=== PATIENT | female | born 1980 ===

== ENCOUNTER 2025-05-02 17:12 | Inpatient (IN) | payer MEDICAID, SELFPAY ==
--- NOTE | ~2025-05-02 | CT_ITS ---
CLINICAL HISTORY: altered MS, head injury CT Cervical Spine WO Contrast COMPARISON: None provided FINDINGS: No acute fracture or malalignment. Soft tissues are normal. IMPRESSION: No acute findings. This document has been electronically signed by: Bon Lynch MD on 05/03/2025 03:04:21
--- NOTE | ~2025-05-02 | CT_ITS ---
CLINICAL HISTORY: fall, head injury CT Head WO Contrast COMPARISON: None provided FINDINGS: No acute intracranial hemorrhage. No evidence of acute infarction. No mass-effect or midline shift. No hydrocephalus. Cyst or polyp in the right maxillary sinus. The mastoid air cells are clear. The visible orbits are normal. No acute fracture. Unremarkable soft tissues. IMPRESSION: No acute intracranial findings. This document has been electronically signed by: Bon Lynch MD on 05/03/2025 03:05:48
--- NOTE | ~2025-05-02 | CT_ITS ---
CLINICAL HISTORY: Unexplained tachycardia, elevated D-dimer, CT Angiography Chest W Contrast 3D Postprocessing COMPARISON: None provided FINDINGS: Detail limited by artifacts. No pulmonary embolism. No thoracic aortic aneurysm or dissection. No consolidation. No mass. Mild atelectasis. No pleural effusion. No pneumothorax. No cardiomegaly. No pericardial effusion. No pathologically enlarged lymph nodes. No acute fracture. Diffusely hypodense liver consistent with hepatic steatosis. Small hiatal hernia. IMPRESSION: No acute findings. No pulmonary embolism. This document has been electronically signed by: Bon Lynch MD on 05/03/2025 03:07:13
--- NOTE | ~2025-05-02 | XR_ITS ---
EXAMINATION: XR ABDOMEN KUB CLINICAL INDICATION: pt confused, poor historian, r/o foreign body/ implant to contraindicate MR COMPARISON: None available. TECHNIQUE: AP view of the abdomen. FINDINGS: No radiopaque foreign bodies are evident. The bowel gas pattern is normal/nonspecific. There is no focally dilated loop of bowel. There is moderate fecal material seen throughout the colon consistent with mild constipation. No organomegaly. No large abdominal mass. Imaged lung bases are clear. No focal suspicious osseous abnormality. XR/XR abdomen 1V IMPRESSION: 1. No radiopaque foreign bodies are evident. No contraindication to MRI based on these radiographs. 2. Mild constipation. Electronically signed by: Ant Pantoja MD 05/19/2025 03:44 PM EDT
[2025-05-02 17:27] VITALS: BP 123/64; PULSE 115; RESP 16; TEMP 36.7; O2SAT 100; BMI 27.0
--- NOTE | 2025-05-02 17:29 | ED_ITS ---
HPI - General Adult General Chief complaint: Fall Stated complaint: chest pain from [facility] Time Seen by Provider: 05/02/25 17:29 History of Present Illness ED Provider: Be KEMP narrative: The patient is a 44-year-old Bulgarian speaking female. She is from [place] and emig[place] in [place]. Apparently she had an episode of psychiatric hospitalization when she 1st moved to the [facility] in 2017. Her home medications has been haloperidol, diazepam, and benztropine. She was apparently brought to the [facility] Emergency room 2 days ago because she has been having hallucinations and sleeping poorly for a week. She was evaluated at the emergency room at [facility] and was felt to be in the throes of an acute psychosis possibly precipitated by insomnia. She had unremarkable vital signs. She has a head CT that was negative. Her labs showed a normal white count of 8.2. Hemoglobin 13.0, platelet count 225, she had 35% neutrophils and 48.8% lymphocytes. Her metabolic panel was unremarkable. LFT showed a minimally elevated AST of 33. TSH was 2.01. test was negative. Ethanol was negative. The patient was judged to require psychiatric hospitalization because of a thought disorder and she was transferred to the [facility] on that same day, April 30, 2 days ago. Apparently the patient was frequently agitated after arriving at [facility] 2 days ago. She received a lot of as needed doses of sedation for agitation. Yesterday her heart rate was 119. According to a nurse at the facility the patient has remained tachycardic today. They say that her heart rate was as high as 138 today. They also say that at 1 point she complained of chest pain. They also state that at 1 point she had a fall and hit her head. The staff member with whom I spoke said that the patient seemed to be in the habit of occasionally squatting down while walking and that on 1 of these occasions she squatted down and then slumped to the floor and hit her head. Possibly she had some brief loss of consciousness. There is no report of fever. Related Data Allergies Allergy/AdvReac Type Severity Reaction Status Date / Time No Known Allergies Allergy Verified 05/02/25 17:30 REPLACED BY [facility] Social History Social History Unable to assess alcohol history related to: Unable to respond Smoked in Last 30 Days: No Use of substances other than those prescribed or required for medical reasons: Unable to respond Advance Directives: No Advance Directives Information Provided: No Physical Exam ED Vital Signs: Vital Signs - 24 hr 05/02/25 17:27 05/02/25 17:42 05/02/25 17:49 Temperature 98.1 F Pulse Rate 115 H 110 H 107 H Respiratory Rate 16 16 16 Blood Pressure 123/64 119/74 115/78 Pulse Oximetry 100 100 98 Oxygen Delivery Method Room Air Room Air 05/02/25 21:07 05/03/25 00:39 05/03/25 01:27 Temperature 99 F 99 F Pulse Rate 126 H 121 H 106 H Respiratory Rate 18 14 Blood Pressure 129/81 122/60 Pulse Oximetry 98 98 98 Oxygen Delivery Method Room Air Room Air Room Air 05/03/25 01:30 05/03/25 03:49 Temperature 99.3 F 99.7 F Pulse Rate 137 H Respiratory Rate 19 Blood Pressure 145/85 H Pulse Oximetry 95 Oxygen Delivery Method Room Air BMI result Body Mass Index 27.0 Const Other: The patient is a 44-year-old woman who was awake. She is some mildly speaking and was interviewed with a computer facilitated tele translator interpreter. The patient does not seem in acute distress but she did seem to give some unusual answers to questions. She was calm and redirectable. She did not seem in pain or respiratory difficulty. HENMT Other: Face is symmetrical. I thought her mucous membranes looked somewhat dry. Eyes Other: Pupils were small and equal, conjunctivae are clear, extraocular movements seemed intact Neck Other: No neck swelling. She seemed to be moving her neck easily although she would not try to touch her chin to her chest. I felt this was because she seemed to have trouble understanding what was being asked to her Neuro Other: The patient is awake. I attempted to interview her with a some mildly foreign languages department chair using a tele translator interpreter. It was not clear if the patient was appropriately answering all questions. I believe the translator interpreter was able to understand the patient's answers but sometimes her answers were not appropriate to the questions. I think her speech was clear. Her pupils are small and equal, extraocular movements seem intact, the face is symmetrical. She seems to have symmetrical tone in all extremities. No clonus. Overall she seems to have an altered mental status probably consistent with a psychotic state but no focal findings. Extrem Other: No peripheral edema Medications Administered Discontinued Medications Generic Name Dose Route Start Last Admin Trade Name Zackery PRN Reason Stop Dose Admin Diazepam 5 mg 05/02/25 17:30 05/02/25 17:40 Diazepam 10 Mg/2 Ml Cartridge IVPUSH 05/02/25 17:31 5 mg STAT STA Administration Diazepam 5 mg 05/02/25 19:10 05/02/25 19:17 Diazepam 10 Mg/2 Ml Cartridge IVPUSH 05/02/25 19:11 5 mg STAT STA Administration Diazepam 10 mg 05/02/25 19:41 05/02/25 20:06 Diazepam 10 Mg/2 Ml Cartridge IVPUSH 05/02/25 19:42 10 mg STAT STA Administration Diazepam 10 mg 05/02/25 20:58 05/02/25 21:21 Diazepam 10 Mg/2 Ml Cartridge IVPUSH 05/02/25 20:59 10 mg STAT STA Administration Haloperidol Lactate 10 mg 05/02/25 21:31 05/02/25 21:38 Haloperidol Lactate 5 Mg/Ml Vial IVPUSH 05/02/25 21:32 10 mg STAT STA Administration Sodium Chloride 1,000 mls @ 999 mls/hr 05/02/25 17:45 05/02/25 19:15 Ns IV 05/02/25 18:45 Infused .Q1H1M JAI Infusion Lactated Ringer's 1,000 mls @ 999 mls/hr 05/02/25 18:45 05/02/25 23:00 Lr IV 05/02/25 19:45 Infused .Q1H1M JAI Infusion Acetaminophen 1,000 mg in 100 mls @ 400 mls/hr 05/02/25 23:53 05/03/25 01:15 Ofirmev IV 05/03/25 00:07 Infused ONCE ONE Infusion Lactated Ringer's 1,000 mls @ 999 mls/hr 05/02/25 23:55 05/03/25 02:00 Lr IV 05/03/25 00:55 Infused .Q1H1M ONE Infusion Iohexol 65 ml 05/03/25 01:02 05/03/25 01:05 Iohexol 350 Mg/Ml 100 Ml Infus..Btl IV 05/03/25 01:03 65 ml ONCE ONE Administration Ketamine HCl 73.7 mg 05/03/25 00:10 05/03/25 00:48 Ketamine Hcl/Ns 50 Mg/5 Ml Syringe 1 mg/kg (73.7 mg) 05/03/25 00:11 73.7 mg IVPUSH Administration ONCE ONE Ketamine HCl 73.7 mg 05/03/25 03:35 05/03/25 03:41 Ketamine Hcl/Ns 50 Mg/5 Ml Syringe 1 mg/kg (73.7 mg) 05/03/25 03:36 73.7 mg IVPUSH Administration ONCE ONE Midazolam HCl 6 mg 05/02/25 20:43 05/02/25 20:48 Midazolam Hcl 2 Mg/2 Ml Vial IVPUSH 05/02/25 20:44 6 mg ONCE ONE Administration Midazolam HCl 5 mg 05/03/25 03:38 05/03/25 03:41 Midazolam Hcl 5 Mg/Ml Vial IVPUSH 05/03/25 03:39 5 mg ONCE ONE Administration Olanzapine 10 mg 05/02/25 19:41 05/02/25 20:09 Olanzapine 10 Mg Vial IM 05/02/25 19:42 10 mg ONCE ONE Administration Olanzapine 10 mg 05/02/25 20:58 05/02/25 20:58 Olanzapine 10 Mg Vial IM 05/02/25 20:59 Not Given ONCE ONE Procedures Lumbar Puncture Time Out Performed: Yes (03:53) Patient Position: right lateral decubitus Skin Prep: Povidone-Iodine 1% Local Anesthetic: lidocaine 1% Amount of anesthesia used (mL): 2.5 Spinal Needle Gauge: 20G Interspace Used: L4-L5 Fluid Initially Obtained: clear Complications: none Medical Decision Making Medical Decision Making MDM Narrative: The patient is a 44-year-old woman who speaks so mildly. She did not seem to speak Welsh. She has a history of mental illness and is on Haldol, diazepam, and benztropine at home. She was sent here from [facility] after a possible head injury. She has been there for 2 days after being seen in the emergency room at [facility] where she had a negative head CT among other testing which was unremarkable. Apparently since being at [facility] she has been without sleep and persistently agitated. Apparently she was squatting at some point this evening and fell and hit her head. Reportedly she had brief loss of consciousness. She has also been tachycardic over the last 24 hours. She has not been febrile. Here the patient's presentation seems consistent with a psychotic state associated with tachycardia. Her workup includes a white count of 10.0, hemoglobin 11.2, platelet count 202, 74.8% neutrophils. Chemistries show normal renal function, unremarkable electrolytes, negative test, normal TSH. Blood gas was unremarkable with a pH of 7.38 and a pCO2 of 36. CPK was elevated at 2333. My assumption was that this might be from intramuscular injections at [facility]. She apparently received several IM injections for her agitation. Apparently she has not had anything to eat or drink since being at [facility]. She was given an IV and was given IV fluids. She was agitated and I attempted to sedate her primarily with benzodiazepines. She was initially given 5 mg of IV diazepam and seemed to fall asleep. However this lasted only very briefly and then she became persistently agitated despite additional IV diazepam. She was also given IM olanzapine. She was later given a dose of IV midazolam as well. For the most part these medications seemed to have very little sedative affect. Ultimately she was also given 10 mg of IV haloperidol. She remained awake and restless. She was placed in soft restraints on her wrists. A bladder scan showed a bladder volume of 700. We could not convince her to avoid spontaneously so she was given a Sevilla catheter in hopes that perhaps her tachycardia and agitation would subside with bladder decompression. However despite bladder decompression the patient's agitation persisted. Given her persistent tachycardia a D-dimer was sent. This is elevated. Given the report of a head injury we will obtain a noncontrast head CT and cervical spine CT (unable to clinically evaluate the cervical spine reliably) and we will also get a CT pulmonary angiogram because of the elevated D-dimer and persistent tachycardia. The Sevilla catheter that was placed was a temperature sensing catheter. She was not febrile. She does not have clonus on exam. She has been given IV fluids. I will be signing the patient out to my colleague at change of shift pending the results of the CT scans. The patient may require additional sedation. 0:11 AM 05/03/2025 (Dr. Ariadne Brito, D.O.) Assumed care from previous provider after a detailed discussion regarding patient's case.? [id number] evaluation has taken place with no new change in management.? Patient is awaiting CT imaging, repeat lab work and final disposition. I did add on a dose of IV Tylenol to see if this would help her tachycardia since her temperature is around 99.3?. Though technically not a true fever, concern would be she is starting to spike a temperature and the tachycardia is related to a fever. Patient remains altered, slightly combative, requiring further sedation. We will attempt ketamine since she has not responded very well to benzodiazepines or antipsychotic so far. Concern for potential serotonin syndrome given the amount of antipsychotics and medications she has received in the last 48 hours between [facility] and [facility] however, patient has no clonus, pupils are 3 mm and reactive and she has no significant muscle rigidity. She does have a slight resting tremor in her temperature is mildly elevated. 3:50 AM 05/03/2025 (Dr. Ariadne Brito, D.O.) patient with persistent delirium, agitation. She is unable to lay still for any procedure. She did receive ketamine which seemed to work for a couple of hours, she was able to sleep and we did obtain the CT head, neck and chest. No evidence of acute process on any of those images. Temperature remains elevated at 99.7. This is after receiving IV Tylenol. At this point, I have to worry that she has an encephalopathic process including infection going on. We will perform an LP to evaluate further. Plan for admission to the ICU for further care and evaluation of agitated delirium. 4:51 AM 05/03/2025 (Dr. Ariadne Brito, D.O.) patient admitted to the ICU. Case discussed with Dr. Garcia. Differential Diagnosis Differential Diagnoses: The differential diagnosis associated with the presentation includes (As above) Admission/Observation Consideration of admission/observation: Escalation of care including admission/observation considered Consult Healthcare Provider Management of the patient was discussed with: Filling Winder (Religious Leader, Dr. Garcia) Lab Data MDM Lab Attestation statement: I reviewed the patient's lab results. 05/02/25 17:59 05/02/25 17:59 Labs: Lab Results 05/02/25 05/02/25 05/02/25 Range/Units 17:59 18:04 22:45 WBC 10.0 (4.8-10.8) X10*3/uL RBC 3.75 L (4.20-5.50) X10*6/uL Hgb 11.2 L (12.0-16.0) g/dl Hct 32.5 L (37.0-47.0) % MCV 86.7 (80.0-98.0) fL MCH 29.9 (27.0-33.0) pg MCHC 34.5 (31.0-35.0) g/dl RDW 13.7 (11.0-16.0) % Plt Count 202 (160-400) X10*3/uL MPV 10.4 (9.4-12.3) fL Immature Gran % (Auto) 0.3 (0.0-0.4) % Neut % (Auto) 74.8 H (45-73) % Lymph % (Auto) 15.1 L (20-40) % Bleckley % (Auto) 9.3 (2-11) % Eos % (Auto) 0.1 (0-4) % Baso % (Auto) 0.4 (0-2) % Lymph # (Auto) 1.5 (1.2-4.9) X10*3/uL Bleckley # (Auto) 0.9 (0.1-1.2) X10*3/uL Eos # (Auto) 0.0 (0.0-0.4) X10*3/uL Baso # (Auto) 0.0 (0.0-0.2) X10*3/uL Abs Immat Gran (auto) 0.03 (0.00-0.03) X10*3/uL Absolute Neuts (auto) 7.5 (2.0-8.3) x10*3/uL Absolute Nucleated RBC 0.000 (0.0-0.012) X10*3/uL Nucleated RBC % (auto) 0.0 (0.0-0.2) /100WBC D-Dimer High Sensitivty NG/ML VBG pH 7.38 (7.32-7.43) VBG pCO2 36 mmHg VBG pO2 42 mmHg VBG HCO3 21 L (22-26) mmol/L VBG O2 Saturation 64.0 % VBG Base Excess -2.6 mmol/L Sodium 143 (135-145) mmol/L Potassium 3.9 (3.3-5.1) mmol/L Chloride 111 H (96-108) mmol/L Carbon Dioxide 22 (22-29) mmol/L Anion Gap 14 (12-20) BUN 14 (9-16) mg/dL Creatinine 0.91 (0.5-1.4) mg/dL Estim Creat Clear Calc 79.3 Estimated GFR > 60 Random Glucose 86 (60-115) mg/dL Calcium 8.6 (8.4-10.2) mg/dL Magnesium 1.8 (1.6-2.6) mg/dL Total Bilirubin 1.0 (0.0-1.0) mg/dL Direct Bilirubin 0.4 (0.0-0.5) mg/dL AST 75 H (5-31) U/L ALT 31 (0-31) U/L Alkaline Phosphatase 84 (39-117) U/L Total Creatine Kinase 2333 H (26-140) U/L Total Protein 7.1 (6.5-8.0) g/dL Albumin 3.9 (3.5-5.0) g/dL Lipase 9 (8-78) U/L TSH (0.32-4.0) uIU/mL Beta HCG, Quant < 2 mIU/mL Urine Color Yellow Urine Appearance Clear Urine pH 5.5 (5.0-9.0) Ur Specific Dumas 1.020 (1.005-1.025) Urine Protein Negative (Neg-Trace) mg/dL Urine Glucose (UA) Negative (Negative) mg/dL Urine Ketones 15 (Negative) mg/dL Urine Blood Negative (Negative) Urine Nitrite Negative (Negative) Ur Leukocyte Esterase Negative (Negative) CSF Tube Number CSF Appearance (b) CSF Glucose mg/dL CSF Total Protein (15-45) mg/dL Urine Opiates Screen Not Detected (Not Detect) Ur Buprenorphine Scrn Not Detected (Not Detect) ng/mL Ur Oxycodone Screen Not Detected (Not Detect) ng/mL Urine Methadone Screen Not Detected (Not Detect) ng/mL Urine Fentanyl Screen Not Detected (Not Detect) Ur Barbiturates Screen Not Detected (Not Detect) Ur Phencyclidine Scrn Not Detected (Not Detect) Ur Amphetamines Screen Not Detected (Not Detect) U Benzodiazepines Scrn POSITIVE H (Not Detect) Urine Cocaine Screen Not Detected (Not Detect) U Marijuana (THC) Screen Not Detected (Not Detect) Ethyl Alcohol < 10 mg/dL Influenza Type A (PCR) NEGATIVE (Negative) Influenza Type B (PCR) NEGATIVE (Negative) RSV RNA Qual (PCR) NEGATIVE (Negative) SARS-CoV-2 RNA (RT-PCR) NEGATIVE (Negative) 05/02/25 05/03/25 Range/Units 23:01 04:08 WBC (4.8-10.8) X10*3/uL RBC (4.20-5.50) X10*6/uL Hgb (12.0-16.0) g/dl Hct (37.0-47.0) % MCV (80.0-98.0) fL MCH (27.0-33.0) pg MCHC (31.0-35.0) g/dl RDW (11.0-16.0) % Plt Count (160-400) X10*3/uL MPV (9.4-12.3) fL Immature Gran % (Auto) (0.0-0.4) % Neut % (Auto) (45-73) % Lymph % (Auto) (20-40) % Bleckley % (Auto) (2-11) % Eos % (Auto) (0-4) % Baso % (Auto) (0-2) % Lymph # (Auto) (1.2-4.9) X10*3/uL Bleckley # (Auto) (0.1-1.2) X10*3/uL Eos # (Auto) (0.0-0.4) X10*3/uL Baso # (Auto) (0.0-0.2) X10*3/uL Abs Immat Gran (auto) (0.00-0.03) X10*3/uL Absolute Neuts (auto) (2.0-8.3) x10*3/uL Absolute Nucleated RBC (0.0-0.012) X10*3/uL Nucleated RBC % (auto) (0.0-0.2) /100WBC D-Dimer High Sensitivty 519 NG/ML VBG pH (7.32-7.43) VBG pCO2 mmHg VBG pO2 mmHg VBG HCO3 (22-26) mmol/L VBG O2 Saturation % VBG Base Excess mmol/L Sodium (135-145) mmol/L Potassium (3.3-5.1) mmol/L Chloride (96-108) mmol/L Carbon Dioxide (22-29) mmol/L Anion Gap (12-20) BUN (9-16) mg/dL Creatinine (0.5-1.4) mg/dL Estim Creat Clear Calc Estimated GFR Random Glucose (60-115) mg/dL Calcium (8.4-10.2) mg/dL Magnesium (1.6-2.6) mg/dL Total Bilirubin (0.0-1.0) mg/dL Direct Bilirubin (0.0-0.5) mg/dL AST (5-31) U/L ALT (0-31) U/L Alkaline Phosphatase (39-117) U/L Total Creatine Kinase 2891 H (26-140) U/L Total Protein (6.5-8.0) g/dL Albumin (3.5-5.0) g/dL Lipase (8-78) U/L TSH 0.62 (0.32-4.0) uIU/mL Beta HCG, Quant mIU/mL Urine Color Urine Appearance Urine pH (5.0-9.0) Ur Specific Dumas (1.005-1.025) Urine Protein (Neg-Trace) mg/dL Urine Glucose (UA) (Negative) mg/dL Urine Ketones (Negative) mg/dL Urine Blood (Negative) Urine Nitrite (Negative) Ur Leukocyte Esterase (Negative) CSF Tube Number 1 CSF Appearance (b) Clear, Colorless CSF Glucose 58 mg/dL CSF Total Protein 23.0 (15-45) mg/dL Urine Opiates Screen (Not Detect) Ur Buprenorphine Scrn (Not Detect) ng/mL Ur Oxycodone Screen (Not Detect) ng/mL Urine Methadone Screen (Not Detect) ng/mL Urine Fentanyl Screen (Not Detect) Ur Barbiturates Screen (Not Detect) Ur Phencyclidine Scrn (Not Detect) Ur Amphetamines Screen (Not Detect) U Benzodiazepines Scrn (Not Detect) Urine Cocaine Screen (Not Detect) U Marijuana (THC) Screen (Not Detect) Ethyl Alcohol mg/dL Influenza Type A (PCR) (Negative) Influenza Type B (PCR) (Negative) RSV RNA Qual (PCR) (Negative) SARS-CoV-2 RNA (RT-PCR) (Negative) Critical Care Time Critical Care Time Critical Care Time: Yes Total Critical Care Time: 65 Attestation: CRITICAL CARE TIME: 65 minutes of critical care time was spent in direct patient care at the bedside or in the immediate area with this patient. Critical care was necessary to treat or prevent imminent or life-threatening deterioration of the following conditions delirium, agitation, tachycardia due to potential toxic encephalopathy versus serotonin syndrome. This patient is high risk for decompensation and/or . This time was spent assessing and managing the patient, interpreting labs and imaging, coordinating care with other medical providers, gathering history from either the patient, their representatives, EMS or chart review, and discussing management with ICU team. Discharge Plan Discharge Clinical Impression: Agitation, Tachycardia, Fall, Head injury, Urinary retention, Schizoaffective disorder, Encephalopathy acute Patient Disposition: Admitted As Inpatient Print Language: Welsh
--- NOTE | 2025-05-02 17:30 | ECG_ITS ---
Test Reason : ams Blood Pressure : */* mmHG Vent. Rate : 106 BPM Atrial Rate : 106 BPM P-R Int : 124 ms QRS Dur : 60 ms QT Int : 374 ms P-R-T Axes : 67 31 11 degrees QTcB Int : 496 ms Sinus tachycardia Otherwise normal ECG No previous ECGs available Referred By: Bonifacio Lr Electronically Signed By: LEANDRA CHAPARRO
[2025-05-02] MEDS: diazePAM 10 MG/2 ML CARTRIDGE 5 MG IVPUSH ×2 (17:40→19:17)
[2025-05-02 17:42] VITALS: BP 119/74; PULSE 110; RESP 16; O2SAT 100
[2025-05-02 17:49] VITALS: BP 115/78; PULSE 107; RESP 16; O2SAT 98
[2025-05-02 18:04] LABS: MANUAL DIFF FLAG NO
[2025-05-02 18:07] LABS: Hematocrit 32.5 % (37.0-47.0); Hemoglobin 11.2 g/dl (12.0-16.0); Imm Gran Abs Auto 0.03 X10*3/uL (0.00-0.03); Imm Gran Pct Auto 0.3 % (0.0-0.4); Lymphocytes Absolute Auto 1.5 X10*3/uL (1.2-4.9); Mean Corpuscular HGB Conc 34.5 g/dl (31.0-35.0); Mean Corpuscular Hemoglobin 29.9 pg (27.0-33.0); Mean Corpuscular Volume 86.7 fL (80.0-98.0); NRBC Abs Auto 0.000 X10*3/uL (0.0-0.012); NRBC Pct Auto 0.0 /100WBC (0.0-0.2); Platelet Count 202 X10*3/uL (160-400); Red Blood Count 3.75 X10*6/uL (4.20-5.50); White Blood Count 10.0 X10*3/uL (4.8-10.8)
[2025-05-02 18:09] LABS: Venous Blood Gas Refer to POC result
[2025-05-02 18:09] LABS: VBG HCO3 21 mmol/L (22-26); VBG O2 % Saturation 64.0 %
--- NOTE | 2025-05-02 18:12 | PC.NURSE ---
Patient is a 44 yo somalian speaking female who initially was seen at [facility], sent by , for concerns of worsening PTSD with hallucinations, paranoia, insomnia and was sent to [facility] on 04/30 for evaluation and medication management. Patient presents. Patient presents from [facility] with vague complaints from the facility of a fall with possible LOC, increased confusion and tachycardia. Patient alert but altered via Somalian art professor. Impulsive and difficult to redirect, resistive to care. sl tachy with HR in the low 100's. Lungs clear bilat. Respirations even and non-labored. Abdomen soft, non-tender with positive bowel sounds. Positive pedal pulses with no edema. PMH: bipolar PTSD
[2025-05-02 18:23] LABS: Alanine Aminotransferase 31 U/L (0-31); Albumin Level 3.9 g/dL (3.5-5.0); Alkaline Phosphatase 84 U/L (39-117); Anion Gap 14 (12-20); Aspartate Amino Transferase 75 U/L (5-31); Blood Urea Nitrogen 14 mg/dL (9-16); Calcium 8.6 mg/dL (8.4-10.2); Carbon Dioxide 22 mmol/L (22-29); Chloride 111 mmol/L (96-108); Creatinine Clr Calc Pharmacy 79.3; Estimated Glomerular Filt Rate > 60; Lipase 9 U/L (8-78); Magnesium 1.8 mg/dL (1.6-2.6); Potassium 3.9 mmol/L (3.3-5.1); Sodium 143 mmol/L (135-145); Total Protein 7.1 g/dL (6.5-8.0)
[2025-05-02 18:43] LABS: Resp Syncy Virus RNA Qual PCR NEGATIVE (Negative); SARS COV2 PCR INHOUSE NEGATIVE (Negative)
[2025-05-02] MEDS: Lactated Ringers 1,000 ML 999 ML IV (19:20)
[2025-05-02] MEDS: diazePAM 10 MG/2 ML CARTRIDGE IVPUSH ×2 (20:06→21:21)
[2025-05-02] MEDS: OLANZapine 10 MG VIAL IM (20:09)
--- NOTE | 2025-05-02 20:26 | PC.NURSE ---
pt pullec at IV, no longer patent. only about 100 mL LR infused. MD Lr notified. remains restless not redirectable, not able to follow simple commands with Kittitian returned goods repairer, pinching staff when attempting to redirect, not able to answer any questions including name or with returned goods repairer.
[2025-05-02 21:07] VITALS: BP 129/81; PULSE 126; O2SAT 98
[2025-05-02 22:52] LABS: Appearance Urine Clear; Glucose Urine UA Negative (Negative); PH 5.5 (5.0-9.0); Specific Gravity - Urine 1.020 (1.005-1.025)
[2025-05-02 23:03] LABS: Cannabinoid Screen Urine Not Detected (Not Detect)
[2025-05-02 23:14] LABS: D Dimer High Sensitivity 519 NG/ML
[2025-05-02 23:39] LABS: Thyroid Stimulating Hormone 0.62 uIU/mL (0.32-4.0)
[2025-05-03] VITALS (30 sets, daily range): BP systolic 83–145; BP diastolic 48–85; PULSE 78–137; RESP 10–30; TEMP 35.9–37.6; O2SAT 90–99; BMI 27.5
[2025-05-03] MEDS: Lactated Ringers 1,000 ML 999 ML IV (00:20)
[2025-05-03] MEDS: Ketamine HCl/NS 50 MG/5 ML SYRINGE 73.7 MG IVPUSH ×2 (00:48→03:41)
[2025-05-03] MEDS: iohexoL 350 MG/ML 100 ML INFUS..BTL 65 ML IV (01:05)
--- NOTE | 2025-05-03 01:18 | PC.NURSE ---
assumed care of pt at 2315. pt is still in restraints to BUE, checked restraints, repositioned with patient to be able to sit higher in bed. pt is still restless in bed. 1:1 sitter at bedside. pt placed on cardiac monitoring and vitals obtained. pt was signed out to Dr. Brito by previous provider, t/w spoke with MD as pt is constantly pulling against the restraints and restless with elevated cpk levels. also ordered ct scans and pt will not be able to stay still for this. per Dr. Brito to get pt ready to go to ct scan and administer ketamine prior to transport. 0048 ketamine given and settled down, still mumbling but appears more calm. pt taken to ct scan at 0055 and restraints removed at this time. pt tolerated CT scan and only moved legs once. upon return pt laid on her right side and sleeping. awakens easily when attempt to connect cellular biologist, etc but quickly back to sleep. 1:1 sitter still at bedside.
--- NOTE | 2025-05-03 03:35 | ECG_ITS ---
Test Reason : ARRYTHIA Blood Pressure : */* mmHG Vent. Rate : 116 BPM Atrial Rate : 116 BPM P-R Int : 124 ms QRS Dur : 60 ms QT Int : 348 ms P-R-T Axes : 66 50 18 degrees QTcB Int : 483 ms Sinus tachycardia Otherwise normal ECG When compared with ECG of 02-May-2025 17:56, Nonspecific T wave abnormality now evident in Lateral leads Referred By: Ariadne Brito Electronically Signed By: LEANDRA CHAPARRO
--- NOTE | 2025-05-03 04:10 | PC.NURSE ---
pt woke up approx 330 trying to get oob. per MD to medicate and will attempt for LP. pt medicated per nov and tolerated LP, CSF sent to lab.
[2025-05-03] MEDS: dexmedeTOMIDine HCL/NS 400 MCG/100 ML PLAST..BAG 18.43 MCG IVCONT (04:56)
--- NOTE | 2025-05-03 04:59 | PM.CCHP ---
History of Present Illness Date of Service: 05/03/25 <KUNAL Ling - Last Filed: 05/03/25 06:00> Attending physician on admission: Brigido Garcia <KUNAL Ling - Last Filed: 05/03/25 06:00> Chief Complaint: Severe Agitation <KUNAL Ling - Last Filed: 05/03/25 06:00> History obtained from patient's records, reportedly patient had a psychiatric hospitalization back in 2017 [place] the [place] She is from [facility].? Two days ago she was brought to the emergency room at [facility] due to hallucinations and poor sleep habits for a week.? She had been diagnosed with acute psychosis possibly precipitated by insomnia.? Her workup was overall negative including head CT, laboratories including TSH and tests, alcohol levels.? She had been transferred to [facility] on the same day where she had receive several doses of sedatives for agitation.? For the past 24 hours the patient had been noted to be tachycardic heart rate between 120-140 the patient had complained of chest pain, she has sustained a mechanical fall and hit her head with possible brief loss of consciousness.? The patient is transferred to this ER for further evaluation. In the emergency room the patient being agitated and giving inappropriate answers despite of the help of an staff interpreter, the patient's workup reveal a white count 10.0, H and H of 11 and 32 respectively, platelets 202, normal venous blood gas, sodium 143, potassium 3.9, chloride 111, carbon dioxide 22, BUN 14, creatinine 0.9.? Lactic acid 1.1.? SGOT 75.? Total CK 2817, troponin 11.1.? Urinalysis negative.? Beta HCG less than 2.? Urine toxic screen positive for benzodiazepines otherwise negative.? Respiratory panel negative.? Ethyl alcohol less than 10.? Chest CTA negative for PE or intrapulmonary pathology, head CT no intracranial pathology, cervical spine CT no evidence of fracture.? The patient had a lumbar puncture and fluid which had normal appearance was sent for analysis.? The patient was treated empirically with IV fluids, Rocephin and acyclovir due to concerns of encephalitis related mental status changes. Due to her agitation, the patient received multiple doses of Versed, ketamine, Haldol, Zyprexa, Valium and despite of this the patient continued to be agitated therefore it was requested ICU evaluation.? In light of all the above and risk for decompensation the patient will be transferred to the ICU and we will place her on a Precedex drip. <KUNAL Ling - Last Filed: 05/03/25 06:00> Review of Systems Review of Systems: Yes Unobtainable due to mental status <KUNAL Ling - Last Filed: 05/03/25 06:00> [facility] Social History Social History: Social History Household Members: Unknown / Unable to assess Unable to assess alcohol history related to: Unable to respond Comment: 1:[address] Patient Tobacco Use Status: Tobacco use Unknown Smoked in Last 30 Days: No Use of substances other than those prescribed or required for medical reasons: Unable to respond Currently Displaying Signs/Symptoms of Drug Intoxication Withdrawal: No Advance Directives: No Advance Directives Information Provided: No Do you have a plan to hurt others: No Plan Patient : No <KUNAL Ling - Last Filed: 05/03/25 06:00> Meds Allergies/Adverse reactions: Allergies Allergy/AdvReac Type Severity Reaction Status Date / Time No Known Allergies Allergy Verified 05/02/25 17:30 <KUNAL Ling - Last Filed: 05/03/25 06:00> Active Medications: Current Medications Dexmedetomidine HCl (Precedex) 400 mcg in 100 mls @ 0 mls/hr IVCONT .Q0M JAI; Protocol Last Admin: 05/03/25 04:56 Dose: 1 mcg/kg/hr, 18.43 mls/hr <KUNAL Ling - Last Filed: 05/03/25 06:00> Home medications: Home Medications ?Medication ?Instructions ?Recorded ?Confirmed ?Last Taken ?Type benztropine 1 mg tablet 1 mg PO BID 05/03/25 05/03/25 Unknown History diazepam 5 mg tablet 5 mg PO DAILY 05/03/25 05/03/25 Unknown History diazepam 5 mg tablet 10 mg PO BEDTIME 05/03/25 05/03/25 Unknown History haloperidol 10 mg tablet 20 mg PO BEDTIME 05/03/25 05/03/25 Unknown History <KUNAL Ling - Last Filed: 05/03/25 06:00> Physical Exam Vital Signs: Vital Signs: Last Vital Signs Temp 99.7 F 05/03/25 03:49 Pulse 103 H 05/03/25 04:56 Resp 20 05/03/25 04:56 BP 145/85 H 05/03/25 03:49 Pulse Ox 95 05/03/25 03:49 O2 Del Method Room Air 05/03/25 03:49 BMI result Body Mass Index 27.0 <KUNAL Ling - Last Filed: 05/03/25 06:00> General:? Alert unable to determine orientation. No accessory muscle usage. Skin:? LP area covered with a bandaid. Thin, Intact, no lesions, edema, erythema, clubbing or cyanosis.? No ulcers. HEENT:? Head is normocephalic, atraumatic, pupils equal. Buccal mucosa is dry Neck is supple without lymphadenopathy. Cardiac:? Clear S1-S2, no murmurs rubs or gallops. Pulmonary:? Diminished lung sounds bilaterally fine expiratory wheezing bilaterally .? No crackles, rales or rhonchi. Abdomen:? Protuberant, positive bowel sounds in all 4 quadrants.? Soft, nontender, no rebound or guarding.? Musculoskeletal:? Moving all 4 extremities upon request a major joints, there is no crepitus or tenderness.? The strength is 5/5 bilaterally and throughout all 4 extremities.? There is no leg edema , no calf tenderness , no leg asymmetry.? Gait not assessed at this point. Neurologic:? As above.? No focal deficits noted. Vascular:? 2+ pulses upper and lower extremities distally.? Less than 2nd capillary refill of fingers and toes bilaterally upper and lower extremities <KUNAL Ling - Last Filed: 05/03/25 06:00> Results Labs CBC and Chem 7: 05/03/25 10:09 05/03/25 06:06 <KUNAL Ling - Last Filed: 05/03/25 06:00> Labs: Laboratory Results - last 24 hr 05/02/25 05/02/25 05/02/25 17:59 18:04 22:45 MCV 86.7 MCH 29.9 MCHC 34.5 RDW 13.7 Plt Count 202 MPV 10.4 Immature Gran % (Auto) 0.3 Neut % (Auto) 74.8 H Lymph % (Auto) 15.1 L [place] % (Auto) 9.3 Eos % (Auto) 0.1 Baso % (Auto) 0.4 Lymph # (Auto) 1.5 [place] # (Auto) 0.9 Eos # (Auto) 0.0 Baso # (Auto) 0.0 Abs Immat Gran (auto) 0.03 Absolute Neuts (auto) 7.5 Absolute Nucleated RBC 0.000 Nucleated RBC % (auto) 0.0 D-Dimer High Sensitivty VBG pH 7.38 VBG pCO2 36 VBG pO2 42 VBG HCO3 21 L VBG O2 Saturation 64.0 VBG Base Excess -2.6 Anion Gap 14 Estim Creat Clear Calc 79.3 Estimated GFR > 60 Random Glucose 86 Calcium 8.6 Magnesium 1.8 Total Bilirubin 1.0 Direct Bilirubin 0.4 AST 75 H ALT 31 Alkaline Phosphatase 84 Total Creatine Kinase 2333 H Total Protein 7.1 Albumin 3.9 Lipase 9 TSH Beta HCG, Quant < 2 Urine Color Yellow Urine Appearance Clear Urine pH 5.5 Ur Specific [place] 1.020 Urine Protein Negative Urine Glucose (UA) Negative Urine Ketones 15 Urine Blood Negative Urine Nitrite Negative Ur Leukocyte Esterase Negative CSF Tube Number CSF Appearance (b) CSF Glucose CSF Total Protein Urine Opiates Screen Not Detected Ur Buprenorphine Scrn Not Detected Ur Oxycodone Screen Not Detected Urine Methadone Screen Not Detected Urine Fentanyl Screen Not Detected Ur Barbiturates Screen Not Detected Ur Phencyclidine Scrn Not Detected Ur Amphetamines Screen Not Detected U Benzodiazepines Scrn POSITIVE H Urine Cocaine Screen Not Detected U Marijuana (THC) Screen Not Detected Ethyl Alcohol < 10 Influenza Type A (PCR) NEGATIVE Influenza Type B (PCR) NEGATIVE RSV RNA Qual (PCR) NEGATIVE SARS-CoV-2 RNA (RT-PCR) NEGATIVE 05/02/25 05/03/25 23:01 04:08 MCV MCH MCHC RDW Plt Count MPV Immature Gran % (Auto) Neut % (Auto) Lymph % (Auto) [place] % (Auto) Eos % (Auto) Baso % (Auto) Lymph # (Auto) [place] # (Auto) Eos # (Auto) Baso # (Auto) Abs Immat Gran (auto) Absolute Neuts (auto) Absolute Nucleated RBC Nucleated RBC % (auto) D-Dimer High Sensitivty 519 VBG pH VBG pCO2 VBG pO2 VBG HCO3 VBG O2 Saturation VBG Base Excess Anion Gap Estim Creat Clear Calc Estimated GFR Random Glucose Calcium Magnesium Total Bilirubin Direct Bilirubin AST ALT Alkaline Phosphatase Total Creatine Kinase 2891 H Total Protein Albumin Lipase TSH 0.62 Beta HCG, Quant Urine Color Urine Appearance Urine pH Ur Specific [place] Urine Protein Urine Glucose (UA) Urine Ketones Urine Blood Urine Nitrite Ur Leukocyte Esterase CSF Tube Number 1 CSF Appearance (b) Clear, Colorless CSF Glucose 58 CSF Total Protein 23.0 Urine Opiates Screen Ur Buprenorphine Scrn Ur Oxycodone Screen Urine Methadone Screen Urine Fentanyl Screen Ur Barbiturates Screen Ur Phencyclidine Scrn Ur Amphetamines Screen U Benzodiazepines Scrn Urine Cocaine Screen U Marijuana (THC) Screen Ethyl Alcohol Influenza Type A (PCR) Influenza Type B (PCR) RSV RNA Qual (PCR) SARS-CoV-2 RNA (RT-PCR) <KUNAL Ling - Last Filed: 05/03/25 06:00> Assessment and Plan (1) Agitation: Status: Acute <KUNAL Ling - Last Filed: 05/03/25 06:00> (2) Schizoaffective disorder: Status: Acute <KUNAL Ling - Last Filed: 05/03/25 06:00> ASSESSMENT : 1. Acute severe agitation 2. Acute metabolic encephalopathy (in the setting of recent schizoaffective disorder, rule out infectious process, multidrug administration) 3. Acute rhabdomyolysis 4. Reactive tachycardia 5. Normocytic anemia rule out B12, folate deficiency and micro bleeding PLAN OF CARE: Admit to ICU, vital signs per protocol, I's and O's, Precedex drip, gentle IV fluids, neuro checks.? Repeat laboratories this morning, include B12, folate, total CK, CRP levels.? Continue with the empiric antibiotics and antiviral for questionable encephalitis although less likely (CSF analysis pending).? Will add tick-borne testing panel to the CSF. GI PROPHYLAXIS: HOB 30 degree, IV PPI DVT PROPHYLAXIS:?Lovenox sub q This patient counter and care had a high probability of a clinically significant, sudden, or life threatening deterioration of this patient's condition which required my full and direct attention, intervention and personal management. Critical care time used for critical evaluation of this patient, diagnosis, treatment and coordination of care, review her records and documentation TOTAL CRITICAL CARE TIME? 75? MIN . discussion and coordination with consultants, completely separate from any procedures performed. Patient's care was discussed in detail with Dr. Garcia who is aware of all the above as well as the plan of care for this patient <KUNAL Ling - Last Filed: 05/03/25 06:00> ASSESSMENT : 1. Acute severe agitation 2. Acute metabolic encephalopathy (in the setting of recent schizoaffective disorder, rule out infectious process, multidrug administration) 3. Acute rhabdomyolysis 4. Reactive tachycardia 5. Normocytic anemia rule out B12, folate deficiency and micro bleeding PLAN OF CARE: Admit to ICU, vital signs per protocol, I's and O's, Precedex drip, gentle IV fluids, neuro checks.? Repeat laboratories this morning, include B12, folate, total CK, CRP levels.? Continue with the empiric antibiotics and antiviral for questionable encephalitis although less likely (CSF analysis pending).? Will add tick-borne testing panel to the CSF. Will start the patient on Preceedx drip for anxiolysis while closely monitoring the mental status. Will do a psychiatry consult for futher treatment plan. GI PROPHYLAXIS: HOB 30 degree, IV PPI DVT PROPHYLAXIS:?Lovenox sub q This patient counter and care had a high probability of a clinically significant, sudden, or life threatening deterioration of this patient's condition which required my full and direct attention, intervention and personal management.. Patient's care was discussed in detail with Dr. Garcia who is aware of all the above as well as the plan of care for this patient <Brigido Garcia MD - Last Filed: 05/03/25 14:35> Total time managing care of this patient today: 75 minutes. <KUNAL Ling - Last Filed: 05/03/25 06:00>
[2025-05-03] MEDS: ACYCLOVIR SODIUM IV (05:00)
[2025-05-03] MEDS: SODIUM CHLORIDE 0.9% IV (05:00)
--- NOTE | 2025-05-03 05:07 | PC.NURSE ---
report given to Balbir SOTELO in ICU will transport pt at this time with 1:1 sitter.
[2025-05-03 05:09] LABS: Troponin-I High Sensitivity 11.1 ng/L (<3.5-17.0)
[2025-05-03 05:25] LABS: Red Blood Cell CSF 1 MM*3; White Blood Cell CSF 3 MM*3
[2025-05-03 05:26] LABS: Lymphocytes CSF 76 %; Neutrophils CSF 3 %
--- NOTE | 2025-05-03 05:28 | PC.NURSE ---
pt transported to icu without issue, reyna aware of admission.
[2025-05-03 06:15] LABS: Hematocrit 28.5 % (37.0-47.0); Hemoglobin 10.0 g/dl (12.0-16.0); Imm Gran Abs Auto 0.03 X10*3/uL (0.00-0.03); Imm Gran Pct Auto 0.4 % (0.0-0.4); Lymphocytes Absolute Auto 1.6 X10*3/uL (1.2-4.9); MANUAL DIFF FLAG NO; Mean Corpuscular HGB Conc 35.1 g/dl (31.0-35.0); Mean Corpuscular Hemoglobin 30.9 pg (27.0-33.0); Mean Corpuscular Volume 88.0 fL (80.0-98.0); NRBC Abs Auto 0.000 X10*3/uL (0.0-0.012); NRBC Pct Auto 0.0 /100WBC (0.0-0.2); Platelet Count 166 X10*3/uL (160-400); Red Blood Count 3.24 X10*6/uL (4.20-5.50); White Blood Count 7.3 X10*3/uL (4.8-10.8)
[2025-05-03 06:24] LABS: Ammonia 31 umol/L (13-55)
[2025-05-03 06:30] LABS: VBG HCO3 23 mmol/L (22-26); VBG O2 % Saturation 83.0 %
[2025-05-03] MEDS: Lactated Ringers 1,000 ML 100 ML IVCONT (06:31)
[2025-05-03 06:32] LABS: Alanine Aminotransferase 27 U/L (0-31); Albumin Level 3.0 g/dL (3.5-5.0); Alkaline Phosphatase 69 U/L (39-117); Anion Gap 12 (12-20); Aspartate Amino Transferase 74 U/L (5-31); Blood Urea Nitrogen 10 mg/dL (9-16); Calcium 7.8 mg/dL (8.4-10.2); Carbon Dioxide 20 mmol/L (22-29); Chloride 114 mmol/L (96-108); Creatinine Clr Calc Pharmacy 108.5; Estimated Glomerular Filt Rate > 60; Potassium 3.2 mmol/L (3.3-5.1); Sodium 143 mmol/L (135-145); Total Protein 6.0 g/dL (6.5-8.0)
[2025-05-03 06:38] LABS: Troponin-I High Sensitivity 9.9 ng/L (<3.5-17.0)
--- NOTE | 2025-05-03 07:09 | PC.NURSE ---
Patient arrived to ICU from ED at approximately 0600- Patient spontaneously opening eyes, occasionally tracking speaker, restless/ agitated/ pulling at lines, MCDUFFIE. Pupils 2mm equal/sluggish. Precedex gtt infusing per NOV. NSR on tele, HR 90s. SBP 90s. Lungs diminished throughout, SpO2 >90% on room air. Abd round and soft, positive bowel sounds. Indwelling catheter in place, draining clear yellow urine. Skin overall intact. LP site to low back with bandaid in place- CDI. Once patient was settled in bed, RASS -3 on Precedex gtt. HR 70s, SBP 80s. KUNAL Stark notified and to bedside. Precedex titrated per PA and LR started per NOV. 1:[address]. Bed locked and in lowest position. Bed alarm on. Report given to oncoming RN.
[2025-05-03 07:27] LABS: Folate 6.0 ng/mL (> or = 4.0); Vitamin B12 823 pg/mL (200-900)
--- NOTE | 2025-05-03 07:39 | PHA.MEDREC ---
Pharmacy Consult ? Medication Reconciliation Pharmacy has completed the medication reconciliation. Pt on precedex drip in ICU, fortunately pharmacy claims were consistent and picked up within 1 month. Utilized claims to complete.
[2025-05-03 09:19] LABS: Venous Blood Gas Refer to POC result
[2025-05-03 10:15] LABS: Hematocrit 31.9 % (37.0-47.0); Hemoglobin 10.8 g/dl (12.0-16.0)
[2025-05-03] MEDS: dexmedeTOMIDine HCL/NS 400 MCG/100 ML PLAST..BAG 18.75 MCG IVCONT (11:37)
[2025-05-03 12:03] LABS: Glucose, Whole Blood 66 mg/dL (60-115)
[2025-05-03] MEDS: Dextrose 5 % and Lactated Ring 1,000 ML 50 ML IVCONT (12:05)
--- NOTE | 2025-05-03 12:18 | PM.CCN ---
Critical Care Event Note Summary Date of Service: 05/03/25 Code activated: No Narrative: No clinical evidence of sepsis. Hypotension is secondary to high-dose sedatives requirements. Critical Care Time (minutes): 0
[2025-05-03 12:25] LABS: Glucose, Whole Blood 230 mg/dL (60-115)
[2025-05-03 12:40] LABS: Glucose, Whole Blood 178 mg/dL (60-115)
[2025-05-03 13:02] LABS: Glucose, Whole Blood 161 mg/dL (60-115)
--- NOTE | 2025-05-03 13:11 | MHC.CM.PN ---
Pt admitted to ICU w/agitation requiring precedex gtt: Pt somnolent and not able to participate in CM assessment at this time. Per EMR and ICU care team, pt came from [facility], unknown PCP or living status. Pt is non Vietnamese speaking from [facility] and uses the video chef teacher for communication. Pt has no contacts listed. CM to attempt assessment on 05/04.
--- NOTE | 2025-05-03 15:11 | PC.NURSE ---
Assumed care of this patient at 07:00. Patient is Kazakh speaking only and has the video tablet linen manager at bedside, though pt's mentation is difficult to assess due to sedation and AMS/confused/vague while awake. This pt was initially on precedex gtt on assuming care, titrated off initially for soft BP/maps per NOV, gtt discontinued as pt remained sedate/drowsy early this morning after receiving multiple medications in the ED (valium, zyprexa, ketamine, versed, and haldol).?+perrla 2mm sluggish though equally responsive, gaze is conjugate. Face symmetrical. Tongue midline on po care.? 11:00 hour: This pt awoke and was confused, restless, agitated and attempting to exit the bed, grabbing and pushing staff in efforts to exit the bed. Difficulty redirecting despite using linen manager. MD notified. 1:1 sitter placed with little effect. Patient was medicated per NOV and remains sedate but appropriately arousable since.? SR on tele 80's.?+pp/cms, -edema. Breathing remains even and unlabored without distress on room air. HOB elevated minimum 30 degrees/aspiration precautions in place while patient is sedate.? Patient remains NPO. LR discontinued by MD. Q6HR POCs ordered. POC at noon low at 66. Dr. Jasso was notified, group underwriter received verbal orders to give an amp of D50 and initaite D5/LR at 50ml/hr.? F/C in place on assuming care. D/W MD, F/C removed due to no indication/need. Removed at 09:45. Due to void at 15:45. Purewick was placed.?? Pt is on a low air loss bed with q2hr turning and repositioning. Foams placed to heels and offloaded with pillows for protection. Bandaid remains in place to lower-mid back from LP site. Remains outlined with skin marker, unchanged. Soft to palpation without sign of hematoma. OBS ordered, no BM at this time. H+H reassessed 10:00 and remains stable.? Pt's Krzysztof and friend Emperatriz visited today and reported to this group underwriter the patient has six children at home and a history of bipolar, reaffirmed this pt did not sleep for one week prior to initial hospitalization. MD notified. Contacts updated to include these two individuals. Pt's Krzysztof gave verbal permission to be able to call and speak with him/his children (Krzysztof does not speak Thai though reports his children do) and update Emperatriz, who speaks both Kazakh and Thai.?? Bed alarm on and VMT camera in place to assist with safety.? Handoff report given to oncoming RN. Please see shift assessments, tasks in worklist, and MAR for full details.? ?
[2025-05-03 17:11] LABS: Glucose, Whole Blood 76 mg/dL (60-115)
--- NOTE | 2025-05-03 18:08 | HE.ICUCC ---
ICU Critical Care Nursing Note Patient admiitted to ICU for severe agitation ICU Day #: Neuro: Difficult to assess, patient drowsy , waking intermittently. When awake restless, and agitated. Easily redirectable at present time . Patient speaks Somalian only Family/friend have been interpreting. When patient was awake drying supervisor called, stating having difficulty understanding patient . Spontaneously opens eyes, pupils equally reactive/2mm. Patient moves all extremities. Tele sitter / and 1:1 sitter at bedside for safety. Cardiac:NSR on telemetry, no edema noted Resp: LS clear, on RA , O2 sats 98%, VSS GI/: Hypoactive BSx4,abdomen soft nontender. [place] removed today at 1145/DTV 1545. Patient has not urinated /bladder scanned at [address] Jasso notified and would like to give patient a few more hours. Purewick in place. Endocrine: POC ordered Q6H at 1800/ 76. Integumentary/Musculoskeletal: LP done , bandaid on mid back/ area outlined / CDI / Airloss bed, foams on heels/ off loaded on pillows. Psychosocial (family etc.): Patient lives at home with and children Central Lines: Peripheral IV 20R ac/ 22 L/R hand .
[2025-05-03] MEDS: Valproic Acid (as Sodium Salt) 750 MG in Dextrose 5 % 50 ML 57.5 MG IV (22:12)
[2025-05-03] MEDS: dexmedeTOMIDine HCL/NS 400 MCG/100 ML PLAST..BAG 15 MCG IVCONT (23:12)
[2025-05-04] VITALS (24 sets, daily range): BP systolic 100–145; BP diastolic 49–89; PULSE 68–123; RESP 12–42; TEMP 36.3–38.1; O2SAT 91–99; BMI 27.6
[2025-05-04 00:08] LABS: Glucose, Whole Blood 138 mg/dL (60-115)
[2025-05-04] MEDS: Valproic Acid (as Sodium Salt) 750 MG in Dextrose 5 % 50 ML 57.5 MG IV ×3 (04:38→20:43)
[2025-05-04] MEDS: Dextrose 5 % and Lactated Ring 1,000 ML 50 ML IVCONT (06:23)
[2025-05-04 06:28] LABS: Venous Blood Gas Refer to POC result
[2025-05-04 06:29] LABS: VBG HCO3 26 mmol/L (22-26); VBG O2 % Saturation 53.0 %
[2025-05-04 06:29] LABS: MANUAL DIFF FLAG NO
[2025-05-04 06:33] LABS: Hematocrit 36.9 % (37.0-47.0); Hemoglobin 12.6 g/dl (12.0-16.0); Imm Gran Abs Auto 0.02 X10*3/uL (0.00-0.03); Imm Gran Pct Auto 0.4 % (0.0-0.4); Lymphocytes Absolute Auto 1.3 X10*3/uL (1.2-4.9); Mean Corpuscular HGB Conc 34.1 g/dl (31.0-35.0); Mean Corpuscular Hemoglobin 29.8 pg (27.0-33.0); Mean Corpuscular Volume 87.2 fL (80.0-98.0); NRBC Abs Auto 0.000 X10*3/uL (0.0-0.012); NRBC Pct Auto 0.0 /100WBC (0.0-0.2); Platelet Count 208 X10*3/uL (160-400); Red Blood Count 4.23 X10*6/uL (4.20-5.50); White Blood Count 5.5 X10*3/uL (4.8-10.8)
[2025-05-04 06:56] LABS: Albumin Level 3.4 g/dL (3.5-5.0); Anion Gap 10 (12-20); Blood Urea Nitrogen 7 mg/dL (9-16); Calcium 8.2 mg/dL (8.4-10.2); Carbon Dioxide 26 mmol/L (22-29); Chloride 112 mmol/L (96-108); Creatinine Clr Calc Pharmacy 110.3; Estimated Glomerular Filt Rate > 60; Magnesium 1.9 mg/dL (1.6-2.6); Potassium 3.6 mmol/L (3.3-5.1); Sodium 144 mmol/L (135-145)
--- NOTE | 2025-05-04 11:08 | P.PNCC_ITS ---
Subjective Subjective Date of Service: 05/04/25 Interval History: 44-year-old lady, Ethiopian, with underlying bipolar with manic episodes with agitation recent hospitalization at [facility] transferred to [facility] ER on 05/03/2025 secondary to worsening agitation with initial poor response to parenteral sedatives requiring Precedex drip. Now loaded with valproic acid and titrated off Precedex drip. No events overnight. Critical Care Time (minutes): 0 Physical Exam 2 Vital Signs: Vital Signs: Last Vital Signs Temp 97.5 F 05/04/25 09:00 Pulse 92 05/04/25 11:00 Resp 17 05/04/25 11:00 BP 118/56 L 05/04/25 11:00 Pulse Ox 97 05/04/25 11:00 O2 Del Method Room Air 05/04/25 11:00 O2 Flow Rate 2 05/04/25 04:00 BMI result Body Mass Index 27.6 Const: General: no acute distress, alert and awake Eyes: Sclerae: sclerae normal EOM: EOMs intact bilaterally Neck: Neck: Yes no lymphadenopathy, Yes trachea midline and Yes supple Resp: Effort & Inspection: normal respiratory effort and no respiratory distress Auscultation: clear to auscultation bilaterally Cardio: Rate: regular rate Rhythm: regular rhythm Heart sounds: no gallops, no murmurs and no rubs GI: Palpation (GI): Soft to palpation and Other GI palpation findings present ( Nontender) Auscultation: normal bowel sounds Extrem: General: Yes no pedal edema, No clubbing and No cyanosis Objective Data Labs 05/04/25 06:17 05/04/25 06:17 Labs: Laboratory Results - last 24 hr 05/03/25 05/03/25 05/03/25 11:58 12:21 12:38 WBC RBC Hgb Hct MCV MCH MCHC RDW Plt Count MPV Immature Gran % (Auto) Neut % (Auto) Lymph % (Auto) [place] % (Auto) Eos % (Auto) Baso % (Auto) Lymph # (Auto) [place] # (Auto) Eos # (Auto) Baso # (Auto) Abs Immat Gran (auto) Absolute Neuts (auto) Absolute Nucleated RBC Nucleated RBC % (auto) VBG pH VBG pCO2 VBG pO2 VBG HCO3 VBG O2 Saturation VBG Base Excess Sodium Potassium Chloride Carbon Dioxide Anion Gap BUN Creatinine Estim Creat Clear Calc Estimated GFR POC Glucose 66 230 H 178 H Random Glucose Calcium Phosphorus Magnesium Albumin 05/03/25 05/03/25 05/04/25 12:55 17:08 00:03 WBC RBC Hgb Hct MCV MCH MCHC RDW Plt Count MPV Immature Gran % (Auto) Neut % (Auto) Lymph % (Auto) [place] % (Auto) Eos % (Auto) Baso % (Auto) Lymph # (Auto) [place] # (Auto) Eos # (Auto) Baso # (Auto) Abs Immat Gran (auto) Absolute Neuts (auto) Absolute Nucleated RBC Nucleated RBC % (auto) VBG pH VBG pCO2 VBG pO2 VBG HCO3 VBG O2 Saturation VBG Base Excess Sodium Potassium Chloride Carbon Dioxide Anion Gap BUN Creatinine Estim Creat Clear Calc Estimated GFR POC Glucose 161 H 76 138 H Random Glucose Calcium Phosphorus Magnesium Albumin 05/04/25 05/04/25 06:17 06:23 WBC 5.5 RBC 4.23 D Hgb 12.6 Hct 36.9 L MCV 87.2 MCH 29.8 MCHC 34.1 RDW 13.5 Plt Count 208 D MPV 10.2 Immature Gran % (Auto) 0.4 Neut % (Auto) 69.5 Lymph % (Auto) 23.6 [place] % (Auto) 5.3 Eos % (Auto) 0.7 Baso % (Auto) 0.5 Lymph # (Auto) 1.3 [place] # (Auto) 0.3 Eos # (Auto) 0.0 Baso # (Auto) 0.0 Abs Immat Gran (auto) 0.02 Absolute Neuts (auto) 3.8 Absolute Nucleated RBC 0.000 Nucleated RBC % (auto) 0.0 VBG pH 7.42 VBG pCO2 41 VBG pO2 35 VBG HCO3 26 VBG O2 Saturation 53.0 VBG Base Excess 2.2 Sodium 144 Potassium 3.6 Chloride 112 H Carbon Dioxide 26 Anion Gap 10 L BUN 7 L Creatinine 0.66 Estim Creat Clear Calc 110.3 Estimated GFR > 60 POC Glucose Random Glucose 114 Calcium 8.2 L Phosphorus 2.4 L Magnesium 1.9 Albumin 3.4 L Microbiology Microbiology Results: Microbiology 05/03/25 04:08 Cerebrospinal Fluid Gram Stain - Final 05/03/25 04:08 Cerebrospinal Fluid Fluid Description - Final 05/03/25 04:08 Cerebrospinal Fluid CSF Culture - Preliminary No growth after 1 day 05/03/25 04:46 Blood - Venous Blood Culture - Preliminary No growth after 24 hours. 05/03/25 04:37 Blood - Venous Blood Culture - Preliminary No growth after 24 hours. Progress Note: A&P Assessment and plan (1) Bipolar 1 disorder: Status: Acute Plan Assessment: 44-year-old lady with underlying bipolar disorder with manic episodes with agitation admitted secondary to severe agitation requiring sedative drips. Plan: Neuro: No acute issues. Cardiac: No acute issues. Pulmonary: No acute issues. Renal: No acute issues. Endo: No acute issues. GI: No acute issues. ID: No acute issues Heme/Onc: No acute issues. Psych: Bipolar disorder with underlying manic episodes with significant agitation initially requiring Precedex drip, now titrated off. Psychiatric evaluation is pending. Continue Cogentin and valproic acid. Miscellaneous: No acute issues. Prophylaxis: Heparin Diet: Regular Quality Stroke Does the patient have a stroke diagnosis?: No VTE Prior VTE?: No VTE Risk Level:: Medical - moderate - high VTE Device Contraindication: N/A - Device Ordered VTE Drug Contraindication: N/A - Med Ordered
[2025-05-04] MEDS: Potassium Phosphate/NS 15 MMOL/250 ML PLAST..BAG 62.5 MMOL IV ×2 (11:17→19:08)
[2025-05-04] MEDS: dexmedeTOMIDine HCL/NS 400 MCG/100 ML PLAST..BAG 9.38 MCG IVCONT (14:15)
--- NOTE | 2025-05-04 14:41 | MHC.CM.PN ---
Pt remains in ICU: being titrated off Precedex. Once pt is medically stable she will be see by psych for d/c plan needs. Pt from [facility]. Per family, pt has a longstanding hx of bipolar with INPT admissions. It is expected that pt will return to [facility] for completion of treatment before returning to home w/spouse and 6 children. CM to follow
--- NOTE | 2025-05-04 16:03 | P.CNPS_ITS ---
History of Present Illness Date of Service: 05/04/25 Chief Complaint: Severe Agitation Reason for Consult: Bipolar with tone/agitation Requesting physician: Dorian Jasso Discussed with referring provider: Yes Sources of Information: chart reviewed Additional Sources of Information: Patient's and family friend. Patient's outpatient psychiatrist, Dr. Hopkins. HPI Narrative: Patient is a 44-year-old woman with hx of Schizoaffective d/o and PTSD, who presented with agitation at recent hospitalization at [facility]; transferred to [facility] ER on 05/03/2025 secondary to worsening agitation with initial poor response to parenteral sedatives requiring Precedex drip. Now loaded with valproic acid and titrated off Precedex drip. Psychiatric consult placed for: Bipolar with tone/agitation During psychiatric consult, T/W unable to perform mental status d/t patient being asleep. Patient's and family friend at bedside. Patient's reports she has a hx of psychosis when unable to sleep for a few days. Patient has a VNA that administers her medications twice daily; he reports pt as medication compliant. He reports patient is normal when she is on her medications . She has an outpatient psychiatrist through [facility] (Dr. Hopkins). Collateral obtained from outpatient psychiatrist who reports, pt has been stable on Haldol 20mg PO bedtime, Diazepam 5mg PO daily and 10mg PO bedtime for the last five years. Dr. Hopkins reports, pt is very quiet at baseline and her usually speaks for her during appointments. Patient presents with auditory hallucinations and paranoia at baseline. no hx of taking mood stabilizers. Past Psychiatric History: Outpatient psychiatrist: Dr. Luís Hopkins ([facility]) hx of taking Haldol 20mg PO bedtime, Diazepam 5mg PO daily and 10mg PO bedtime for the last 5 years per outpatient provider. Diagnostics Vital Signs (24Hr): Vital Signs - 24 hr 05/03/25 16:54 05/03/25 17:59 05/03/25 18:56 Temperature Pulse Rate 89 115 H 97 Respiratory Rate 14 19 15 Blood Pressure 120/77 126/77 120/81 Pulse Oximetry 99 97 99 Oxygen Delivery Method Room Air Room Air Room Air Oxygen Flow Rate 05/03/25 20:00 05/03/25 21:00 05/03/25 22:00 Temperature Pulse Rate 97 86 81 Respiratory Rate 20 17 14 Blood Pressure 108/75 106/62 126/80 Pulse Oximetry 98 97 97 Oxygen Delivery Method Room Air Nasal Cannula Room Air Oxygen Flow Rate 05/03/25 23:00 05/04/25 00:00 05/04/25 01:00 Temperature 97.8 F Pulse Rate 78 73 68 Respiratory Rate 13 14 14 Blood Pressure 122/81 133/81 122/79 Pulse Oximetry 99 94 95 Oxygen Delivery Method Room Air Room Air Room Air Oxygen Flow Rate 05/04/25 02:00 05/04/25 02:54 05/04/25 04:00 Temperature Pulse Rate 70 70 76 Respiratory Rate 13 12 20 Blood Pressure 112/74 111/73 128/80 Pulse Oximetry 96 98 96 Oxygen Delivery Method Nasal Cannula Room Air Nasal Cannula Oxygen Flow Rate 4 2 2 05/04/25 05:00 05/04/25 05:55 05/04/25 07:00 Temperature Pulse Rate 85 87 88 Respiratory Rate 18 19 15 Blood Pressure 123/77 133/81 111/75 Pulse Oximetry 97 98 99 Oxygen Delivery Method Room Air Room Air Room Air Oxygen Flow Rate 05/04/25 08:00 05/04/25 09:00 05/04/25 10:00 Temperature 97.5 F 97.5 F Pulse Rate 88 91 93 Respiratory Rate 18 20 23 H Blood Pressure 120/74 133/72 131/81 Pulse Oximetry 96 95 98 Oxygen Delivery Method Room Air Room Air Room Air Oxygen Flow Rate 05/04/25 11:00 05/04/25 12:00 05/04/25 13:00 Temperature 100.4 F Pulse Rate 92 88 Respiratory Rate 17 20 Blood Pressure 118/56 L 111/75 137/78 Pulse Oximetry 97 95 95 Oxygen Delivery Method Room Air Room Air Room Air Oxygen Flow Rate 05/04/25 14:00 05/04/25 15:00 Temperature 99.9 F 97.9 F Pulse Rate 81 79 Respiratory Rate 18 21 H Blood Pressure 107/49 L 100/63 Pulse Oximetry 95 93 Oxygen Delivery Method Room Air Room Air Oxygen Flow Rate BMI result Body Mass Index 27.6 Labs 05/04/25 06:17 05/04/25 06:17 Labs: Laboratory Results - last 48 hr 05/02/25 05/02/25 05/02/25 17:59 18:04 22:45 WBC 10.0 RBC 3.75 L Hgb 11.2 L Hct 32.5 L MCV 86.7 MCH 29.9 MCHC 34.5 RDW 13.7 Plt Count 202 MPV 10.4 Immature Gran % (Auto) 0.3 Neut % (Auto) 74.8 H Lymph % (Auto) 15.1 L [place] % (Auto) 9.3 Eos % (Auto) 0.1 Baso % (Auto) 0.4 Lymph # (Auto) 1.5 [place] # (Auto) 0.9 Eos # (Auto) 0.0 Baso # (Auto) 0.0 Abs Immat Gran (auto) 0.03 Absolute Neuts (auto) 7.5 Absolute Nucleated RBC 0.000 Nucleated RBC % (auto) 0.0 D-Dimer High Sensitivty VBG pH 7.38 VBG pCO2 36 VBG pO2 42 VBG HCO3 21 L VBG O2 Saturation 64.0 VBG Base Excess -2.6 Sodium 143 Potassium 3.9 Chloride 111 H Carbon Dioxide 22 Anion Gap 14 BUN 14 Creatinine 0.91 Estim Creat Clear Calc 79.3 Estimated GFR > 60 POC Glucose Random Glucose 86 Lactic Acid Calcium 8.6 Phosphorus Magnesium 1.8 Total Bilirubin 1.0 Direct Bilirubin 0.4 AST 75 H ALT 31 Alkaline Phosphatase 84 Ammonia Total Creatine Kinase 2333 H Troponin I High Sens C-Reactive Protein Total Protein 7.1 Albumin 3.9 Lipase 9 Vitamin B12 Folate TSH Beta HCG, Quant < 2 Urine Color Yellow Urine Appearance Clear Urine pH 5.5 Ur Specific [place] 1.020 Urine Protein Negative Urine Glucose (UA) Negative Urine Ketones 15 Urine Blood Negative Urine Nitrite Negative Ur Leukocyte Esterase Negative CSF Tube Number CSF Volume CSF Appearance CSF Color CSF WBC CSF RBC CSF Neutrophils CSF Lymphocytes CSF Monocytes % CSF Appearance (b) CSF Glucose CSF Total Protein CSF C.neoform/gat PCR CSF CMV DNA (PCR) CSF Enterovirus (PCR) CSF E. coli K1 (PCR) CSF H. influenzae (PCR) CSF HSV I (PCR) CSF HSV II (PCR) CSF HHV 6 (PCR) CSF L.monocytogenes PCR CSF N. meningitidis PCR CSF Parechovirus (PCR) CSF S. agalactiae (PCR) CSF S. pneumoniae (PCR) CSF VZV (PCR) Urine Opiates Screen Not Detected Ur Buprenorphine Scrn Not Detected Ur Oxycodone Screen Not Detected Urine Methadone Screen Not Detected Urine Fentanyl Screen Not Detected Ur Barbiturates Screen Not Detected Ur Phencyclidine Scrn Not Detected Ur Amphetamines Screen Not Detected U Benzodiazepines Scrn POSITIVE H Urine Cocaine Screen Not Detected U Marijuana (THC) Screen Not Detected Ethyl Alcohol < 10 Influenza Type A (PCR) NEGATIVE Influenza Type B (PCR) NEGATIVE RSV RNA Qual (PCR) NEGATIVE SARS-CoV-2 RNA (RT-PCR) NEGATIVE 05/02/25 05/03/25 05/03/25 23:01 04:08 04:08 WBC RBC Hgb Hct MCV MCH MCHC RDW Plt Count MPV Immature Gran % (Auto) Neut % (Auto) Lymph % (Auto) [place] % (Auto) Eos % (Auto) Baso % (Auto) Lymph # (Auto) [place] # (Auto) Eos # (Auto) Baso # (Auto) Abs Immat Gran (auto) Absolute Neuts (auto) Absolute Nucleated RBC Nucleated RBC % (auto) D-Dimer High Sensitivty 519 VBG pH VBG pCO2 VBG pO2 VBG HCO3 VBG O2 Saturation VBG Base Excess Sodium Potassium Chloride Carbon Dioxide Anion Gap BUN Creatinine Estim Creat Clear Calc Estimated GFR POC Glucose Random Glucose Lactic Acid Calcium Phosphorus Magnesium Total Bilirubin Direct Bilirubin AST ALT Alkaline Phosphatase Ammonia Total Creatine Kinase 2891 H Troponin I High Sens C-Reactive Protein Total Protein Albumin Lipase Vitamin B12 Folate TSH 0.62 Beta HCG, Quant Urine Color Urine Appearance Urine pH Ur Specific [place] Urine Protein Urine Glucose (UA) Urine Ketones Urine Blood Urine Nitrite Ur Leukocyte Esterase CSF Tube Number 1 4 CSF Volume 2.0 CSF Appearance CLEAR CSF Color COLORLESS CSF WBC 3 CSF RBC 1 CSF Neutrophils 3 CSF Lymphocytes 76 CSF Monocytes % 21 CSF Appearance (b) Clear, Colorless CSF Glucose 58 CSF Total Protein 23.0 CSF C.neoform/gat PCR Not Detected CSF CMV DNA (PCR) Not Detected CSF Enterovirus (PCR) Not Detected CSF E. coli K1 (PCR) Not Detected CSF H. influenzae (PCR) Not Detected CSF HSV I (PCR) Not Detected CSF HSV II (PCR) Not Detected CSF HHV 6 (PCR) Not Detected CSF L.monocytogenes PCR Not Detected CSF N. meningitidis PCR Not Detected CSF Parechovirus (PCR) Not Detected CSF S. agalactiae (PCR) Not Detected CSF S. pneumoniae (PCR) Not Detected CSF VZV (PCR) Not Detected Urine Opiates Screen Ur Buprenorphine Scrn Ur Oxycodone Screen Urine Methadone Screen Urine Fentanyl Screen Ur Barbiturates Screen Ur Phencyclidine Scrn Ur Amphetamines Screen U Benzodiazepines Scrn Urine Cocaine Screen U Marijuana (THC) Screen Ethyl Alcohol Influenza Type A (PCR) Influenza Type B (PCR) RSV RNA Qual (PCR) SARS-CoV-2 RNA (RT-PCR) 05/03/25 05/03/25 05/03/25 04:37 06:06 06:26 WBC 7.3 RBC 3.24 L Hgb 10.0 L Hct 28.5 L MCV 88.0 MCH 30.9 MCHC 35.1 H RDW 13.8 Plt Count 166 MPV 9.9 Immature Gran % (Auto) 0.4 Neut % (Auto) 68.3 Lymph % (Auto) 22.2 [place] % (Auto) 8.1 Eos % (Auto) 0.5 Baso % (Auto) 0.5 Lymph # (Auto) 1.6 [place] # (Auto) 0.6 Eos # (Auto) 0.0 Baso # (Auto) 0.0 Abs Immat Gran (auto) 0.03 Absolute Neuts (auto) 5.0 Absolute Nucleated RBC 0.000 Nucleated RBC % (auto) 0.0 D-Dimer High Sensitivty VBG pH 7.35 VBG pCO2 41 VBG pO2 56 VBG HCO3 23 VBG O2 Saturation 83.0 VBG Base Excess -1.8 Sodium 143 Potassium 3.2 L Chloride 114 H Carbon Dioxide 20 L Anion Gap 12 BUN 10 Creatinine 0.67 Estim Creat Clear Calc 108.5 Estimated GFR > 60 POC Glucose Random Glucose 85 Lactic Acid 1.1 Calcium 7.8 L D Phosphorus Magnesium Total Bilirubin 0.8 Direct Bilirubin AST 74 H ALT 27 Alkaline Phosphatase 69 Ammonia 31 Total Creatine Kinase 2817 H Troponin I High Sens 11.1 9.9 C-Reactive Protein 6.71 H Total Protein 6.0 L Albumin 3.0 L Lipase Vitamin B12 823 Folate 6.0 TSH Beta HCG, Quant Urine Color Urine Appearance Urine pH Ur Specific [place] Urine Protein Urine Glucose (UA) Urine Ketones Urine Blood Urine Nitrite Ur Leukocyte Esterase CSF Tube Number CSF Volume CSF Appearance CSF Color CSF WBC CSF RBC CSF Neutrophils CSF Lymphocytes CSF Monocytes % CSF Appearance (b) CSF Glucose CSF Total Protein CSF C.neoform/gat PCR CSF CMV DNA (PCR) CSF Enterovirus (PCR) CSF E. coli K1 (PCR) CSF H. influenzae (PCR) CSF HSV I (PCR) CSF HSV II (PCR) CSF HHV 6 (PCR) CSF L.monocytogenes PCR CSF N. meningitidis PCR CSF Parechovirus (PCR) CSF S. agalactiae (PCR) CSF S. pneumoniae (PCR) CSF VZV (PCR) Urine Opiates Screen Ur Buprenorphine Scrn Ur Oxycodone Screen Urine Methadone Screen Urine Fentanyl Screen Ur Barbiturates Screen Ur Phencyclidine Scrn Ur Amphetamines Screen U Benzodiazepines Scrn Urine Cocaine Screen U Marijuana (THC) Screen Ethyl Alcohol Influenza Type A (PCR) Influenza Type B (PCR) RSV RNA Qual (PCR) SARS-CoV-2 RNA (RT-PCR) 05/03/25 05/03/25 05/03/25 10:09 11:58 12:21 WBC RBC Hgb 10.8 L Hct 31.9 L MCV MCH MCHC RDW Plt Count MPV Immature Gran % (Auto) Neut % (Auto) Lymph % (Auto) [place] % (Auto) Eos % (Auto) Baso % (Auto) Lymph # (Auto) [place] # (Auto) Eos # (Auto) Baso # (Auto) Abs Immat Gran (auto) Absolute Neuts (auto) Absolute Nucleated RBC Nucleated RBC % (auto) D-Dimer High Sensitivty VBG pH VBG pCO2 VBG pO2 VBG HCO3 VBG O2 Saturation VBG Base Excess Sodium Potassium Chloride Carbon Dioxide Anion Gap BUN Creatinine Estim Creat Clear Calc Estimated GFR POC Glucose 66 230 H Random Glucose Lactic Acid Calcium Phosphorus Magnesium Total Bilirubin Direct Bilirubin AST ALT Alkaline Phosphatase Ammonia Total Creatine Kinase Troponin I High Sens C-Reactive Protein Total Protein Albumin Lipase Vitamin B12 Folate TSH Beta HCG, Quant Urine Color Urine Appearance Urine pH Ur Specific [place] Urine Protein Urine Glucose (UA) Urine Ketones Urine Blood Urine Nitrite Ur Leukocyte Esterase CSF Tube Number CSF Volume CSF Appearance CSF Color CSF WBC CSF RBC CSF Neutrophils CSF Lymphocytes CSF Monocytes % CSF Appearance (b) CSF Glucose CSF Total Protein CSF C.neoform/gat PCR CSF CMV DNA (PCR) CSF Enterovirus (PCR) CSF E. coli K1 (PCR) CSF H. influenzae (PCR) CSF HSV I (PCR) CSF HSV II (PCR) CSF HHV 6 (PCR) CSF L.monocytogenes PCR CSF N. meningitidis PCR CSF Parechovirus (PCR) CSF S. agalactiae (PCR) CSF S. pneumoniae (PCR) CSF VZV (PCR) Urine Opiates Screen Ur Buprenorphine Scrn Ur Oxycodone Screen Urine Methadone Screen Urine Fentanyl Screen Ur Barbiturates Screen Ur Phencyclidine Scrn Ur Amphetamines Screen U Benzodiazepines Scrn Urine Cocaine Screen U Marijuana (THC) Screen Ethyl Alcohol Influenza Type A (PCR) Influenza Type B (PCR) RSV RNA Qual (PCR) SARS-CoV-2 RNA (RT-PCR) 05/03/25 05/03/25 05/03/25 12:38 12:55 17:08 WBC RBC Hgb Hct MCV MCH MCHC RDW Plt Count MPV Immature Gran % (Auto) Neut % (Auto) Lymph % (Auto) [place] % (Auto) Eos % (Auto) Baso % (Auto) Lymph # (Auto) [place] # (Auto) Eos # (Auto) Baso # (Auto) Abs Immat Gran (auto) Absolute Neuts (auto) Absolute Nucleated RBC Nucleated RBC % (auto) D-Dimer High Sensitivty VBG pH VBG pCO2 VBG pO2 VBG HCO3 VBG O2 Saturation VBG Base Excess Sodium Potassium Chloride Carbon Dioxide Anion Gap BUN Creatinine Estim Creat Clear Calc Estimated GFR POC Glucose 178 H 161 H 76 Random Glucose Lactic Acid Calcium Phosphorus Magnesium Total Bilirubin Direct Bilirubin AST ALT Alkaline Phosphatase Ammonia Total Creatine Kinase Troponin I High Sens C-Reactive Protein Total Protein Albumin Lipase Vitamin B12 Folate TSH Beta HCG, Quant Urine Color Urine Appearance Urine pH Ur Specific [place] Urine Protein Urine Glucose (UA) Urine Ketones Urine Blood Urine Nitrite Ur Leukocyte Esterase CSF Tube Number CSF Volume CSF Appearance CSF Color CSF WBC CSF RBC CSF Neutrophils CSF Lymphocytes CSF Monocytes % CSF Appearance (b) CSF Glucose CSF Total Protein CSF C.neoform/gat PCR CSF CMV DNA (PCR) CSF Enterovirus (PCR) CSF E. coli K1 (PCR) CSF H. influenzae (PCR) CSF HSV I (PCR) CSF HSV II (PCR) CSF HHV 6 (PCR) CSF L.monocytogenes PCR CSF N. meningitidis PCR CSF Parechovirus (PCR) CSF S. agalactiae (PCR) CSF S. pneumoniae (PCR) CSF VZV (PCR) Urine Opiates Screen Ur Buprenorphine Scrn Ur Oxycodone Screen Urine Methadone Screen Urine Fentanyl Screen Ur Barbiturates Screen Ur Phencyclidine Scrn Ur Amphetamines Screen U Benzodiazepines Scrn Urine Cocaine Screen U Marijuana (THC) Screen Ethyl Alcohol Influenza Type A (PCR) Influenza Type B (PCR) RSV RNA Qual (PCR) SARS-CoV-2 RNA (RT-PCR) 05/04/25 05/04/2525 00:03 06:17 06:23 WBC 5.5 RBC 4.23 D Hgb 12.6 Hct 36.9 L MCV 87.2 MCH 29.8 MCHC 34.1 RDW 13.5 Plt Count 208 D MPV 10.2 Immature Gran % (Auto) 0.4 Neut % (Auto) 69.5 Lymph % (Auto) 23.6 [place] % (Auto) 5.3 Eos % (Auto) 0.7 Baso % (Auto) 0.5 Lymph # (Auto) 1.3 [place] # (Auto) 0.3 Eos # (Auto) 0.0 Baso # (Auto) 0.0 Abs Immat Gran (auto) 0.02 Absolute Neuts (auto) 3.8 Absolute Nucleated RBC 0.000 Nucleated RBC % (auto) 0.0 D-Dimer High Sensitivty VBG pH 7.42 VBG pCO2 41 VBG pO2 35 VBG HCO3 26 VBG O2 Saturation 53.0 VBG Base Excess 2.2 Sodium 144 Potassium 3.6 Chloride 112 H Carbon Dioxide 26 Anion Gap 10 L BUN 7 L Creatinine 0.66 Estim Creat Clear Calc 110.3 Estimated GFR > 60 POC Glucose 138 H Random Glucose 114 Lactic Acid Calcium 8.2 L Phosphorus 2.4 L Magnesium 1.9 Total Bilirubin Direct Bilirubin AST ALT Alkaline Phosphatase Ammonia Total Creatine Kinase Troponin I High Sens C-Reactive Protein Total Protein Albumin 3.4 L Lipase Vitamin B12 Folate TSH Beta HCG, Quant Urine Color Urine Appearance Urine pH Ur Specific [place] Urine Protein Urine Glucose (UA) Urine Ketones Urine Blood Urine Nitrite Ur Leukocyte Esterase CSF Tube Number CSF Volume CSF Appearance CSF Color CSF WBC CSF RBC CSF Neutrophils CSF Lymphocytes CSF Monocytes % CSF Appearance (b) CSF Glucose CSF Total Protein CSF C.neoform/gat PCR CSF CMV DNA (PCR) CSF Enterovirus (PCR) CSF E. coli K1 (PCR) CSF H. influenzae (PCR) CSF HSV I (PCR) CSF HSV II (PCR) CSF HHV 6 (PCR) CSF L.monocytogenes PCR CSF N. meningitidis PCR CSF Parechovirus (PCR) CSF S. agalactiae (PCR) CSF S. pneumoniae (PCR) CSF VZV (PCR) Urine Opiates Screen Ur Buprenorphine Scrn Ur Oxycodone Screen Urine Methadone Screen Urine Fentanyl Screen Ur Barbiturates Screen Ur Phencyclidine Scrn Ur Amphetamines Screen U Benzodiazepines Scrn Urine Cocaine Screen U Marijuana (THC) Screen Ethyl Alcohol Influenza Type A (PCR) Influenza Type B (PCR) RSV RNA Qual (PCR) SARS-CoV-2 RNA (RT-PCR) Mental Status Exam Mental Status Exam Narrative: unable to assess mental status d/t pt being asleep. Medications Medications Current Medications Benztropine Mesylate (Benztropine Mesylate 2 Mg/2 Ml Vial) 1 mg IVPUSH Q8H [facility] Last Admin: 05/04/25 11:17 Dose: 1 mg Dextrose (Dextrose 50 % 25 Gm/50 Ml Syringe) 25 gm IVPUSH Q15M PRN; Protocol PRN Reason: per Hypoglycemia Standing Ord. Last Admin: 05/03/25 12:06 Dose: 25 gm Enoxaparin Sodium (Enoxaparin Sodium 40 Mg/0.4 Ml Syringe) 40 mg SUBCUT Q24H [facility] Last Admin: 05/04/25 06:23 Dose: 40 mg Dextrose/Lactated Ringer's (D5lr) 1,000 mls @ 50 mls/hr IVCONT .Q20H [facility] Last Admin: 05/04/25 06:23 Dose: 50 mls/hr Dexmedetomidine HCl (Precedex) 400 mcg in 100 mls @ 0 mls/hr IVCONT .Q0M [facility]; Protocol Last Admin: 05/04/25 14:15 Dose: 0.5 mcg/kg/hr, 9.38 mls/hr Valproic Acid 750 mg/ Dextrose 57.5 mls @ 57.5 mls/hr IV Q8H [facility] Last Infusion: 05/04/25 15:26 Dose: Infused Potassium Phosphate (Kphos) 15 mmol in 250 mls @ 62.5 mls/hr IV Q4H [facility] Stop: 05/04/25 17:14 Last Admin: 05/04/25 15:53 Dose: 62.5 mls/hr Allergies Allergies Allergy/AdvReac Type Severity Reaction Status Date / Time No Known Allergies Allergy Verified 05/02/25 17:30 Assessment & Plan Assessment & Plan (1) Schizoaffective disorder: Status: Acute Code(s): F25.9 - Schizoaffective disorder, unspecified Plan Recommendations: -Continue home medications of Haldol 20mg PO bedtime, Diazepam 5mg PO daily and 10mg PO bedtime. -Continue Depakote and monitor liver panel, ammonia and valproic acid level. -Re-consult if needed. Total time managing care of this patient today _30___ minutes. Guardian/Caregiver educated on: medication risk/benefits
[2025-05-04 18:14] LABS: Glucose, Whole Blood 101 mg/dL (60-115)
[2025-05-04] MEDS: diazePAM 10 MG/2 ML CARTRIDGE 5 MG IVPUSH (19:26)
--- NOTE | 2025-05-04 19:26 | PC.NURSE ---
Assumed care 0700 Neuro/Respiratory/Cardiac: Drowsy, Confused, Intermittent episodes of agitation, requiring frequent redirection. Precedex titrated off per NOV. Jessica Layne medicare coordinator services utilized, patient unable to answer questions. Sinus rhythm on tele.? GI/: NPO; [place] in place for retention,patent/draining,. Skin: Intact Lines: ?peripheral IVs
[2025-05-04] MEDS: dexmedeTOMIDine HCL/NS 400 MCG/100 ML PLAST..BAG 16.88 MCG IVCONT (23:17)
[2025-05-05] VITALS (17 sets, daily range): BP systolic 110–148; BP diastolic 60–92; PULSE 72–121; RESP 18–28; TEMP 36.1–38.1; O2SAT 91–98
--- NOTE | 2025-05-05 | EEG_ITS ---
This is a 16 channel portable EEG performed in ICU. Sedation was stopped an hour prior to study. Background EEG rhythm is almost continuously contaminated by muscle artifacts but there is an asymmetry with left hemispheric leads revealing lower amplitude while right hemispheric leads revealing mostly theta range activity with voltage of 5-50 microvolt. No definite sharp waves or spikes were noted. Photic stimulation did not produce any significant driving. Cardiac lead did not reveal any significant abnormality. Hyperventilation was not performed. Impression: Limited and abnormal EEG. Limited because of frequent artifacts, an abnormal because of asymmetry with lower amplitudes noted in left hemispheric leads. There was no epileptic activity noted on this EEG. EEG does not define which hemisphere is malfunctioning. Clinical and imaging correlation is recommended. MTDD
[2025-05-05] MEDS: Dextrose 5 % and Lactated Ring 1,000 ML 50 ML IVCONT ×2 (03:04→20:55)
[2025-05-05] MEDS: diazePAM 10 MG/2 ML CARTRIDGE 5 MG IVPUSH ×3 (04:17→19:47)
[2025-05-05] MEDS: Valproic Acid (as Sodium Salt) 750 MG in Dextrose 5 % 50 ML 57.5 MG IV ×3 (04:19→20:53)
[2025-05-05 04:47] LABS: Hematocrit 30.9 % (37.0-47.0); Hemoglobin 11.0 g/dl (12.0-16.0); Mean Corpuscular HGB Conc 35.6 g/dl (31.0-35.0); Mean Corpuscular Hemoglobin 30.2 pg (27.0-33.0); Mean Corpuscular Volume 84.9 fL (80.0-98.0); NRBC Abs Auto 0.000 X10*3/uL (0.0-0.012); NRBC Pct Auto 0.0 /100WBC (0.0-0.2); Platelet Count 176 X10*3/uL (160-400); Red Blood Count 3.64 X10*6/uL (4.20-5.50); White Blood Count 5.9 X10*3/uL (4.8-10.8)
[2025-05-05 05:00] LABS: Anion Gap 10 (12-20); Blood Urea Nitrogen 5 mg/dL (9-16); Calcium 7.7 mg/dL (8.4-10.2); Carbon Dioxide 23 mmol/L (22-29); Chloride 111 mmol/L (96-108); Creatinine Clr Calc Pharmacy 101.2; Estimated Glomerular Filt Rate > 60; Magnesium 1.8 mg/dL (1.6-2.6); Potassium 3.1 mmol/L (3.3-5.1); Sodium 141 mmol/L (135-145)
[2025-05-05 05:25] LABS: Atypical Lymph Absolute Manual 0.2 x10*3/uL; Atypical Lymphs Percent Manual 3 % (0-6); Band Neutrophils Percent 17 % (3-5); Lymphocytes Absolute Manual 0.8 X10*3/uL (1.2-4.9); Lymphocytes Percent Manual 14 % (20-40); Monocytes Absolute Manual 0.4 X10*3/uL (0.1-1.2); Monocytes Percent Manual 6 % (2-11); Neutrophils Absolute Manual 4.5 X10*3/uL (2.0-8.3); Neutrophils Percent Manual 60 % (45-73); RBC Morphology NOTED
[2025-05-05 05:29] LABS: Burr Cells 1+ (0-2) /OIF
[2025-05-05 05:30] LABS: Smudge Cells PRESENT; Toxic Granulation PRESENT; Toxic Vacuolation PRESENT
[2025-05-05] MEDS: Potassium Chloride/H20 10 MEQ/100 ML PIGGYBACK 100 MEQ IV ×4 (05:48→09:16)
--- NOTE | 2025-05-05 11:03 | P.PNCC_ITS ---
Subjective Subjective Date of Service: 05/05/25 Interval History: 44-year-old lady, Polish, with underlying bipolar with manic episodes with agitation recent hospitalization at [facility] transferred to [facility] ER on 05/03/2025 secondary to worsening agitation with initial poor response to parenteral sedatives requiring Precedex drip. Now loaded with valproic acid and titrated off Precedex drip. No events overnight. Critical Care Time (minutes): 0 Physical Exam 2 Vital Signs: Vital Signs: Last Vital Signs Temp 98.8 F 05/05/25 10:00 Pulse 92 05/05/25 10:00 Resp 22 H 05/05/25 10:00 BP 119/77 05/05/25 10:00 Pulse Ox 95 05/05/25 10:00 O2 Del Method Room Air 05/05/25 10:00 O2 Flow Rate 2 05/04/25 04:00 BMI result Body Mass Index 27.6 Const: General: no acute distress and lethargic (Arousable) O rientation/consciousness: lethargic (Arousable) Eyes: Sclerae: sclerae normal EOM: EOMs intact bilaterally Neck: Neck: Yes no lymphadenopathy, Yes trachea midline and Yes supple Resp: Effort & Inspection: normal respiratory effort and no respiratory distress Auscultation: clear to auscultation bilaterally Cardio: Rate: regular rate Rhythm: regular rhythm Heart sounds: no gallops, no murmurs and no rubs GI: Palpation (GI): Soft to palpation and Other GI palpation findings present ( Nontender) Auscultation: normal bowel sounds Extrem: General: Yes no pedal edema, No clubbing and No cyanosis Objective Data Labs 05/05/25 04:38 05/05/25 04:38 Labs: Laboratory Results - last 24 hr 05/04/25 05/05/25 18:11 04:38 WBC 5.9 RBC 3.64 L Hgb 11.0 L Hct 30.9 L MCV 84.9 MCH 30.2 MCHC 35.6 H RDW 13.2 Plt Count 176 MPV 9.9 Immature Gran % (Auto) Cancelled Neut % (Auto) Cancelled Lymph % (Auto) Cancelled [place] % (Auto) Cancelled Eos % (Auto) Cancelled Baso % (Auto) Cancelled Lymph # (Auto) Cancelled [place] # (Auto) Cancelled Eos # (Auto) Cancelled Baso # (Auto) Cancelled Abs Immat Gran (auto) Cancelled Absolute Neuts (auto) Cancelled Absolute Nucleated RBC 0.000 Nucleated RBC % (auto) 0.0 Neutrophils % (Manual) 60 Band Neutrophils % 17 H Lymphocytes % (Manual) 14 L Atypical Lymphs % (Man) 3 Monocytes % (Manual) 6 Abs Neuts (Manual) 4.5 Lymphocytes # (Manual) 0.8 L Atyp Lymphs # (Manual) 0.2 Monocytes # (Manual) 0.4 Smudge Cells PRESENT Toxic Granulation PRESENT Toxic Vacuolation PRESENT Platelet Estimate NORMAL Plt Morphology Comment NORMAL RBC Morphology NOTED [place] Cells 1+ (0-2) Sodium 141 Potassium 3.1 L Chloride 111 H Carbon Dioxide 23 Anion Gap 10 L BUN 5 L Creatinine 0.72 Estim Creat Clear Calc 101.2 Estimated GFR > 60 POC Glucose 101 Random Glucose 155 H Calcium 7.7 L D Phosphorus 3.7 Magnesium 1.8 Microbiology Microbiology Results: Microbiology 05/03/25 04:08 Cerebrospinal Fluid Gram Stain - Final 05/03/25 04:08 Cerebrospinal Fluid Fluid Description - Final 05/03/25 04:08 Cerebrospinal Fluid CSF Culture - Preliminary No growth after 2 days 05/03/25 04:46 Blood - Venous Blood Culture - Preliminary No growth after 48 hours. 05/03/25 04:37 Blood - Venous Blood Culture - Preliminary No growth after 48 hours. Progress Note: A&P Assessment and plan (1) Schizoaffective disorder: Status: Acute (2) Bipolar 1 disorder: Status: Acute Plan Assessment: 44-year-old lady with underlying bipolar disorder with manic episodes with agitation admitted secondary to severe agitation requiring sedative drips. Plan: Neuro: No acute issues. Cardiac: No acute issues. Pulmonary: No acute issues. Renal: No acute issues. Endo: No acute issues. GI: No acute issues. ID: No acute issues Heme/Onc: No acute issues. Psych: Bipolar disorder with underlying manic episodes with significant agitation initially requiring Precedex drip, now titrated off. Psychiatry service care appreciated. Continue Cogentin, Valium, and valproic acid. Miscellaneous: No acute issues. Prophylaxis: Heparin Diet: Regular Quality Stroke Does the patient have a stroke diagnosis?: No VTE Prior VTE?: No VTE Risk Level:: Medical - moderate - high VTE Device Contraindication: N/A - Device Ordered VTE Drug Contraindication: N/A - Med Ordered
[2025-05-05 12:29] LABS: Glucose, Whole Blood 76 mg/dL (60-115)
--- NOTE | 2025-05-05 15:46 | PC.NURSE ---
[place] removed 15:30 today 05/05/25. Patient Due to void 21:30. Plan for transfer to [facility]. RN to RN report given.
--- NOTE | 2025-05-05 15:52 | P.EN_ITS ---
Event Note Date of Service: 05/06/25 Event Note: Patient seen and examined by ICU team. Downgraded this afternoon Assessment and plan per icu note: 44-year-old lady, Ghanaian, with underlying bipolar with manic episodes with agitation recent hospitalization at [facility] transferred to [facility] ER on 05/03/2025 secondary to worsening agitation with initial poor response to parenteral sedatives requiring Precedex drip. Now loaded with valproic acid and titrated off Precedex drip. currently on diazepam, valproic acid, benztropine psych eval appreciated -will switch to po meds when able to take. FUo : intermittent Low-grade fevers(might be drug related ?),not due to sepsis cta chest negative tachycardia /tachypnea sec to agitaion no leucocytosis UA negative, blood culture negative, cerebrospinal fluid culture negative preliminary. CSF fluid-also negative for meningitis/encephalitis panel Respiratory viral panel added Tick panel also added. ID evaluation rhabomylysis: added cpk levels continue ivf Time Spent With Patient Time: Total time managing care of this patient today ____ minutes.
--- NOTE | 2025-05-05 18:57 | PC.NURSE ---
Patient is disorientated x 4 , speech is unclear. Somalian speaking only, video rn pool is present but patient not really responding to her. Temp via temporal is 99.9, cannot get an oral temp at this time, patient was resistant to that. Dr Muller and clinical fabrication supervisor is aware and GLUE SPREADING MACHINE OPERATOR from ICU will come and assess the patient. Sitter and rounder are present, patient remains very agitated
[2025-05-05 19:47] LABS: Glucose, Whole Blood 74 mg/dL (60-115)
[2025-05-05] MEDS: diazePAM 10 MG/2 ML CARTRIDGE IVPUSH (21:50)
[2025-05-06] VITALS (24 sets, daily range): BP systolic 93–140; BP diastolic 51–86; PULSE 73–122; RESP 14–29; TEMP 35.6–37.5; O2SAT 84–99; BMI 27.6
--- NOTE | 2025-05-06 00:22 | PM.EVENT ---
Event Note Date of Service: 05/06/25 Event Note: Patient was admitted to the ICU on 05/03 with Precedex drip and stepped down off precedex on 05/05. She is with ongoing agitation despite IM Haldol and IV Valium on the floor. Was evaluated by ICU provider who accepted the patient to ICU for higher level of care and closer monitoring. Time Spent With Patient Time: Total time managing care of this patient today ____ minutes.
[2025-05-06 00:31] LABS: Glucose, Whole Blood 77 mg/dL (60-115)
[2025-05-06] MEDS: dexmedeTOMIDine HCL/NS 400 MCG/100 ML PLAST..BAG 18.8 MCG IVCONT ×2 (00:39→18:03)
[2025-05-06] MEDS: Valproic Acid (as Sodium Salt) 750 MG in Dextrose 5 % 50 ML 57.5 MG IV ×2 (03:55→17:32)
[2025-05-06] MEDS: diazePAM 10 MG/2 ML CARTRIDGE 5 MG IVPUSH ×3 (03:55→19:52)
[2025-05-06] MEDS: dexmedeTOMIDine HCL/NS 400 MCG/100 ML PLAST..BAG 11.28 MCG IVCONT (03:56)
--- NOTE | 2025-05-06 04:50 | PC.NURSE ---
Pt transferred to ICU from [facility] at approx 0100. Pt agitated, trying to get OOB, uncooperative and non-redirectable- precedex gtt ordered and started per NOV. 1:1 sitter at bedside for safety.
[2025-05-06 05:48] LABS: MANUAL DIFF FLAG NO
[2025-05-06 05:50] LABS: Hematocrit 30.8 % (37.0-47.0); Hemoglobin 10.9 g/dl (12.0-16.0); Imm Gran Abs Auto 0.02 X10*3/uL (0.00-0.03); Imm Gran Pct Auto 0.4 % (0.0-0.4); Lymphocytes Absolute Auto 1.3 X10*3/uL (1.2-4.9); Mean Corpuscular HGB Conc 35.4 g/dl (31.0-35.0); Mean Corpuscular Hemoglobin 30.1 pg (27.0-33.0); Mean Corpuscular Volume 85.1 fL (80.0-98.0); NRBC Abs Auto 0.000 X10*3/uL (0.0-0.012); NRBC Pct Auto 0.0 /100WBC (0.0-0.2); Platelet Count 195 X10*3/uL (160-400); Red Blood Count 3.62 X10*6/uL (4.20-5.50); White Blood Count 5.7 X10*3/uL (4.8-10.8)
[2025-05-06 06:09] LABS: Albumin Level 3.0 g/dL (3.5-5.0); Anion Gap 11 (12-20); Blood Urea Nitrogen 6 mg/dL (9-16); Calcium 8.1 mg/dL (8.4-10.2); Carbon Dioxide 23 mmol/L (22-29); Chloride 111 mmol/L (96-108); Creatinine Clr Calc Pharmacy 108.7; Estimated Glomerular Filt Rate > 60; Magnesium 2.0 mg/dL (1.6-2.6); Potassium 2.9 mmol/L (3.3-5.1); Sodium 142 mmol/L (135-145)
[2025-05-06 06:14] LABS: Glucose, Whole Blood 112 mg/dL (60-115)
[2025-05-06] MEDS: 0.9 % Sodium Chloride Flush 3 ML SYRINGE IVFLUSH ×3 (07:20→23:45)
[2025-05-06] MEDS: Potassium Chloride/H20 10 MEQ/100 ML PIGGYBACK 100 MEQ IV ×4 (07:21→11:21)
--- NOTE | 2025-05-06 10:08 | MHC.CM.PN ---
Pt transferred back to ICU after experiencing aggitation on the medical floor. On low dose precedex gtt: will wean off today and re-eval for transfer. Psych input on medications. Pt came from [facility] and may require return. Prior to INPT psych, pt resided at home w/spouse and children. CM to follow
--- NOTE | 2025-05-06 10:10 | P.CDIM_ITS ---
PROVIDER RESPONSE TEXT: To clarify, the appropriate diagnosis supported by the clinical indicators: Hypokalemia: Probable QUERY TEXT: PHYSICIAN'S DOCUMENTATION REQUEST Date of Query: 05/06/2025 10:02 AM EDT Patient Name: Anju Mills Admit Date: 05/03/2025 Dear Dorian Jasso MD, A review of the medical record indicates additional documentation may be needed. Please review below and update the documentation accordingly. Clinical Indicators: LABS: potassium 3.1 L 2.9 L IV Potassium Chloride Based on the above, is there a diagnosis that correlates with these findings? Hypokalemia resolved, possible, probable, suspected Labs indicate a diagnosis of (please specify) Other (explain) Clinically unable to determine (explain) Thank you, Marika Mcneill, CCS, CDIS Use of terms such as suspected, likely, concern for, or probable (associated with a specific diagnosis that is being evaluated, monitored, or treated as if it exists) are acceptable and can be coded in the inpatient setting, when documented at the time of discharge. Please use your independent medical judgment in providing your response. THIS QUERY IS PART OF THE PERMANENT MEDICAL RECORD
[2025-05-06 12:13] LABS: Glucose, Whole Blood 61 mg/dL (60-115)
[2025-05-06] MEDS: Dextrose 10 % 1,000 ML 30 ML IVCONT (12:29)
[2025-05-06 12:30] LABS: Chlamydia pneumoniae PCR Not Detected (Not Detect.); Coronavirus 229E PCR Not Detected (Not Detect.); Coronavirus HKU1 PCR Not Detected (Not Detect.); Coronavirus NL63 PCR Not Detected (Not Detect.); Coronavirus OC43 PCR Not Detected (Not Detect.); RSV PCR Not Detected (Not Detect.); Rhino/Enterovirus PCR Not Detected (Not Detect.)
--- NOTE | 2025-05-06 12:39 | PM.CCPN ---
Subjective Subjective Date of Service: 05/06/25 Interval History: 44-year-old lady, Moroccan, with underlying bipolar with manic episodes with agitation recent hospitalization at [facility] transferred to [facility] ER on 05/03/2025 secondary to worsening agitation with initial poor response to parenteral sedatives requiring Precedex drip. Now loaded with valproic acid and titrated off Precedex drip and transferred to telemetry on 05/05/2025. Overnight, patient with development overnight agitation or episode with suboptimal response to initial parenteral sedatives requiring re-initiation of Precedex drip and being transferred back to intensive care unit. Critical Care Time (minutes): 0 Physical Exam Vital Signs: Vital Signs: Last Vital Signs Temp 99.1 F 05/06/25 12:00 Pulse 90 05/06/25 12:00 Resp 21 H 05/06/25 12:00 BP 124/78 05/06/25 12:00 Pulse Ox 99 05/06/25 12:00 O2 Del Method Nasal Cannula 05/06/25 12:00 O2 Flow Rate 1 05/06/25 12:00 BMI result Body Mass Index 27.6 Const: General: no acute distress HEENT: Head: Yes atraumatic Eyes: General: appearance normal, both eyes and all related structures Sclerae: sclerae normal EOM: EOMs intact bilaterally Neck: Neck: Yes supple Lymphatic: no lymphadenopathy noted Resp: Effort & Inspection: normal respiratory effort and no use of accessory muscles Auscultation: clear to auscultation bilaterally Cardio: Rate: regular rate Rhythm: regular rhythm Heart sounds: no gallops, no murmurs and no rubs Skin: General skin exam: other ( warm) Extrem: General: No clubbing, No cyanosis and No edema Objective Data Labs 05/06/25 05:41 05/06/25 05:41 Labs: Laboratory Results - last 24 hr 05/05/25 05/05/25 05/06/25 04:38 19:42 00:25 WBC RBC Hgb Hct MCV MCH MCHC RDW Plt Count MPV Immature Gran % (Auto) Neut % (Auto) Lymph % (Auto) [place] % (Auto) Eos % (Auto) Baso % (Auto) Lymph # (Auto) [place] # (Auto) Eos # (Auto) Baso # (Auto) Abs Immat Gran (auto) Absolute Neuts (auto) Absolute Nucleated RBC Nucleated RBC % (auto) Sodium Potassium Chloride Carbon Dioxide Anion Gap BUN Creatinine Estim Creat Clear Calc Estimated GFR POC Glucose 74 77 Random Glucose Calcium Phosphorus Magnesium Total Creatine Kinase 1382 H Albumin Valproic Acid 05/06/25 05/06/25 05/06/25 05:41 05:48 09:08 WBC 5.7 RBC 3.62 L Hgb 10.9 L Hct 30.8 L MCV 85.1 MCH 30.1 MCHC 35.4 H RDW 13.4 Plt Count 195 MPV 10.4 Immature Gran % (Auto) 0.4 Neut % (Auto) 67.4 Lymph % (Auto) 23.4 [place] % (Auto) 8.1 Eos % (Auto) 0.5 Baso % (Auto) 0.2 Lymph # (Auto) 1.3 [place] # (Auto) 0.5 Eos # (Auto) 0.0 Baso # (Auto) 0.0 Abs Immat Gran (auto) 0.02 Absolute Neuts (auto) 3.8 Absolute Nucleated RBC 0.000 Nucleated RBC % (auto) 0.0 Sodium 142 Potassium 2.9 L* Chloride 111 H Carbon Dioxide 23 Anion Gap 11 L BUN 6 L Creatinine 0.67 Estim Creat Clear Calc 108.7 Estimated GFR > 60 POC Glucose 112 Random Glucose 118 H Calcium 8.1 L Phosphorus 3.4 Magnesium 2.0 Total Creatine Kinase Albumin 3.0 L Valproic Acid 120.9 H* 05/06/25 12:09 WBC RBC Hgb Hct MCV MCH MCHC RDW Plt Count MPV Immature Gran % (Auto) Neut % (Auto) Lymph % (Auto) [place] % (Auto) Eos % (Auto) Baso % (Auto) Lymph # (Auto) [place] # (Auto) Eos # (Auto) Baso # (Auto) Abs Immat Gran (auto) Absolute Neuts (auto) Absolute Nucleated RBC Nucleated RBC % (auto) Sodium Potassium Chloride Carbon Dioxide Anion Gap BUN Creatinine Estim Creat Clear Calc Estimated GFR POC Glucose 61 Random Glucose Calcium Phosphorus Magnesium Total Creatine Kinase Albumin Valproic Acid Microbiology Microbiology Results: Microbiology 05/03/25 04:08 Cerebrospinal Fluid Gram Stain - Final 05/03/25 04:08 Cerebrospinal Fluid Fluid Description - Final 05/03/25 04:08 Cerebrospinal Fluid CSF Culture - Final No growth after 3 days. 05/03/25 04:46 Blood - Venous Blood Culture - Preliminary No growth after 48 hours. 05/03/25 04:37 Blood - Venous Blood Culture - Preliminary No growth after 48 hours. Progress Note: A&P Assessment and plan (1) Agitation: Status: Acute (2) Schizoaffective disorder: Status: Acute (3) Bipolar 1 disorder: Status: Acute Plan Assessment: 44-year-old lady with underlying bipolar disorder with manic episodes with agitation admitted secondary to severe agitation requiring sedative drips. Plan: Neuro: No acute issues. Cardiac: No acute issues. Pulmonary: No acute issues. Renal: No acute issues. Endo: No acute issues. GI: No acute issues. ID: No acute issues Heme/Onc: No acute issues. Psych: Bipolar disorder with underlying manic episodes with significant agitation initially requiring Precedex drip, now titrated off again. Psychiatry service care appreciated. Continue Cogentin, Valium, and valproic acid. Add Lamictal and Haldol. Miscellaneous: No acute issues. Prophylaxis: Heparin Diet: Regular Quality Stroke Does the patient have a stroke diagnosis?: No VTE Prior VTE?: No VTE Risk Level:: Medical - moderate - high VTE Device Contraindication: N/A - Device Ordered VTE Drug Contraindication: N/A - Med Ordered
[2025-05-06 12:44] LABS: Influenza A H1 PCR Not Detected (Not Detect.); Influenza A H1-2009 PCR Not Detected (Not Detect.); Influenza A H3 PCR Not Detected (Not Detect.); SARS-CoV-2 PCR Not Detected (Not Detect.)
[2025-05-06 13:10] LABS: Glucose, Whole Blood 229 mg/dL (60-115)
[2025-05-06 18:46] LABS: Glucose, Whole Blood 119 mg/dL (60-115)
[2025-05-06 21:44] LABS: Lyme IgG CSF Immunoblot NO BANDS DETECTED; Lyme IgM CSF Immunoblot NO BANDS DETECTED
[2025-05-06 21:48] LABS: A. Phagocytphilium DNA,RT-PCR NOT DETECTED (NOT DETECTED); Babesia Microti DNA, RT-PCR NOT DETECTED (NOT DETECTED); Borrelia Miyamotoi,DNA RT-PCR NOT DETECTED (NOT DETECTED); E.Chaffeensis DNA RT-PCR NOT DETECTED (NOT DETECTED); Lyme(Borrelia ssp)DNA RT-PCR NOT DETECTED (NOT DETECTED)
[2025-05-06 22:03] LABS: CK-BB None Detected (None Detected); CK-MB 1 % (<5); CK-MM 98 % (95-100); Creatine Kinase Isoenzyme Itrp MACRO CK TYPE 1; Creatine Kinase,Total,Serum 1965 U/L (20-239)
[2025-05-06 23:39] LABS: Glucose, Whole Blood 120 mg/dL (60-115)
[2025-05-07] VITALS (24 sets, daily range): BP systolic 101–129; BP diastolic 56–91; PULSE 70–101; RESP 12–25; TEMP 36–37.4; O2SAT 92–100; BMI 27.1
[2025-05-07] MEDS: diazePAM 10 MG/2 ML CARTRIDGE 5 MG IVPUSH ×3 (03:44→20:48)
[2025-05-07] MEDS: Valproic Acid (as Sodium Salt) 750 MG in Dextrose 5 % 50 ML 57.5 MG IV ×2 (03:45→15:36)
[2025-05-07 05:14] LABS: MANUAL DIFF FLAG NO
[2025-05-07 05:17] LABS: Hematocrit 32.6 % (37.0-47.0); Hemoglobin 11.0 g/dl (12.0-16.0); Imm Gran Abs Auto 0.02 X10*3/uL (0.00-0.03); Imm Gran Pct Auto 0.4 % (0.0-0.4); Lymphocytes Absolute Auto 1.4 X10*3/uL (1.2-4.9); Mean Corpuscular HGB Conc 33.7 g/dl (31.0-35.0); Mean Corpuscular Hemoglobin 29.4 pg (27.0-33.0); Mean Corpuscular Volume 87.2 fL (80.0-98.0); NRBC Abs Auto 0.000 X10*3/uL (0.0-0.012); NRBC Pct Auto 0.0 /100WBC (0.0-0.2); Platelet Count 201 X10*3/uL (160-400); Red Blood Count 3.74 X10*6/uL (4.20-5.50); White Blood Count 5.3 X10*3/uL (4.8-10.8)
[2025-05-07] MEDS: dexmedeTOMIDine HCL/NS 400 MCG/100 ML PLAST..BAG 7.52 MCG IVCONT (05:20)
[2025-05-07 05:40] LABS: Albumin Level 2.9 g/dL (3.5-5.0); Anion Gap 10 (12-20); Blood Urea Nitrogen 5 mg/dL (9-16); Calcium 8.2 mg/dL (8.4-10.2); Carbon Dioxide 25 mmol/L (22-29); Chloride 108 mmol/L (96-108); Creatinine Clr Calc Pharmacy 101.7; Estimated Glomerular Filt Rate > 60; Magnesium 2.1 mg/dL (1.6-2.6); Potassium 3.1 mmol/L (3.3-5.1); Sodium 140 mmol/L (135-145)
--- NOTE | 2025-05-07 05:48 | PC.NURSE ---
Assumed care at 1900. Patient drowsy and sedated on precedex gtt, RASS -2 (see MAR) . Arousable to repeated stimuli before quickly falling back asleep. Somalian speaking only, video snuff grinder and screener utilized without success, patient does not respond to snuff grinder and screener. SR on tele, HR 70s-80s. Lung sounds clear and even RR on RA. Abdomen soft and round, hypoactive bowel sounds x4. [place] catheter in place and patent, low urine output (15-20mL/hr and concentrated) noted at beginning of shift, LUMBER TRIMMER Fredrick notified. D10 increased per MAR with good effect, UOP now 60-100mLhr and pale yellow. Skin warm and dry, skin tear to left hand open to air. Patient repositioned Q2HR, bed locked in lowest possible position, bed alarm on, 1-1 sitter at bedside for safety.?
[2025-05-07] MEDS: Potassium Chloride/H20 10 MEQ/100 ML PIGGYBACK 100 MEQ IV ×4 (06:09→09:25)
[2025-05-07] MEDS: 0.9 % Sodium Chloride Flush 3 ML SYRINGE IVFLUSH ×3 (08:33→20:48)
--- NOTE | 2025-05-07 11:56 | P.PNCC_ITS ---
Subjective Subjective Date of Service: 05/07/25 Interval History: 44-year-old lady, Qatari, with underlying bipolar with manic episodes with agitation recent hospitalization at [facility] transferred to [facility] ER on 05/03/2025 secondary to worsening agitation with initial poor response to parenteral sedatives requiring Precedex drip. Now loaded with valproic acid and titrated off Precedex drip and transferred to telemetry on 05/05/2025. Overnight, patient with development overnight agitation or episode with suboptimal response to initial parenteral sedatives requiring re-initiation of Precedex drip and being transferred back to intensive care unit. Overnight again with agitation requiring Precedex drip, now titrated off. Critical Care Time (minutes): 0 Physical Exam 2 Vital Signs: Vital Signs: Last Vital Signs Temp 97.5 F 05/07/25 11:00 Pulse 74 05/07/25 11:00 Resp 17 05/07/25 11:00 BP 129/75 05/07/25 11:00 Pulse Ox 96 05/07/25 11:00 O2 Del Method Room Air 05/07/25 11:00 O2 Flow Rate 1 05/06/25 14:00 BMI result Body Mass Index 27.1 Const: General: no acute distress and lethargic Orientation/consciousness: lethargic HEENT: Head: Yes atraumatic Eyes: General: appearance normal, both eyes and all related structures S clerae: sclerae normal EOM: EOMs intact bilaterally Neck: Neck: Yes supple Lymphatic: no lymphadenopathy noted Resp: Effort & Inspection: normal respiratory effort and no use of accessory muscles Auscultation: clear to auscultation bilaterally Cardio: Rate: regular rate Rhythm: regular rhythm Heart sounds: no gallops, no murmurs and no rubs Skin: General skin exam: other ( warm) Extrem: General: No clubbing, No cyanosis and No edema Objective Data Labs 05/07/25 05:05 05/07/25 05:05 Labs: Laboratory Results - last 24 hr 05/03/25 05/03/25 05/05/25 04:08 10:09 16:05 WBC RBC Hgb Hct MCV MCH MCHC RDW Plt Count MPV Immature Gran % (Auto) Neut % (Auto) Lymph % (Auto) [place] % (Auto) Eos % (Auto) Baso % (Auto) Lymph # (Auto) [place] # (Auto) Eos # (Auto) Baso # (Auto) Abs Immat Gran (auto) Absolute Neuts (auto) Absolute Nucleated RBC Nucleated RBC % (auto) Sodium Potassium Chloride Carbon Dioxide Anion Gap BUN Creatinine Estim Creat Clear Calc Estimated GFR POC Glucose Random Glucose Calcium Phosphorus Magnesium Total Creatine Kinase 1965 H CK-MM (CK-3) 98 CK-MB (CK-2) 1 CK-BB (CK-1) None Detected CK Isoenzymes Interp MACRO CK TYPE 1 Albumin CSF Lyme IgG (Immblot) NO BANDS DETECTED CSF Lyme IgG Bands Det TNP CSF Lyme IgM (Immblot) NO BANDS DETECTED CSF Lyme IgM Bands Det TNP Respiratory Panel Tse See Note Adenovirus (Rapid PCR) Not Detected A.phagocytophil DNA PCR Babesia microti DNA PCR B.pert (TEM-PCR) Not Detected B.parapertussis DNA PCR Not Detected Borrelia sp DNA (PCR) Borrelia miyamotoi (PCR) C. pneumoniae DNA (PCR) Not Detected Coronavirus OC43 (PCR) Not Detected Coronavirus HKU1 (PCR) Not Detected Coronavirus 229E (PCR) Not Detected Coronavirus NL63 (PCR) Not Detected E.chaffeensis DNA (PCR) Human Metapneumovir PCR Not Detected Influenza A (RT-PCR) Not Detected Influenza A (H1) PCR Not Detected Influ A (H1/09) PCR Not Detected Influenza A (H3) PCR Not Detected Influenza B (RT-PCR) Not Detected M. pneumoniae (PCR) Not Detected Parainfluenza 1 (PCR) Not Detected Parainfluenza 2 (PCR) Not Detected Parainfluenza 3 (PCR) Not Detected Parainfluenza 4 (PCR) Not Detected RSV (PCR) Not Detected Entero/Rhino (PCR) Not Detected SARS-CoV-2 RNA (RT-PCR) Not Detected Tick-borne Disease PCR 05/05/25 05/06/25 05/06/25 16:34 12:09 12:34 WBC RBC Hgb Hct MCV MCH MCHC RDW Plt Count MPV Immature Gran % (Auto) Neut % (Auto) Lymph % (Auto) [place] % (Auto) Eos % (Auto) Baso % (Auto) Lymph # (Auto) [place] # (Auto) Eos # (Auto) Baso # (Auto) Abs Immat Gran (auto) Absolute Neuts (auto) Absolute Nucleated RBC Nucleated RBC % (auto) Sodium Potassium Chloride Carbon Dioxide Anion Gap BUN Creatinine Estim Creat Clear Calc Estimated GFR POC Glucose 61 229 H Random Glucose Calcium Phosphorus Magnesium Total Creatine Kinase CK-MM (CK-3) CK-MB (CK-2) CK-BB (CK-1) CK Isoenzymes Interp Albumin CSF Lyme IgG (Immblot) CSF Lyme IgG Bands Det CSF Lyme IgM (Immblot) CSF Lyme IgM Bands Det Respiratory Panel Tse Adenovirus (Rapid PCR) A.phagocytophil DNA PCR NOT DETECTED Babesia microti DNA PCR NOT DETECTED B.pert (TEM-PCR) B.parapertussis DNA PCR Borrelia sp DNA (PCR) NOT DETECTED Borrelia miyamotoi (PCR) NOT DETECTED C. pneumoniae DNA (PCR) Coronavirus OC43 (PCR) Coronavirus HKU1 (PCR) Coronavirus 229E (PCR) Coronavirus NL63 (PCR) E.chaffeensis DNA (PCR) NOT DETECTED Human Metapneumovir PCR Influenza A (RT-PCR) Influenza A (H1) PCR Influ A (H1/09) PCR Influenza A (H3) PCR Influenza B (RT-PCR) M. pneumoniae (PCR) Parainfluenza 1 (PCR) Parainfluenza 2 (PCR) Parainfluenza 3 (PCR) Parainfluenza 4 (PCR) RSV (PCR) Entero/Rhino (PCR) SARS-CoV-2 RNA (RT-PCR) Tick-borne Disease PCR SEE NOTE 05/06/25 05/06/25 05/07/25 18:37 23:35 05:05 WBC 5.3 RBC 3.74 L Hgb 11.0 L Hct 32.6 L MCV 87.2 MCH 29.4 MCHC 33.7 RDW 13.4 Plt Count 201 MPV 10.6 Immature Gran % (Auto) 0.4 Neut % (Auto) 59.9 Lymph % (Auto) 25.9 [place] % (Auto) 8.7 Eos % (Auto) 4.5 H Baso % (Auto) 0.6 Lymph # (Auto) 1.4 [place] # (Auto) 0.5 Eos # (Auto) 0.2 Baso # (Auto) 0.0 Abs Immat Gran (auto) 0.02 Absolute Neuts (auto) 3.2 Absolute Nucleated RBC 0.000 Nucleated RBC % (auto) 0.0 Sodium 140 Potassium 3.1 L Chloride 108 Carbon Dioxide 25 Anion Gap 10 L BUN 5 L Creatinine 0.71 Estim Creat Clear Calc 101.7 Estimated GFR > 60 POC Glucose 119 H 120 H Random Glucose 133 H Calcium 8.2 L Phosphorus 2.9 Magnesium 2.1 Total Creatine Kinase CK-MM (CK-3) CK-MB (CK-2) CK-BB (CK-1) CK Isoenzymes Interp Albumin 2.9 L CSF Lyme IgG (Immblot) CSF Lyme IgG Bands Det CSF Lyme IgM (Immblot) CSF Lyme IgM Bands Det Respiratory Panel Tse Adenovirus (Rapid PCR) A.phagocytophil DNA PCR Babesia microti DNA PCR B.pert (TEM-PCR) B.parapertussis DNA PCR Borrelia sp DNA (PCR) Borrelia miyamotoi (PCR) C. pneumoniae DNA (PCR) Coronavirus OC43 (PCR) Coronavirus HKU1 (PCR) Coronavirus 229E (PCR) Coronavirus NL63 (PCR) E.chaffeensis DNA (PCR) Human Metapneumovir PCR Influenza A (RT-PCR) Influenza A (H1) PCR Influ A (H1/09) PCR Influenza A (H3) PCR Influenza B (RT-PCR) M. pneumoniae (PCR) Parainfluenza 1 (PCR) Parainfluenza 2 (PCR) Parainfluenza 3 (PCR) Parainfluenza 4 (PCR) RSV (PCR) Entero/Rhino (PCR) SARS-CoV-2 RNA (RT-PCR) Tick-borne Disease PCR Microbiology Microbiology Results: Microbiology 05/03/25 04:08 Cerebrospinal Fluid Gram Stain - Final 05/03/25 04:08 Cerebrospinal Fluid Fluid Description - Final 05/03/25 04:08 Cerebrospinal Fluid CSF Culture - Final No growth after 3 days. 05/03/25 04:46 Blood - Venous Blood Culture - Preliminary No growth after 48 hours. 05/03/25 04:37 Blood - Venous Blood Culture - Preliminary No growth after 48 hours. Progress Note: A&P Assessment and plan (1) Schizoaffective disorder: Status: Acute (2) Bipolar 1 disorder: Status: Acute (3) Agitation: Status: Acute Plan Assessment: 44-year-old lady with underlying bipolar disorder with manic episodes with agitation admitted secondary to severe agitation requiring sedative drips. Plan: Neuro: No acute issues. Cardiac: No acute issues. Pulmonary: No acute issues. Renal: No acute issues. Endo: No acute issues. GI: No acute issues. ID: No acute issues Heme/Onc: No acute issues. Psych: Bipolar disorder with underlying manic episodes with significant agitation initially requiring Precedex drip, now titrated off again. Psychiatry service care appreciated. Continue Cogentin, Valium, valproic acid, Lamictal and Haldol. Miscellaneous: No acute issues. Prophylaxis: Heparin Diet: Regular Quality Stroke Does the patient have a stroke diagnosis?: No VTE Prior VTE?: No VTE Risk Level:: Medical - moderate - high VTE Device Contraindication: N/A - Device Ordered VTE Drug Contraindication: N/A - Med Ordered
[2025-05-07 12:05] LABS: Glucose, Whole Blood 79 mg/dL (60-115)
[2025-05-07] MEDS: Dextrose 10 % 1,000 ML 50 ML IVCONT (12:11)
--- NOTE | 2025-05-07 14:32 | MHC.CM.PN ---
PT REMAINS IN ICU AND HAS BEEN TITRATED OFF PRECEDEX GTT. CM WILL CONTINUE TO FOLLOW FOR PLAN.
[2025-05-07 17:04] LABS: Glucose, Whole Blood 91 mg/dL (60-115)
[2025-05-08] VITALS (25 sets, daily range): BP systolic 93–140; BP diastolic 51–86; PULSE 81–127; RESP 13–21; TEMP 37.1–38.4; O2SAT 91–98; BMI 27.0
[2025-05-08 00:50] LABS: Glucose, Whole Blood 107 mg/dL (60-115)
[2025-05-08] MEDS: dexmedeTOMIDine HCL/NS 400 MCG/100 ML PLAST..BAG IVCONT (03:40)
[2025-05-08] MEDS: Valproic Acid (as Sodium Salt) 750 MG in Dextrose 5 % 50 ML 57.5 MG IV ×2 (03:42→15:58)
[2025-05-08] MEDS: diazePAM 10 MG/2 ML CARTRIDGE 5 MG IVPUSH ×3 (03:42→19:04)
[2025-05-08 05:40] LABS: MANUAL DIFF FLAG NO
[2025-05-08 05:43] LABS: Hematocrit 37.5 % (37.0-47.0); Hemoglobin 12.6 g/dl (12.0-16.0); Imm Gran Abs Auto 0.05 X10*3/uL (0.00-0.03); Imm Gran Pct Auto 1.1 % (0.0-0.4); Lymphocytes Absolute Auto 1.2 X10*3/uL (1.2-4.9); Mean Corpuscular HGB Conc 33.6 g/dl (31.0-35.0); Mean Corpuscular Hemoglobin 30.0 pg (27.0-33.0); Mean Corpuscular Volume 89.3 fL (80.0-98.0); NRBC Abs Auto 0.000 X10*3/uL (0.0-0.012); NRBC Pct Auto 0.0 /100WBC (0.0-0.2); Platelet Count 188 X10*3/uL (160-400); Red Blood Count 4.20 X10*6/uL (4.20-5.50); White Blood Count 4.6 X10*3/uL (4.8-10.8)
[2025-05-08 06:00] LABS: Albumin Level 2.9 g/dL (3.5-5.0); Anion Gap 13 (12-20); Blood Urea Nitrogen 5 mg/dL (9-16); Calcium 8.2 mg/dL (8.4-10.2); Carbon Dioxide 17 mmol/L (22-29); Chloride 109 mmol/L (96-108); Creatinine Clr Calc Pharmacy 116.5; Estimated Glomerular Filt Rate > 60; Magnesium 2.3 mg/dL (1.6-2.6); Potassium 3.9 mmol/L (3.3-5.1); Sodium 135 mmol/L (135-145)
[2025-05-08] MEDS: 0.9 % Sodium Chloride Flush 3 ML SYRINGE IVFLUSH ×3 (07:48→20:25)
[2025-05-08] MEDS: Dextrose 10 % 1,000 ML 50 ML IVCONT (08:47)
--- NOTE | 2025-05-08 10:44 | PM.CCPN ---
Subjective Subjective Date of Service: 05/08/25 Interval History: 44-year-old lady, Brazilian, with underlying bipolar with manic episodes with agitation recent hospitalization at [facility] transferred to [facility] ER on 05/03/2025 secondary to worsening agitation with initial poor response to parenteral sedatives requiring Precedex drip. Now loaded with valproic acid and titrated off Precedex drip and transferred to telemetry on 05/05/2025. Overnight 05/06, patient with development of significant agitation with suboptimal response to initial parenteral sedatives requiring re-initiation of Precedex drip and being transferred back to intensive care unit. No events overnight, required Precedex drip overnight again. Critical Care Time (minutes): 0 Physical Exam Vital Signs: Vital Signs: Last Vital Signs Temp 99.0 F 05/08/25 10:00 Pulse 81 05/08/25 10:00 Resp 14 05/08/25 10:00 BP 93/60 05/08/25 10:00 Pulse Ox 97 05/08/25 10:00 O2 Del Method Room Air 05/08/25 10:00 O2 Flow Rate 1 05/06/25 14:00 BMI result Body Mass Index 27.0 Const: General: no acute distress and lethargic Orientation/consciousness: lethargic Eyes: Sclerae: sclerae normal EOM: EOMs intact bilaterally Neck: Neck: Yes no lymphadenopathy, Yes trachea midline and Yes supple Resp: Effort & Inspection: normal respiratory effort and no respiratory distress Auscultation: clear to auscultation bilaterally Cardio: Rate: regular rate Rhythm: regular rhythm Heart sounds: no gallops, no murmurs and no rubs GI: Palpation (GI): Soft to palpation and Other GI palpation findings present ( Nontender) Auscultation: normal bowel sounds Extrem: General: Yes no pedal edema, No clubbing and No cyanosis Objective Data Labs 05/08/25 05:31 05/08/25 05:31 Labs: Laboratory Results - last 24 hr 05/07/25 05/07/25 05/07/25 12:01 17:00 23:49 WBC RBC Hgb Hct MCV MCH MCHC RDW Plt Count MPV Immature Gran % (Auto) Neut % (Auto) Lymph % (Auto) [place] % (Auto) Eos % (Auto) Baso % (Auto) Lymph # (Auto) [place] # (Auto) Eos # (Auto) Baso # (Auto) Abs Immat Gran (auto) Absolute Neuts (auto) Absolute Nucleated RBC Nucleated RBC % (auto) Sodium Potassium Chloride Carbon Dioxide Anion Gap BUN Creatinine Estim Creat Clear Calc Estimated GFR POC Glucose 79 91 107 Random Glucose Calcium Phosphorus Magnesium Albumin 05/08/25 05:31 WBC 4.6 L RBC 4.20 Hgb 12.6 Hct 37.5 MCV 89.3 MCH 30.0 MCHC 33.6 RDW 13.7 Plt Count 188 MPV 10.4 Immature Gran % (Auto) 1.1 H Neut % (Auto) 59.7 Lymph % (Auto) 26.3 [place] % (Auto) 7.6 Eos % (Auto) 4.6 H Baso % (Auto) 0.7 Lymph # (Auto) 1.2 [place] # (Auto) 0.4 Eos # (Auto) 0.2 Baso # (Auto) 0.0 Abs Immat Gran (auto) 0.05 H Absolute Neuts (auto) 2.8 Absolute Nucleated RBC 0.000 Nucleated RBC % (auto) 0.0 Sodium 135 Potassium 3.9 D Chloride 109 H Carbon Dioxide 17 L Anion Gap 13 BUN 5 L Creatinine 0.62 Estim Creat Clear Calc 116.5 Estimated GFR > 60 POC Glucose Random Glucose 116 H Calcium 8.2 L Phosphorus 3.8 Magnesium 2.3 Albumin 2.9 L Microbiology Microbiology Results: Microbiology 05/03/25 04:46 Blood - Venous Blood Culture - Final No growth after 5 days. 05/03/25 04:37 Blood - Venous Blood Culture - Final No growth after 5 days. 05/03/25 04:08 Cerebrospinal Fluid Gram Stain - Final 05/03/25 04:08 Cerebrospinal Fluid Fluid Description - Final 05/03/25 04:08 Cerebrospinal Fluid CSF Culture - Final No growth after 3 days. Progress Note: A&P Assessment and plan (1) Agitation: Status: Acute (2) Schizoaffective disorder: Status: Acute (3) Bipolar 1 disorder: Status: Acute Plan Assessment: 44-year-old lady with underlying bipolar disorder with manic episodes with agitation admitted secondary to severe agitation requiring sedative drips. Plan: Neuro: No acute issues. Cardiac: No acute issues. Pulmonary: No acute issues. Renal: No acute issues. Endo: No acute issues. GI: No acute issues. ID: No acute issues Heme/Onc: No acute issues. Psych: Bipolar disorder with underlying manic episodes with significant agitation initially requiring Precedex drip overnight and being titrated off in the morning. Psychiatry service care appreciated. Continue Cogentin, Valium, valproic acid, Lamictal and Haldol. Miscellaneous: No acute issues. Prophylaxis: Heparin Diet: Regular Quality Stroke Does the patient have a stroke diagnosis?: No VTE Prior VTE?: No VTE Risk Level:: Medical - moderate - high VTE Device Contraindication: N/A - Device Ordered VTE Drug Contraindication: N/A - Med Ordered
--- NOTE | 2025-05-08 12:50 | MHC.CM.PN ---
Pt continues on Precedex gtt in ICU for management of agitation: pt will need a psych assessment once medically stable - was at [facility] prior to admission. CM to follow
[2025-05-08 13:23] LABS: Glucose, Whole Blood 95 mg/dL (60-115)
[2025-05-08 18:12] LABS: Glucose, Whole Blood 101 mg/dL (60-115)
--- NOTE | 2025-05-08 18:42 | PC.NURSE ---
Assumed care 0700? Neuro/Respiratory: Drowsy, Confused, Requiring frequent redirection. Precedex titrated off per NOV. [facility] spanish interpreter services utilized, patients unable to answer questions.? Cardiac: Sinus rhythm on tele.? GI/: ?bedside swallow attempted, pt refused spoons of duran ;[place] in place,patent/draining,. Skin: Intact Temp: low grade fever, Ice packs in place? Lines: ?peripheral IVs
[2025-05-09] VITALS (16 sets, daily range): BP systolic 111–144; BP diastolic 61–85; PULSE 100–123; RESP 15–20; TEMP 36.4–38.1; O2SAT 93–99; BMI 26.6
[2025-05-09 00:11] LABS: Glucose, Whole Blood 97 mg/dL (60-115)
[2025-05-09] MEDS: diazePAM 10 MG/2 ML CARTRIDGE 5 MG IVPUSH (03:40)
[2025-05-09] MEDS: Valproic Acid (as Sodium Salt) 750 MG in Dextrose 5 % 50 ML 57.5 MG IV (03:41)
[2025-05-09 05:45] LABS: Hemoglobin 13.3 g/dl (12.0-16.0); NRBC Abs Auto 0.000 X10*3/uL (0.0-0.012); NRBC Pct Auto 0.0 /100WBC (0.0-0.2); PLT CLUMP 1; SCAN SMEAR FLAG 1
[2025-05-09 05:46] LABS: Hematocrit 38.7 % (37.0-47.0); Imm Gran Abs Auto 0.09 X10*3/uL (0.00-0.03); Imm Gran Pct Auto 1.6 % (0.0-0.4); Lymphocytes Absolute Auto 2.0 X10*3/uL (1.2-4.9); MANUAL DIFF FLAG SCAN; Mean Corpuscular HGB Conc 34.4 g/dl (31.0-35.0); Mean Corpuscular Hemoglobin 29.8 pg (27.0-33.0); Mean Corpuscular Volume 86.6 fL (80.0-98.0); Red Blood Count 4.47 X10*6/uL (4.20-5.50)
[2025-05-09 06:09] LABS: White Blood Count 5.8 X10*3/uL (4.8-10.8)
[2025-05-09 06:20] LABS: Alanine Aminotransferase 48 U/L (0-31); Albumin Level 3.5 g/dL (3.5-5.0); Alkaline Phosphatase 71 U/L (39-117); Anion Gap 15 (12-20); Aspartate Amino Transferase 72 U/L (5-31); Blood Urea Nitrogen 6 mg/dL (9-16); Calcium 8.5 mg/dL (8.4-10.2); Carbon Dioxide 20 mmol/L (22-29); Chloride 107 mmol/L (96-108); Creatinine Clr Calc Pharmacy 99.4; Estimated Glomerular Filt Rate > 60; Magnesium 2.3 mg/dL (1.6-2.6); Potassium 4.0 mmol/L (3.3-5.1); Sodium 138 mmol/L (135-145); Total Protein 7.4 g/dL (6.5-8.0)
[2025-05-09] MEDS: 0.9 % Sodium Chloride Flush 3 ML SYRINGE IVFLUSH ×3 (08:01→21:34)
--- NOTE | 2025-05-09 10:57 | PM.CCPN ---
Subjective Subjective Date of Service: 05/09/25 Interval History: 44-year-old lady, [place]riot, with underlying bipolar with manic episodes with agitation recent hospitalization at [facility] transferred to [facility] ER on 05/03/2025 secondary to worsening agitation with initial poor response to parenteral sedatives requiring Precedex drip. Now loaded with valproic acid and titrated off Precedex drip and transferred to telemetry on 05/05/2025. Overnight 05/06, patient with development of significant agitation with suboptimal response to initial parenteral sedatives requiring re-initiation of Precedex drip and being transferred back to intensive care unit. No events overnight. Did not require Precedex drip. Transitioned to p.o. medications. Critical Care Time (minutes): 0 Physical Exam Vital Signs: Vital Signs: Last Vital Signs Temp 100.0 F 05/09/25 10:00 Pulse 114 H 05/09/25 10:00 Resp 18 05/09/25 10:00 BP 118/70 05/09/25 10:00 Pulse Ox 93 05/09/25 10:00 O2 Del Method Room Air 05/09/25 10:00 O2 Flow Rate 1 05/06/25 14:00 BMI result Body Mass Index 26.6 Const: General: no acute distress and other (Somnolent, arousable) Eyes: Sclerae: sclerae normal EOM: EOMs intact bilaterally Neck: Neck: Yes no lymphadenopathy, Yes trachea midline and Yes supple Resp: Effort & Inspection: normal respiratory effort and no respiratory distress Auscultation: clear to auscultation bilaterally Cardio: Rate: regular rate Rhythm: regular rhythm Heart sounds: no gallops, no murmurs and no rubs GI: Palpation (GI): Soft to palpation and Other GI palpation findings present ( Nontender) Auscultation: normal bowel sounds Extrem: General: Yes no pedal edema, No clubbing and No cyanosis Objective Data Labs 05/09/25 05:30 05/09/25 05:30 Labs: Laboratory Results - last 24 hr 05/08/25 05/08/25 05/08/25 12:13 18:09 23:53 WBC RBC Hgb Hct MCV MCH MCHC RDW Plt Count MPV Immature Gran % (Auto) Neut % (Auto) Lymph % (Auto) [place] % (Auto) Eos % (Auto) Baso % (Auto) Lymph # (Auto) [place] # (Auto) Eos # (Auto) Baso # (Auto) Abs Immat Gran (auto) Absolute Neuts (auto) Absolute Nucleated RBC Nucleated RBC % (auto) Smear Tech's Comments Sodium Potassium Chloride Carbon Dioxide Anion Gap BUN Creatinine Estim Creat Clear Calc Estimated GFR POC Glucose 95 101 97 Random Glucose Calcium Phosphorus Magnesium Total Bilirubin AST ALT Alkaline Phosphatase Total Protein Albumin 05/09/25 05:30 WBC 5.8 RBC 4.47 Hgb 13.3 Hct 38.7 MCV 86.6 MCH 29.8 MCHC 34.4 RDW 13.8 Plt Count TNP MPV TNP Immature Gran % (Auto) 1.6 H Neut % (Auto) 49.3 Lymph % (Auto) 33.9 [place] % (Auto) 12.3 H Eos % (Auto) 2.2 Baso % (Auto) 0.7 Lymph # (Auto) 2.0 [place] # (Auto) 0.7 Eos # (Auto) 0.1 Baso # (Auto) 0.0 Abs Immat Gran (auto) 0.09 H Absolute Neuts (auto) 2.9 Absolute Nucleated RBC 0.000 Nucleated RBC % (auto) 0.0 Smear Tech's Comments VERIFIED Sodium 138 Potassium 4.0 Chloride 107 Carbon Dioxide 20 L Anion Gap 15 BUN 6 L Creatinine 0.72 Estim Creat Clear Calc 99.4 Estimated GFR > 60 POC Glucose Random Glucose 96 Calcium 8.5 Phosphorus 4.4 Magnesium 2.3 Total Bilirubin 0.4 AST 72 H ALT 48 H Alkaline Phosphatase 71 Total Protein 7.4 Albumin 3.5 Microbiology Microbiology Results: Microbiology 05/03/25 04:46 Blood - Venous Blood Culture - Final No growth after 5 days. 05/03/25 04:37 Blood - Venous Blood Culture - Final No growth after 5 days. 05/03/25 04:08 Cerebrospinal Fluid Gram Stain - Final 05/03/25 04:08 Cerebrospinal Fluid Fluid Description - Final 05/03/25 04:08 Cerebrospinal Fluid CSF Culture - Final No growth after 3 days. Progress Note: A&P Assessment and plan (1) Agitation: Status: Acute (2) Schizoaffective disorder: Status: Acute (3) Bipolar 1 disorder: Status: Acute Plan Assessment: 44-year-old lady with underlying bipolar disorder with manic episodes with agitation admitted secondary to severe agitation requiring sedative drips. Plan: Neuro: No acute issues. Cardiac: No acute issues. Pulmonary: No acute issues. Renal: No acute issues. Endo: No acute issues. GI: No acute issues. ID: No acute issues Heme/Onc: No acute issues. Psych: Bipolar disorder with underlying manic episodes with significant agitation initially requiring Precedex drip overnight, but off for the last 24 hour. Psychiatry service care appreciated. Continue Cogentin, Valium, valproic acid, Lamictal and Haldol. Miscellaneous: No acute issues. Prophylaxis: Heparin Diet: Regular Quality Stroke Does the patient have a stroke diagnosis?: No VTE Prior VTE?: No VTE Risk Level:: Medical - moderate - high VTE Device Contraindication: N/A - Device Ordered VTE Drug Contraindication: N/A - Med Ordered
[2025-05-09 12:07] LABS: Glucose, Whole Blood 87 mg/dL (60-115)
[2025-05-09 15:02] LABS: Chlamydia pneumoniae PCR Not Detected (Not Detect.); Coronavirus 229E PCR Not Detected (Not Detect.); Coronavirus HKU1 PCR Not Detected (Not Detect.); Coronavirus NL63 PCR Not Detected (Not Detect.); Coronavirus OC43 PCR Not Detected (Not Detect.); RSV PCR Not Detected (Not Detect.); Rhino/Enterovirus PCR Not Detected (Not Detect.)
--- NOTE | 2025-05-09 15:25 | PC.NURSE ---
Assumed care 0700? Neuro/Respiratory: Drowsy, Requiring redirection, [facility] restoration silversmith services utilized, patients unable to answer questions. at bedside.? Cardiac: Sinus rhythm on tele.? GI/: having difficulty chewing, diet change to purred, Speech swallow eval ordered; [place] in place, patent/draining,. Skin: skin tear to left wrist Temp: low grade fever, Ice packs in place? Lines: ?peripheral IVs Plan: Transferred? to [facility] No longer requiring ICU-level care.
[2025-05-09 15:30] LABS: Influenza A H1 PCR Not Detected (Not Detect.); Influenza A H1-2009 PCR Not Detected (Not Detect.); Influenza A H3 PCR Not Detected (Not Detect.); SARS-CoV-2 PCR Not Detected (Not Detect.)
[2025-05-09 16:05] LABS: Glucose, Whole Blood 103 mg/dL (60-115)
[2025-05-09 21:50] LABS: Glucose, Whole Blood 86 mg/dL (60-115)
[2025-05-10] MEDS: 0.9 % Sodium Chloride Flush 3 ML SYRINGE IVFLUSH ×3 (00:15→17:06)
[2025-05-10] MEDS: diazePAM 10 MG/2 ML CARTRIDGE IVPUSH (00:32)
[2025-05-10 03:15] VITALS: BP 117/71; PULSE 114; RESP 19; TEMP 36.7; O2SAT 94
[2025-05-10 06:00] VITALS: BMI 28.1
[2025-05-10 07:25] LABS: MANUAL DIFF FLAG NO
[2025-05-10 07:30] LABS: Glucose, Whole Blood 86 mg/dL (60-115)
[2025-05-10 07:35] LABS: Hematocrit 39.3 % (37.0-47.0); Hemoglobin 12.9 g/dl (12.0-16.0); Imm Gran Abs Auto 0.17 X10*3/uL (0.00-0.03); Imm Gran Pct Auto 2.0 % (0.0-0.4); Lymphocytes Absolute Auto 2.3 X10*3/uL (1.2-4.9); Mean Corpuscular HGB Conc 32.8 g/dl (31.0-35.0); Mean Corpuscular Hemoglobin 29.5 pg (27.0-33.0); Mean Corpuscular Volume 89.7 fL (80.0-98.0); NRBC Abs Auto 0.000 X10*3/uL (0.0-0.012); NRBC Pct Auto 0.0 /100WBC (0.0-0.2); Platelet Count 234 X10*3/uL (160-400); Red Blood Count 4.38 X10*6/uL (4.20-5.50); White Blood Count 8.5 X10*3/uL (4.8-10.8)
[2025-05-10 08:00] VITALS: BP 125/65; PULSE 108; RESP 20; TEMP 37.1; O2SAT 99
[2025-05-10 08:02] LABS: Albumin Level 3.6 g/dL (3.5-5.0); Anion Gap 13 (12-20); Blood Urea Nitrogen 8 mg/dL (9-16); Calcium 8.9 mg/dL (8.4-10.2); Carbon Dioxide 25 mmol/L (22-29); Chloride 106 mmol/L (96-108); Creatinine Clr Calc Pharmacy 116.6; Estimated Glomerular Filt Rate > 60; Magnesium 2.1 mg/dL (1.6-2.6); Potassium 3.6 mmol/L (3.3-5.1); Sodium 140 mmol/L (135-145)
--- NOTE | 2025-05-10 11:51 | MHC.SL.SWA ---
Speech Pathologist Impression: Mild oral phase dysphagia in setting of AMS Risk of Aspiration Due to: Significance of AMS Dysphasia Diet Status: Liquid Consistency and Strategies for Safe Swallow: Liquid Intake Recommendation: Eleva Thick Liquid Intake Strategies: Solid Food Consistency: Dietary Recommendations: Pureed (NDD1) Additional Modifications to Solid Foods: Oral Medication Intake: Crushed with Puree Please contact the pharmacy regarding appropriate crushable or liquid drug formulations that are available whenever modified delivery is recommended. Compensatory Strategies and Precautions to be Taken for Safe Swallow: Supervision While Eating and Drinking for Safe Swallow: Total Assistance (1:1) Foods to Avoid: Swallowing Recommended Treatments: Recommendation for Speech: Comment: Pt experiencing altered mental status, though she does vocalize in response to spouse and when rejecting PO. RNs at bedside, traffic agent system utilized. Pt took meds crushed in puree with adequate oropharyngeal coordination. Pt sipped NTL by cup without overt s/s of aspiration. Pt routed large pills out of her mouth with her tongue. Mild anterior loss of puree observed when pt rejecting whole meds presented in puree. D/t severity of AMS no other trials presented. It is anticipated pt PO tolerance will be WNL when she is able to participate in clinical bedside swallow re-assessment. Pt spouse verbalized understanding of reason for downgraded diet, and agreed with POC. BRICK SIDING APPLICATOR to re-assess daily. Frequency/Duration: Date Range for Service Req: Timeline to reassess: Tool And Machine Maintainer Clinican/Clinical Fellow: No Supervisory Statement: I have reviewed and agree with the student/clinical fellow's documentation: N/A Speech Language Pathologist: Juanis Nina M.S., CCC-BRICK SIDING APPLICATOR
[2025-05-10 12:00] VITALS: BP 132/64; PULSE 118; RESP 20; TEMP 36.1; O2SAT 94
[2025-05-10 12:11] LABS: Glucose, Whole Blood 137 mg/dL (60-115)
--- NOTE | 2025-05-10 12:18 | HO.PM.IMPN ---
Subjective Subjective Date of Service: 05/10/25 Interval History: bipolar episode low grade fever in icu ,resolved. Review of Systems still very agitated intermittent Review of Systems: Yes all other systems are reviewed and are negative Physical Exam Exam: Exam: Appearance: awake ,alert,generlaised weak ,agitate intermittent , more verbal,as per -near baseline. cvs: rrr, [id number] . res: clear to auscultation ,no rhonchii or wheezing abd: no rebound or guarding ,nt, bs present. ext pulses present , no cyanosis . neuro: moves all ext but slowly. Vital Signs: Vital Signs: Last Vital Signs Temp 98.7 F 05/10/25 08:00 Pulse 108 H 05/10/25 08:00 Resp 20 05/10/25 08:00 BP 125/65 05/10/25 08:00 Pulse Ox 99 05/10/25 08:00 O2 Del Method Room Air 05/10/25 08:00 O2 Flow Rate 1 05/06/25 14:00 BMI result Body Mass Index 28.1 Objective Data Active Medications Benztropine Mesylate (Benztropine Mesylate 1 Mg Tablet) 1 mg PO BID [facility] Last Admin: 05/10/25 10:46 Dose: 1 mg Documented By: GLADIS Dextrose (Dextrose 50 % 25 Gm/50 Ml Syringe) 25 gm IVPUSH Q15M PRN; Protocol PRN Reason: per Hypoglycemia Standing Ord. Last Admin: 05/06/25 12:18 Dose: 25 gm Documented By: DEIDRE Diazepam (Diazepam 5 Mg Tablet) 5 mg PO TID [facility] Last Admin: 05/10/25 10:46 Dose: 5 mg Documented By: GLADIS Diazepam (Diazepam 10 Mg/2 Ml Cartridge) 5 mg IVPUSH BID PRN PRN Reason: agitation Enoxaparin Sodium (Enoxaparin Sodium 40 Mg/0.4 Ml Syringe) 40 mg SUBCUT Q24H [facility] Last Admin: 05/10/25 05:36 Dose: 40 mg Documented By: JAYE-JOZEB Haloperidol (Haloperidol 5 Mg Tablet) 10 mg PO BID [facility] Last Admin: 05/10/25 10:46 Dose: 10 mg Documented By: GLADIS Lamotrigine (Lamotrigine 25 Mg Tablet) 50 mg PO BID [facility] Last Admin: 05/10/25 10:46 Dose: 50 mg Documented By: FIGDIJULEE Sodium Chloride (0.9 % Sodium Chloride Flush 3 Ml Syringe) 3 ml IVFLUSH QSHIFT [facility] Last Admin: 05/10/25 10:46 Dose: 3 ml Documented By: IZZYDIJULEE Valproic Acid (Valproic Acid 250 Mg Capsule) 500 mg PO BID [facility] Last Admin: 05/10/25 10:46 Dose: 500 mg Documented By: IZZYDIJULEE Labs 05/10/25 06:45 05/10/25 06:45 Labs: Laboratory Results - last 24 hr 05/09/25 05/09/25 05/09/25 13:52 15:59 20:25 MCV MCH MCHC RDW Plt Count MPV Immature Gran % (Auto) Neut % (Auto) Lymph % (Auto) [place] % (Auto) Eos % (Auto) Baso % (Auto) Lymph # (Auto) [place] # (Auto) Eos # (Auto) Baso # (Auto) Abs Immat Gran (auto) Absolute Neuts (auto) Absolute Nucleated RBC Nucleated RBC % (auto) Anion Gap Estim Creat Clear Calc Estimated GFR POC Glucose 103 86 Random Glucose Calcium Phosphorus Magnesium Albumin Respiratory Panel Tse See Note Adenovirus (Rapid PCR) Not Detected B.pert (TEM-PCR) Not Detected B.parapertussis DNA PCR Not Detected C. pneumoniae DNA (PCR) Not Detected Coronavirus OC43 (PCR) Not Detected Coronavirus HKU1 (PCR) Not Detected Coronavirus 229E (PCR) Not Detected Coronavirus NL63 (PCR) Not Detected Human Metapneumovir PCR Not Detected Influenza A (RT-PCR) Not Detected Influenza A (H1) PCR Not Detected Influ A (H1/09) PCR Not Detected Influenza A (H3) PCR Not Detected Influenza B (RT-PCR) Not Detected M. pneumoniae (PCR) Not Detected Parainfluenza 1 (PCR) Not Detected Parainfluenza 2 (PCR) Not Detected Parainfluenza 3 (PCR) Not Detected Parainfluenza 4 (PCR) Not Detected RSV (PCR) Not Detected Entero/Rhino (PCR) Not Detected SARS-CoV-2 RNA (RT-PCR) Not Detected 05/10/25 05/10/25 05/10/25 06:45 07:19 11:56 MCV 89.7 MCH 29.5 MCHC 32.8 RDW 14.0 Plt Count 234 MPV 11.2 Immature Gran % (Auto) 2.0 H Neut % (Auto) 56.5 Lymph % (Auto) 26.9 [place] % (Auto) 11.3 H Eos % (Auto) 2.6 Baso % (Auto) 0.7 Lymph # (Auto) 2.3 [place] # (Auto) 1.0 Eos # (Auto) 0.2 Baso # (Auto) 0.1 Abs Immat Gran (auto) 0.17 H Absolute Neuts (auto) 4.8 Absolute Nucleated RBC 0.000 Nucleated RBC % (auto) 0.0 Anion Gap 13 Estim Creat Clear Calc 116.6 Estimated GFR > 60 POC Glucose 86 137 H Random Glucose 89 Calcium 8.9 Phosphorus 3.3 Magnesium 2.1 Albumin 3.6 Respiratory Panel Tse Adenovirus (Rapid PCR) B.pert (TEM-PCR) B.parapertussis DNA PCR C. pneumoniae DNA (PCR) Coronavirus OC43 (PCR) Coronavirus HKU1 (PCR) Coronavirus 229E (PCR) Coronavirus NL63 (PCR) Human Metapneumovir PCR Influenza A (RT-PCR) Influenza A (H1) PCR Influ A (H1/09) PCR Influenza A (H3) PCR Influenza B (RT-PCR) M. pneumoniae (PCR) Parainfluenza 1 (PCR) Parainfluenza 2 (PCR) Parainfluenza 3 (PCR) Parainfluenza 4 (PCR) RSV (PCR) Entero/Rhino (PCR) SARS-CoV-2 RNA (RT-PCR) Assessment and Plan (1) Agitation: Status: Acute (2) Bipolar 1 disorder: Status: Acute Plan 44-year-old lady, Maldivian, with underlying bipolar with manic episodes with agitation recent hospitalization at [facility] transferred to [facility] ER on 05/03/2025 secondary to worsening agitation with initial poor response to parenteral sedatives requiring Precedex drip,loaded with valproic acid and titrated off Precedex drip and transferred to telemetry on 05/05/2025. Overnight 05/06, patient with development of significant agitation with suboptimal response to initial parenteral sedatives requiring re-initiation of Precedex drip and icr transfer. bipolar dis with manic episodes with agitation: continue haloperidol ,valium po and iv, lamotil,valproic acid. improving eating , intermittent agitation will check lft's ,ammonia levels and valproic acid levels psych followup rhabdomylysis : seems improovin will repeat cpk mild low grade fever in icu resolved: ua ,cta chest ,LP negative ,csf/blood cultures negative . no leucocytosis or fevers d/w Id -no further workup. dvt prophylax: s/c lovenox. ongoing need for stay :bipolar dis with manic episodes with agitation- moniter for agitation/manic episodes -adjustment for psych meds, psych eval. Quality Stroke Does the patient have a stroke diagnosis?: No VTE Prior VTE?: No VTE Risk Level:: Medical - moderate - high VTE Device Contraindication: N/A - Device Ordered VTE Drug Contraindication: N/A - Med Ordered
[2025-05-10] MEDS: diazePAM 10 MG/2 ML CARTRIDGE 5 MG IVPUSH (12:19)
--- NOTE | 2025-05-10 14:05 | P.CNPS_ITS ---
History of Present Illness Date of Service: 05/10/25 Chief Complaint: Severe Agitation Reason for Consult: tone/behavioral agitation Requesting physician: Jeanne Klein Discussed with referring provider: Yes Sources of Information: chart reviewed HPI Narrative: Patient is a 44-year-old woman with hx of Schizoaffective d/o and PTSD, who presented with agitation at recent hospitalization at [facility]; transferred to [facility] ER on 05/03/2025 secondary to worsening agitation with initial poor response to parenteral sedatives requiring Precedex drip. Now loaded with valproic acid and titrated off Precedex drip and transferred to telemetry on 05/05/2025. Psychiatric consult placed for: tone/behavioral agitation During psychiatric consult, T/W unable to perform mental status d/t patient being asleep. Patient's at bedside. Patient's reports patient appears slightly improved since being in the ICU. He reports patient's eating and communication has been improving, however she continues confused and wanting to get out of bed when awake. Nursing reports patient has not been combative. They also confirm pt appears confused when she is awake and attempting to get out of bed but is able to calm down with Valium. Past Psychiatric History: Outpatient psychiatrist: Dr. Luís Hopkins ([facility]) hx of taking Haldol 20mg PO bedtime, Diazepam 5mg PO daily and 10mg PO bedtime for the last 5 years per outpatient provider. Medical Evaluation Reviewed: Yes Diagnostics Vital Signs (24Hr): Vital Signs - 24 hr 05/09/25 15:20 05/09/25 19:44 05/09/25 23:23 Temperature 99.3 F 97.7 F 97.5 F Pulse Rate 105 H 100 117 H Respiratory Rate 16 20 20 Blood Pressure 132/84 119/72 113/61 Pulse Oximetry 97 98 96 Oxygen Delivery Method Room Air Room Air Room Air 05/10/25 03:15 05/10/25 08:00 05/10/25 12:00 Temperature 98.0 F 98.7 F 97.0 F Pulse Rate 114 H 108 H 118 H Respiratory Rate 19 20 20 Blood Pressure 117/71 125/65 132/64 Pulse Oximetry 94 99 94 Oxygen Delivery Method Room Air Room Air Room Air BMI result Body Mass Index 28.1 Labs 05/10/25 06:45 05/10/25 06:45 Labs: Laboratory Results - last 48 hr 05/08/25 05/08/25 05/09/25 18:09 23:53 05:30 WBC 5.8 RBC 4.47 Hgb 13.3 Hct 38.7 MCV 86.6 MCH 29.8 MCHC 34.4 RDW 13.8 Plt Count TNP MPV TNP Immature Gran % (Auto) 1.6 H Neut % (Auto) 49.3 Lymph % (Auto) 33.9 [place] % (Auto) 12.3 H Eos % (Auto) 2.2 Baso % (Auto) 0.7 Lymph # (Auto) 2.0 [place] # (Auto) 0.7 Eos # (Auto) 0.1 Baso # (Auto) 0.0 Abs Immat Gran (auto) 0.09 H Absolute Neuts (auto) 2.9 Absolute Nucleated RBC 0.000 Nucleated RBC % (auto) 0.0 Smear Tech's Comments VERIFIED Sodium 138 Potassium 4.0 Chloride 107 Carbon Dioxide 20 L Anion Gap 15 BUN 6 L Creatinine 0.72 Estim Creat Clear Calc 99.4 Estimated GFR > 60 POC Glucose 101 97 Random Glucose 96 Calcium 8.5 Phosphorus 4.4 Magnesium 2.3 Total Bilirubin 0.4 AST 72 H ALT 48 H Alkaline Phosphatase 71 Total Protein 7.4 Albumin 3.5 Respiratory Panel Tse Adenovirus (Rapid PCR) B.pert (TEM-PCR) B.parapertussis DNA PCR C. pneumoniae DNA (PCR) Coronavirus OC43 (PCR) Coronavirus HKU1 (PCR) Coronavirus 229E (PCR) Coronavirus NL63 (PCR) Human Metapneumovir PCR Influenza A (RT-PCR) Influenza A (H1) PCR Influ A (H1) PCR Influenza A (H3) PCR Influenza B (RT-PCR) M. pneumoniae (PCR) Parainfluenza 1 (PCR) Parainfluenza 2 (PCR) Parainfluenza 3 (PCR) Parainfluenza 4 (PCR) RSV (PCR) Entero/Rhino (PCR) SARS-CoV-2 RNA (RT-PCR) 05/09/25 05/09/25 05/09/25 11:58 13:52 15:59 WBC RBC Hgb Hct MCV MCH MCHC RDW Plt Count MPV Immature Gran % (Auto) Neut % (Auto) Lymph % (Auto) [place] % (Auto) Eos % (Auto) Baso % (Auto) Lymph # (Auto) [place] # (Auto) Eos # (Auto) Baso # (Auto) Abs Immat Gran (auto) Absolute Neuts (auto) Absolute Nucleated RBC Nucleated RBC % (auto) Smear Tech's Comments Sodium Potassium Chloride Carbon Dioxide Anion Gap BUN Creatinine Estim Creat Clear Calc Estimated GFR POC Glucose 87 103 Random Glucose Calcium Phosphorus Magnesium Total Bilirubin AST ALT Alkaline Phosphatase Total Protein Albumin Respiratory Panel Tse See Note Adenovirus (Rapid PCR) Not Detected B.pert (TEM-PCR) Not Detected B.parapertussis DNA PCR Not Detected C. pneumoniae DNA (PCR) Not Detected Coronavirus OC43 (PCR) Not Detected Coronavirus HKU1 (PCR) Not Detected Coronavirus 229E (PCR) Not Detected Coronavirus NL63 (PCR) Not Detected Human Metapneumovir PCR Not Detected Influenza A (RT-PCR) Not Detected Influenza A (H1) PCR Not Detected Influ A (H1/09) PCR Not Detected Influenza A (H3) PCR Not Detected Influenza B (RT-PCR) Not Detected M. pneumoniae (PCR) Not Detected Parainfluenza 1 (PCR) Not Detected Parainfluenza 2 (PCR) Not Detected Parainfluenza 3 (PCR) Not Detected Parainfluenza 4 (PCR) Not Detected RSV (PCR) Not Detected Entero/Rhino (PCR) Not Detected SARS-CoV-2 RNA (RT-PCR) Not Detected 05/09/25 05/10/25 05/10/25 20:25 06:45 07:19 WBC 8.5 RBC 4.38 Hgb 12.9 Hct 39.3 MCV 89.7 MCH 29.5 MCHC 32.8 RDW 14.0 Plt Count 234 MPV 11.2 Immature Gran % (Auto) 2.0 H Neut % (Auto) 56.5 Lymph % (Auto) 26.9 [place] % (Auto) 11.3 H Eos % (Auto) 2.6 Baso % (Auto) 0.7 Lymph # (Auto) 2.3 [place] # (Auto) 1.0 Eos # (Auto) 0.2 Baso # (Auto) 0.1 Abs Immat Gran (auto) 0.17 H Absolute Neuts (auto) 4.8 Absolute Nucleated RBC 0.000 Nucleated RBC % (auto) 0.0 Smear Tech's Comments Sodium 140 Potassium 3.6 Chloride 106 Carbon Dioxide 25 Anion Gap 13 BUN 8 L Creatinine 0.63 Estim Creat Clear Calc 116.6 Estimated GFR > 60 POC Glucose 86 86 Random Glucose 89 Calcium 8.9 Phosphorus 3.3 Magnesium 2.1 Total Bilirubin AST ALT Alkaline Phosphatase Total Protein Albumin 3.6 Respiratory Panel Tse Adenovirus (Rapid PCR) B.pert (TEM-PCR) B.parapertussis DNA PCR C. pneumoniae DNA (PCR) Coronavirus OC43 (PCR) Coronavirus HKU1 (PCR) Coronavirus 229E (PCR) Coronavirus NL63 (PCR) Human Metapneumovir PCR Influenza A (RT-PCR) Influenza A (H1) PCR Influ A () PCR Influenza A (H3) PCR Influenza B (RT-PCR) M. pneumoniae (PCR) Parainfluenza 1 (PCR) Parainfluenza 2 (PCR) Parainfluenza 3 (PCR) Parainfluenza 4 (PCR) RSV (PCR) Entero/Rhino (PCR) SARS-CoV-2 RNA (RT-PCR) 05/10/25 11:56 WBC RBC Hgb Hct MCV MCH MCHC RDW Plt Count MPV Immature Gran % (Auto) Neut % (Auto) Lymph % (Auto) [place] % (Auto) Eos % (Auto) Baso % (Auto) Lymph # (Auto) [place] # (Auto) Eos # (Auto) Baso # (Auto) Abs Immat Gran (auto) Absolute Neuts (auto) Absolute Nucleated RBC Nucleated RBC % (auto) Smear Tech's Comments Sodium Potassium Chloride Carbon Dioxide Anion Gap BUN Creatinine Estim Creat Clear Calc Estimated GFR POC Glucose 137 H Random Glucose Calcium Phosphorus Magnesium Total Bilirubin AST ALT Alkaline Phosphatase Total Protein Albumin Respiratory Panel Tse Adenovirus (Rapid PCR) B.pert (TEM-PCR) B.parapertussis DNA PCR C. pneumoniae DNA (PCR) Coronavirus OC43 (PCR) Coronavirus HKU1 (PCR) Coronavirus 229E (PCR) Coronavirus NL63 (PCR) Human Metapneumovir PCR Influenza A (RT-PCR) Influenza A (H1) PCR Influ A () PCR Influenza A (H3) PCR Influenza B (RT-PCR) M. pneumoniae (PCR) Parainfluenza 1 (PCR) Parainfluenza 2 (PCR) Parainfluenza 3 (PCR) Parainfluenza 4 (PCR) RSV (PCR) Entero/Rhino (PCR) SARS-CoV-2 RNA (RT-PCR) Mental Status Exam Mental Status Exam Narrative: unable to assess mental status d/t pt being asleep. Medications Medications Current Medications Benztropine Mesylate (Benztropine Mesylate 1 Mg Tablet) 1 mg PO BID [facility] Last Admin: 05/10/25 10:46 Dose: 1 mg Dextrose (Dextrose 50 % 25 Gm/50 Ml Syringe) 25 gm IVPUSH Q15M PRN; Protocol PRN Reason: per Hypoglycemia Standing Ord. Last Admin: 05/06/25 12:18 Dose: 25 gm Diazepam (Diazepam 5 Mg Tablet) 5 mg PO TID [facility] Last Admin: 05/10/25 10:46 Dose: 5 mg Diazepam (Diazepam 10 Mg/2 Ml Cartridge) 5 mg IVPUSH BID PRN PRN Reason: agitation Last Admin: 05/10/25 12:19 Dose: 5 mg Enoxaparin Sodium (Enoxaparin Sodium 40 Mg/0.4 Ml Syringe) 40 mg SUBCUT Q24H [facility] Last Admin: 05/10/25 05:36 Dose: 40 mg Haloperidol (Haloperidol 5 Mg Tablet) 10 mg PO BID [facility] Last Admin: 05/10/25 10:46 Dose: 10 mg Lamotrigine (Lamotrigine 25 Mg Tablet) 50 mg PO BID [facility] Last Admin: 05/10/25 10:46 Dose: 50 mg Sodium Chloride (0.9 % Sodium Chloride Flush 3 Ml Syringe) 3 ml IVFLUSH QSHIFT [facility] Last Admin: 05/10/25 10:46 Dose: 3 ml Valproic Acid (Valproic Acid 250 Mg Capsule) 500 mg PO BID [facility] Last Admin: 05/10/25 10:46 Dose: 500 mg Allergies Allergies Allergy/AdvReac Type Severity Reaction Status Date / Time No Known Allergies Allergy Verified 05/02/25 17:30 Assessment & Plan Assessment & Plan (1) Schizoaffective disorder: Status: Acute Code(s): F25.9 - Schizoaffective disorder, unspecified Plan Recommendations: -Adjust current medications to patient's home regimen of Haldol 20mg PO bedtime, Diazepam 5mg PO daily and 10mg PO bedtime. -Continue Depakote and monitor liver panel, ammonia and valproic acid level every 4 days. If Valproic acid level returns lower than therapeutic range; increase dose by 250mg every 1-3 days to reach desired clinical effect and therapeutic level. -Re-consult if needed. Total time managing care of this patient today _30___ minutes. Guardian/Caregiver educated on: medication risk/benefits
--- NOTE | 2025-05-10 14:30 | MHC.CM.PN ---
Per rounds, pt. to have Care team eval to help determine disposition. CM to follow for DC needs.
[2025-05-10 14:46] LABS: Alanine Aminotransferase 46 U/L (0-31); Alkaline Phosphatase 67 U/L (39-117); Aspartate Amino Transferase 59 U/L (5-31); Total Protein 7.6 g/dL (6.5-8.0)
[2025-05-10 15:54] LABS: Ammonia 45 umol/L (13-55)
[2025-05-10 16:00] VITALS: BP 134/82; PULSE 110; RESP 16; TEMP 36.8; O2SAT 97
--- NOTE | 2025-05-10 16:39 | W.PM.IDCN ---
History of Present Illness Data of Consult Service Date: 05/10/25 Requesting physician: Jeanne Klein Primary Care Provider: Unknown Physician HPI Reason for consult: agitation ,temperature She came in with agitation She had LP She comes from [facility] originally Review of Systems Review of Systems: Yes all other systems are reviewed and are negative [facility] Social History Social History Household Members: Unknown / Unable to assess Unable to assess alcohol history related to: Unable to respond Comment: 1-1 sitter Patient Tobacco Use Status: Tobacco use Unknown Smoked in Last 30 Days: No Use of substances other than those prescribed or required for medical reasons: Unable to respond Currently Displaying Signs/Symptoms of Drug Intoxication Withdrawal: No Advance Directives: No Advance Directives Information Provided: No Do you have a plan to hurt others: No Plan Patient : No Meds Allergies Allergy/AdvReac Type Severity Reaction Status Date / Time No Known Allergies Allergy Verified 05/02/25 17:30 Active Medications: Current Medications Benztropine Mesylate (Benztropine Mesylate 1 Mg Tablet) 1 mg PO BID [facility] Last Admin: 05/10/25 10:46 Dose: 1 mg Dextrose (Dextrose 50 % 25 Gm/50 Ml Syringe) 25 gm IVPUSH Q15M PRN; Protocol PRN Reason: per Hypoglycemia Standing Ord. Last Admin: 05/06/25 12:18 Dose: 25 gm Diazepam (Diazepam 5 Mg Tablet) 5 mg PO TID [facility] Last Admin: 05/10/25 10:46 Dose: 5 mg Diazepam (Diazepam 10 Mg/2 Ml Cartridge) 5 mg IVPUSH BID PRN PRN Reason: agitation Last Admin: 05/10/25 12:19 Dose: 5 mg Enoxaparin Sodium (Enoxaparin Sodium 40 Mg/0.4 Ml Syringe) 40 mg SUBCUT Q24H [facility] Last Admin: 05/10/25 05:36 Dose: 40 mg Haloperidol (Haloperidol 5 Mg Tablet) 10 mg PO DAILY [facility] Haloperidol (Haloperidol 5 Mg Tablet) 20 mg PO BEDTIME [facility] Lamotrigine (Lamotrigine 25 Mg Tablet) 50 mg PO BID [facility] Last Admin: 05/10/25 10:46 Dose: 50 mg Sodium Chloride (0.9 % Sodium Chloride Flush 3 Ml Syringe) 3 ml IVFLUSH QSHIFT [facility] Last Admin: 05/10/25 10:46 Dose: 3 ml Valproic Acid (Valproic Acid 250 Mg Capsule) 500 mg PO BID [facility] Last Admin: 05/10/25 10:46 Dose: 500 mg Home Medications ?Medication ?Instructions ?Recorded ?Confirmed ?Last Taken ?Type benztropine 1 mg tablet 1 mg PO BID 05/03/25 05/03/25 Unknown History diazepam 5 mg tablet 5 mg PO DAILY 05/03/25 05/03/25 Unknown History diazepam 5 mg tablet 10 mg PO BEDTIME 05/03/25 05/03/25 Unknown History haloperidol 10 mg tablet 20 mg PO BEDTIME 05/03/25 05/03/25 Unknown History Physical Exam Vital Signs: Vital Signs: Last Vital Signs Temp 98.3 F 05/10/25 16:00 Pulse 110 H 05/10/25 16:00 Resp 16 05/10/25 16:00 BP 134/82 05/10/25 16:00 Pulse Ox 97 05/10/25 16:00 O2 Del Method Room Air 05/10/25 16:00 O2 Flow Rate 1 05/06/25 14:00 BMI result Body Mass Index 28.1 Const: General: cooperative HEENT: Head: Yes normal to inspection Face and sinus: Yes normal facial exam Mouth: Normal oral and palatal mucosa present Teeth and gingiva: dentition normal Eyes: General: appearance normal, both eyes and all related structures Pupils: Equal, round and reactive pupils present Resp: Effort & Inspection: normal respiratory effort Cardio: Rate: regular rate Rhythm: regular rhythm GI: Palpation (GI): Soft to palpation and nontender : General: Yes no CVA tenderness Back/Spine/Pelvis: Back: no CVA tenderness Skin: General skin exam: no rashes or lesions noted Neuro: General: moves all extremities Cranial nerves: Yes Equal, round and reactive pupils present Extrem: General: Yes normal to inspection Psych: Appearance: grossly normal Results Labs 05/10/25 06:45 05/10/25 06:45 Labs: Short CBC 05/10/25 Range/Units 06:45 WBC 8.5 (4.8-10.8) X10*3/uL Hgb 12.9 (12.0-16.0) g/dl Hct 39.3 (37.0-47.0) % Plt Count 234 (160-400) X10*3/uL BMP 05/10/25 06:45 Sodium 140 Potassium 3.6 Chloride 106 Carbon Dioxide 25 BUN 8 L Creatinine 0.63 Calcium 8.9 Cardiac Enzymes 05/10/25 Range/Units 06:45 Total Creatine Kinase 588 H (26-140) U/L Liver Function 05/10/25 Range/Units 06:45 Total Bilirubin 0.4 (0.0-1.0) mg/dL Direct Bilirubin 0.2 (0.0-0.5) mg/dL AST 59 H (5-31) U/L ALT 46 H (0-31) U/L Alkaline Phosphatase 67 (39-117) U/L Albumin 3.6 (3.5-5.0) g/dL Microbiology Microbiology Results: Microbiology 05/03/25 04:46 Blood - Venous Blood Culture - Final No growth after 5 days. 05/03/25 04:37 Blood - Venous Blood Culture - Final No growth after 5 days. 05/03/25 04:08 Cerebrospinal Fluid Gram Stain - Final 05/03/25 04:08 Cerebrospinal Fluid Fluid Description - Final 05/03/25 04:08 Cerebrospinal Fluid CSF Culture - Final No growth after 3 days. Assessment and Plan (1) Agitation: Status: Acute (2) Encephalopathy acute: Status: Acute Plan She has no HIV or Hepatitis C per ticket puller from family. Possible viral syndrome LP no bacterial infection. No antibiotics Check West Nile serologies.
[2025-05-10 16:56] LABS: Glucose, Whole Blood 115 mg/dL (60-115)
[2025-05-10 20:00] VITALS: BP 108/56; PULSE 105; RESP 20; TEMP 37.2; O2SAT 97
[2025-05-10 21:14] LABS: Glucose, Whole Blood 137 mg/dL (60-115)
[2025-05-10] MEDS: Valproic Acid Liquid 250 MG/5 ML SOLUTION 500 MG PO (22:22)
[2025-05-11] VITALS (7 sets, daily range): BP systolic 95–125; BP diastolic 52–73; PULSE 94–120; RESP 17–20; TEMP 36.1–37.4; O2SAT 93–98; BMI 27.4
[2025-05-11 07:10] LABS: Glucose, Whole Blood 86 mg/dL (60-115)
[2025-05-11] MEDS: Valproic Acid Liquid 250 MG/5 ML SOLUTION 500 MG PO ×2 (10:42→21:50)
[2025-05-11] MEDS: 0.9 % Sodium Chloride Flush 3 ML SYRINGE IVFLUSH ×2 (10:43→21:51)
[2025-05-11 11:22] LABS: Glucose, Whole Blood 114 mg/dL (60-115)
--- NOTE | 2025-05-11 13:32 | MHC.SL.SWA ---
Speech Pathologist Impression: Risk of Aspiration, Moderate Oropharyngeal Dysphagia Risk of Aspiration Due to: AMS Dysphasia Diet Status: CONTINUE on PUREED (NDD1) diet and UPGRADE to THIN liquids (NO STRAWS) Liquid Consistency and Strategies for Safe Swallow: Liquid Intake Recommendation: Thin Liquid Intake Strategies: Small Sips No Straws Solid Food Consistency: Dietary Recommendations: Pureed (NDD1) Additional Modifications to Solid Foods: Patient presents with moderate oropharyngeal dysphagia in the setting of altered mentation. Patient at times holding bolus or pocketing in anterior sulcus, more timely swallow on thin liquids. Alternating solids w/ liquids cleared oral residue. Mild to moderate delay initiating swallow. Watch for laryngeal elevation and check oral cavity for clearance before giving next bite/sip. AVOID THE USE OF STRAWS. Ensure patient is awake and alert, otherwise do not present PO if not adequately awake. Oral Medication Intake: Crushed with Puree Please contact the pharmacy regarding appropriate crushable or liquid drug formulations that are available whenever modified delivery is recommended. Compensatory Strategies and Precautions to be Taken for Safe Swallow: Sitting Upright (90 deg) No Straw Liquids from Cup Liquids from Spoon Small Bites and Sips Alternate Liquids/Solids Rate of Ingestion Change Oral Check Supervision While Eating and Drinking for Safe Swallow: Total Assistance (1:1) Swallowing Recommended Treatments: Compens. Strategy Educat. Recommendation for Speech: [facility] will continue to follow. Ppap Coordinator Clinican/Clinical Fellow: No Supervisory Statement: I have reviewed and agree with the student/clinical fellow's documentation: N/A Speech Language Pathologist: Meron Daly M.A., [facility]
[2025-05-11 16:42] LABS: Glucose, Whole Blood 86 mg/dL (60-115)
--- NOTE | 2025-05-11 17:10 | HO.PM.IMPN ---
Subjective Subjective Date of Service: 05/11/25 Interval History: bipolar episode Review of Systems Seems calm. Sleeping As per the -she sleeps when she gets better Review of Systems: Yes all other systems are reviewed and are negative Physical Exam Exam: Exam: Appearance: awake ,alert,generlaised weak , more verbal,as per -near baseline. cvs: [id number], [id number] . res: clear to auscultation ,no rhonchii or wheezing abd: no rebound or guarding ,nt, bs present. ext pulses present , no cyanosis . neuro: moves all ext but slowly. Vital Signs: Vital Signs: Last Vital Signs Temp 97.0 F 05/11/25 15:14 Pulse 94 05/11/25 15:14 Resp 17 05/11/25 15:14 BP 97/64 05/11/25 15:14 Pulse Ox 95 05/11/25 15:14 O2 Del Method Room Air 05/11/25 15:14 O2 Flow Rate 1 05/06/25 14:00 BMI result Body Mass Index 27.4 Objective Data Active Medications Benztropine Mesylate (Benztropine Mesylate 1 Mg Tablet) 1 mg PO BID [facility] Last Admin: 05/11/25 10:43 Dose: 1 mg Documented By: DANGELO Dextrose (Dextrose 50 % 25 Gm/50 Ml Syringe) 25 gm IVPUSH Q15M PRN; Protocol PRN Reason: per Hypoglycemia Standing Ord. Last Admin: 05/06/25 12:18 Dose: 25 gm Documented By: DEIDRE Diazepam (Diazepam 5 Mg Tablet) 5 mg PO TID [facility] Last Admin: 05/11/25 14:58 Dose: Not Given Documented By: DANGELO Non-Admin Reason: Physician Approved Diazepam (Diazepam 10 Mg/2 Ml Cartridge) 5 mg IVPUSH BID PRN PRN Reason: agitation Last Admin: 05/10/25 12:19 Dose: 5 mg Documented By: GLADIS Enoxaparin Sodium (Enoxaparin Sodium 40 Mg/0.4 Ml Syringe) 40 mg SUBCUT Q24H [facility] Last Admin: 05/11/25 06:42 Dose: 40 mg Documented By: GELY Haloperidol (Haloperidol 5 Mg Tablet) 10 mg PO DAILY [facility] Last Admin: 05/11/25 10:43 Dose: 10 mg Documented By: DANGELO Haloperidol (Haloperidol 5 Mg Tablet) 20 mg PO BEDTIME [facility] Last Admin: 05/10/25 22:08 Dose: 20 mg Documented By: GELY Lamotrigine (Lamotrigine 25 Mg Tablet) 50 mg PO BID [facility] Last Admin: 05/11/25 10:43 Dose: 50 mg Documented By: DANGELO Sodium Chloride (0.9 % Sodium Chloride Flush 3 Ml Syringe) 3 ml IVFLUSH QSHIFT [facility] Last Admin: 05/11/25 10:43 Dose: 3 ml Documented By: DANGELO Valproic Acid (Valproic Acid Liquid 250 Mg/5 Ml Solution) 500 mg PO BID [facility] Last Admin: 05/11/25 10:42 Dose: 500 mg Documented By: DANGELO Labs 05/10/25 06:45 05/10/25 06:45 Labs: Laboratory Results - last 24 hr 05/10/25 05/11/25 05/11/25 21:07 06:56 11:07 POC Glucose 137 H 86 114 05/11/25 16:26 POC Glucose 86 Assessment and Plan (1) Agitation: Status: Acute (2) Bipolar 1 disorder: Status: Acute Plan 44-year-old lady, [place], with underlying bipolar with manic episodes with agitation recent hospitalization at [facility] transferred to [facility] ER on 05/03/2025 secondary to worsening agitation with initial poor response to parenteral sedatives requiring Precedex drip,loaded with valproic acid and titrated off Precedex drip and transferred to telemetry on 05/05/2025. Overnight 05/06, patient with development of significant agitation with suboptimal response to initial parenteral sedatives requiring re-initiation of Precedex drip and icr transfer. bipolar dis with manic episodes with agitation: continue haloperidol ,valium po and iv, lamotil,valproic acid. improving eating , intermittent agitation will check lft's ,ammonia levels and valproic acid levels psych followup rhabdomylysis : seems improovin will repeat cpk mild low grade fever in icu resolved: ua ,cta chest ,LP negative ,csf/blood cultures negative . no leucocytosis or fevers d/w Id -no further workup. dvt prophylax: s/c lovenox. ongoing need for stay :bipolar dis with manic episodes with agitation- moniter for agitation/manic episodes -adjustment for psych meds, psych eval. Quality Stroke Does the patient have a stroke diagnosis?: No VTE Prior VTE?: No VTE Risk Level:: Medical - moderate - high VTE Device Contraindication: N/A - Device Ordered VTE Drug Contraindication: N/A - Med Ordered
[2025-05-11 21:34] LABS: Glucose, Whole Blood 110 mg/dL (60-115)
[2025-05-11] MEDS: diazePAM 10 MG/2 ML CARTRIDGE 5 MG IVPUSH (21:50)
[2025-05-12 03:30] VITALS: BP 117/60; PULSE 117; RESP 18; TEMP 36.3; O2SAT 94
[2025-05-12 06:00] VITALS: BMI 27.7
[2025-05-12 07:03] VITALS: BP 119/77; PULSE 100; RESP 18; TEMP 36.2; O2SAT 97
[2025-05-12 07:22] LABS: Glucose, Whole Blood 85 mg/dL (60-115)
--- NOTE | 2025-05-12 11:05 | MHC.SLORD ---
Addendum entered and electronically signed by Juanis Nina MS, [facility]-PRESIDENT AND CHIEF EXECUTIVE OFFICER 05/12/25 14:21: PRESIDENT AND CHIEF EXECUTIVE OFFICER returned in the afternoon when RN reported pt more awake. Pt was out of bed using commode with 2 person assist (WING COMMANDER and pt spouse). Pt alert with good eye contact, pt spouse said pt already ate, spouse declined further PO for pt. PRESIDENT AND CHIEF EXECUTIVE OFFICER to see pt 05/14. Pt currently on pureed diet with thin liquids. Original Note: Speech Language Pathology Order Status: RN consulted, pt not waking to participate in taking PO meds. PRESIDENT AND CHIEF EXECUTIVE OFFICER continues to follow, will re-assess pt PO tolerance when pt alert.
[2025-05-12 11:11] VITALS: BP 104/68; PULSE 90; RESP 18; TEMP 36.4; O2SAT 97
[2025-05-12 11:27] LABS: Glucose, Whole Blood 89 mg/dL (60-115)
--- NOTE | 2025-05-12 13:31 | MHC.CM.PN ---
Per rounds, pt. is not ready to DC. She is calmer now, psych to assess to help determine disposition.
[2025-05-12 15:13] VITALS: BP 110/61; PULSE 91; RESP 18; TEMP 36.4; O2SAT 99
[2025-05-12 16:05] LABS: Glucose, Whole Blood 109 mg/dL (60-115)
[2025-05-12] MEDS: 0.9 % Sodium Chloride Flush 3 ML SYRINGE IVFLUSH ×2 (16:36→21:30)
--- NOTE | 2025-05-12 17:13 | P.PNIM_ITS ---
Subjective Subjective Date of Service: 05/12/25 Interval History: Manic episode/intermittent agitation Review of Systems Today was very sleepy now morning, but improved with the holding psych medications. More awake in the afternoon: fed are also Physical Exam 2 Exam: Exam: Appearance: awake ,alert,generlaised weak , more verbal,as per -near baseline. cvs: rrr, [id number] . res: clear to auscultation ,no rhonchii or wheezing abd: no rebound or guarding ,nt, bs present. ext pulses present , no cyanosis . neuro: moves all ext but slowly. Vital Signs: Vital Signs: Last Vital Signs Temp 97.5 F 05/12/25 15:13 Pulse 91 05/12/25 15:13 Resp 18 05/12/25 15:13 BP 110/61 05/12/25 15:13 Pulse Ox 99 05/12/25 15:13 O2 Del Method Room Air 05/12/25 15:13 O2 Flow Rate 1 05/06/25 14:00 BMI result Body Mass Index 27.7 Objective Data Active Medications Benztropine Mesylate (Benztropine Mesylate 1 Mg Tablet) 1 mg PO BID [facility] Last Admin: 05/12/25 10:25 Dose: Not Given Documented By: TIESHA Non-Admin Reason: Physician Approved Dextrose (Dextrose 50 % 25 Gm/50 Ml Syringe) 25 gm IVPUSH Q15M PRN; Protocol PRN Reason: per Hypoglycemia Standing Ord. Last Admin: 05/06/25 12:18 Dose: 25 gm Documented By: DEIDRE Diazepam (Diazepam 5 Mg Tablet) 5 mg PO TID [facility] Last Admin: 05/12/25 16:36 Dose: 5 mg Documented By: TIESHA Diazepam (Diazepam 10 Mg/2 Ml Cartridge) 5 mg IVPUSH BID PRN PRN Reason: agitation Last Admin: 05/11/25 21:50 Dose: 5 mg Documented By: BAYRON Enoxaparin Sodium (Enoxaparin Sodium 40 Mg/0.4 Ml Syringe) 40 mg SUBCUT Q24H [facility] Last Admin: 05/12/25 05:50 Dose: 40 mg Documented By: BAYRON Haloperidol (Haloperidol 5 Mg Tablet) 10 mg PO DAILY [facility] Last Admin: 05/12/25 10:25 Dose: Not Given Documented By: TIESHA Non-Admin Reason: Physician Approved Haloperidol (Haloperidol 5 Mg Tablet) 20 mg PO BEDTIME [facility] Last Admin: 05/11/25 21:50 Dose: 20 mg Documented By: BAYRON Lamotrigine (Lamotrigine 25 Mg Tablet) 50 mg PO BID [facility] Last Admin: 05/12/25 10:25 Dose: Not Given Documented By: TIESHA Non-Admin Reason: Physician Approved Sodium Chloride (0.9 % Sodium Chloride Flush 3 Ml Syringe) 3 ml IVFLUSH QSHIFT [facility] Last Admin: 05/12/25 16:36 Dose: 3 ml Documented By: TIESHA Valproic Acid (Valproic Acid Liquid 250 Mg/5 Ml Solution) 500 mg PO BID [facility] Last Admin: 05/12/25 10:26 Dose: Not Given Documented By: TIESHA Non-Admin Reason: Physician Approved Labs 05/10/25 06:45 05/10/25 06:45 Labs: Laboratory Results - last 24 hr 05/11/25 05/12/25 05/12/25 20:51 07:16 11:19 POC Glucose 110 85 89 05/12/25 15:57 POC Glucose 109 Assessment and Plan (1) Agitation: Status: Acute (2) Bipolar 1 disorder: Status: Acute Plan 44-year-old lady, [place], with underlying bipolar with manic episodes with agitation recent hospitalization at [facility] transferred to [facility] ER on 05/03/2025 secondary to worsening agitation with initial poor response to parenteral sedatives requiring Precedex drip,loaded with valproic acid and titrated off Precedex drip and transferred to telemetry on 05/05/2025. Overnight 05/06, patient with development of significant agitation with suboptimal response to initial parenteral sedatives requiring re-initiation of Precedex drip and icu transfer. bipolar dis with manic episodes with agitation: continue haloperidol ,valium po and iv, lamotil,valproic acid. improving eating , intermittent agitation(with medication she gets somewhat sleepy than afterwards she gets agitated also-so currently we will continue the current regimen of meds.) check lft's improivng ,ammonia levels and valproic acid levels -normal psych followup noted- willl need care team eval for possible psych transfer /management . pt eval added rhabdomylysis : seems improovin cpk improving mild low grade fever in icu resolved: ua ,cta chest ,LP negative ,csf/blood cultures negative . no leucocytosis or fevers d/w Id -no further workup. dvt prophylax: s/c lovenox. ongoing need for stay :bipolar dis with manic episodes with agitation- moniter for agitation/manic episodes -adjustment for psych meds, psych eval. Quality Stroke Does the patient have a stroke diagnosis?: No VTE Prior VTE?: No VTE Risk Level:: Medical - moderate - high VTE Device Contraindication: N/A - Device Ordered VTE Drug Contraindication: N/A - Med Ordered
[2025-05-12] MEDS: diazePAM 10 MG/2 ML CARTRIDGE 5 MG IVPUSH (17:39)
[2025-05-12 19:15] VITALS: BP 110/60; PULSE 127; RESP 18; TEMP 36.7; O2SAT 96
[2025-05-12] MEDS: diazePAM 10 MG/2 ML CARTRIDGE 7.5 MG IVPUSH (19:50)
[2025-05-12 20:12] LABS: Glucose, Whole Blood 164 mg/dL (60-115)
[2025-05-12] MEDS: Valproic Acid Liquid 250 MG/5 ML SOLUTION 500 MG PO (21:17)
[2025-05-12 23:03] VITALS: BP 121/78; PULSE 125; RESP 18; TEMP 37; O2SAT 96
[2025-05-13] MEDS: Valproic Acid (as Sodium Salt) 250 MG in Dextrose 5 % 50 ML 52.5 MG IV (00:03)
[2025-05-13 03:01] VITALS: BP 147/91; PULSE 125; RESP 18; TEMP 36.7; O2SAT 97
[2025-05-13 06:00] VITALS: BMI 27.7
[2025-05-13 07:04] VITALS: BP 105/61; PULSE 98; RESP 17; TEMP 36.4; O2SAT 97
[2025-05-13 07:29] LABS: Glucose, Whole Blood 83 mg/dL (60-115)
--- NOTE | 2025-05-13 10:57 | PC.NURSE ---
sleeping , moaning to sternal rub, BP 117/68, HR 99 O2 sat 95% , RR 18. AM meds not administered d/t sedation . Doctor Guillermina Saenz was notified . [facility] [address] manager advanced was utilied to communicate with pt's family
[2025-05-13 11:04] VITALS: BP 99/61; PULSE 92; RESP 18; TEMP 36.3; O2SAT 97
[2025-05-13 11:26] LABS: Glucose, Whole Blood 87 mg/dL (60-115)
--- NOTE | 2025-05-13 11:39 | PC.NURSE ---
Pt evaluated by doctor Steven , recommendations : psych consult
--- NOTE | 2025-05-13 12:45 | P.PNIM_ITS ---
Subjective Subjective Date of Service: 05/13/25 Interval History: Somnolent most of the day Continues to be confused Notified by nursing that bladder scan showed 778ml; was straight cathed Review of Systems Review of Systems: Yes Unobtainable due to mental status Physical Exam 2 Exam: Exam: General: Somnolent but arousable; confused. no acute distress Resp: CTA bilaterally CVS: S1, S2, RRR GI: NT, no distention Skin: Warm, dry Neuro: Cranial nerves II-XII grossly intact bilaterally. Motor grossly intact bilaterally Extremities: No edema Psych: Confused but calm Vital Signs: Vital Signs: Last Vital Signs Temp 97.3 F 05/13/25 11:04 Pulse 92 05/13/25 11:04 Resp 18 05/13/25 11:04 BP 99/61 05/13/25 11:04 Pulse Ox 97 05/13/25 11:04 O2 Del Method Room Air 05/13/25 11:04 O2 Flow Rate 1 05/06/25 14:00 BMI result Body Mass Index 27.7 Objective Data Active Medications Benztropine Mesylate (Benztropine Mesylate 1 Mg Tablet) 1 mg PO BID [facility] Last Admin: 05/12/25 21:22 Dose: 1 mg Documented By: NICOLE Dextrose (Dextrose 50 % 25 Gm/50 Ml Syringe) 25 gm IVPUSH Q15M PRN; Protocol PRN Reason: per Hypoglycemia Standing Ord. Last Admin: 05/06/25 12:18 Dose: 25 gm Documented By: DEIDRE Diazepam (Diazepam 5 Mg Tablet) 5 mg PO TID [facility] Last Admin: 05/12/25 21:17 Dose: 5 mg Documented By: NICOLE Diazepam (Diazepam 10 Mg/2 Ml Cartridge) 5 mg IVPUSH BID PRN PRN Reason: agitation Last Admin: 05/12/25 17:39 Dose: 5 mg Documented By: TIESHA Enoxaparin Sodium (Enoxaparin Sodium 40 Mg/0.4 Ml Syringe) 40 mg SUBCUT Q24H [facility] Last Admin: 05/13/25 06:19 Dose: 40 mg Documented By: CRISTINE Haloperidol (Haloperidol 5 Mg Tablet) 10 mg PO DAILY [facility] Last Admin: 05/12/25 10:25 Dose: Not Given Documented By: TIESHA Non-Admin Reason: Physician Approved Haloperidol (Haloperidol 5 Mg Tablet) 20 mg PO BEDTIME [facility] Last Admin: 05/12/25 21:16 Dose: 20 mg Documented By: NICOLE Lamotrigine (Lamotrigine 25 Mg Tablet) 50 mg PO BID [facility] Last Admin: 05/12/25 21:17 Dose: 50 mg Documented By: NICOLE Sodium Chloride (0.9 % Sodium Chloride Flush 3 Ml Syringe) 3 ml IVFLUSH QSHIFT [facility] Last Admin: 05/12/25 21:30 Dose: 3 ml Documented By: NICOLE Valproic Acid (Valproic Acid Liquid 250 Mg/5 Ml Solution) 500 mg PO BID [facility] Last Admin: 05/12/25 21:17 Dose: 500 mg Documented By: NICOLE Ziprasidone (Ziprasidone Mesylate 20 Mg Vial) 15 mg IM ONCE PRN PRN Reason: severe agitation Labs 05/10/25 06:45 05/13/25 13:56 Labs: Laboratory Results - last 24 hr 05/12/25 05/12/25 05/13/25 15:57 20:02 07:18 POC Glucose 109 164 H 83 05/13/25 11:17 POC Glucose 87 Assessment and Plan (1) Urinary retention: Status: Acute (2) Agitation: Status: Acute Plan 44-year-old lady, Sammar[place], with underlying bipolar with manic episodes with agitation recent hospitalization at [facility] transferred to [facility] ER on 05/03/2025 secondary to worsening agitation with initial poor response to parenteral sedatives requiring Precedex drip,loaded with valproic acid and titrated off Precedex drip and transferred to telemetry on 05/05/2025. Overnight 05/06, patient with development of significant agitation with suboptimal response to initial parenteral sedatives requiring re-initiation of Precedex drip and icu transfer. bipolar dis with manic episodes with agitation: continue haloperidol ,valium po and iv, lamotil,valproic acid. improving eating , intermittent agitation(with medication she gets somewhat sleepy than afterwards she gets agitated also-so currently we will continue the current regimen of meds.) check lft's improivng ,ammonia levels and valproic acid levels -normal psych followup noted- willl need care team eval for possible psych transfer /management . pt eval added Urinary retention Bladder scan revealed pt retaining 778 mL Bladder scan per shift, straight cath as necessary rhabdomylysis, improving cpk improving, now almost normalized at 167 mild low grade fever in icu resolved: ua ,cta chest ,LP negative ,csf/blood cultures negative . no leucocytosis or fevers d/w Id -no further workup. dvt prophylax: s/c lovenox. ongoing need for stay :bipolar dis with manic episodes with agitation- moniter for agitation/manic episodes -adjustment for psych meds, psych eval. Quality Stroke Does the patient have a stroke diagnosis?: No VTE Prior VTE?: No VTE Risk Level:: Medical - moderate - high VTE Device Contraindication: N/A - Device Ordered VTE Drug Contraindication: N/A - Med Ordered
[2025-05-13] MEDS: 0.9 % Sodium Chloride Flush 3 ML SYRINGE IVFLUSH ×2 (13:02→17:48)
[2025-05-13] MEDS: Valproic Acid Liquid 250 MG/5 ML SOLUTION 500 MG PO (13:02)
[2025-05-13 14:36] LABS: Alanine Aminotransferase 64 U/L (0-31); Albumin Level 3.6 g/dL (3.5-5.0); Alkaline Phosphatase 62 U/L (39-117); Anion Gap 15 (12-20); Aspartate Amino Transferase 52 U/L (5-31); Blood Urea Nitrogen 7 mg/dL (9-16); Calcium 8.9 mg/dL (8.4-10.2); Carbon Dioxide 23 mmol/L (22-29); Chloride 104 mmol/L (96-108); Creatinine Clr Calc Pharmacy 94.8; Estimated Glomerular Filt Rate > 60; Potassium 3.6 mmol/L (3.3-5.1); Sodium 138 mmol/L (135-145); Total Protein 7.4 g/dL (6.5-8.0)
--- NOTE | 2025-05-13 14:38 | PC.NURSE ---
Pt is asking to contact his family friend Evette Almazan tel # [phone] for interpretation . pt's stated that he has a problem to understand using [facility] video diplomatic interpreter
--- NOTE | 2025-05-13 15:36 | MHC.SLORD ---
Speech Language Pathology Order Status: Per RN, patient tolerated pureed foods, had her breakfast at 12pm when she woke up. Patient stable on PUREED (NDD1) diet and THIN liquids, pills CRUSHED in PUREE, requires 1:1 assistance feeding. NURSERY TEACHER will continue to follow.
--- NOTE | 2025-05-13 15:40 | PC.NURSE ---
Got up to commode wit 2 assist , unable to urinate , shruthi scanned for 778 ml , MD aware , will perform st cath
[2025-05-13 15:54] VITALS: BP 117/69; PULSE 106; RESP 12; TEMP 36.2; O2SAT 93
--- NOTE | 2025-05-13 16:11 | PC.NURSE ---
Order obtained for st cath , urine output for 875 ml ,
--- NOTE | 2025-05-13 16:15 | PC.NURSE ---
late entry for 12:00. Pt awake eyes open , sitting upright in the bed , eating late breakfast b/c she was sleeping in am . RN verified with the provider Steven that am meds should be administered now.Pt took all po meds , no s/s of aspiration during meal or meds administration. Video extruder operator multiple used with Trin[place] language , pt was able to state his name and she said that she doesn't remember her date of , Aspiration precation in place all the time , HOB elevated 45 degrees , family educated on aspiration precaution also
[2025-05-13 16:46] LABS: Glucose, Whole Blood 97 mg/dL (60-115)
--- NOTE | 2025-05-13 17:49 | PC.NURSE ---
pt sitting up on the recliner , hands activities provided,
[2025-05-13 19:51] VITALS: BP 171/66; PULSE 129; RESP 16; TEMP 37.2; O2SAT 99
[2025-05-13 21:36] LABS: Glucose, Whole Blood 132 mg/dL (60-115)
--- NOTE | 2025-05-13 23:37 | PC.NURSE ---
bladder scan average amount: 33mL.
[2025-05-14] VITALS: BP 118/61; PULSE 108; RESP 16; TEMP 36.8; O2SAT 98
[2025-05-14] MEDS: diazePAM 10 MG/2 ML CARTRIDGE 5 MG IVPUSH (02:58)
[2025-05-14 04:00] VITALS: BP 101/57; PULSE 118; RESP 18; TEMP 36.8; O2SAT 96
[2025-05-14 07:45] VITALS: BP 125/73; PULSE 99; RESP 18; TEMP 36.4; O2SAT 98
[2025-05-14 07:54] LABS: Glucose, Whole Blood 111 mg/dL (60-115)
--- NOTE | 2025-05-14 08:44 | PC.NURSE ---
unable to urinate , urinary bladder scanned for 922 ml , st cath done for 975 ml . pt tolerated well , Xi ship construction teacher called via [employer] , procedure explained to the pt and her .
[2025-05-14 11:29] VITALS: BP 107/64; PULSE 103; RESP 16; TEMP 36.4; O2SAT 98
[2025-05-14] MEDS: Valproic Acid Liquid 250 MG/5 ML SOLUTION 500 MG PO ×2 (12:39→21:07)
[2025-05-14] MEDS: 0.9 % Sodium Chloride Flush 3 ML SYRINGE IVFLUSH ×3 (12:40→21:14)
--- NOTE | 2025-05-14 12:53 | MHC.SL.SWA ---
Speech Pathologist Impression: Risk of Aspiration, Oropharygneal Dysphagia Risk of Aspiration Due to: Altered Mentation Dysphasia Diet Status: CONTINUE on PUREED (NDD1) diet and THIN liquids (NO STRAWS) Liquid Consistency and Strategies for Safe Swallow: Liquid Intake Recommendation: Thin Liquid Intake Strategies: Small Sips No Straws Solid Food Consistency: Dietary Recommendations: Pureed (NDD1) Additional Modifications to Solid Foods: Patient presents with moderate oropharyngeal dysphagia in the setting of altered mentation. Patient at times holding bolus or pocketing in anterior sulcus, more timely swallow on thin liquids. Alternating solids w/ liquids cleared oral residue. Mild to moderate delay initiating swallow. Watch for laryngeal elevation and check oral cavity for clearance before giving next bite/sip. AVOID THE USE OF STRAWS. Ensure patient is awake and alert, otherwise do not present PO if not adequately awake. Oral Medication Intake: Crushed with Puree Please contact the pharmacy regarding appropriate crushable or liquid drug formulations that are available whenever modified delivery is recommended. Compensatory Strategies and Precautions to be Taken for Safe Swallow: Sitting Upright (90 deg) No Straw Liquids from Cup Liquids from Spoon Small Bites and Sips Alternate Liquids/Solids Rate of Ingestion Change Oral Check Supervision While Eating and Drinking for Safe Swallow: Total Assistance (1:1) Swallowing Recommended Treatments: Compens. Strategy Educat. Recommendation for Speech: Pt on pureed diet with thin liquds, INK TECHNICIAN to continue following. Frequency/Duration: Date Range for Service Req: Timeline to reassess: Radio Broadcaster Clinican/Clinical Fellow: No Supervisory Statement: I have reviewed and agree with the student/clinical fellow's documentation: N/A Speech Language Pathologist: Meron Daly M.A., CCC-INK TECHNICIAN
--- NOTE | 2025-05-14 12:54 | PC.NURSE ---
pt was sleeping till niin time , awake now, alert to her name, am meds administered now , pt ate breakfast , fed by her and supervised by RN, no s/s of aspiration noted, Aspiration precaution in placed , pt'd educated about aspiration precaution with understanding
--- NOTE | 2025-05-14 15:06 | MHC.CM.PN ---
Pt. is not yet ready for DC, she is having urinary retention, to be seen by urology.
--- NOTE | 2025-05-14 15:32 | PC.NURSE ---
assisted to bedside commode with 2 assist unable to urinate , rosas cath palced [address] order , draining yellow urine. Pt sitting up in the recliner , hospital staff at the bedside for safety . pt restless , required frequent redirection
[2025-05-14 16:00] VITALS: BP 123/76; PULSE 128; RESP 18; TEMP 36.8; O2SAT 98
[2025-05-14 16:12] LABS: Glucose, Whole Blood 132 mg/dL (60-115)
--- NOTE | 2025-05-14 18:20 | P.PNIM_ITS ---
Subjective Subjective Date of Service: 05/14/25 Interval History: Continues to retain urine: Bladder scan this morning showed 900 mL; pt was again straight cathed Seen and evaluated in her room where she is somnolent and resting comfortably in bed Unable to obtain any HPI or ros from pt Review of Systems Review of Systems: Yes Unobtainable due to mental status Physical Exam 2 Exam: Exam: General: Somnolent but arousable though falling immediately back asleep; no acute distress Resp: CTA bilaterally CVS: S1, S2, RRR GI: NT, no distention Skin: Warm, dry Neuro: Cranial nerves II-XII grossly intact bilaterally. Motor grossly intact bilaterally Extremities: No edema Psych: Somnolent Vital Signs: Vital Signs: Last Vital Signs Temp 98.2 F 05/14/25 16:00 Pulse 128 H 05/14/25 16:00 Resp 18 05/14/25 16:00 BP 123/76 05/14/25 16:00 Pulse Ox 98 05/14/25 16:00 O2 Del Method Room Air 05/14/25 16:00 O2 Flow Rate 1 05/06/25 14:00 BMI result Body Mass Index 27.7 Objective Data Active Medications Benztropine Mesylate (Benztropine Mesylate 1 Mg Tablet) 1 mg PO BID [facility] Last Admin: 05/14/25 12:40 Dose: 1 mg Documented By: ALEXIS Dextrose (Dextrose 50 % 25 Gm/50 Ml Syringe) 25 gm IVPUSH Q15M PRN; Protocol PRN Reason: per Hypoglycemia Standing Ord. Last Admin: 05/06/25 12:18 Dose: 25 gm Documented By: DEIDRE Diazepam (Diazepam 10 Mg/2 Ml Cartridge) 5 mg IVPUSH BID PRN PRN Reason: agitation Last Admin: 05/14/25 02:58 Dose: 5 mg Documented By: CRISTINA Enoxaparin Sodium (Enoxaparin Sodium 40 Mg/0.4 Ml Syringe) 40 mg SUBCUT Q24H [facility] Last Admin: 05/14/25 05:30 Dose: 40 mg Documented By: CRISTINA Haloperidol (Haloperidol 5 Mg Tablet) 10 mg PO DAILY [facility] Last Admin: 05/14/25 12:39 Dose: 10 mg Documented By: ALEXIS Haloperidol (Haloperidol 5 Mg Tablet) 20 mg PO BEDTIME [facility] Last Admin: 05/13/25 21:49 Dose: Not Given Documented By: CRISTINA Non-Admin Reason: Patient Asleep Lamotrigine (Lamotrigine 25 Mg Tablet) 50 mg PO BID [facility] Last Admin: 05/14/25 12:40 Dose: 50 mg Documented By: ALEXIS Sodium Chloride (0.9 % Sodium Chloride Flush 3 Ml Syringe) 3 ml IVFLUSH QSHIFT [facility] Last Admin: 05/14/25 17:58 Dose: 3 ml Documented By: ALEXIS Valproic Acid (Valproic Acid Liquid 250 Mg/5 Ml Solution) 500 mg PO BID [facility] Last Admin: 05/14/25 12:39 Dose: 500 mg Documented By: ALEXIS Ziprasidone (Ziprasidone Mesylate 20 Mg Vial) 15 mg IM ONCE PRN PRN Reason: severe agitation Labs 05/10/25 06:45 05/13/25 13:56 Labs: Laboratory Results - last 24 hr 05/13/25 05/14/25 05/14/25 21:31 07:50 16:08 POC Glucose 132 H 111 132 H Assessment and Plan (1) Agitation: Status: Acute Plan 44-year-old lady, Xi, with underlying bipolar with manic episodes with agitation recent hospitalization at [facility] transferred to [facility] ER on 05/03/2025 secondary to worsening agitation with initial poor response to parenteral sedatives requiring Precedex drip,loaded with valproic acid and titrated off Precedex drip and transferred to telemetry on 05/05/2025. Overnight 05/06, patient with development of significant agitation with suboptimal response to initial parenteral sedatives requiring re-initiation of Precedex drip and icu transfer. bipolar dis with manic episodes with agitation: continue haloperidol ,valium po and iv, lamotil,valproic acid. improving eating , intermittent agitation(with medication she gets somewhat sleepy than afterwards she gets agitated also-so currently we will continue the current regimen of meds.) lft's improving, ammonia levels and valproic acid levels -normal psych followup noted- will need care team eval for possible psych transfer /management . pt eval added Have ordered care team evaluation as pt is now medically cleared for transfer Urinary retention Bladder scan revealed pt retaining 778 mL yesterday evening, 900ml this morning Will place Sevilla catheter rhabdomylysis, improving cpk improving, now almost normalized at 167 mild low grade fever in icu resolved: ua ,cta chest ,LP negative ,csf/blood cultures negative . no leucocytosis or fevers d/w Id -no further workup. dvt prophylax: s/c lovenox. ongoing need for stay :bipolar dis with manic episodes with agitation- monitor for agitation/manic episodes -adjustment for psych meds, psych eval. Quality Stroke Does the patient have a stroke diagnosis?: No VTE Prior VTE?: No VTE Risk Level:: Medical - moderate - high VTE Device Contraindication: N/A - Device Ordered VTE Drug Contraindication: N/A - Med Ordered
[2025-05-14 20:00] VITALS: BP 103/66; PULSE 116; RESP 20; TEMP 36.8; O2SAT 98
[2025-05-14 21:32] LABS: Glucose, Whole Blood 93 mg/dL (60-115)
[2025-05-15] VITALS: BP 100/58; PULSE 104; RESP 16; TEMP 36.3; O2SAT 95
[2025-05-15] MEDS: diazePAM 10 MG/2 ML CARTRIDGE 5 MG IVPUSH (01:02)
[2025-05-15 03:22] VITALS: BP 111/58; PULSE 109; RESP 16; TEMP 37.1; O2SAT 96
[2025-05-15 05:47] VITALS: BMI 28.3
[2025-05-15 07:48] VITALS: BP 113/70; PULSE 103; RESP 20; TEMP 36.8; O2SAT 98
[2025-05-15 11:24] LABS: Glucose, Whole Blood 107 mg/dL (60-115)
[2025-05-15 11:48] VITALS: BP 115/62; PULSE 93; RESP 20; TEMP 36.5; O2SAT 94
--- NOTE | 2025-05-15 11:56 | P.PNIM_ITS ---
Subjective Subjective Date of Service: 05/15/25 Interval History: Some agitation again overnight, received diazepam IV and Geodon IM Currently somnolent and resting comfortably in bed Sevilla catheter placed yesterday Review of Systems Review of Systems: Yes all other systems are reviewed and are negative Physical Exam 2 Exam: Exam: General: Somnolent, recently received sedating meds; no acute distress Resp: CTA bilaterally CVS: S1, S2, RRR GI: NT, no distention Skin: Warm, dry Neuro: Cranial nerves II-XII grossly intact bilaterally. Motor grossly intact bilaterally Extremities: No edema Psych: Sleeping Vital Signs: Vital Signs: Last Vital Signs Temp 98.2 F 05/15/25 07:48 Pulse 103 H 05/15/25 07:48 Resp 20 05/15/25 07:48 BP 113/70 05/15/25 07:48 Pulse Ox 98 05/15/25 07:48 O2 Del Method Room Air 05/15/25 07:48 O2 Flow Rate 1 05/06/25 14:00 BMI result Body Mass Index 28.3 Objective Data Active Medications Benztropine Mesylate (Benztropine Mesylate 1 Mg Tablet) 1 mg PO BID [facility] Last Admin: 05/14/25 21:09 Dose: 1 mg Documented By: CRISTINA Dextrose (Dextrose 50 % 25 Gm/50 Ml Syringe) 25 gm IVPUSH Q15M PRN; Protocol PRN Reason: per Hypoglycemia Standing Ord. Last Admin: 05/06/25 12:18 Dose: 25 gm Documented By: DEIDRE Diazepam (Diazepam 10 Mg/2 Ml Cartridge) 5 mg IVPUSH BID PRN PRN Reason: agitation Last Admin: 05/15/25 01:02 Dose: 5 mg Documented By: CRISTINA Enoxaparin Sodium (Enoxaparin Sodium 40 Mg/0.4 Ml Syringe) 40 mg SUBCUT Q24H [facility] Last Admin: 05/15/25 05:48 Dose: 40 mg Documented By: CRISTINA Haloperidol (Haloperidol 5 Mg Tablet) 10 mg PO DAILY [facility] Last Admin: 05/14/25 12:39 Dose: 10 mg Documented By: ALEXIS Haloperidol (Haloperidol 5 Mg Tablet) 20 mg PO BEDTIME [facility] Last Admin: 05/14/25 22:02 Dose: Not Given Documented By: CRISTINA Non-Admin Reason: unable to administer Lamotrigine (Lamotrigine 25 Mg Tablet) 50 mg PO BID [facility] Last Admin: 05/14/25 21:09 Dose: 50 mg Documented By: CRISTINA Sodium Chloride (0.9 % Sodium Chloride Flush 3 Ml Syringe) 3 ml IVFLUSH QSHIFT [facility] Last Admin: 05/14/25 21:14 Dose: 3 ml Documented By: CRISTINA Valproic Acid (Valproic Acid Liquid 250 Mg/5 Ml Solution) 500 mg PO BID [facility] Last Admin: 05/14/25 21:07 Dose: 500 mg Documented By: CRISTINA Ziprasidone (Ziprasidone Mesylate 20 Mg Vial) 15 mg IM ONCE PRN PRN Reason: severe agitation Last Admin: 05/15/25 03:29 Dose: 15 mg Documented By: CRISTINA Labs 05/10/25 06:45 05/13/25 13:56 Labs: Laboratory Results - last 24 hr 05/14/25 05/14/25 05/15/25 16:08 21:21 11:17 POC Glucose 132 H 93 107 Assessment and Plan (1) Agitation: Status: Acute (2) Urinary retention: Status: Acute Plan 44-year-old lady, [place], with underlying bipolar with manic episodes with agitation recent hospitalization at [facility] transferred to [facility] ER on 05/03/2025 secondary to worsening agitation with initial poor response to parenteral sedatives requiring Precedex drip,loaded with valproic acid and titrated off Precedex drip and transferred to telemetry on 05/05/2025. Overnight 05/06, patient with development of significant agitation with suboptimal response to initial parenteral sedatives requiring re-initiation of Precedex drip and icu transfer. bipolar dis with manic episodes with agitation: continue haloperidol ,valium po and iv, lamotil,valproic acid. improving eating , intermittent agitation(with medication she gets somewhat sleepy than afterwards she gets agitated also-so currently we will continue the current regimen of meds.) lft's improving, ammonia levels and valproic acid levels -normal psych followup noted- will need care team eval for possible psych transfer /management . pt eval added Have ordered care team evaluation as pt is now medically cleared for transfer Urinary retention Bladder scan revealed pt retaining 778 mL on 05/13, 900ml in morning of 05/14 Sevilla catheter placed on 05/14; will remove and attempt voiding trial Bladder scan per shift, straight cath as necessary rhabdomylysis, improving cpk improving, now almost normalized at 167 mild low grade fever in icu resolved: ua ,cta chest ,LP negative ,csf/blood cultures negative . no leucocytosis or fevers d/w Id -no further workup. dvt prophylax: s/c lovenox. ongoing need for stay :bipolar dis with manic episodes with agitation- monitor for agitation/manic episodes -adjustment for psych meds, care team. Quality Stroke Does the patient have a stroke diagnosis?: No VTE Prior VTE?: No VTE Risk Level:: Medical - moderate - high VTE Device Contraindication: N/A - Device Ordered VTE Drug Contraindication: N/A - Med Ordered
[2025-05-15] MEDS: 0.9 % Sodium Chloride Flush 3 ML SYRINGE IVFLUSH (12:24)
[2025-05-15 15:32] VITALS: BP 104/64; PULSE 106; RESP 18; TEMP 36.5; O2SAT 98
[2025-05-15 15:58] LABS: Glucose, Whole Blood 119 mg/dL (60-115)
--- NOTE | 2025-05-15 18:38 | PC.NURSE ---
1350 Pt more awake and alert. Able to take sips of ensure with SEISMOGRAPH OPERATOR, no s/s of aspiration. Attempted to communicate with pt via video couples therapist. Pt not responding to couples therapist. Provider notified. Provider stated to hold medications at this time. 1750 Pt having increased agitation after bladder scan. Provided stated OK to give PM scheduled meds at this time. This RN at bedside, pt found to be resting with RR even, non-labored breathing. This RN did not admin medications.
[2025-05-15 19:46] VITALS: BP 102/54; PULSE 99; RESP 20; TEMP 36.6; O2SAT 97
[2025-05-15 20:39] LABS: Glucose, Whole Blood 127 mg/dL (60-115)
[2025-05-16] VITALS: BP 110/57; PULSE 106; RESP 18; TEMP 36.4; O2SAT 96
[2025-05-16] MEDS: diazePAM 10 MG/2 ML CARTRIDGE 5 MG IVPUSH ×3 (00:38→20:55)
[2025-05-16] MEDS: Valproic Acid Liquid 250 MG/5 ML SOLUTION 500 MG PO ×2 (00:41→09:06)
[2025-05-16] MEDS: Lactated Ringers 500 ML 999 ML IV (00:58)
--- NOTE | 2025-05-16 02:56 | PC.NURSE ---
pt had a BM and voided large amount of urine, pt ambulated to the bathroom with 1 assist.
[2025-05-16 06:00] VITALS: BMI 28.0
[2025-05-16 07:20] VITALS: BP 105/71; PULSE 108; RESP 20; TEMP 36.6; O2SAT 96
[2025-05-16 07:20] LABS: Glucose, Whole Blood 88 mg/dL (60-115)
[2025-05-16 07:21] LABS: Glucose, Whole Blood 99 mg/dL (60-115)
[2025-05-16 07:39] LABS: Glucose, Whole Blood 113 mg/dL (60-115)
[2025-05-16] MEDS: 0.9 % Sodium Chloride Flush 3 ML SYRINGE IVFLUSH ×3 (09:06→20:29)
--- NOTE | 2025-05-16 11:17 | P.PNIM_ITS ---
Subjective Subjective Date of Service: 05/16/25 Interval History: Sevilla removed, has been urinating on her own; blader scan this morning 79 No acute events overnight Pt awake and calm, still not following commands Review of Systems Review of Systems: Yes Unobtainable due to mental status Physical Exam 2 Exam: Exam: General: Awake but not interactive; not following commands; in no acute distress Resp: CTA bilaterally CVS: S1, S2, RRR GI: NT, no distention Skin: Warm, dry Neuro: Cranial nerves II-XII grossly intact bilaterally. Motor grossly intact bilaterally Extremities: No edema Psych: Confused, minimally interactive Vital Signs: Vital Signs: Last Vital Signs Temp 97.9 F 05/16/25 07:20 Pulse 108 H 05/16/25 07:20 Resp 20 05/16/25 07:20 BP 105/71 05/16/25 07:20 Pulse Ox 96 05/16/25 07:20 O2 Del Method Room Air 05/16/25 07:20 O2 Flow Rate 1 05/06/25 14:00 BMI result Body Mass Index 28.0 Objective Data Active Medications Benztropine Mesylate (Benztropine Mesylate 1 Mg Tablet) 1 mg PO BID [facility] Last Admin: 05/16/25 09:06 Dose: 1 mg Documented By: PJ Dextrose (Dextrose 50 % 25 Gm/50 Ml Syringe) 25 gm IVPUSH Q15M PRN; Protocol PRN Reason: per Hypoglycemia Standing Ord. Last Admin: 05/06/25 12:18 Dose: 25 gm Documented By: DEIDRE Diazepam (Diazepam 10 Mg/2 Ml Cartridge) 5 mg IVPUSH BID PRN PRN Reason: agitation Last Admin: 05/16/25 00:38 Dose: 5 mg Documented By: CRISTINA Enoxaparin Sodium (Enoxaparin Sodium 40 Mg/0.4 Ml Syringe) 40 mg SUBCUT Q24H [facility] Last Admin: 05/16/25 05:38 Dose: 40 mg Documented By: CRISTINA Haloperidol (Haloperidol 5 Mg Tablet) 10 mg PO DAILY [facility] Last Admin: 05/16/25 09:06 Dose: 10 mg Documented By: PJ Haloperidol (Haloperidol 5 Mg Tablet) 20 mg PO BEDTIME [facility] Last Admin: 05/16/25 00:42 Dose: 20 mg Documented By: CRISTINA Lamotrigine (Lamotrigine 25 Mg Tablet) 50 mg PO BID [facility] Last Admin: 05/16/25 09:06 Dose: 50 mg Documented By: PJ Sodium Chloride (0.9 % Sodium Chloride Flush 3 Ml Syringe) 3 ml IVFLUSH QSHIFT [facility] Last Admin: 05/16/25 09:06 Dose: 3 ml Documented By: PJ Valproic Acid (Valproic Acid Liquid 250 Mg/5 Ml Solution) 500 mg PO BID [facility] Last Admin: 05/16/25 09:06 Dose: 500 mg Documented By: PJ Ziprasidone (Ziprasidone Mesylate 20 Mg Vial) 15 mg IM ONCE PRN PRN Reason: severe agitation Last Admin: 05/15/25 03:29 Dose: 15 mg Documented By: CRISTINA Labs 05/10/25 06:45 05/13/25 13:56 Labs: Laboratory Results - last 24 hr 05/14/25 05/15/25 05/15/25 11:31 07:12 11:17 POC Glucose 88 99 107 05/15/25 05/15/25 05/16/25 15:42 20:29 07:32 POC Glucose 119 H 127 H 113 Assessment and Plan (1) Agitation: Status: Acute Plan 44-year-old lady, [place]rit[place], with underlying bipolar with manic episodes with agitation recent hospitalization at [facility] transferred to [facility] ER on 05/03/2025 secondary to worsening agitation with initial poor response to parenteral sedatives requiring Precedex drip,loaded with valproic acid and titrated off Precedex drip and transferred to telemetry on 05/05/2025. Overnight 05/06, patient with development of significant agitation with suboptimal response to initial parenteral sedatives requiring re-initiation of Precedex drip and icu transfer. bipolar dis with manic episodes with agitation: continue haloperidol ,valium po and iv, lamotil,valproic acid. improving eating , intermittent agitation(with medication she gets somewhat sleepy than afterwards she gets agitated also-so currently we will continue the current regimen of meds.) lft's improving, ammonia levels and valproic acid levels -normal psych followup noted- will need care team eval for possible psych transfer /management . pt eval added; unable to meaningfully participate in evaluation Have ordered care team evaluation as pt is now medically cleared for transfer Acute urinary retention, resolved Bladder scan revealed pt retaining 778 mL on 05/13, 900ml in morning of 05/14 Sevilla catheter placed on 05/14; removed on 05/15; pt has been voiding freely since then Bladder scan per shift, straight cath as necessary rhabdomylysis, resovled cpk improving, last levels 167 mild low grade fever in icu resolved: ua ,cta chest ,LP negative ,csf/blood cultures negative . no leucocytosis or fevers d/w Id -no further workup. dvt prophylax: s/c lovenox. ongoing need for stay: bipolar disorder with manic episodes with agitation; pt is now medically cleared and is awaiting inpatient psych hospitaliaztion for further management Quality Stroke Does the patient have a stroke diagnosis?: No VTE Prior VTE?: No VTE Risk Level:: Medical - moderate - high VTE Device Contraindication: N/A - Device Ordered VTE Drug Contraindication: N/A - Med Ordered
[2025-05-16 11:49] VITALS: BP 113/59; PULSE 96; RESP 20; TEMP 36.2; O2SAT 100
--- NOTE | 2025-05-16 14:02 | MHC.CARE ---
Pt will be adult IPLOC. Section 12a in chart for safety.
[2025-05-16 15:31] VITALS: BP 105/58; PULSE 105; RESP 16; TEMP 36.6; O2SAT 98
[2025-05-16 16:01] LABS: Glucose, Whole Blood 119 mg/dL (60-115)
[2025-05-16 16:20] LABS: Glucose, Whole Blood 129 mg/dL (60-115)
[2025-05-16 19:43] VITALS: BP 121/63; PULSE 114; RESP 16; TEMP 37.1; O2SAT 94
[2025-05-17] VITALS (7 sets, daily range): BP systolic 95–122; BP diastolic 50–77; PULSE 73–107; RESP 16–18; TEMP 36.3–36.8; O2SAT 96–99; BMI 28.3
[2025-05-17] MEDS: 0.9 % Sodium Chloride Flush 3 ML SYRINGE IVFLUSH ×2 (10:54→15:46)
--- NOTE | 2025-05-17 11:17 | MHC.SL.SWA ---
Speech Pathologist Impression: Mild but variable dysphagia in setting of decreased awareness, deconditioning Risk of Aspiration Due to: Weakness Reduced awareness Dysphasia Diet Status: CONTINUE on PUREED (NDD1) diet and THIN liquids (NO STRAWS) Liquid Consistency and Strategies for Safe Swallow: Liquid Intake Recommendation: Thin Liquid Intake Strategies: Small Sips No Straws Solid Food Consistency: Dietary Recommendations: Pureed (NDD1) Additional Modifications to Solid Foods: Patient presents with moderate oropharyngeal dysphagia in the setting of altered mentation. Patient at times holding bolus or pocketing in anterior sulcus, more timely swallow on thin liquids. Alternating solids w/ liquids cleared oral residue. Mild to moderate delay initiating swallow. Watch for laryngeal elevation and check oral cavity for clearance before giving next bite/sip. AVOID THE USE OF STRAWS. Ensure patient is awake and alert, otherwise do not present PO if not adequately awake. Oral Medication Intake: Crushed with Puree Please contact the pharmacy regarding appropriate crushable or liquid drug formulations that are available whenever modified delivery is recommended. Compensatory Strategies and Precautions to be Taken for Safe Swallow: Sitting Upright (90 deg) No Straw Liquids from Cup Liquids from Spoon Small Bites and Sips Alternate Liquids/Solids Rate of Ingestion Change Oral Check Supervision While Eating and Drinking for Safe Swallow: Total Assistance (1:1) Foods to Avoid: Swallowing Recommended Treatments: Compens. Strategy Educat. Recommendation for Speech: Comment: Pt seen for dysphagia treatment, pt sitting upright in bed, at bedside. Pt called family to translate. Trials of regular solids presented for re-assessment in determining if pt is ready to advance diet. Education provided, pt verbalized understanding. Pt held kortney cracker for trials, pt bit piece of offender job retention specialist ass pressed cracker down. Pt observed to maintain adequate labial closure and initate rotary chewing in formulating bolus, with infrequent but adequate tongue sweep to manipulate bolus. Containment and manipulation of bolus observed to be adequate across first few bites; however, slowed coordination and increased weakness occurred within short period of time. Pt sipped milk by cup with efficient coordination of consecutive swallows. Pt in agreement with pt remaining on pureed diet with thins. Frequency/Duration: Date Range for Service Req: Timeline to reassess: Vehicle Assembly Inspector Clinican/Clinical Fellow: No Supervisory Statement: I have reviewed and agree with the student/clinical fellow's documentation: N/A Speech Language Pathologist: Juanis Nina M.S., [facility]-PHYSICIAN CODER
--- NOTE | 2025-05-17 11:28 | HO.PM.IMPN ---
Subjective Subjective Date of Service: 05/17/25 Interval History: Pt is somnolent, minimally arousable and interactive Agitation last evening, received diazepam IM Has been going long periods without urinating, but still voiding on her own Evaluated by care team yesterday who recommended inpatient psychiatric stabilization Review of Systems Review of Systems: Yes Unobtainable due to mental status Physical Exam Exam: Exam: General: Somnolent but arousable, though falling immediately back asleep. In no acute distress Resp: CTA bilaterally CVS: S1, S2, RRR GI: NT, no distention Skin: Warm, dry Neuro: Cranial nerves II-XII grossly intact bilaterally. Motor grossly intact bilaterally Extremities: No edema Psych: Somnolent, not following commands or interacting Vital Signs: Vital Signs: Last Vital Signs Temp 97.6 F 05/17/25 08:00 Pulse 91 05/17/25 08:00 Resp 17 05/17/25 08:00 BP 100/55 L 05/17/25 08:00 Pulse Ox 97 05/17/25 08:00 O2 Del Method Room Air 05/17/25 08:00 O2 Flow Rate 1 05/06/25 14:00 BMI result Body Mass Index 28.3 Objective Data Active Medications Benztropine Mesylate (Benztropine Mesylate 1 Mg Tablet) 1 mg PO BID [facility] Last Admin: 05/16/25 20:27 Dose: 1 mg Documented By: KOKI Dextrose (Dextrose 50 % 25 Gm/50 Ml Syringe) 25 gm IVPUSH Q15M PRN; Protocol PRN Reason: per Hypoglycemia Standing Ord. Last Admin: 05/06/25 12:18 Dose: 25 gm Documented By: DEIDRE Diazepam (Diazepam 10 Mg/2 Ml Cartridge) 5 mg IVPUSH BID PRN PRN Reason: agitation Last Admin: 05/16/25 19:36 Dose: 5 mg Documented By: PJ Enoxaparin Sodium (Enoxaparin Sodium 40 Mg/0.4 Ml Syringe) 40 mg SUBCUT Q24H [facility] Last Admin: 05/17/25 05:35 Dose: 40 mg Documented By: KOKI Haloperidol (Haloperidol 5 Mg Tablet) 10 mg PO DAILY [facility] Last Admin: 05/16/25 09:06 Dose: 10 mg Haloperidol (Haloperidol 5 Mg Tablet) 20 mg PO BEDTIME [facility] Last Admin: 05/16/25 20:28 Dose: 20 mg Documented By: KOKI Lamotrigine (Lamotrigine 25 Mg Tablet) 50 mg PO BID [facility] Last Admin: 05/16/25 20:26 Dose: 50 mg Documented By: KOKI Sodium Chloride (0.9 % Sodium Chloride Flush 3 Ml Syringe) 3 ml IVFLUSH QSHIFT [facility] Last Admin: 05/17/25 10:54 Dose: 3 ml Documented By: YESI Valproic Acid (Valproic Acid Liquid 250 Mg/5 Ml Solution) 500 mg PO BID [facility] Last Admin: 05/16/25 20:50 Dose: Not Given Documented By: KOKI Non-Admin Reason: Previously Administered Comments: admin scanned under 9am dose. administered 2044. Ziprasidone (Ziprasidone Mesylate 20 Mg Vial) 15 mg IM ONCE PRN PRN Reason: severe agitation Last Admin: 05/15/25 03:29 Dose: 15 mg Documented By: CRISTINA Labs 05/10/25 06:45 05/13/25 13:56 Labs: Laboratory Results - last 24 hr 05/16/25 05/16/25 11:35 16:13 POC Glucose 119 H 129 H Assessment and Plan (1) Agitation: Status: Acute Plan 44-year-old lady, Bangladeshi, with underlying bipolar with manic episodes with agitation recent hospitalization at [facility] transferred to [facility] ER on 05/03/2025 secondary to worsening agitation with initial poor response to parenteral sedatives requiring Precedex drip,loaded with valproic acid and titrated off Precedex drip and transferred to telemetry on 05/05/2025. Overnight 05/06, patient with development of significant agitation with suboptimal response to initial parenteral sedatives requiring re-initiation of Precedex drip and icu transfer. bipolar dis with manic episodes with agitation: continue haloperidol, valium po and iv, lamotil, valproic acid. improving eating, intermittent agitation requiring medical intervention lft's improving, ammonia levels and valproic acid levels -normal pt eval added; unable to meaningfully participate in evaluation Pt has been medically cleared for discharge Care team evaluation recommends inpatient psychiatric stabilization Acute urinary retention, resolved Bladder scan revealed pt retaining 778 mL on 05/13, 900ml in morning of 05/14 Sevilla catheter placed on 05/14; removed on 05/15; pt has been voiding freely since then Bladder scan per shift, straight cath as necessary rhabdomylysis, resovled cpk improving, last levels 167 mild low grade fever in icu resolved: ua ,cta chest ,LP negative ,csf/blood cultures negative . no leucocytosis or fevers d/w Id -no further workup. dvt prophylax: s/c lovenox. ongoing need for stay: bipolar disorder with manic episodes with agitation; pt is now medically cleared and is awaiting inpatient psych hospitaliaztion for further management Quality Stroke Does the patient have a stroke diagnosis?: No VTE Prior VTE?: No VTE Risk Level:: Medical - moderate - high VTE Device Contraindication: N/A - Device Ordered VTE Drug Contraindication: N/A - Med Ordered
--- NOTE | 2025-05-17 13:25 | P.DS_ITS ---
DS: Providers Provider Date of Service: 05/17/25 Date of admission: 05/03/25 04:44 Date of discharge: 05/17/25 Primary care physician: Unknown Physician Consults: 05/04/25 11:17 Consult to Psychiatry Routine Consulting Provider[place] [facility] [place] Reason for consultation: Bipolar with tone/agitation Has provider been notified: No 05/05/25 15:32 Consult to Infectious Diseases Routine Consulting Provider[place] [facility] [place] [facility] Reason for consultation: fuo Has provider been notified: No 05/10/25 12:16 Consult to Psychiatry Routine Consulting Provider: [facility] [place] Reason for consultation: tone/behavioural agitation Has provider been notified: No 05/16/25 11:16 Inpt CARE Team Crisis Consult Routine Comment: Reason for consultation: From [facility]; medically cleared, urinating on own DS: Diagnosis Discharge Diagnosis (1) Agitation: Status: Acute DS: Summary Hospital Course Hospital Course: From admission HPI: Date of Service: 05/03/25 Attending physician on admission: Brigido Garcia Chief Complaint: Severe Agitation History obtained from patient's records, reportedly patient had a psychiatric hospitalization back in 2017 [place] to the [place] She is from [facility].? Two days ago she was brought to the emergency room at [facility] due to hallucinations and poor sleep habits for a week.? She had been diagnosed with acute psychosis possibly precipitated by insomnia.? Her workup was overall negative including head CT, laboratories including TSH and tests, alcohol levels.? She had been transferred to [facility] on the same day where she had receive several doses of sedatives for agitation.? For the past 24 hours the patient had been noted to be tachycardic heart rate between 120-140 the patient had complained of chest pain, she has sustained a mechanical fall and hit her head with possible brief loss of consciousness.? The patient is transferred to this ER for further evaluation. In the emergency room the patient being agitated and giving inappropriate answers despite of the help of an toe closing machine tender, the patient's workup reveal a white count 10.0, H and H of 11 and 32 respectively, platelets 202, normal venous blood gas, sodium 143, potassium 3.9, chloride 111, carbon dioxide 22, BUN 14, creatinine 0.9.? Lactic acid 1.1.? SGOT 75.? Total CK 2817, troponin 11.1.? Urinalysis negative.? Beta HCG less than 2.? Urine toxic screen positive for benzodiazepines otherwise negative.? Respiratory panel negative.? Ethyl alcohol less than 10.? Chest CTA negative for PE or intrapulmonary pathology, head CT no intracranial pathology, cervical spine CT no evidence of fracture.? The patient had a lumbar puncture and fluid which had normal appearance was sent for analysis.? The patient was treated empirically with IV fluids, Rocephin and acyclovir due to concerns of encephalitis related mental status changes. Due to her agitation, the patient received multiple doses of Versed, ketamine, Haldol, Zyprexa, Valium and despite of this the patient continued to be agitated therefore it was requested ICU evaluation.? In light of all the above and risk for decompensation the patient will be transferred to the ICU and we will place her on a Precedex drip. Hospital course: Pt was admitted to the hospital for uncontrollable agitation and initially admitted to the ICU on a Precedex drip. Was eventually tansferred to the floor for a short period of time on 05/05 but then again transferred to the ICU on 05/06 after again experiencing uncontrollable agitation that required Precedex drip. Pt stabalized and transferred back to the hospital floor on 05/10 where she has remained while awaiting inpatient psych bed. All workup for medical explanations has been negative so far: no fevers or electrolyte abnormalties; negative imaging including CT of head and c-spine negative and CTA of head/neck; LP negative; UA negative; respitory panel negative; tick panel negative. Pt has been treated with lamotrigine, haloperidol, and valproic acid; has been intermittenly agitated on the floor which has recquired multiple uses of diazepam and Geodon. Quality: Safe Use of Opioids Does Pt have an Active Cancer Diagnosis on the Problem List?: No Quality: Stroke Does the patient have a stroke diagnosis?: No Physical Exam Vital Signs: Vital Signs: Last Vital Signs Temp 97.3 F 05/17/25 11:53 Pulse 107 H 05/17/25 11:53 Resp 18 05/17/25 11:53 BP 113/67 05/17/25 12:33 Pulse Ox 96 05/17/25 11:53 O2 Del Method Room Air 05/17/25 11:53 O2 Flow Rate 1 05/06/25 14:00 BMI result Body Mass Index 28.3 DS: Data Data Completed and Pending Labs on day of discharge: Laboratory Results - last 24 hr 05/16/25 05/16/25 11:35 16:13 POC Glucose 119 H 129 H Discharge Plan Discharge Anticipated Discharge Date/Time: 05/17/25 12:57 Patient Disposition: Xfer Psychiatric Hosp Referrals: Physician,Unknown J [Primary Care Provider, Medical] - 1 Week Discharge Medications: New haloperidol 5 mg Tablet 20 mg PO BEDTIME Qty: 1 0RF haloperidol 5 mg Tablet 10 mg PO DAILY Qty: 1 0RF lamotrigine 25 mg Tablet 50 mg PO BID Qty: 1 0RF benztropine 1 mg Tablet 1 mg PO BID Qty: 1 0RF diazepam 5 mg/mL Syringe 5 mg IVPUSH BID PRN (Reason: agitation) Qty: 20 0RF valproic acid (as sodium salt) 250 mg/5 mL (5 mL) Solution 500 mg PO BID Qty: 100 0RF Continued haloperidol 10 mg tablet 20 mg PO BEDTIME benztropine 1 mg tablet 1 mg PO BID diazepam 5 mg tablet 10 mg PO BEDTIME diazepam 5 mg tablet 5 mg PO DAILY Activity on Discharge: As tolerated Stand Alone Forms: Patient Portal Discharge page Print Language: Bahamian Care Plan Goals: See below Health Concerns: Schizoaffective disorder Acute encephalopathy Agitation Somnolence Urinary retention Plan of Treatment: You were admitted to the hospital for acute encephalopathy and agitation likely secondary to underlying schizoaffective bipolar type disorder. You were init ially admitted to the ICU on a Precedex drip due to uncontrollable agitation. Initially downgraded on 05/05 to the hospital floor, but had increased agitation that was not controlled with either IM Haldol or IV Valium and were transferred back to the ICU on Precedex drip. You were eventually transferred to the hospital floor again on 05/10 where you continued to have intermittent agitation requiring chemical intervention. Medical workup was negative for acute illness during her time in the hospital, including UA, CT of chest, CTA of head/surgical spine, lumbar puncture, HIV, or hep C. You were seen and evaluated by Infectious Disease who recommended against antibiotics. While on the floor you did develop acute urinary retention that was alleviated by temporary Sevilla catheter. Assessment: See discharge summary
--- NOTE | 2025-05-17 15:25 | MHC.CARE ---
Patient unable to wake for interview, CARE Team will attempts again later. Dr. Harris updated.
[2025-05-17 15:44] LABS: Hematocrit 35.6 % (37.0-47.0); Hemoglobin 11.8 g/dl (12.0-16.0); Mean Corpuscular HGB Conc 33.1 g/dl (31.0-35.0); Mean Corpuscular Hemoglobin 30.0 pg (27.0-33.0); Mean Corpuscular Volume 90.6 fL (80.0-98.0); NRBC Abs Auto 0.000 X10*3/uL (0.0-0.012); NRBC Pct Auto 0.0 /100WBC (0.0-0.2); Platelet Count 285 X10*3/uL (160-400); Red Blood Count 3.93 X10*6/uL (4.20-5.50); White Blood Count 8.0 X10*3/uL (4.8-10.8)
[2025-05-17] MEDS: diazePAM 10 MG/2 ML CARTRIDGE 5 MG IVPUSH (15:46)
[2025-05-17 16:04] LABS: Alanine Aminotransferase 43 U/L (0-31); Albumin Level 3.5 g/dL (3.5-5.0); Alkaline Phosphatase 70 U/L (39-117); Anion Gap 12 (12-20); Aspartate Amino Transferase 43 U/L (5-31); Blood Urea Nitrogen 12 mg/dL (9-16); Calcium 8.7 mg/dL (8.4-10.2); Carbon Dioxide 25 mmol/L (22-29); Chloride 107 mmol/L (96-108); Creatinine Clr Calc Pharmacy 94.4; Estimated Glomerular Filt Rate > 60; Potassium 3.9 mmol/L (3.3-5.1); Sodium 140 mmol/L (135-145); Total Protein 7.1 g/dL (6.5-8.0)
--- NOTE | 2025-05-17 16:10 | MHC.CM.PN ---
PT CURRENTLY AWAITING [facility] BED CM FOLLOWING FOR CHANGING DC NEEDS
[2025-05-17] MEDS: Valproic Acid Liquid 250 MG/5 ML SOLUTION 500 MG PO (20:24)
--- NOTE | 2025-05-17 21:49 | PM.EVENT ---
Event Note Date of Service: 05/17/25 Event Note: I was notified that Care team is recommending a psych consult while she boards for a inpatient bed . Will place order Time Spent With Patient Time: Total time managing care of this patient today ____ minutes.
[2025-05-17] MEDS: diazePAM 10 MG/2 ML CARTRIDGE IVPUSH (22:15)
--- NOTE | 2025-05-17 23:40 | PC.NURSE ---
Scottish interpreter for the deaf called in order to help the RN understand patient needs. Anju stated she needs sugar and cooking oil, she was not aware she is in the hospital. She asked to go to bed because she stated she wants to sleep. The rest of conversation was not understandable for the interpreter for the deaf.
[2025-05-18] VITALS (7 sets, daily range): BP systolic 97–153; BP diastolic 59–93; PULSE 96–110; RESP 16–20; TEMP 36.4–37.2; O2SAT 97–100; BMI 28.2
[2025-05-18] MEDS: diazePAM 10 MG/2 ML CARTRIDGE IVPUSH (02:11)
[2025-05-18] MEDS: 0.9 % Sodium Chloride Flush 3 ML SYRINGE IVFLUSH ×2 (10:39→12:09)
[2025-05-18] MEDS: Valproic Acid Liquid 250 MG/5 ML SOLUTION 500 MG PO ×2 (10:39→20:05)
--- NOTE | 2025-05-18 11:48 | MHC.SL.SWA ---
Speech Pathologist Impression: Risk of Aspiration Due to: Dysphasia Diet Status: Recommend UPGRADE diet to Chopped/Advanced (NDD3) to provide more recognizable food and variety, continue on thin liquids, pills crushed in puree. ALTERNATE liquids and solids to assist with clearing any pocketed food if this behavior is present. Liquid Consistency and Strategies for Safe Swallow: Liquid Intake Recommendation: Thin Liquid Intake Strategies: Small Sips No Straws Solid Food Consistency: Dietary Recommendations: Chopped/Advanced (NDD3) Additional Modifications to Solid Foods: Patient behaviorally pockets food, benefits from alternating bites of food with controlled cup sips of liquid to clear any retained food in mouth. Patient's level of confusion requires 1-1 feeding, orientation to food and encouragement to eat. Wait until any pocketed food is swallowed before presenting additional bites. No straws secondary to observed chain sipping when straw is present. Oral Medication Intake: Crushed with Puree Please contact the pharmacy regarding appropriate crushable or liquid drug formulations that are available whenever modified delivery is recommended. Compensatory Strategies and Precautions to be Taken for Safe Swallow: Sitting Upright (90 deg) No Straw Liquids from Cup Small Bites and Sips Alternate Liquids/Solids Rate of Ingestion Change Oral Check Supervision While Eating and Drinking for Safe Swallow: Total Assistance (1:1) Foods to Avoid: Swallowing Recommended Treatments: Compens. Strategy Educat. Recommendation for Speech: 05/18: Patient seen for re-assessment/upgrade this morning. Patient had been medicated due to agitation last night, slept well into the morning eating a small amount from tray late p.m. Patient seen with sitter and present in room. Patient presenting as mildly agitated, had sat self up in bed, but sat back at times when head of bed raised to 90 degrees. Patient was frequently talking, however appeared to not be communicative based upon 's responses. With 's assistance, patient took bite of kortney cracker and initiated rotary chew, masticating and clearing with tongue for a mildly prolonged period, with some oral holding followed by a swallow. Oral movement to managing this consistency appeared WFL, patient appears to be behaviorally holding/pocketing. Patient took sips of juice both by straw, then by controlled cup sip (also administered by ), all with timely swallow, no clinical signs of aspiration. Sips of liquid assisted with clearing pocketing cracker. With 's persistence, patient ate half a cracker. EMERGENCY DEPARTMENT CLINICIAN placed second half of cracker in patients hand, positioning a pincer truck cleaner and supported hand toward mouth, which lead to one semi-independent bite of cracker, however patient then released/dropped cracker and did not look for it, nor respond again with similar hand over hand cuing. Food activity appeared to calm patient somewhat, was resting comfortably at end of session. Recommend UPGRADE diet to Chopped/Advanced (NDD3) to provide more recognizable food and variety, continue on thin liquids, pills crushed in puree. ALTERNATE liquids and solids to assist with clearing any pocketed food if this behavior is present. Patient, due to level of confusion, continues to require 1-1 feeding. EMERGENCY DEPARTMENT CLINICIAN made diet adjustment in chart, annotated white board in room. EMERGENCY DEPARTMENT CLINICIAN will continue to follow, assess toleration of upgraded diet, adjust as needed. Frequency/Duration: Date Range for Service Req: Timeline to reassess: Materials Handling Coordinator Clinican/Clinical Fellow: No Supervisory Statement: I have reviewed and agree with the student/clinical fellow's documentation: N/A Speech Language Pathologist: Karlie Real M.A., [facility]-EMERGENCY DEPARTMENT CLINICIAN
[2025-05-18] MEDS: diazePAM 10 MG/2 ML CARTRIDGE 5 MG IVPUSH (12:04)
--- NOTE | 2025-05-18 16:09 | MHC.CARE ---
Pt no longer inpatient bed search. Dr. Eldridge and hospital psychiatry team are involved and will follow and manage patient moving forward.
--- NOTE | 2025-05-18 16:45 | PM.DS ---
DS: Providers Provider Date of Service: 05/17/25 Date of admission: 05/03/25 04:44 Date of discharge: 05/18/25 Primary care physician: Unknown Physician Consults: 05/04/25 11:17 Consult to Psychiatry Routine Consulting Provider: [facility] [place] Reason for consultation: Bipolar with tone/agitation Has provider been notified: No 05/05/25 15:32 Consult to Infectious Diseases Routine Consulting Provider: [facility] [place] [facility] Reason for consultation: fuo Has provider been notified: No 05/10/25 12:16 Consult to Psychiatry Routine Consulting Provider: [facility] [place] Psych [place] Reason for consultation: tone/behavioural agitation Has provider been notified: No 05/16/25 11:16 Inpt CARE Team Crisis Consult Routine Comment: Reason for consultation: From [facility]; medically cleared, urinating on own 05/17/25 21:50 Consult to Psychiatry Routine Consulting Provider: [facility] [place] [facility] [place] Reason for consultation: uncontrolled agitation Attending physician on discharge: Aleida Casillas DS: Diagnosis Discharge Diagnosis (1) Agitation: Status: Acute DS: Summary Hospital Course Hospital Course: From admission HPI: Date of Service: 05/03/25 Attending physician on admission: Brigido Garcia Chief Complaint: Severe Agitation History obtained from patient's records, reportedly patient had a psychiatric hospitalization back in 2017 upon [place] to the [place] She is from [facility].? Two days ago she was brought to the emergency room at [facility] due to hallucinations and poor sleep habits for a week.? She had been diagnosed with acute psychosis possibly precipitated by insomnia.? Her workup was overall negative including head CT, laboratories including TSH and tests, alcohol levels.? She had been transferred to [facility] on the same day where she had receive several doses of sedatives for agitation.? For the past 24 hours the patient had been noted to be tachycardic heart rate between 120-140 the patient had complained of chest pain, she has sustained a mechanical fall and hit her head with possible brief loss of consciousness.? The patient is transferred to this ER for further evaluation. In the emergency room the patient being agitated and giving inappropriate answers despite of the help of an pipe fitter supervisor maintenance, the patient's workup reveal a white count 10.0, H and H of 11 and 32 respectively, platelets 202, normal venous blood gas, sodium 143, potassium 3.9, chloride 111, carbon dioxide 22, BUN 14, creatinine 0.9.? Lactic acid 1.1.? SGOT 75.? Total CK 2817, troponin 11.1.? Urinalysis negative.? Beta HCG less than 2.? Urine toxic screen positive for benzodiazepines otherwise negative.? Respiratory panel negative.? Ethyl alcohol less than 10.? Chest CTA negative for PE or intrapulmonary pathology, head CT no intracranial pathology, cervical spine CT no evidence of fracture.? The patient had a lumbar puncture and fluid which had normal appearance was sent for analysis.? The patient was treated empirically with IV fluids, Rocephin and acyclovir due to concerns of encephalitis related mental status changes. Due to her agitation, the patient received multiple doses of Versed, ketamine, Haldol, Zyprexa, Valium and despite of this the patient continued to be agitated therefore it was requested ICU evaluation.? In light of all the above and risk for decompensation the patient will be transferred to the ICU and we will place her on a Precedex drip. Hospital course: Pt was admitted to the hospital for uncontrollable agitation and initially admitted to the ICU on a Precedex drip. Was eventually tansferred to the floor for a short period of time on 05/05 but then again transferred to the ICU on 05/06 after again experiencing uncontrollable agitation that required Precedex drip. Pt stabalized and transferred back to the hospital floor on 05/10 where she has remained while awaiting inpatient psych bed. All workup for medical explanations has been negative so far: no fevers or electrolyte abnormalties; negative imaging including CT of head and c-spine negative and CTA of head/neck; LP negative; UA negative; respitory panel negative; tick panel negative. Pt has been treated with lamotrigine, haloperidol, and valproic acid; has been intermittenly agitated on the floor which has recquired multiple uses of diazepam and Geodon. Physical Exam Vital Signs: Vital Signs: Last Vital Signs Temp 97.6 F 05/18/25 15:30 Pulse 96 05/18/25 15:30 Resp 16 05/18/25 15:30 BP 97/59 L 05/18/25 15:30 Pulse Ox 98 05/18/25 15:30 O2 Del Method Room Air 05/18/25 15:30 O2 Flow Rate 1 05/06/25 14:00 BMI result Body Mass Index 28.2 Discharge Plan Discharge Anticipated Discharge Date/Time: 05/17/25 12:57 Patient Disposition: Xfer Psychiatric Hosp Referrals: Physician,Unknown J [Primary Care Provider, Medical] - 1 Week Discharge Medications: New haloperidol 5 mg Tablet 20 mg PO BEDTIME Qty: 1 0RF haloperidol 5 mg Tablet 10 mg PO DAILY Qty: 1 0RF lamotrigine 25 mg Tablet 50 mg PO BID Qty: 1 0RF benztropine 1 mg Tablet 1 mg PO BID Qty: 1 0RF diazepam 5 mg/mL Syringe 5 mg IVPUSH BID PRN (Reason: agitation) Qty: 20 0RF valproic acid (as sodium salt) 250 mg/5 mL (5 mL) Solution 500 mg PO BID Qty: 100 0RF Continued haloperidol 10 mg tablet 20 mg PO BEDTIME benztropine 1 mg tablet 1 mg PO BID diazepam 5 mg tablet 10 mg PO BEDTIME diazepam 5 mg tablet 5 mg PO DAILY Activity on Discharge: As tolerated Stand Alone Forms: Patient Portal Discharge page Print Language: Omani Care Plan Goals: See below Health Concerns: Schizoaffective disorder Acute encephalopathy Agitation Somnolence Urinary retention Plan of Treatment: You were admitted to the hospital for acute encephalopathy and agitation likely secondary to underlying schizoaffective bipolar type disorder. You were initially admitted to the ICU on a Precedex drip due to uncontrollable agitation. Initially downgraded on 05/05 to the hospital floor, but had increased agitation that was not controlled with either IM Haldol or IV Valium and were transferred back to the ICU on Precedex drip. You were eventually transferred to the hospital floor again on 05/10 where you continued to have intermittent agitation requiring chemical intervention. Medical workup was negative for acute illness during her time in the hospital, including UA, CT of chest, CTA of head/surgical spine, lumbar puncture, HIV, or hep C. You were seen and evaluated by Infectious Disease who recommended against antibiotics. While on the floor you did develop acute urinary retention that was alleviated by temporary Sevilla catheter. Assessment: See discharge summary
--- NOTE | 2025-05-18 18:58 | P.PNIM_ITS ---
Subjective Subjective Date of Service: 05/18/25 Interval History: Pt is somnolent, minimally arousable and interactive Agitation last evening as well Evaluated by care team yesterday who recommended inpatient psychiatric stabilization Review of Systems Review of Systems: Yes Unobtainable due to mental status Physical Exam 2 Exam: Exam: General: Comfortable in bed, rousable. No acute distress Cardiac: S1, S2 auscultated with no S3/4, no MRG. Well perfused. Respiratory: Normal breath sounds auscultated throughout all lung zones, without wheezing, rales. Normal rate. GI/ : No abdominal pain on palpation, no masses or distentions. MSK: Normal ambulation without pain at bony prominences or musculature Neurological: Normal neurological examination on overview, without obvious CN II-XII abnormalities. Vital Signs: Vital Signs: Last Vital Signs Temp 97.6 F 05/18/25 15:30 Pulse 96 05/18/25 15:30 Resp 16 05/18/25 15:30 BP 97/59 L 05/18/25 15:30 Pulse Ox 98 05/18/25 15:30 O2 Del Method Room Air 05/18/25 15:30 O2 Flow Rate 1 05/06/25 14:00 BMI result Body Mass Index 28.2 Objective Data Active Medications Benztropine Mesylate (Benztropine Mesylate 1 Mg Tablet) 1 mg PO BID [facility] Last Admin: 05/18/25 10:39 Dose: 1 mg Documented By: DEE DEE Dextrose (Dextrose 50 % 25 Gm/50 Ml Syringe) 25 gm IVPUSH Q15M PRN; Protocol PRN Reason: per Hypoglycemia Standing Ord. Last Admin: 05/06/25 12:18 Dose: 25 gm Documented By: DEIDRE Diazepam (Diazepam 10 Mg/2 Ml Cartridge) 5 mg IVPUSH BID PRN PRN Reason: agitation Last Admin: 05/18/25 12:04 Dose: 5 mg Documented By: DEE DEE Enoxaparin Sodium (Enoxaparin Sodium 40 Mg/0.4 Ml Syringe) 40 mg SUBCUT Q24H [facility] Last Admin: 05/18/25 05:43 Dose: 40 mg Documented By: CRISTINA Haloperidol (Haloperidol 5 Mg Tablet) 10 mg PO DAILY [facility] Last Admin: 05/18/25 10:38 Dose: 10 mg Documented By: DEE DEE Haloperidol (Haloperidol 5 Mg Tablet) 20 mg PO BEDTIME [facility] Last Admin: 05/17/25 22:29 Dose: Not Given Documented By: CRISTINA Non-Admin Reason: Patient Refused Lamotrigine (Lamotrigine 25 Mg Tablet) 50 mg PO BID [facility] Last Admin: 05/18/25 10:38 Dose: 50 mg Documented By: DEE DEE Sodium Chloride (0.9 % Sodium Chloride Flush 3 Ml Syringe) 3 ml IVFLUSH QSHIFT [facility] Last Admin: 05/18/25 12:09 Dose: 3 ml Documented By: DEE DEE Valproic Acid (Valproic Acid Liquid 250 Mg/5 Ml Solution) 500 mg PO BID [facility] Last Admin: 05/18/25 10:39 Dose: 500 mg Documented By: DEE DEE Ziprasidone (Ziprasidone Mesylate 20 Mg Vial) 15 mg IM Q12H PRN PRN Reason: severe agitation Last Admin: 05/17/25 17:47 Dose: 15 mg Documented By: PJ Labs 05/17/25 15:26 05/17/25 15:26 Assessment and Plan (1) Agitation: Status: Acute (2) Schizoaffective disorder: Status: Acute (3) Bipolar 1 disorder: Status: Acute Plan 44-year-old lady, Citizen Of [place], with underlying bipolar with manic episodes with agitation recent hospitalization at [facility] transferred to [facility] ER on 05/03/2025 secondary to worsening agitation with initial poor response to parenteral sedatives requiring Precedex drip,loaded with valproic acid and titrated off Precedex drip and transferred to telemetry on 05/05/2025. Overnight 05/06, patient with development of significant agitation with suboptimal response to initial parenteral sedatives requiring re-initiation of Precedex drip and icu transfer. bipolar dis with manic episodes with agitation: continue haloperidol, valium po and iv, lamotil, valproic acid. improving eating, intermittent agitation requiring medical intervention lft's improving, ammonia levels and valproic acid levels -normal pt eval added; unable to meaningfully participate in evaluation Pt has been medically cleared for discharge Care team evaluation recommends inpatient psychiatric stabilization Acute urinary retention, resolved Bladder scan revealed pt retaining 778 mL on 05/13, 900ml in morning of 05/14 [place] catheter placed on 05/14; removed on 05/15; pt has been voiding freely since then Bladder scan per shift, straight cath as necessary rhabdomylysis, resovled cpk improving, last levels 167 mild low grade fever in icu resolved: ua ,cta chest ,LP negative ,csf/blood cultures negative . no leucocytosis or fevers d/w Id -no further workup. dvt prophylax: s/c lovenox. ongoing need for stay: bipolar disorder with manic episodes with agitation; pt is now medically cleared and is awaiting inpatient psych hospitaliaztion for further management Quality Stroke Does the patient have a stroke diagnosis?: No VTE Prior VTE?: No VTE Risk Level:: Medical - moderate - high VTE Device Contraindication: N/A - Device Ordered VTE Drug Contraindication: N/A - Med Ordered
[2025-05-19] VITALS (7 sets, daily range): BP systolic 105–140; BP diastolic 60–90; PULSE 90–116; RESP 16–20; TEMP 36.1–36.8; O2SAT 94–99; BMI 27.9
[2025-05-19] MEDS: 0.9 % Sodium Chloride Flush 3 ML SYRINGE IVFLUSH ×4 (00:05→20:31)
--- NOTE | 2025-05-19 10:29 | MHC.SLORD ---
Speech Language Pathology Order Status: Pt seen for dysphagia follow-up. Pt spouse at bedside, declined visit as pt sleeping. Pt was advanced from NDD1 to NDD3 yestarday, STOCK OR DELIVERY CLERK to assess when pt awake and eating. RN consulted, no concerns reported.
[2025-05-19] MEDS: Valproic Acid Liquid 250 MG/5 ML SOLUTION 500 MG PO ×2 (10:48→20:30)
--- NOTE | 2025-05-19 11:52 | MHC.SL.SWA ---
Speech Pathologist Impression: Mild dysphagia Risk of Aspiration Due to: Dysphasia Diet Status: Recommend UPGRADE diet to Chopped/Advanced (NDD3) to provide more recognizable food and variety, continue on thin liquids, pills crushed in puree. ALTERNATE liquids and solids to assist with clearing any pocketed food if this behavior is present. Liquid Consistency and Strategies for Safe Swallow: Liquid Intake Recommendation: Thin Liquid Intake Strategies: Small Sips No Straws Solid Food Consistency: Dietary Recommendations: Chopped/Advanced (NDD3) Additional Modifications to Solid Foods: Patient behaviorally pockets food, benefits from alternating bites of food with controlled cup sips of liquid to clear any retained food in mouth. Patient's level of confusion requires 1-1 feeding, orientation to food and encouragement to eat. Wait until any pocketed food is swallowed before presenting additional bites. No straws secondary to observed chain sipping when straw is present. Oral Medication Intake: Crushed with Puree Please contact the pharmacy regarding appropriate crushable or liquid drug formulations that are available whenever modified delivery is recommended. Compensatory Strategies and Precautions to be Taken for Safe Swallow: Sitting Upright (90 deg) No Straw Liquids from Cup Small Bites and Sips Alternate Liquids/Solids Rate of Ingestion Change Oral Check Supervision While Eating and Drinking for Safe Swallow: Total Assistance (1:1) Foods to Avoid: Swallowing Recommended Treatments: Compens. Strategy Educat. Recommendation for Speech: Comment: 05/19 INDUCTOR TESTER returned in the afternoon to assess pt PO tolerance as spouse declined tx this morning when pt was sleeping. Pt sitting upright in bed, pt spouse feeding her with good pacing, small bites, alternating consistencies. Pt exhibits slow oral phase and needs cues intermittently to eat. Pharyngeal phase unremarkable upon trigger of swallow. Pt tolerated consecutive sips of thins without difficulty. Pt tolerating NDD3 with assist/cueing. Sitter at bedside. RN consulted. Recc diet as ordered, INDUCTOR TESTER continues to follow. Frequency/Duration: Date Range for Service Req: Timeline to reassess: Debt Management Counselor Clinican/Clinical Fellow: No Supervisory Statement: I have reviewed and agree with the student/clinical fellow's documentation: N/A Speech Language Pathologist: Karlie Rela M.A., CCC-INDUCTOR TESTER
[2025-05-19 13:17] LABS: Anion Gap 14 (12-20); Blood Urea Nitrogen 9 mg/dL (9-16); Calcium 8.8 mg/dL (8.4-10.2); Carbon Dioxide 23 mmol/L (22-29); Chloride 110 mmol/L (96-108); Creatinine Clr Calc Pharmacy 87.1; Estimated Glomerular Filt Rate > 60; Potassium 3.9 mmol/L (3.3-5.1); Sodium 143 mmol/L (135-145)
[2025-05-19 13:46] LABS: Folate 7.1 ng/mL (> or = 4.0); Vitamin B12 1209 pg/mL (200-900)
[2025-05-19 16:19] LABS: Ammonia 46 umol/L (13-55)
--- NOTE | 2025-05-19 16:32 | PM.PSYCN ---
History of Present Illness Date of Service: 05/19/25 Chief Complaint: Severe Agitation /obtundation Reason for Consult: Co management of patient with acute encephalopathy on admission with history of schizoaffective disorder not responding to standard treatment lumbar puncture and other medical workup did not reveal other clear causes. She has pending EEG and MRI. Hope is to get the patient ambulating with improved oropharyngeal functioning and eating prior to transfer to Psychiatry. Chart reviewed and case extensively discussed with hospitalist service Requesting physician: Aleida KEMP Narrative: The patient is having a complex presentation she is a 44-year-old male with a reported diagnosis of schizoaffective disorder normally managed by Dr. Bernabe Tenorio on a combination of Haldol and Valium. The patient initially was brought to the emergency room at [facility] with psychotic agitation and was then transferred to [facility]. At [facility] the patient became increasingly obtunded tachycardic had a fall with possible head injury and was referred to the [facility] Emergency room. Head CT and cervical spine CT were negative and the patient did have a lumbar puncture and she was started on acyclovir and Rocephin for question of encephalitis. Patient was then treated because of agitation with Versed ketamine Haldol olanzapine Valium and was then referred to the emergency room where she was treated with a Precedex drip. She was thought to have an acute metabolic encephalopathy colopathy in the context of multidrug administration rule out other process. While in the ICU she was started on Depakote at some point also started on Lamictal. She was transferred to medical floor for follow-up. She has had minimal ambulation and needs with assist some difficulty with dysphagia and the patient has periods of severe agitation that has been treated with Valium and Geodon and has remained on her outpatient regimen although at a higher dose with 30 mg daily of Haldol and Valium b.i.d.. She is often obtunded difficult to arouse there was consideration of transferred to Psychiatry however given patient's level of obtundation ambulation dysphagia has not met basic requirements to be on general inpatient psychiatry uni Past Psychiatric History: Outpatient psychiatrist: Dr. Luís Hopkins ([facility]) hx of taking Haldol 20mg PO bedtime, Diazepam 5mg PO daily and 10mg PO bedtime for the last 5 years per outpatient provider. Medical history and labs reviewed gait disturbance frequent frequent obtundation difficult to arouse dysphagia with altered diet Personal & Social History: Patient from [facility] lives with her and children [facility] Medical History (Updated 05/20/25 @ 11:33 by Alden Eldridge MD) Post traumatic stress disorder (PTSD) Social History: Patient lives with her has 6 children Trauma History: Question history of PTSD had lived in [facility] Diagnostics Vital Signs (24Hr): Vital Signs - 24 hr 05/18/25 20:00 05/19/25 00:00 05/19/25 03:24 Temperature 97.9 F 98.1 F 97.2 F Pulse Rate 110 H 116 H 95 Respiratory Rate 16 18 16 Blood Pressure 109/65 116/73 111/60 Pulse Oximetry 98 95 94 Oxygen Delivery Method Room Air Room Air Room Air 05/19/25 07:57 05/19/25 12:00 05/19/25 15:13 Temperature 97.1 F 97.9 F 97.0 F Pulse Rate 90 104 H 108 H Respiratory Rate 19 16 18 Blood Pressure 105/61 113/60 140/90 H Pulse Oximetry 98 97 98 Oxygen Delivery Method Room Air Room Air Room Air BMI result Body Mass Index 27.9 Labs 05/17/25 15:26 05/19/25 12:34 Labs: Laboratory Results - last 48 hr 05/03/25 05/19/25 05/19/25 06:06 12:34 16:00 Sodium 143 Potassium 3.9 Chloride 110 H Carbon Dioxide 23 Anion Gap 14 BUN 9 Creatinine 0.84 Estim Creat Clear Calc 87.1 Estimated GFR > 60 Random Glucose 128 H Calcium 8.8 Ammonia 46 C-Reactive Protein 0.67 H Vitamin B12 1209 H Folate 7.1 TSH 1.87 Babesia microti IgG Ab <1:64 Babesia microti IgM Ab <1:20 Babesia Interpretation SEE NOTE Imaging Radiology Impressions: ITS Impressions Abdomen X-Ray 05/19/25 14:28 IMPRESSION: 1. No radiopaque foreign bodies are evident. No contraindication to MRI based on these radiographs. 2. Mild constipation. Electronically signed by: Ant Pantoja MD 05/19/2025 03:44 PM EDT Mental Status Exam Mental Status Exam Narrative: Patient seen in her room she is asleep and unable to be aroused. Range of motion was unremarkable no clear rigidity no involuntary movements noted unable to assess further Medications Medications Current Medications Benztropine Mesylate (Benztropine Mesylate 1 Mg Tablet) 1 mg PO BID [facility] Last Admin: 05/19/25 10:48 Dose: 1 mg Dextrose (Dextrose 50 % 25 Gm/50 Ml Syringe) 25 gm IVPUSH Q15M PRN; Protocol PRN Reason: per Hypoglycemia Standing Ord. Last Admin: 05/06/25 12:18 Dose: 25 gm Diazepam (Diazepam 10 Mg/2 Ml Cartridge) 5 mg IVPUSH BID PRN PRN Reason: agitation Last Admin: 05/18/25 12:04 Dose: 5 mg Enoxaparin Sodium (Enoxaparin Sodium 40 Mg/0.4 Ml Syringe) 40 mg SUBCUT Q24H [facility] Last Admin: 05/19/25 06:03 Dose: 40 mg Haloperidol (Haloperidol 5 Mg Tablet) 10 mg PO DAILY [facility] Last Admin: 05/19/25 10:48 Dose: 10 mg Haloperidol (Haloperidol 5 Mg Tablet) 20 mg PO BEDTIME [facility] Last Admin: 05/18/25 20:05 Dose: 20 mg Lamotrigine (Lamotrigine 25 Mg Tablet) 50 mg PO BID [facility] Last Admin: 05/19/25 10:48 Dose: 50 mg Sodium Chloride (0.9 % Sodium Chloride Flush 3 Ml Syringe) 3 ml IVFLUSH QSHIFT [facility] Last Admin: 05/19/25 16:13 Dose: Not Given Thiamine HCl (Thiamine Hcl 100 Mg Tablet) 100 mg PO DAILY [facility] Last Admin: 05/19/25 11:46 Dose: 100 mg Valproic Acid (Valproic Acid Liquid 250 Mg/5 Ml Solution) 500 mg PO BID [facility] Last Admin: 05/19/25 10:48 Dose: 500 mg Ziprasidone (Ziprasidone Mesylate 20 Mg Vial) 15 mg IM Q12H PRN PRN Reason: severe agitation Last Admin: 05/18/25 21:22 Dose: 15 mg Allergies Allergies Allergy/AdvReac Type Severity Reaction Status Date / Time No Known Allergies Allergy Verified 05/02/25 17:30 Assessment & Plan Assessment & Plan (1) Schizoaffective disorder: Status: Acute Code(s): F25.9 - Schizoaffective disorder, unspecified (2) Post traumatic stress disorder (PTSD): Status: Acute Code(s): F43.10 - Post-traumatic stress disorder, unspecified (3) Acute delirium: Status: Acute Code(s): R41.0 - Disorientation, unspecified Plan Patient with history of schizoaffective disorder reported history of PTSD history of psychosis questionable history of tone. Reportedly according to Dr. Plasencia was generally stable on 20 mg of Haldol and Valium. No reported history of substance abuse no clear acute stressor. Ammonia level is unremarkable. Patient does have a significant level of obtundation will try and taper medications most likely leading to sedation. Would try to avoid gross sedation that leads to impairment in motor functioning and swallowing. This can also at times be a side effect of antipsychotics. Try and get additional history from patient and whether the or any swallowing difficulties prior to admission she has been chronically on Haldol. Consideration should be given to MRI and EEG this is a very unusual presentation also head injury status post and obtundation status post reported fall. Would definitely try and check EEG. Will try and taper Depakote and leave lamotrigine which is significantly less sedating. Alternative antipsychotic regimens that are less sedating should also be considered. If this turns out to be treatment resistant psychosis Clozaril/ECT could be considered. Patient may have significant agitation secondary to medication induced delirium which with ongoing medication will only contribute to ongoing delirium and this can be very difficult to treat situation. Valproic acid lowered Total time managing care of this patient today 70__ minutes. Chart extensively reviewed case discussed with hospitalist service and with prior psychiatric provider. Medical records reviewed will try and meet with family with supervisor securities vault
--- NOTE | 2025-05-19 16:34 | HO.PM.IMPN ---
Subjective Subjective Date of Service: 05/20/25 Interval History: Patient asleep today in bed during evaluation. Arousable. Eating and drinking as per reports. Extensive discussion with Dr. Eldridge today regarding disposition, further investigation. Review of Systems Review of Systems: Yes Unobtainable due to mental status Physical Exam Exam: Exam: General: Comfortable in bed, rousable. No acute distress Cardiac: S1, S2 auscultated with no S3/4, no MRG. Well perfused. Respiratory: Normal breath sounds auscultated throughout all lung zones, without wheezing, rales. Normal rate. GI/ : No abdominal pain on palpation, no masses or distentions. MSK: Normal ambulation without pain at bony prominences or musculature Neurological: Normal neurological examination on overview, without obvious CN II-XII abnormalities. Vital Signs: Vital Signs: Last Vital Signs Temp 97.0 F 05/19/25 15:13 Pulse 108 H 05/19/25 15:13 Resp 18 05/19/25 15:13 BP 140/90 H 05/19/25 15:13 Pulse Ox 98 05/19/25 15:13 O2 Del Method Room Air 05/19/25 15:13 O2 Flow Rate 1 05/06/25 14:00 BMI result Body Mass Index 27.9 Objective Data Active Medications Benztropine Mesylate (Benztropine Mesylate 1 Mg Tablet) 1 mg PO BID [facility] Last Admin: 05/19/25 10:48 Dose: 1 mg Documented By: DEE DEE Dextrose (Dextrose 50 % 25 Gm/50 Ml Syringe) 25 gm IVPUSH Q15M PRN; Protocol PRN Reason: per Hypoglycemia Standing Ord. Last Admin: 05/06/25 12:18 Dose: 25 gm Documented By: DEIDRE Diazepam (Diazepam 10 Mg/2 Ml Cartridge) 5 mg IVPUSH BID PRN PRN Reason: agitation Last Admin: 05/18/25 12:04 Dose: 5 mg Documented By: DEE DEE Enoxaparin Sodium (Enoxaparin Sodium 40 Mg/0.4 Ml Syringe) 40 mg SUBCUT Q24H [facility] Last Admin: 05/19/25 06:03 Dose: 40 mg Documented By: MAGGIE Haloperidol (Haloperidol 5 Mg Tablet) 10 mg PO DAILY [facility] Last Admin: 05/19/25 10:48 Dose: 10 mg Documented By: DEE DEE Haloperidol (Haloperidol 5 Mg Tablet) 20 mg PO BEDTIME [facility] Last Admin: 05/18/25 20:05 Dose: 20 mg Documented By: GELY Lamotrigine (Lamotrigine 25 Mg Tablet) 50 mg PO BID [facility] Last Admin: 05/19/25 10:48 Dose: 50 mg Documented By: DEE DEE Sodium Chloride (0.9 % Sodium Chloride Flush 3 Ml Syringe) 3 ml IVFLUSH QSHIFT [facility] Last Admin: 05/19/25 16:13 Dose: Not Given Documented By: DEE DEE Non-Admin Reason: Previously Administered Thiamine HCl (Thiamine Hcl 100 Mg Tablet) 100 mg PO DAILY [facility] Last Admin: 05/19/25 11:46 Dose: 100 mg Documented By: DEE DEE Valproic Acid (Valproic Acid Liquid 250 Mg/5 Ml Solution) 500 mg PO BID [facility] Last Admin: 05/19/25 10:48 Dose: 500 mg Documented By: DEE DEE Ziprasidone (Ziprasidone Mesylate 20 Mg Vial) 15 mg IM Q12H PRN PRN Reason: severe agitation Last Admin: 05/18/25 21:22 Dose: 15 mg Documented By: GELY Labs 05/17/25 15:26 05/19/25 12:34 Labs: Laboratory Results - last 24 hr 05/03/25 05/19/25 05/19/25 06:06 12:34 16:00 Anion Gap 14 Estim Creat Clear Calc 87.1 Estimated GFR > 60 Random Glucose 128 H Calcium 8.8 Ammonia 46 C-Reactive Protein 0.67 H Vitamin B12 1209 H Folate 7.1 TSH 1.87 Babesia microti IgG Ab <1:64 Babesia microti IgM Ab <1:20 Babesia Interpretation SEE NOTE Assessment and Plan (1) Agitation: Status: Acute (2) Schizoaffective disorder: Status: Acute (3) Bipolar 1 disorder: Status: Acute (4) Tachycardia: Status: Acute Plan 44-year-old lady, [place], with underlying bipolar with manic episodes with agitation recent hospitalization at [facility] transferred to [facility] ER on 05/03/2025 secondary to worsening agitation with initial poor response to parenteral sedatives requiring Precedex drip,loaded with valproic acid and titrated off Precedex drip and transferred to telemetry on 05/05/2025. Overnight 05/06, patient with development of significant agitation with suboptimal response to initial parenteral sedatives requiring re-initiation of Precedex drip and icu transfer. bipolar dis with manic episodes with agitation: continue haloperidol, valium po and iv, lamotil, valproic acid. improving eating, intermittent agitation requiring medical intervention lft's improving, ammonia levels and valproic acid levels -normal pt eval added; unable to meaningfully participate in evaluation Pt has been medically cleared for discharge Care team evaluation recommends inpatient psychiatric stabilization Altered mental status Extensive discussion with Psychiatry regarding the patient's disposition, altered mental status and potential etiology. Restarting workup in evaluating for other etiologies that could be contributory to patient's overall change in mental status from relatively functional (and agitated), to now more somnolent Plan RPR, TSH with reflex T4, thiamine, folic acid and B12, PAPI, ANCA Consider CT brain Consider MRI brain with and without gadolinium Acute urinary retention, resolved Bladder scan revealed pt retaining 778 mL on 05/13, 900ml in morning of 05/14 [place] catheter placed on 05/14; removed on 05/15; pt has been voiding freely since then Bladder scan per shift, straight cath as necessary rhabdomylysis, resovled cpk improving, last levels 167 mild low grade fever in icu resolved: ua ,cta chest ,LP negative ,csf/blood cultures negative . no leucocytosis or fevers d/w Id -no further workup. dvt prophylax: s/c lovenox. ongoing need for stay: bipolar disorder with manic episodes with agitation; pt is now medically cleared and is awaiting inpatient psych hospitaliaztion for further management Total time managing care of this patient today: 35 minutes. Quality Stroke Does the patient have a stroke diagnosis?: No VTE Prior VTE?: No VTE Risk Level:: Medical - moderate - high VTE Device Contraindication: N/A - Device Ordered VTE Drug Contraindication: N/A - Med Ordered
[2025-05-19] MEDS: diazePAM 10 MG/2 ML CARTRIDGE 5 MG IVPUSH (16:35)
[2025-05-20 02:59] VITALS: BP 132/76; PULSE 110; RESP 20; TEMP 36.8; O2SAT 98
[2025-05-20 06:00] VITALS: BMI 28.2
[2025-05-20 07:16] VITALS: BP 110/75; PULSE 100; RESP 18; TEMP 36.2; O2SAT 98
[2025-05-20 08:22] LABS: Syphilis Screen Nonreactive (Nonreactive)
[2025-05-20 10:37] VITALS: BP 106/57; PULSE 93; RESP 16; TEMP 36.7; O2SAT 96
[2025-05-20] MEDS: 0.9 % Sodium Chloride Flush 3 ML SYRINGE IVFLUSH ×3 (11:19→21:01)
[2025-05-20] MEDS: Valproic Acid Liquid 250 MG/5 ML SOLUTION PO (11:19)
[2025-05-20 12:00] VITALS: BP 115/57; PULSE 109; RESP 16
[2025-05-20 14:23] LABS: Proteinase 3 PR3 Antibodies <1.0 AI
--- NOTE | 2025-05-20 15:13 | HO.PM.IMPN ---
Subjective Subjective Date of Service: 05/20/25 Interval History: Patient remains somnolent by bedside. Eyes closed, asleep, not engaging in conversation. Discussed case with by bedside. Utilized Malagasy morphologist. Currently, the patient is not eating and drinking as much as previously Today, she recognizes her , however yesterday she did not. She was agitated yesterday yelling screaming - and was difficult to redirect. Dr. Eldridge present during evaluation. The patient has had a previous episodes similar to this 1 in 2018 at [facility]. Review of Systems Review of Systems: Yes all other systems are reviewed and are negative Physical Exam Exam: Exam: General: Comfortable in bed, rousable. No acute distress Cardiac: S1, S2 auscultated with no S3/4, no MRG. Well perfused. Respiratory: Normal breath sounds auscultated throughout all lung zones, without wheezing, rales. Normal rate. GI/ : No abdominal pain on palpation, no masses or distentions. MSK: Normal ambulation without pain at bony prominences or musculature Neurological: Normal neurological examination on overview, without obvious CN II-XII abnormalities Vital Signs: Vital Signs: Last Vital Signs Temp 98.0 F 05/20/25 10:37 Pulse 109 H 05/20/25 12:00 Resp 16 05/20/25 12:00 BP 115/57 L 05/20/25 12:00 Pulse Ox 96 05/20/25 10:37 O2 Del Method Room Air 05/20/25 10:37 O2 Flow Rate 1 05/06/25 14:00 BMI result Body Mass Index 28.2 Objective Data Active Medications Benztropine Mesylate (Benztropine Mesylate 1 Mg Tablet) 1 mg PO BID [facility] Last Admin: 05/20/25 11:18 Dose: 1 mg Documented By: NATANAEL Dextrose (Dextrose 50 % 25 Gm/50 Ml Syringe) 25 gm IVPUSH Q15M PRN; Protocol PRN Reason: per Hypoglycemia Standing Ord. Last Admin: 05/06/25 12:18 Dose: 25 gm Documented By: DEIDRE Diazepam (Diazepam 10 Mg/2 Ml Cartridge) 5 mg IVPUSH BID PRN PRN Reason: agitation Last Admin: 05/19/25 16:35 Dose: 5 mg Documented By: DEE DEE Enoxaparin Sodium (Enoxaparin Sodium 40 Mg/0.4 Ml Syringe) 40 mg SUBCUT Q24H [facility] Last Admin: 05/20/25 06:20 Dose: 40 mg Documented By: GRACIELA Haloperidol (Haloperidol 5 Mg Tablet) 10 mg PO DAILY [facility] Last Admin: 05/20/25 11:19 Dose: 10 mg Documented By: NATANAEL Haloperidol (Haloperidol 5 Mg Tablet) 20 mg PO BEDTIME [facility] Last Admin: 05/19/25 20:31 Dose: 20 mg Documented By: GRACIELA Lamotrigine (Lamotrigine 25 Mg Tablet) 50 mg PO BID [facility] Last Admin: 05/20/25 11:18 Dose: 50 mg Documented By: NATANAEL Sodium Chloride (0.9 % Sodium Chloride Flush 3 Ml Syringe) 3 ml IVFLUSH QSHIFT [facility] Last Admin: 05/20/25 11:19 Dose: 3 ml Documented By: NATANAEL Thiamine HCl (Thiamine Hcl 100 Mg Tablet) 100 mg PO DAILY [facility] Last Admin: 05/20/25 11:19 Dose: 100 mg Documented By: NATANAEL Valproic Acid (Valproic Acid Liquid 250 Mg/5 Ml Solution) 500 mg PO BEDTIME [facility] Valproic Acid (Valproic Acid Liquid 250 Mg/5 Ml Solution) 250 mg PO DAILY [facility] Last Admin: 05/20/25 11:19 Dose: 250 mg Documented By: NATANAEL Ziprasidone (Ziprasidone Mesylate 20 Mg Vial) 15 mg IM Q12H PRN PRN Reason: severe agitation Last Admin: 05/19/25 19:13 Dose: 15 mg Documented By: DEE DEE Labs 05/17/25 15:26 05/19/25 12:34 Labs: Laboratory Results - last 24 hr 05/19/25 05/19/25 05/19/25 12:34 15:28 16:00 ESR 14 Ammonia 46 Proteinase 3 (PR3) Ab <1.0 Myeloperoxidase Ab <1.0 T.pallidum Ab (EIA) Nonreactive Assessment and Plan (1) Agitation: Status: Acute (2) Schizoaffective disorder: Status: Acute (3) Bipolar 1 disorder: Status: Acute (4) Encephalopathy acute: Status: Acute Plan 44-year-old lady, Malagasy, with underlying bipolar with manic episodes with agitation recent hospitalization at [facility] transferred to [facility] ER on 05/03/2025 secondary to worsening agitation with initial poor response to parenteral sedatives requiring Precedex drip,loaded with valproic acid and titrated off Precedex drip and transferred to telemetry on 05/05/2025. Overnight 05/06, patient with development of significant agitation with suboptimal response to initial parenteral sedatives requiring re-initiation of Precedex drip and icu transfer. bipolar disorder with manic episodes with agitation Somnolence continue haloperidol, valium po and iv, lamotil, valproic acid. improving eating, intermittent agitation requiring medical intervention lft's improving, ammonia levels and valproic acid levels -normal pt eval added; unable to meaningfully participate in evaluation Pt has been medically cleared for discharge Care team evaluation recommends inpatient psychiatric stabilization Altered mental status Extensive discussion with Psychiatry regarding the patient's disposition, altered mental status and potential etiology. Restarting workup in evaluating for other etiologies that could be contributory to patient's overall change in mental status from relatively functional (and agitated), to now more somnolent Plan RPR, TSH with reflex T4, thiamine, folic acid and B12, PAPI, ANCA Consider CT brain Consider MRI brain with and without gadolinium Acute urinary retention, resolved Bladder scan revealed pt retaining 778 mL on 05/13, 900ml in morning of 05/14 [place] catheter placed on 05/14; removed on 05/15; pt has been voiding freely since then Bladder scan per shift, straight cath as necessary rhabdomylysis, resovled cpk improving, last levels 167 mild low grade fever in icu resolved: ua ,cta chest ,LP negative ,csf/blood cultures negative . no leucocytosis or fevers d/w Id -no further workup. dvt prophylax: s/c lovenox. ongoing need for stay: bipolar disorder with manic episodes with agitation; pt is now medically cleared and is awaiting inpatient psych hospitaliaztion for further management Total time managing care of this patient today: 35 minutes. Quality Stroke Does the patient have a stroke diagnosis?: No VTE Prior VTE?: No VTE Risk Level:: Medical - moderate - high VTE Device Contraindication: N/A - Device Ordered VTE Drug Contraindication: N/A - Med Ordered
--- NOTE | 2025-05-20 15:15 | PC.NURSE ---
Addendum entered by Cici Montero RN 05/20/25 17:45: patient ambulated to the bathroom with 2 assist, able to void and had bowel movement Original Note: No urine output, bladder scan for 289ml, patient offered assistance to the bathroom but declined, per protocol will re scan and notify provider
--- NOTE | 2025-05-20 15:24 | MHC.SLORD ---
Speech Language Pathology Order Status: Attempted to see patient at lunch to assess toleration of diet; Patient sleeping/sonambulant today, not waking for meal. SENIOR APPLICATIONS ARCHITECT will continue to follow.
[2025-05-20 15:56] VITALS: BP 111/58; PULSE 103; RESP 18; TEMP 36.7; O2SAT 96
[2025-05-20] MEDS: Valproic Acid Liquid 250 MG/5 ML SOLUTION 500 MG PO (20:49)
[2025-05-20] MEDS: diazePAM 10 MG/2 ML CARTRIDGE 5 MG IVPUSH (20:52)
[2025-05-21 03:59] VITALS: BP 112/59; PULSE 99; RESP 18; TEMP 36.3; O2SAT 97
[2025-05-21 08:00] VITALS: BP 120/64; PULSE 95; RESP 17; TEMP 36.1; O2SAT 98
[2025-05-21 10:54] LABS: Anti Nuclear Antibody Screen NEGATIVE (NEGATIVE)
--- NOTE | 2025-05-21 11:15 | MHC.SLORD ---
Addendum entered and electronically signed by Meron Daly MA, [facility]-SENIOR QUALITY TECHNICIAN 05/21/25 18:23: SENIOR QUALITY TECHNICIAN returned this afternoon, but was unable to feed patient d/t patient's lethargic status. Per RN, patient had taken her meds crushed in applesauce. Spouse was present, communicated that he had only been able to feed a few bites of eggs and oatmeal, but lunch had not yet arrived at that point. Patient was already asleep again, per PA, has been minimally responsive today. Original Note: Speech Language Pathology Order Status: SENIOR QUALITY TECHNICIAN arrived for dysphagia f/u. Patient was sleeping with open mouth, accompanied by spouse and sitter. RN attempted to wake patient but was unsuccessful. Per RN, patient had not eaten her breakfast nor taken her a.m. meds d/t somnolence. RN to contact SENIOR QUALITY TECHNICIAN via Speed Message when patient receives her lunch and/or when patient is to be medicated next.
--- NOTE | 2025-05-21 11:19 | MHC.CM.PN ---
Per MD rounds, plan is to have pt evaluated for IPLOC. She is ambulating and caro po. DP Pending evaluation IPLOC.
[2025-05-21 11:50] VITALS: BP 115/59; PULSE 108; RESP 17; TEMP 36.3; O2SAT 100
[2025-05-21] MEDS: 0.9 % Sodium Chloride Flush 3 ML SYRINGE IVFLUSH ×2 (12:19→15:43)
[2025-05-21] MEDS: Valproic Acid Liquid 250 MG/5 ML SOLUTION PO (12:20)
[2025-05-21 16:00] VITALS: BP 103/58; PULSE 118; RESP 18; TEMP 36.7; O2SAT 98
[2025-05-21] MEDS: diazePAM 10 MG/2 ML CARTRIDGE 5 MG IVPUSH (16:48)
--- NOTE | 2025-05-21 16:57 | HO.PM.IMPN ---
Subjective Subjective Date of Service: 05/21/25 Interval History: Overnight, she was more mobile, communicating (incomprehensible), eating. She became much more agitated, and received IM Geodon. On evaluation today she is asleep facing away from the door, eyes closed, minimally responsive. No distress. Review of Systems Review of Systems: Yes all other systems are reviewed and are negative Physical Exam Exam: Exam: General: Comfortable in bed, rousable. No acute distress Cardiac: S1, S2 auscultated with no S3/4, no MRG. Well perfused. Respiratory: Normal breath sounds auscultated throughout all lung zones, without wheezing, rales. Normal rate. GI/ : No abdominal pain on palpation, no masses or distentions. MSK: Normal ambulation without pain at bony prominences or musculature Neurological: Normal neurological examination on overview, without obvious CN II-XII abnormalities Vital Signs: Vital Signs: Last Vital Signs Temp 98.0 F 05/21/25 16:00 Pulse 118 H 05/21/25 16:00 Resp 18 05/21/25 16:00 BP 103/58 L 05/21/25 16:00 Pulse Ox 98 05/21/25 16:00 O2 Del Method Room Air 05/21/25 16:00 O2 Flow Rate 1 05/06/25 14:00 BMI result Body Mass Index 28.2 Objective Data Active Medications Benztropine Mesylate (Benztropine Mesylate 1 Mg Tablet) 1 mg PO BID [facility] Last Admin: 05/21/25 12:20 Dose: 1 mg Documented By: NATANAEL Dextrose (Dextrose 50 % 25 Gm/50 Ml Syringe) 25 gm IVPUSH Q15M PRN; Protocol PRN Reason: per Hypoglycemia Standing Ord. Last Admin: 05/06/25 12:18 Dose: 25 gm Documented By: DEIDRE Diazepam (Diazepam 10 Mg/2 Ml Cartridge) 5 mg IVPUSH BID PRN PRN Reason: agitation Last Admin: 05/21/25 16:48 Dose: 5 mg Documented By: NATANAEL Enoxaparin Sodium (Enoxaparin Sodium 40 Mg/0.4 Ml Syringe) 40 mg SUBCUT Q24H [facility] Last Admin: 05/21/25 06:25 Dose: 40 mg Documented By: KISHAN Haloperidol (Haloperidol 5 Mg Tablet) 10 mg PO DAILY [facility] Last Admin: 05/21/25 12:20 Dose: 10 mg Documented By: NATANAEL Haloperidol (Haloperidol 5 Mg Tablet) 20 mg PO BEDTIME [facility] Last Admin: 05/20/25 20:48 Dose: 20 mg Documented By: KISHAN Lamotrigine (Lamotrigine 25 Mg Tablet) 50 mg PO BID [facility] Last Admin: 05/21/25 12:20 Dose: 50 mg Documented By: NATANAEL Sodium Chloride (0.9 % Sodium Chloride Flush 3 Ml Syringe) 3 ml IVFLUSH QSHIFT [facility] Last Admin: 05/21/25 15:43 Dose: 3 ml Documented By: NATANAEL Thiamine HCl (Thiamine Hcl 100 Mg Tablet) 100 mg PO DAILY [facility] Last Admin: 05/21/25 12:20 Dose: 100 mg Documented By: NATANAEL Valproic Acid (Valproic Acid Liquid 250 Mg/5 Ml Solution) 500 mg PO BEDTIME [facility] Last Admin: 05/20/25 20:49 Dose: 500 mg Documented By: KISHAN Valproic Acid (Valproic Acid Liquid 250 Mg/5 Ml Solution) 250 mg PO DAILY [facility] Last Admin: 05/21/25 12:20 Dose: 250 mg Documented By: NATANAEL Ziprasidone (Ziprasidone Mesylate 20 Mg Vial) 15 mg IM Q12H PRN PRN Reason: severe agitation Last Admin: 05/21/25 00:56 Dose: 15 mg Documented By: JENNIFERQC Labs 05/17/25 15:26 05/19/25 12:34 Labs: Laboratory Results - last 24 hr 05/19/25 12:34 PAPI Screen NEGATIVE PAPI Titer TNP PAPI Titer 2 TNP PAPI Titer 3 TNP PAPI Pattern TNP PAPI Pattern 2 TNP PAPI Pattern 3 TNP Assessment and Plan (1) Schizoaffective disorder: Status: Acute (2) Bipolar 1 disorder: Status: Acute (3) Agitation: Status: Acute Plan 44-year-old lady, Bangladeshi, with underlying bipolar with manic episodes with agitation recent hospitalization at [facility] transferred to [facility] ER on 05/03/2025 secondary to worsening agitation with initial poor response to parenteral sedatives requiring Precedex drip,loaded with valproic acid and titrated off Precedex drip and transferred to telemetry on 05/05/2025. 05/06, patient with development of significant agitation with suboptimal response to initial parenteral sedatives requiring re-initiation of Precedex drip and icu transfer. Remains somnolent and noninteractive since. bipolar disorder with manic episodes with agitation Somnolence continue haloperidol, valium po and iv, lamotil, valproic acid. improving eating, intermittent agitation requiring medical intervention lft's improving, ammonia levels and valproic acid levels -normal pt eval added; unable to meaningfully participate in evaluation Pt has been medically cleared for discharge Care team evaluation recommends inpatient psychiatric stabilization. Planning disposition. Altered mental status Extensive discussion with Psychiatry regarding the patient's disposition, altered mental status and potential etiology. Restarting workup in evaluating for other etiologies that could be contributory to patient's overall change in mental status from relatively functional (and agitated), to now more somnolent Plan RPR, TSH with reflex T4, thiamine, folic acid and B12, PAPI, ANCA Consider CT brain Consider MRI brain with and without gadolinium; difficult to do given agitation Acute urinary retention, resolved Bladder scan revealed pt retaining 778 mL on 05/13, 900ml in morning of 05/14 [place] catheter placed on 05/14; removed on 05/15; pt has been voiding freely since then Bladder scan per shift, straight cath as necessary rhabdomylysis, resovled cpk improving, last levels 167 mild low grade fever in icu resolved: ua ,cta chest ,LP negative ,csf/blood cultures negative . no leucocytosis or fevers d/w Id -no further workup. dvt prophylax: s/c lovenox. Total time managing care of this patient today: 35 minutes. Quality Stroke Does the patient have a stroke diagnosis?: No VTE Prior VTE?: No VTE Risk Level:: Medical - moderate - high VTE Device Contraindication: N/A - Device Ordered VTE Drug Contraindication: N/A - Med Ordered
[2025-05-21 20:00] VITALS: BP 112/64; PULSE 99; RESP 18; TEMP 36.6; O2SAT 97
[2025-05-21] MEDS: Valproic Acid Liquid 250 MG/5 ML SOLUTION 500 MG PO (21:05)
[2025-05-22] VITALS: BP 120/63; PULSE 98; RESP 18; TEMP 36.9; O2SAT 97
[2025-05-22] MEDS: 0.9 % Sodium Chloride Flush 3 ML SYRINGE IVFLUSH ×4 (01:29→21:49)
[2025-05-22 03:17] VITALS: BP 125/64; PULSE 100; RESP 16; TEMP 36.2; O2SAT 96
[2025-05-22 05:18] VITALS: BMI 27.5
[2025-05-22 08:00] VITALS: BP 117/71; PULSE 107; RESP 16; TEMP 36.2; O2SAT 96
[2025-05-22] MEDS: Valproic Acid Liquid 250 MG/5 ML SOLUTION PO (08:46)
[2025-05-22 12:00] VITALS: BP 112/70; PULSE 104; RESP 16; TEMP 36.2; O2SAT 98
--- NOTE | 2025-05-22 12:01 | P.PNIM_ITS ---
Subjective Subjective Date of Service: 05/22/25 Interval History: No changes overall. The patient has been intermittently alert, aware, mobilizing, eating well as per RN/sitter. Sleeps mostly throughout the day Review of Systems Review of Systems: Yes Unobtainable due to mental status Physical Exam 2 Exam: Exam: General: Comfortable in bed, rousable. No acute distress Cardiac: S1, S2 auscultated with no S3/4, no MRG. Well perfused. Respiratory: Normal breath sounds auscultated throughout all lung zones, without wheezing, rales. Normal rate. GI/ : No abdominal pain on palpation, no masses or distentions. MSK: Normal ambulation without pain at bony prominences or musculature Neurological: Normal neurological examination on overview, without obvious CN II-XII abnormalities Vital Signs: Vital Signs: Last Vital Signs Temp 97.1 F 05/22/25 08:00 Pulse 107 H 05/22/25 08:00 Resp 16 05/22/25 08:00 BP 117/71 05/22/25 08:00 Pulse Ox 96 05/22/25 08:00 O2 Del Method Room Air 05/22/25 08:00 O2 Flow Rate 1 05/06/25 14:00 BMI result Body Mass Index 27.5 Objective Data Active Medications Benztropine Mesylate (Benztropine Mesylate 1 Mg Tablet) 1 mg PO BID [facility] Last Admin: 05/22/25 08:45 Dose: 1 mg Documented By: FLOWER Dextrose (Dextrose 50 % 25 Gm/50 Ml Syringe) 25 gm IVPUSH Q15M PRN; Protocol PRN Reason: per Hypoglycemia Standing Ord. Last Admin: 05/06/25 12:18 Dose: 25 gm Documented By: DEIDRE Diazepam (Diazepam 10 Mg/2 Ml Cartridge) 5 mg IVPUSH BID PRN PRN Reason: agitation Last Admin: 05/21/25 16:48 Dose: 5 mg Documented By: DOBROB Enoxaparin Sodium (Enoxaparin Sodium 40 Mg/0.4 Ml Syringe) 40 mg SUBCUT Q24H [facility] Last Admin: 05/22/25 06:35 Dose: 40 mg Documented By: TAWANA Haloperidol (Haloperidol 5 Mg Tablet) 10 mg PO DAILY [facility] Last Admin: 05/22/25 08:45 Dose: 10 mg Documented By: FLOWER Haloperidol (Haloperidol 5 Mg Tablet) 20 mg PO BEDTIME [facility] Last Admin: 05/21/25 21:06 Dose: 20 mg Documented By: GABY Lamotrigine (Lamotrigine 25 Mg Tablet) 50 mg PO BID [facility] Last Admin: 05/22/25 08:46 Dose: 50 mg Documented By: FLOWER Sodium Chloride (0.9 % Sodium Chloride Flush 3 Ml Syringe) 3 ml IVFLUSH QSHIFT [facility] Last Admin: 05/22/25 08:57 Dose: 3 ml Documented By: FLOWER Thiamine HCl (Thiamine Hcl 100 Mg Tablet) 100 mg PO DAILY [facility] Last Admin: 05/22/25 08:45 Dose: 100 mg Documented By: FLOWER Valproic Acid (Valproic Acid Liquid 250 Mg/5 Ml Solution) 500 mg PO BEDTIME [facility] Last Admin: 05/21/25 21:05 Dose: 500 mg Documented By: GABY Valproic Acid (Valproic Acid Liquid 250 Mg/5 Ml Solution) 250 mg PO DAILY [facility] Last Admin: 05/22/25 08:46 Dose: 250 mg Documented By: FLOWER Ziprasidone (Ziprasidone Mesylate 20 Mg Vial) 15 mg IM Q12H PRN PRN Reason: severe agitation Last Admin: 05/21/25 00:56 Dose: 15 mg Documented By: JENNIFERQC Labs 05/17/25 15:26 05/19/25 12:34 Assessment and Plan (1) Bipolar 1 disorder: Status: Acute (2) Schizoaffective disorder: Status: Acute (3) Agitation: Status: Acute Plan 44-year-old lady, Afghan, with underlying bipolar with manic episodes with agitation recent hospitalization at [facility] transferred to [facility] ER on 05/03/2025 secondary to worsening agitation with initial poor response to parenteral sedatives requiring Precedex drip,loaded with valproic acid and titrated off Precedex drip and transferred to telemetry on 05/05/2025. 05/06, patient with development of significant agitation with suboptimal response to initial parenteral sedatives requiring re-initiation of Precedex drip and icu transfer. Remains somnolent and noninteractive since. Bipolar disorder with manic episodes with agitation Somnolence Catatonia? continue haloperidol, valium po and iv, lamotil, valproic acid. improving eating, intermittent agitation requiring medical intervention lft's improving, ammonia levels and valproic acid levels -normal pt eval added; unable to meaningfully participate in evaluation Care team evaluation recommends inpatient psychiatric stabilization. Planning disposition. Pt has been medically cleared for discharge to Psychiatric services Altered mental status Extensive discussion with Psychiatry regarding the patient's disposition, altered mental status and potential etiology. Restarting workup in evaluating for other etiologies that could be contributory to patient's overall change in mental status from relatively functional (and agitated), to now more somnolent Plan RPR, TSH with reflex T4, thiamine, folic acid and B12, PAPI, ANCA - NORMAL RESULTS Consider CT brain Consider MRI brain with and without gadolinium; difficult to do given agitation Pt has been medically cleared for discharge to Psychiatric services Acute urinary retention, resolved Bladder scan revealed pt retaining 778 mL on 05/13, 900ml in morning of 05/14 [place] catheter placed on 05/14; removed on 05/15; pt has been voiding freely since then Bladder scan per shift, straight cath as necessary Rhabdomylysis, RESOLVED dvt prophylax: s/c lovenox. Total time managing care of this patient today: 35 minutes. Total time managing care of this patient today: 35 minutes. Quality Stroke Does the patient have a stroke diagnosis?: No VTE Prior VTE?: No VTE Risk Level:: Medical - moderate - high VTE Device Contraindication: N/A - Device Ordered VTE Drug Contraindication: N/A - Med Ordered
[2025-05-22 15:24] VITALS: BP 122/77; PULSE 97; RESP 18; TEMP 36; O2SAT 98
--- NOTE | 2025-05-22 16:19 | P.CNPS_ITS ---
History of Present Illness Date of Service: 05/22/2025 Chief Complaint: Severe Agitation /obtundation Reason for Consult: Medication management Requesting physician: Aleida Casillas Discussed with referring provider: Yes Sources of Information: chart reviewed and crisis/core team assessment reviewed Additional Sources of Information: Pt was seen with her one to one. She does not speak Senegalese HPI Past Psychiatric History: Outpatient psychiatrist: Dr. Luís Hopkins ([facility]) hx of taking Haldol 20mg PO bedtime, Diazepam 5mg PO daily and 10mg PO bedtime for the last 5 years per outpatient provider. Medical Evaluation Reviewed: Yes 44 yo female, hx of schizoaffective disorder, bipolar disorder with tone, treated with stability on Haldol and Valium for several years with Dr. Hopkins. Pt was initially evaluated at [facility] then transferred to [facility]. When at [facility] she became obtunded, tachycardic, fell with possible TBI and was sent to [facility]. CAT and CSpine were negative. Lumbar puncture was completed with a question of encephalitis-acyclovir and rocephin were initiated. Agitation developed and versed, ketamine, haldol, olanzapine, valium were used and precedex drip to manage sx. Depakote and Lamictal were initated when pt was in ICU. She had some dysphagia and decrease in ambulation. Agitation periods continued-Valium and Geodon were utilized. She has often been obtunded on the medical floor, difficult to arouse and medication adjustments are being made by Candelaria Marks NP and Dr. Eldridge, in preparation for a transfer to psychiatry. Care review completed with Dr. Casillas today who reports pt will usually sleep until 4-5 pm, then gathers some energy-she fidgets, can agitatate. Geodon knocks her out. Medical work up has been re-started, thus far it is negative. Dr. Casillas spoke with Dr. Eldridge on 05/21 to discuss further med changes. Dr. Casillas believes pt feels 4-5 pm to be a safer time to be awake as it is calmer on the unit, quieter. He has been able to speak with pt who wishes to him peace be upon you and she has been receptive to talking with him briefly. Pt seen at 415pm. She is with her one to one special. She is awake, alert, calm, quiet. She does not speak, however, her eye contact is attentive and she does follow tw. Consulted with Dr. Eldridge who reports he has been working to balance sedation and agitation, thinking of adjustments to Haldol and possibly changing Valium to Lorazepam. Review of Systems Review of Systems Yes Unobtainable due to mental status [facility] Medical History (Updated 06/03/25 @ 00:02 by Background Kristine) Schizoaffective disorder Post traumatic stress disorder (PTSD) Social History: Patient lives with her has 6 children Trauma History: Question history of PTSD had lived in [facility] Diagnostics Vital Signs (24Hr): Vital Signs - 24 hr 05/21/25 20:00 05/22/25 00:00 05/22/25 03:17 Temperature 97.8 F 98.5 F 97.1 F Pulse Rate 99 98 100 Respiratory Rate 18 18 16 Blood Pressure 112/64 120/63 125/64 Pulse Oximetry 97 97 96 Oxygen Delivery Method Room Air Room Air Room Air 05/22/25 08:00 05/22/25 12:00 05/22/25 15:24 Temperature 97.1 F 97.1 F 96.8 F Pulse Rate 107 H 104 H 97 Respiratory Rate 16 16 18 Blood Pressure 117/71 112/70 122/77 Pulse Oximetry 96 98 98 Oxygen Delivery Method Room Air Room Air Room Air BMI result Body Mass Index 27.5 Labs 05/17/25 15:26 05/23/25 06:55 Labs: Laboratory Results - last 48 hr 05/19/25 12:34 PAPI Screen NEGATIVE PAPI Titer TNP PAPI Titer 2 TNP PAPI Titer 3 TNP PAPI Pattern TNP PAPI Pattern 2 TNP PAPI Pattern 3 TNP Imaging Radiology Impressions: ITS Impressions Abdomen X-Ray 05/19/25 14:28 IMPRESSION: 1. No radiopaque foreign bodies are evident. No contraindication to MRI based on these radiographs. 2. Mild constipation. Electronically signed by: Ant Pantoja MD 05/19/2025 03:44 PM EDT RP Mental Status Exam Mental Status Exam Patient Appearance: Fatigued Patient Orientation: Person Level of Consciousness: Awake and Alert Patient Behavior: Good Eye Contact Mood Description: Calm Affect Description: Calm Speech Pattern: No Speech Medications Medications Current Medications Benztropine Mesylate (Benztropine Mesylate 1 Mg Tablet) 1 mg PO BID [facility] Last Admin: 05/22/25 08:45 Dose: 1 mg Dextrose (Dextrose 50 % 25 Gm/50 Ml Syringe) 25 gm IVPUSH Q15M PRN; Protocol PRN Reason: per Hypoglycemia Standing Ord. Last Admin: 05/06/25 12:18 Dose: 25 gm Diazepam (Diazepam 10 Mg/2 Ml Cartridge) 5 mg IVPUSH BID PRN PRN Reason: agitation Last Admin: 05/21/25 16:48 Dose: 5 mg Enoxaparin Sodium (Enoxaparin Sodium 40 Mg/0.4 Ml Syringe) 40 mg SUBCUT Q24H [facility] Last Admin: 05/22/25 06:35 Dose: 40 mg Haloperidol (Haloperidol 5 Mg Tablet) 10 mg PO DAILY [facility] Last Admin: 05/22/25 08:45 Dose: 10 mg Haloperidol (Haloperidol 5 Mg Tablet) 20 mg PO BEDTIME [facility] Last Admin: 05/21/25 21:06 Dose: 20 mg Lamotrigine (Lamotrigine 25 Mg Tablet) 50 mg PO BID [facility] Last Admin: 05/22/25 08:46 Dose: 50 mg Sodium Chloride (0.9 % Sodium Chloride Flush 3 Ml Syringe) 3 ml IVFLUSH QSHIFT [facility] Last Admin: 05/22/25 15:18 Dose: 3 ml Thiamine HCl (Thiamine Hcl 100 Mg Tablet) 100 mg PO DAILY [facility] Last Admin: 05/22/25 08:45 Dose: 100 mg Valproic Acid (Valproic Acid Liquid 250 Mg/5 Ml Solution) 500 mg PO BEDTIME [facility] Last Admin: 05/21/25 21:05 Dose: 500 mg Valproic Acid (Valproic Acid Liquid 250 Mg/5 Ml Solution) 250 mg PO DAILY [facility] Last Admin: 05/22/25 08:46 Dose: 250 mg Ziprasidone (Ziprasidone Mesylate 20 Mg Vial) 15 mg IM Q12H PRN PRN Reason: severe agitation Last Admin: 05/21/25 00:56 Dose: 15 mg Allergies Allergies Allergy/AdvReac Type Severity Reaction Status Date / Time No Known Allergies Allergy Verified 05/02/25 17:30 Assessment & Plan Assessment & Plan (1) Schizoaffective disorder: Status: Inactive Code(s): F25.9 - Schizoaffective disorder, unspecified (2) Bipolar 1 disorder: Status: Deleted Code(s): F31.9 - Bipolar disorder, unspecified (3) Post traumatic stress disorder (PTSD): Status: Acute Code(s): F43.10 - Post-traumatic stress disorder, unspecified (4) Agitation: Status: Acute Code(s): R45.1 - Restlessness and agitation Plan 05/22/25 Resolving encephalopathy, agitation. Currently pt sleeping most of the day, begins to gather energy 4-5 pm. Plan: DC Haldol Haldol 20 mg HS Haldol 5 mg AM On 05/23 Valproate level, Ammonia level, CMP Total time managing care of this patient today ____ minutes.
[2025-05-22] MEDS: diazePAM 10 MG/2 ML CARTRIDGE 5 MG IVPUSH (17:49)
[2025-05-22 20:00] VITALS: BP 126/82; PULSE 111; RESP 17; TEMP 36.2; O2SAT 96
[2025-05-22] MEDS: Valproic Acid Liquid 250 MG/5 ML SOLUTION 500 MG PO (21:40)
[2025-05-23 04:00] VITALS: BP 140/90; PULSE 117; RESP 16; TEMP 36.5; O2SAT 96
--- NOTE | 2025-05-23 05:05 | PC.NURSE ---
pt bladder scanned for 588 mL. Special Effects Designer utilized to explain to pt the need to urinate. Pt assisted to bedside commode, unable to urinate. Special Effects Designer explained straight cath procedure to patient. Pt straight cathed for 650mL
[2025-05-23 06:00] VITALS: BMI 27.5
[2025-05-23 07:14] LABS: Ammonia 46 umol/L (13-55)
[2025-05-23 07:21] LABS: Alanine Aminotransferase 35 U/L (0-31); Albumin Level 3.8 g/dL (3.5-5.0); Alkaline Phosphatase 71 U/L (39-117); Anion Gap 17 (12-20); Aspartate Amino Transferase 31 U/L (5-31); Blood Urea Nitrogen 9 mg/dL (9-16); Calcium 9.2 mg/dL (8.4-10.2); Carbon Dioxide 21 mmol/L (22-29); Chloride 106 mmol/L (96-108); Creatinine Clr Calc Pharmacy 94.4; Estimated Glomerular Filt Rate > 60; Potassium 3.6 mmol/L (3.3-5.1); Sodium 140 mmol/L (135-145); Total Protein 7.6 g/dL (6.5-8.0)
[2025-05-23 07:58] VITALS: BP 107/60; PULSE 99; RESP 16; TEMP 36.1; O2SAT 97
[2025-05-23] MEDS: Valproic Acid Liquid 250 MG/5 ML SOLUTION PO (08:41)
[2025-05-23] MEDS: 0.9 % Sodium Chloride Flush 3 ML SYRINGE IVFLUSH ×3 (08:56→22:18)
--- NOTE | 2025-05-23 13:13 | P.PNIM_ITS ---
Subjective Subjective Date of Service: 05/23/25 Interval History: Lying comfortably in bed. Asleep most of the day. Begins to gain energy around evening time. Has been eating with RN and sitter by bedside. Tends to get agitated overnight with attempting to get out of bed, mobilize unsafely. Fidgets often when awake at night. Review of Systems Review of Systems: Yes Unobtainable due to mental status Physical Exam 2 Exam: Exam: General: Comfortable in bed, rousable. No acute distress Cardiac: S1, S2 auscultated with no S3/4, no MRG. Well perfused. Respiratory: Normal breath sounds auscultated throughout all lung zones, without wheezing, rales. Normal rate. GI/ : No abdominal pain on palpation, no masses or distentions. MSK: Normal ambulation without pain at bony prominences or musculature Neurological: Normal neurological examination on overview, without obvious CN II-XII abnormalities Vital Signs: Vital Signs: Last Vital Signs Temp 97.0 F 05/23/25 07:58 Pulse 99 05/23/25 07:58 Resp 16 05/23/25 07:58 BP 107/60 05/23/25 07:58 Pulse Ox 97 05/23/25 07:58 O2 Del Method Room Air 05/23/25 07:58 O2 Flow Rate 1 05/06/25 14:00 BMI result Body Mass Index 27.5 Objective Data Active Medications Benztropine Mesylate (Benztropine Mesylate 1 Mg Tablet) 1 mg PO BID [facility] Last Admin: 05/23/25 08:41 Dose: 1 mg Documented By: FLOWER Dextrose (Dextrose 50 % 25 Gm/50 Ml Syringe) 25 gm IVPUSH Q15M PRN; Protocol PRN Reason: per Hypoglycemia Standing Ord. Last Admin: 05/06/25 12:18 Dose: 25 gm Documented By: DEIDRE Diazepam (Diazepam 10 Mg/2 Ml Cartridge) 5 mg IVPUSH BID PRN PRN Reason: agitation Last Admin: 05/22/25 17:49 Dose: 5 mg Documented By: FLOWER Enoxaparin Sodium (Enoxaparin Sodium 40 Mg/0.4 Ml Syringe) 40 mg SUBCUT Q24H [facility] Last Admin: 05/23/25 05:40 Dose: 40 mg Documented By: MIKE Haloperidol (Haloperidol 5 Mg Tablet) 20 mg PO BEDTIME [facility] Last Admin: 05/22/25 21:48 Dose: 20 mg Documented By: MIKE Haloperidol (Haloperidol 5 Mg Tablet) 5 mg PO DAILY [facility] Last Admin: 05/23/25 08:41 Dose: 5 mg Documented By: FLOWER Lamotrigine (Lamotrigine 25 Mg Tablet) 50 mg PO BID [facility] Last Admin: 05/23/25 08:40 Dose: 50 mg Documented By: FLOWER Sodium Chloride (0.9 % Sodium Chloride Flush 3 Ml Syringe) 3 ml IVFLUSH QSHIFT [facility] Last Admin: 05/23/25 08:56 Dose: 3 ml Documented By: FLOWER Thiamine HCl (Thiamine Hcl 100 Mg Tablet) 100 mg PO DAILY [facility] Last Admin: 05/23/25 08:40 Dose: 100 mg Documented By: FLOWER Valproic Acid (Valproic Acid Liquid 250 Mg/5 Ml Solution) 500 mg PO BEDTIME [facility] Last Admin: 05/22/25 21:40 Dose: 500 mg Documented By: MIKE Valproic Acid (Valproic Acid Liquid 250 Mg/5 Ml Solution) 250 mg PO DAILY [facility] Last Admin: 05/23/25 08:41 Dose: 250 mg Documented By: FLOWER Ziprasidone (Ziprasidone Mesylate 20 Mg Vial) 15 mg IM Q12H PRN PRN Reason: severe agitation Last Admin: 05/22/25 23:21 Dose: 15 mg Documented By: MIKE Labs 05/17/25 15:26 05/23/25 06:55 Labs: Laboratory Results - last 24 hr 05/23/25 06:55 Anion Gap 17 Estim Creat Clear Calc 94.4 Estimated GFR > 60 Random Glucose 95 Calcium 9.2 Total Bilirubin 0.4 AST 31 ALT 35 H Alkaline Phosphatase 71 Ammonia 46 Total Protein 7.6 Albumin 3.8 Valproic Acid 62.4 Assessment and Plan (1) Agitation: Status: Acute (2) Schizoaffective disorder: Status: Acute (3) Bipolar 1 disorder: Status: Acute Plan 44-year-old lady, Ethiopian, with underlying bipolar with manic episodes with agitation recent hospitalization at [facility] transferred to [facility] ER on 05/03/2025 secondary to worsening agitation with initial poor response to parenteral sedatives requiring Precedex drip,loaded with valproic acid and titrated off Precedex drip and transferred to telemetry on 05/05/2025. 05/06, patient with development of significant agitation with suboptimal response to initial parenteral sedatives requiring re-initiation of Precedex drip and icu transfer. Remains somnolent and noninteractive since. Bipolar disorder with manic episodes with agitation Somnolence Catatonia? continue haloperidol, valium po and iv, lamotil, valproic acid. improving eating, intermittent agitation requiring medical intervention lft's improving, ammonia levels and valproic acid levels -normal pt eval added; unable to meaningfully participate in evaluation Care team evaluation recommends inpatient psychiatric stabilization. Planning disposition. Pt has been medically cleared for discharge to Psychiatric services Altered mental status Extensive discussion with Psychiatry regarding the patient's disposition, altered mental status and potential etiology. Restarting workup in evaluating for other etiologies that could be contributory to patient's overall change in mental status from relatively functional (and agitated), to now more somnolent Plan RPR, TSH with reflex T4, thiamine, folic acid and B12, PAPI, ANCA - NORMAL RESULTS Consider CT brain Consider MRI brain with and without gadolinium; difficult to do given agitation Pt has been medically cleared for discharge to Psychiatric services Acute urinary retention, resolved Bladder scan revealed pt retaining 778 mL on 05/13, 900ml in morning of 05/14 [place] catheter placed on 05/14; removed on 05/15; pt has been voiding freely since then Bladder scan per shift, straight cath as necessary Rhabdomylysis, RESOLVED QUALITY METRICS - VTE: SCDs - CODE STATUS: Full code - DIET: Regular Quality Stroke Does the patient have a stroke diagnosis?: No VTE Prior VTE?: No VTE Risk Level:: Medical - moderate - high VTE Device Contraindication: N/A - Device Ordered VTE Drug Contraindication: N/A - Med Ordered
[2025-05-23 15:19] VITALS: BP 102/65; PULSE 110; RESP 12; TEMP 37.6; O2SAT 96
--- NOTE | 2025-05-23 15:36 | PC.NURSE ---
Pt. got up with 3 max assist to the commode, unable to void, bladder scan her 139 ml at this time. Provider aware.
[2025-05-23] MEDS: diazePAM 10 MG/2 ML CARTRIDGE 5 MG IVPUSH (15:45)
[2025-05-23 19:43] VITALS: BP 107/57; PULSE 109; RESP 18; TEMP 36.6; O2SAT 98
[2025-05-23] MEDS: Valproic Acid Liquid 250 MG/5 ML SOLUTION 500 MG PO (22:07)
--- NOTE | 2025-05-23 22:57 | PC.NURSE ---
Addendum entered by Vesta Lux RN 05/24/25 05:17: 0020 pt ambulated to bathroom with 2 assist and urinated without hesitation. Pt also had BM. Will rely to next shift pt need to use toilet rather than bedside commode. Original Note: 2 person assist to bedside commode, pt unable to urinate. BS 271 mL. Provider notified.
[2025-05-23 23:50] VITALS: BP 113/53; PULSE 113; RESP 20; TEMP 36.1; O2SAT 96
[2025-05-24 03:12] VITALS: BP 125/75; PULSE 107; RESP 18; TEMP 36.2; O2SAT 98
[2025-05-24 06:00] VITALS: BMI 27.9
[2025-05-24 06:46] VITALS: BP 107/57; PULSE 101; RESP 16; TEMP 36.6; O2SAT 97
[2025-05-24] MEDS: Valproic Acid Liquid 250 MG/5 ML SOLUTION PO (08:53)
[2025-05-24] MEDS: 0.9 % Sodium Chloride Flush 3 ML SYRINGE IVFLUSH ×3 (08:53→21:45)
--- NOTE | 2025-05-24 10:53 | MHC.SLORD ---
Speech Language Pathology Order Status: TUMOR REGISTRAR consulted with RN, pt remains lethargic, sleeping long periods. TUMOR REGISTRAR to return to assess PO tolerance when indicated. Pt currently on NDD3 with thins but has not been eating for several days.
[2025-05-24 11:00] VITALS: BP 110/66; PULSE 102; RESP 16; TEMP 36.6; O2SAT 99
--- NOTE | 2025-05-24 12:19 | MHC.CARE ---
Case review completed separately with Dr. Casillas and Dr. Eldridge. Plan for Pt to be an IPLOC bedsearch. Plan for medication review by Dr. Eldridge.
--- NOTE | 2025-05-24 13:14 | HO.PM.IMPN ---
Subjective Subjective Date of Service: 05/24/25 Interval History: Patient is asleep during visit, with snoring restfully. On attempted communication with patient, snoring ceased, however patient kept her eyes closed, nonresponsive to external stimulation. Discussion with Psychiatry Service-recommendations greatly appreciated. Ongoing discussion regarding placement Review of Systems Review of Systems: Yes Unobtainable due to mental condition and Unobtainable due to mental status Physical Exam Exam: Exam: General: Comfortable in bed. No acute distress Cardiac: S1, S2 auscultated with no S3/4, no MRG. Well perfused. Respiratory: Normal breath sounds auscultated throughout all lung zones, without wheezing, rales. Normal rate. GI/ : No abdominal pain on palpation, no masses or distentions. MSK: Normal ambulation without pain at bony prominences or musculature Neurological: Normal neurological examination on overview, without obvious CN II-XII abnormalities Vital Signs: Vital Signs: Last Vital Signs Temp 97.9 F 05/24/25 11:00 Pulse 102 H 05/24/25 11:00 Resp 16 05/24/25 11:00 BP 110/66 05/24/25 11:00 Pulse Ox 99 05/24/25 11:00 O2 Del Method Room Air 05/24/25 11:00 O2 Flow Rate 1 05/06/25 14:00 BMI result Body Mass Index 27.9 Objective Data Active Medications Benztropine Mesylate (Benztropine Mesylate 1 Mg Tablet) 1 mg PO BID [facility] Last Admin: 05/24/25 08:53 Dose: 1 mg Documented By: VINICIO Dextrose (Dextrose 50 % 25 Gm/50 Ml Syringe) 25 gm IVPUSH Q15M PRN; Protocol PRN Reason: per Hypoglycemia Standing Ord. Last Admin: 05/06/25 12:18 Dose: 25 gm Documented By: DEIDRE Diazepam (Diazepam 10 Mg/2 Ml Cartridge) 5 mg IVPUSH BID PRN PRN Reason: agitation Last Admin: 05/23/25 15:45 Dose: 5 mg Documented By: FLOWER Enoxaparin Sodium (Enoxaparin Sodium 40 Mg/0.4 Ml Syringe) 40 mg SUBCUT Q24H [facility] Last Admin: 05/24/25 05:45 Dose: 40 mg Documented By: MIKE Haloperidol (Haloperidol 5 Mg Tablet) 20 mg PO BEDTIME [facility] Last Admin: 05/23/25 22:14 Dose: 20 mg Documented By: MIKE Haloperidol (Haloperidol 5 Mg Tablet) 5 mg PO DAILY [facility] Last Admin: 05/24/25 08:53 Dose: 5 mg Documented By: VINICIO Lamotrigine (Lamotrigine 25 Mg Tablet) 50 mg PO BID [facility] Last Admin: 05/24/25 08:53 Dose: 50 mg Documented By: VINICIO Sodium Chloride (0.9 % Sodium Chloride Flush 3 Ml Syringe) 3 ml IVFLUSH QSHIFT [facility] Last Admin: 05/24/25 08:53 Dose: 3 ml Documented By: VINICIO Thiamine HCl (Thiamine Hcl 100 Mg Tablet) 100 mg PO DAILY [facility] Last Admin: 05/24/25 08:53 Dose: 100 mg Documented By: VINICIO Valproic Acid (Valproic Acid Liquid 250 Mg/5 Ml Solution) 500 mg PO BEDTIME [facility] Last Admin: 05/23/25 22:07 Dose: 500 mg Documented By: MIKE Ziprasidone (Ziprasidone Mesylate 20 Mg Vial) 10 mg IM Q12H PRN PRN Reason: severe agitation Labs 05/17/25 15:26 05/23/25 06:55 Assessment and Plan (1) Agitation: Status: Acute (2) Schizoaffective disorder: Status: Acute (3) Bipolar 1 disorder: Status: Acute Plan 44-year-old lady, Citizen Of [place], with underlying bipolar with manic episodes with agitation recent hospitalization at [facility] transferred to [facility] ER on 05/03/2025 secondary to worsening agitation with initial poor response to parenteral sedatives requiring Precedex drip,loaded with valproic acid and titrated off Precedex drip and transferred to telemetry on 05/05/2025. 05/06, patient with development of significant agitation with suboptimal response to initial parenteral sedatives requiring re-initiation of Precedex drip and icu transfer. Remains somnolent and noninteractive since. Bipolar disorder with manic episodes with agitation Somnolence Catatonia? continue haloperidol, valium po and iv, lamotil, valproic acid. improving eating, intermittent agitation requiring medical intervention LFT's normal, ammonia levels and valproic acid levels -normal pt eval added; unable to meaningfully participate in evaluation CARE team evaluation appreciated Psychiatry service evaluation appreciated Planning disposition. Altered mental status Extensive discussion with Psychiatry regarding the patient's disposition, altered mental status and potential etiology. Restarting workup in evaluating for other etiologies that could be contributory to patient's overall change in mental status from relatively functional (and agitated), to now more somnolent Plan RPR, TSH with reflex T4, thiamine, folic acid and B12, PAPI, ANCA - NORMAL RESULTS Consider CT brain Consider MRI brain with and without gadolinium; difficult to do given agitation Acute urinary retention, resolved Bladder scan revealed pt retaining 778 mL on 05/13, 900ml in morning of 05/14 [place] catheter placed on 05/14; removed on 05/15; pt has been voiding freely since then Bladder scan per shift, straight cath as necessary Rhabdomylysis, RESOLVED QUALITY METRICS - VTE: SCDs - CODE STATUS: Full code - DIET: Regular Quality Stroke Does the patient have a stroke diagnosis?: No VTE Prior VTE?: No VTE Risk Level:: Medical - moderate - high VTE Device Contraindication: N/A - Device Ordered VTE Drug Contraindication: N/A - Med Ordered
[2025-05-24 16:00] VITALS: BP 102/63; PULSE 89; RESP 18; TEMP 36.5; O2SAT 96
--- NOTE | 2025-05-24 16:15 | MHC.CM.PN ---
PT NOT YET CLEARED TO DC, DCP PENDING PSYCH EVAL. ? IPLOC
[2025-05-24 19:37] VITALS: BP 127/76; PULSE 92; RESP 18; TEMP 36.2; O2SAT 94
[2025-05-24] MEDS: Valproic Acid Liquid 250 MG/5 ML SOLUTION 500 MG PO (21:41)
--- NOTE | 2025-05-24 22:35 | PC.NURSE ---
2130 pt ambulated to BR to try to void unable to.pt bladder scanned for [address] for 400 cc mel colored urine.
[2025-05-24 23:37] VITALS: BP 106/62; PULSE 104; RESP 17; TEMP 36.5; O2SAT 95
[2025-05-25 04:00] VITALS: BP 109/71; PULSE 96; RESP 17; TEMP 36.4; O2SAT 97
[2025-05-25 06:00] VITALS: BMI 27.9
[2025-05-25 07:22] VITALS: BP 100/58; PULSE 91; RESP 16; TEMP 36.9; O2SAT 95
[2025-05-25] MEDS: 0.9 % Sodium Chloride Flush 3 ML SYRINGE IVFLUSH ×3 (08:41→20:12)
[2025-05-25 11:54] VITALS: BP 108/67; PULSE 98; RESP 18; O2SAT 96
--- NOTE | 2025-05-25 12:10 | P.PNIM_ITS ---
Subjective Subjective Date of Service: 05/25/25 Interval History: resting comfortably Physical Exam 2 Exam: Exam: General: Comfortable in bed. No acute distress Cardiac: S1, S2 auscultated with no S3/4, no MRG. Well perfused. Respiratory: Normal breath sounds auscultated throughout all lung zones, without wheezing, rales. Normal rate. GI/ : No abdominal pain on palpation, no masses or distentions. MSK: Normal ambulation without pain at bony prominences or musculature Neurological: Normal neurological examination on overview, without obvious CN II-XII abnormalities Vital Signs: Vital Signs: Last Vital Signs Temp 98.5 F 05/25/25 07:22 Pulse 98 05/25/25 11:54 Resp 18 05/25/25 11:54 BP 108/67 05/25/25 11:54 Pulse Ox 96 05/25/25 11:54 O2 Del Method Room Air 05/25/25 11:54 O2 Flow Rate 1 05/06/25 14:00 BMI result Body Mass Index 27.9 Objective Data Active Medications Benztropine Mesylate (Benztropine Mesylate 1 Mg Tablet) 1 mg PO BID [facility] Last Admin: 05/25/25 08:35 Dose: 1 mg Documented By: VINICIO Dextrose (Dextrose 50 % 25 Gm/50 Ml Syringe) 25 gm IVPUSH Q15M PRN; Protocol PRN Reason: per Hypoglycemia Standing Ord. Last Admin: 05/06/25 12:18 Dose: 25 gm Documented By: DEIDRE Diazepam (Diazepam 10 Mg/2 Ml Cartridge) 5 mg IVPUSH BID PRN PRN Reason: agitation Last Admin: 05/23/25 15:45 Dose: 5 mg Documented By: FLOWER Enoxaparin Sodium (Enoxaparin Sodium 40 Mg/0.4 Ml Syringe) 40 mg SUBCUT Q24H [facility] Last Admin: 05/25/25 05:50 Dose: 40 mg Documented By: GIANFRANCO Haloperidol (Haloperidol 5 Mg Tablet) 20 mg PO BEDTIME [facility] Last Admin: 05/24/25 21:41 Dose: 20 mg Documented By: GIANFRANCO Haloperidol (Haloperidol 5 Mg Tablet) 5 mg PO DAILY [facility] Last Admin: 05/25/25 08:45 Dose: 5 mg Documented By: VINICIO Lamotrigine (Lamotrigine 25 Mg Tablet) 50 mg PO BID [facility] Last Admin: 05/25/25 08:29 Dose: 50 mg Documented By: VINICIO Sodium Chloride (0.9 % Sodium Chloride Flush 3 Ml Syringe) 3 ml IVFLUSH QSHIFT [facility] Last Admin: 05/25/25 08:41 Dose: 3 ml Documented By: VINICIO Thiamine HCl (Thiamine Hcl 100 Mg Tablet) 100 mg PO DAILY [facility] Last Admin: 05/25/25 08:29 Dose: 100 mg Documented By: VINICIO Valproic Acid (Valproic Acid Liquid 250 Mg/5 Ml Solution) 500 mg PO BEDTIME [facility] Last Admin: 05/24/25 21:41 Dose: 500 mg Documented By: GIANFRANCO Ziprasidone (Ziprasidone Mesylate 20 Mg Vial) 10 mg IM Q12H PRN PRN Reason: severe agitation Labs 05/17/25 15:26 05/23/25 06:55 Assessment and Plan (1) Bipolar 1 disorder: Status: Acute Plan [address] [facility] bipolar presented 05/03/25 with agitation admitted to ICU for precedex, depakote, downgraded 05/05/25, but required transfer back to icu for precedex 05/06/25, then downgraded 05/09/25. Acute toxic metabolic encephalopathy due to bipolar disorder with manic episode now improved on valium, lamictal, Haldol Psychiatry following Awaiting inpatient Acute urinary retention Passed voiding trial on 05/15 DVT prophylaxis with Lovenox Full Code reason for continued hospitalization:waiting inpatient psych bed Quality Stroke Does the patient have a stroke diagnosis?: No VTE Prior VTE?: No VTE Risk Level:: Medical - moderate - high VTE Device Contraindication: N/A - Device Ordered VTE Drug Contraindication: N/A - Med Ordered
--- NOTE | 2025-05-25 13:12 | MHC.SLORD ---
Speech Language Pathology Order Status: Attempted to see patient at lunch. MOTORCYCLE SALES ASSOCIATE reported lunch was completed, patient had eaten 2/3 of her meal successully, which is very good progress. Recommend continue on current diet, LEAD MANUFACTURING ENGINEERING TECH to follow.
[2025-05-25 16:00] VITALS: BP 119/66; PULSE 108; RESP 20; TEMP 36.7; O2SAT 94
[2025-05-25 20:00] VITALS: BP 121/49; PULSE 104; RESP 18; TEMP 36.4; O2SAT 96
[2025-05-25] MEDS: Valproic Acid Liquid 250 MG/5 ML SOLUTION 500 MG PO (20:04)
[2025-05-25] MEDS: diazePAM 10 MG/2 ML CARTRIDGE 5 MG IVPUSH (21:45)
[2025-05-26] VITALS: BP 122/65; PULSE 104; RESP 18; TEMP 36.2; O2SAT 94
[2025-05-26 06:00] VITALS: BMI 27.9
[2025-05-26 07:46] VITALS: BP 114/59; PULSE 99; RESP 16; TEMP 36.8; O2SAT 96
[2025-05-26] MEDS: 0.9 % Sodium Chloride Flush 3 ML SYRINGE IVFLUSH (09:03)
--- NOTE | 2025-05-26 10:15 | MHC.SLORD ---
Speech Language Pathology Order Status: Pt remains stable with PO intake on NDD3 with thins. Pt sleeping after breakfast this morning, sitter and RN consulted. TRANSMITTER TESTER to followup as indicated.
--- NOTE | 2025-05-26 10:17 | HO.PM.IMPN ---
Subjective Subjective Date of Service: 05/26/25 Interval History: resting comfortably Physical Exam Exam: Exam: General: Comfortable in bed. No acute distress Cardiac: S1, S2 auscultated with no S3/4, no MRG. Well perfused. Respiratory: Normal breath sounds auscultated throughout all lung zones, without wheezing, rales. Normal rate. GI/ : No abdominal pain on palpation, no masses or distentions. MSK: Normal ambulation without pain at bony prominences or musculature Neurological: Normal neurological examination on overview, without obvious CN II-XII abnormalities Vital Signs: Vital Signs: Last Vital Signs Temp 98.2 F 05/26/25 07:46 Pulse 99 05/26/25 07:46 Resp 16 05/26/25 07:46 BP 114/59 L 05/26/25 07:46 Pulse Ox 96 05/26/25 07:46 O2 Del Method Room Air 05/26/25 07:46 O2 Flow Rate 1 05/06/25 14:00 BMI result Body Mass Index 27.9 Objective Data Active Medications Benztropine Mesylate (Benztropine Mesylate 1 Mg Tablet) 1 mg PO BID [facility] Last Admin: 05/26/25 09:04 Dose: 1 mg Documented By: ROB Dextrose (Dextrose 50 % 25 Gm/50 Ml Syringe) 25 gm IVPUSH Q15M PRN; Protocol PRN Reason: per Hypoglycemia Standing Ord. Last Admin: 05/06/25 12:18 Dose: 25 gm Documented By: DEIDRE Diazepam (Diazepam 10 Mg/2 Ml Cartridge) 5 mg IVPUSH BID PRN PRN Reason: agitation Last Admin: 05/25/25 21:45 Dose: 5 mg Documented By: JAYY Enoxaparin Sodium (Enoxaparin Sodium 40 Mg/0.4 Ml Syringe) 40 mg SUBCUT Q24H [facility] Last Admin: 05/26/25 05:50 Dose: 40 mg Documented By: MIKE Haloperidol (Haloperidol 5 Mg Tablet) 20 mg PO BEDTIME [facility] Last Admin: 05/25/25 20:08 Dose: 20 mg Documented By: MIKE Haloperidol (Haloperidol 5 Mg Tablet) 5 mg PO DAILY [facility] Last Admin: 05/26/25 09:04 Dose: 5 mg Documented By: ROB Lamotrigine (Lamotrigine 25 Mg Tablet) 50 mg PO BID [facility] Last Admin: 05/26/25 09:04 Dose: 50 mg Documented By: ROB Sodium Chloride (0.9 % Sodium Chloride Flush 3 Ml Syringe) 3 ml IVFLUSH QSHIFT [facility] Last Admin: 05/26/25 09:03 Dose: 3 ml Documented By: ROB Thiamine HCl (Thiamine Hcl 100 Mg Tablet) 100 mg PO DAILY [facility] Last Admin: 05/26/25 09:04 Dose: 100 mg Documented By: ROB Valproic Acid (Valproic Acid Liquid 250 Mg/5 Ml Solution) 500 mg PO BEDTIME [facility] Last Admin: 05/25/25 20:04 Dose: 500 mg Documented By: MIKE Ziprasidone (Ziprasidone Mesylate 20 Mg Vial) 10 mg IM Q12H PRN PRN Reason: severe agitation Labs 05/17/25 15:26 05/23/25 06:55 Labs: Laboratory Results - last 24 hr 05/19/25 12:34 Vitamin B1 24 Assessment and Plan (1) Bipolar 1 disorder: Status: Acute Plan 44F [facility] bipolar presented 05/03/25 with agitation admitted to ICU for precedex, depakote, downgraded 05/05/25, but required transfer back to icu for precedex 05/06/25, then downgraded 05/09/25. Acute toxic metabolic encephalopathy due to bipolar disorder with manic episode now improved on valium, lamictal, Haldol Psychiatry following Awaiting inpatient Acute urinary retention Passed voiding trial on 05/15 DVT prophylaxis with Lovenox Full Code reason for continued hospitalization:waiting inpatient psych bed Quality Stroke Does the patient have a stroke diagnosis?: No VTE Prior VTE?: No VTE Risk Level:: Medical - moderate - high VTE Device Contraindication: N/A - Device Ordered VTE Drug Contraindication: N/A - Med Ordered
[2025-05-26 12:00] VITALS: BP 140/73; PULSE 107; RESP 18; TEMP 36.9
--- NOTE | 2025-05-26 13:04 | MHC.CM.PN ---
Addendum entered by Ofelia Read 05/26/25 13:53: DP: PT HAS BEEN MEDICALLY CLEARED FOR I/P PSYCH ADMISSION. WILL TRANSFER TODAY. Original Note: EMR REVIEWED AND PER MD ROUNDS, PSYCH BED SEARCH (IPLOC) CONTINUES. CM WILL CONTINUE TO FOLLOW.
[2025-05-26] MEDS: diazePAM 10 MG/2 ML CARTRIDGE 5 MG IVPUSH (13:24)
--- NOTE | 2025-05-26 13:47 | P.DS_ITS ---
DS: Providers Provider Date of Service: 05/26/25 Date of admission: 05/03/25 04:44 Date of discharge: 05/26/25 Primary care physician: Unknown Physician Consults: 05/04/25 11:17 Consult to Psychiatry Routine Consulting Provider: [facility] Psych Covering Reason for consultation: Bipolar with tone/agitation Has provider been notified: No 05/05/25 15:32 Consult to Infectious Diseases Routine Consulting Provider: [facility] Infectious Disease Center Reason for consultation: fuo Has provider been notified: No 05/10/25 12:16 Consult to Psychiatry Routine Consulting Provider: [facility] Psych Covering Reason for consultation: tone/behavioural agitation Has provider been notified: No 05/16/25 11:16 Inpt CARE Team Crisis Consult Routine Comment: Reason for consultation: From [facility]; medically cleared, urinating on own 05/17/25 21:50 Consult to Psychiatry Routine Consulting Provider: [facility] Psych Covering Reason for consultation: uncontrolled agitation DS: Diagnosis Discharge Diagnosis (1) Bipolar 1 disorder: Status: Acute DS: Summary Hospital Course Hospital Course: From admission HPI: Date of Service: 05/03/25 Attending physician on admission: Brigido Garcia Chief Complaint: Severe Agitation History obtained from patient's records, reportedly patient had a psychiatric hospitalization back in 2017 upon arriving to the [place] She is from [facility].? Two days ago she was brought to the emergency room at [facility] due to hallucinations and poor sleep habits for a week.? She had been diagnosed with acute psychosis possibly precipitated by insomnia.? Her workup was overall negative including head CT, laboratories including TSH and tests, alcohol levels.? She had been transferred to [facility] on the same day where she had receive several doses of sedatives for agitation.? For the past 24 hours the patient had been noted to be tachycardic heart rate between 120-140 the patient had complained of chest pain, she has sustained a mechanical fall and hit her head with possible brief loss of consciousness.? The patient is transferred to this ER for further evaluation. In the emergency room the patient being agitated and giving inappropriate answers despite of the help of an diplomatic interpreter, the patient's workup reveal a white count 10.0, H and H of 11 and 32 respectively, platelets 202, normal venous blood gas, sodium 143, potassium 3.9, chloride 111, carbon dioxide 22, BUN 14, creatinine 0.9.? Lactic acid 1.1.? SGOT 75.? Total CK 2817, troponin 11.1.? Urinalysis negative.? Beta HCG less than 2.? Urine toxic screen positive for benzodiazepines otherwise negative.? Respiratory panel negative.? Ethyl alcohol less than 10.? Chest CTA negative for PE or intrapulmonary pathology, head CT no intracranial pathology, cervical spine CT no evidence of fracture.? The patient had a lumbar puncture and fluid which had normal appearance was sent for analysis.? The patient was treated empirically with IV fluids, Rocephin and acyclovir due to concerns of encephalitis related mental status changes. Due to her agitation, the patient received multiple doses of Versed, ketamine, Haldol, Zyprexa, Valium and despite of this the patient continued to be agitated therefore it was requested ICU evaluation.? In light of all the above and risk for decompensation the patient will be transferred to the ICU and we will place her on a Precedex drip. Hospital course: Pt was admitted to the hospital for uncontrollable agitation and initially admitted to the ICU on a Precedex drip. Was eventually tansferred to the floor for a short period of time on 05/05 but then again transferred to the ICU on 05/06 after again experiencing uncontrollable agitation that required Precedex drip. Pt stabalized and transferred back to the hospital floor on 05/10 where she has remained while awaiting inpatient psych bed. All workup for medical explanations has been negative so far: no fevers or electrolyte abnormalties; negative imaging including CT of head and c-spine negative and CTA of head/neck; LP negative; UA negative; respitory panel negative; tick panel negative. Pt has been treated with lamotrigine, haloperidol, and valproic acid; has been intermittenly agitated on the floor which has recquired multiple uses of diazepam and Geodon. More stable last 2 days, will be transferred to [facility] psych Time Attestation Discharge Coordination Time (in mins): 34 Quality: Safe Use of Opioids Does Pt have an Active Cancer Diagnosis on the Problem List?: No Quality: Stroke Does the patient have a stroke diagnosis?: No Physical Exam Vital Signs: Vital Signs: Last Vital Signs Temp 98.4 F 05/26/25 12:00 Pulse 107 H 05/26/25 12:00 Resp 18 05/26/25 12:00 BP 140/73 H 05/26/25 12:00 Pulse Ox 96 05/26/25 07:46 O2 Del Method Room Air 05/26/25 07:46 O2 Flow Rate 1 05/06/25 14:00 BMI result Body Mass Index 27.9 DS: Data Data Completed and Pending Labs on day of discharge: Laboratory Results - last 24 hr 05/19/25 12:34 Vitamin B1 24 Discharge Plan Discharge Anticipated Discharge Date/Time: 05/17/25 12:57 Patient Disposition: Xfer Psychiatric Hosp Discharge Diagnosis: bipolar Referrals: Physician,Unknown J [Primary Care Provider, Medical] - 1 Week Discharge Medications: New haloperidol 5 mg Tablet 20 mg PO BEDTIME Qty: 1 0RF haloperidol 5 mg Tablet 10 mg PO DAILY Qty: 1 0RF lamotrigine 25 mg Tablet 50 mg PO BID Qty: 1 0RF benztropine 1 mg Tablet 1 mg PO BID Qty: 1 0RF diazepam 5 mg/mL Syringe 5 mg IVPUSH BID PRN (Reason: agitation) Qty: 20 0RF valproic acid (as sodium salt) 250 mg/5 mL (5 mL) Solution 500 mg PO BID Qty: 100 0RF Continued haloperidol 10 mg tablet 20 mg PO BEDTIME benztropine 1 mg tablet 1 mg PO BID diazepam 5 mg tablet 10 mg PO BEDTIME diazepam 5 mg tablet 5 mg PO DAILY Discharge Orders: Discharge Order (Routine); Ordered 05/26/25 Ordered By: Ryan Camarena Activity on Discharge: As tolerated Stand Alone Forms: Patient Portal Discharge page Print Language: Tajik Care Plan Goals: See below Health Concerns: Schizoaffective disorder Acute encephalopathy Agitation Somnolence Urinary retention Plan of Treatment: You were admitted to the hospital for acute encephalopathy and agitation likely secondary to underlying schizoaffective bipolar type disorder. You were initially admitted to the ICU on a Precedex drip due to uncontrollable agitation. Initially downgraded on 05/05 to the hospital floor, but had increased agitation that was not controlled with either IM Haldol or IV Valium and were transferred back to the ICU on Precedex drip. You were eventually transferred to the hospital floor again on 05/10 where you continued to have intermittent agitation requiring chemical intervention. Medical workup was negative for acute illness during her time in the hospital, including UA, CT of chest, CTA of head/surgical spine, lumbar puncture, HIV, or hep C. You were seen and evaluated by Infectious Disease who recommended against antibiotics. While on the floor you did develop acute urinary retention that was alleviated by temporary Sevilla catheter. the intermittent Assessment: See discharge summary
[2025-05-26 15:22] VITALS: BP 109/64; PULSE 103; RESP 18; TEMP 36.9; O2SAT 98
== END 2025-05-26 15:43 | DRG 52 ==
LOC: HO.ED 05-03 04:54 → HO.EDOVER 05-03 05:19 → HO.ICU 05-03 05:21 → HO.IMC 05-05 14:38 → HO.ICU 05-06 00:27 → HO.IMC 05-09 13:25 → HO.S3 05-20 09:17
PROVIDERS: Clinical Nurse Specialist Psychiatric/Mental Health, Adult; Emergency Medicine; Hospitalist; Internal Medicine; Internal Medicine Pulmonary Disease; Psychiatry & Neurology Psychiatry; Student in an Organized Health Care Education/Training Program; Admitting Provider Physician Assistant Medical; Emergency Provider Emergency Medicine; Visit Provider Internal Medicine
DX: G92.8 Other toxic encephalopathy (principal); M62.82 Rhabdomyolysis; D64.9 Anemia, unspecified; F31.10 Bipolar disorder, current episode manic without psychotic features, unspecified; R33.9 Retention of urine, unspecified; R50.9 Fever, unspecified; F43.10 Post-traumatic stress disorder, unspecified; E87.6 Hypokalemia; I95.2 Hypotension due to drugs; T42.75XA Adverse effect of unspecified antiepileptic and sedative-hypnotic drugs, initial encounter; Z20.822 Contact with and (suspected) exposure to COVID-19; Z79.899 Other long term (current) drug therapy
CPT/HCPCS: 36415; 70450; 71275; 72125; 74018; 80048; 80053; 80076; 80164; 80307; 81003; 82040; 82140; 82550; 82552; 82607; 82746; 82803; 82945; 82947; 83605; 83690; 83735; 84100; 84157; 84425; 84443; 84484; 84702; 85007; 85014; 85018; 85025; 85027; 85379; 85652; 86021; 86038; 86140; 86617; 86753; 86780; 87015; 87040; 87070; 87205; 87468; 87469; 87478; 87483; 87484; 87633; 87637; 87798; 89051; 92526; 92610; 93005; 95816; 97163; 97530; 99285; J0131; J0133; J0515; J0696; J1630; J1650; J2250; J2359; J2470; J3360; J3480; J3486; J7120; Q9967; S9485

== ENCOUNTER → 2025-05-02 17:30 | Outpatient (BNV) | payer MEDICAID, SELFPAY | PROVIDERS: Admitting Provider Physician Assistant Medical; Emergency Provider Emergency Medicine; Visit Provider Internal Medicine | DX: R00.0 Tachycardia, unspecified (principal) | CPT/HCPCS: 93010 ==

== ENCOUNTER → 2025-05-03 03:35 | Outpatient (BNV) | payer MEDICAID, SELFPAY | PROVIDERS: Admitting Provider Physician Assistant Medical; Emergency Provider Emergency Medicine; Visit Provider Internal Medicine | DX: R00.0 Tachycardia, unspecified (principal) | CPT/HCPCS: 93010 ==

== ENCOUNTER 2025-05-03 04:44 | Outpatient (BNV) | payer MEDICAID, SELFPAY | END 2025-05-19 14:28 | PROVIDERS: Admitting Provider Physician Assistant Medical; Emergency Provider Emergency Medicine; Visit Provider Radiology Diagnostic Radiology | DX: K59.00 Constipation, unspecified (principal) | CPT/HCPCS: 74018 ==

== ENCOUNTER 2025-05-03 04:44 | Outpatient (BNV) | payer MEDICAID, SELFPAY | END 2025-05-05 10:15 | PROVIDERS: Admitting Provider Physician Assistant Medical; Emergency Provider Emergency Medicine; Visit Provider Psychiatry & Neurology Neurology | DX: R94.01 Abnormal electroencephalogram [EEG] (principal) | CPT/HCPCS: 95816 ==

== ENCOUNTER → 2025-05-03 04:44 | Outpatient (BNV) | payer MEDICAID, SELFPAY | PROVIDERS: Admitting Provider Physician Assistant Medical; Emergency Provider Emergency Medicine; Visit Provider Physician Assistant Medical | DX: R45.1 Restlessness and agitation (principal); F25.9 Schizoaffective disorder, unspecified | CPT/HCPCS: 99222 ==

== ENCOUNTER → 2025-05-03 04:44 | Outpatient (BNV) | payer OTHER, SELFPAY | PROVIDERS: Admitting Provider Physician Assistant Medical; Emergency Provider Emergency Medicine; Visit Provider Psychiatry & Neurology Psychiatry | DX: F25.9 Schizoaffective disorder, unspecified (principal); F43.11 Post-traumatic stress disorder, acute; R41.0 Disorientation, unspecified | CPT/HCPCS: 99233 ==

== ENCOUNTER → 2025-05-03 04:44 | Outpatient (BNV) | payer OTHER, SELFPAY | PROVIDERS: Admitting Provider Physician Assistant Medical; Emergency Provider Emergency Medicine; Visit Provider Registered Nurse | DX: F25.0 Schizoaffective disorder, bipolar type (principal) | CPT/HCPCS: 99232 ==

== ENCOUNTER → 2025-05-03 04:44 | Outpatient (BNV) | payer MEDICAID, SELFPAY | PROVIDERS: Admitting Provider Physician Assistant Medical; Emergency Provider Emergency Medicine; Visit Provider Student in an Organized Health Care Education/Training Program | DX: R45.1 Restlessness and agitation (principal); F31.9 Bipolar disorder, unspecified | CPT/HCPCS: 99231; 99499 ==

== ENCOUNTER → 2025-05-03 04:44 | Outpatient (BNV) | payer MEDICAID, SELFPAY | PROVIDERS: Admitting Provider Physician Assistant Medical; Emergency Provider Emergency Medicine; Visit Provider Internal Medicine Pulmonary Disease | DX: G93.41 Metabolic encephalopathy (principal); M62.82 Rhabdomyolysis; R00.0 Tachycardia, unspecified; R45.1 Restlessness and agitation | CPT/HCPCS: 99232 ==

== ENCOUNTER → 2025-05-03 04:44 | Outpatient (BNV) | payer MEDICAID, SELFPAY | PROVIDERS: Admitting Provider Physician Assistant Medical; Emergency Provider Emergency Medicine; Visit Provider Internal Medicine | DX: R45.1 Restlessness and agitation (principal); G93.40 Encephalopathy, unspecified | CPT/HCPCS: 99222 ==

== ENCOUNTER → 2025-05-03 | Outpatient (BNV) | payer MEDICAID, SELFPAY | PROVIDERS: Emergency Provider Emergency Medicine; Visit Provider Radiology Diagnostic Radiology | DX: R79.89 Other specified abnormal findings of blood chemistry (principal); R00.0 Tachycardia, unspecified; R41.82 Altered mental status, unspecified; S09.90XA Unspecified injury of head, initial encounter; W19.XXXA Unspecified fall, initial encounter | CPT/HCPCS: 70450; 71275; 72125 ==

== ENCOUNTER 2025-05-26 15:52 | Outpatient (BNV) | payer MEDICAID, SELFPAY | END 2025-06-15 11:26 | PROVIDERS: Admitting Provider Psychiatry & Neurology Psychiatry; Visit Provider Internal Medicine | DX: R00.0 Tachycardia, unspecified (principal) | CPT/HCPCS: 93010 ==

== ENCOUNTER 2025-05-26 15:52 | Inpatient (IN) | payer OTHER, SELFPAY ==
[2025-05-26 16:15] VITALS: BP 130/60; PULSE 106; RESP 16; TEMP 36.4; O2SAT 99
[2025-05-26 16:42] VITALS: BMI 27.9
--- OUTSIDE RECORDS SUMMARY | 2025-05-26 16:59 | XMS_ITS | Clinical Summary ---
Author Organization [facility] Address [address] [place] [address] Phone Care Team Providers Care Deputy Attorney General Name Role Phone Elias Moon MD Primary Care Provider [phone] Encounters Date Type Department Care Team Description 05/01/2025 Lab Requisition [facility] - Main Lab [address] [facility] [place] [address] Yamini Aquino Other custodial (current) drug therapy from Last 3 Months Social History Tobacco Use Types Packs/Day Years Used Date Smoking Tobacco: Never Assessed Comments Unknown Sex and Gender Information Value Date Recorded Sex Assigned at Not on file Legal Sex Female 7:16 PM EST Gender Identity Not on file Sexual Orientation Not on file Plan of Treatment Health Maintenance Due Date Last Done Comments Breast Cancer Screening 1980 Cervical Cancer Screening: Pap Smear 2001 HPV Vaccines (2 - 3-dose SCDM series) 09/05/2023 08/08/2023 COVID-19 Vaccine ( season) 2024 06/20/2022, 02/21/2021, 01/26/2021 HIV Screening 09/18/2024 Hepatitis C Screening 09/18/2024 Social Influencers of Health Screening 09/18/2024 Depression Screening 2024 Influenza Vaccine (#1) 2025 2, 06/18/2020, 09/14/2019, Additional history exists DTaP,Tdap,and Td Vaccines (3 - Td or Tdap) 07/01/2027 07/01/2017, 10/17/2016 Cholesterol Screening (Lipid Panel) 05/01/2030 05/01/2025 MMR Vaccines Aged Out 06/15/2019, 11/01, 10/17/2016 No longer eligible based on patient's age to complete this topic Varicella Vaccines Aged Out 06/15/2019, 11/22/2016 No longer eligible based on patient's age to complete this topic Hepatitis B Vaccines Completed 09/11/2024, 07/24/2023, 11/22/2016 HIB Vaccines Aged Out No longer eligi ble based on patient's age to complete this topic Hepatitis A Vaccines Aged Out No long er eligible based on patient's age to complete this topic IPV Vaccines Aged Out No longer eligi ble based on patient's age to complete this topic Meningococcal ACWY Vaccine Aged Out N o longer eligible based on patient's age to complete this topic Meningococcal B Vaccine Aged Out No l onger eligible based on patient's age to complete this topic Pneumococcal Vaccine: Pediatrics (0 to 5 Years) and At-Risk Patients (6 to 49 Years) Aged Out No longer eligible based on patient's age to complete this topic RSV Immunization Patients Under 20 months Aged Out No longer eligible based on patient's age to complete this topic Procedures Procedure Name Priority Date/Time Associated Diagnosis Comments HEMOGLOBIN A1C Routine 05/01/2025 7:00 AM EDT Other custodial (current) drug therapy LIPID PANEL WITH REFLEX TO DIRECT LDL Routine 05/01/2025 7:00 AM EDT Other custodial (current) drug therapy GLUCOSE, RANDOM Routine 05/01/2025 7:00 AM EDT Other order analyst (current) drug therapy from Last 3 Months Results * (ABNORMAL) Lipid panel with reflex to direct LDL (05/01/2025 7:00 AM EDT) Cholesterol 215(H) 0 - 200 mg/dL LAB CHEMISTRY METHOD 05/01/2025 1:17 PM EDT [facility] Triglycerides 110 0 - 150 mg/dL LAB CHEMISTRY METHOD 05/01/2025 1:17 PM EDT [facility] HDL 50 >=40 mg/dL LAB CHEMISTRY METHOD 05/01/2025 1:17 PM EDT [facility] LDL Calculated 143(H) 0 - 100 mg/dL LAB CHEMISTRY METHOD 05/01/2025 1:17 PM EDT [facility] VLDL Cholesterol [place] 22 mg/dL LAB CHEMISTRY METHOD 05/01/2025 1:17 PM EDT [facility] Non HDL Chol. (LDL+VLDL) 165(H) <145 mg/dL LAB CHEMISTRY METHOD 05/01/2025 1:17 PM EDT [facility] Chol/HDL Ratio 4.3 0.0 - 4.4 LAB CHEMISTRY METHOD 05/01/2025 1:17 PM EDT [facility] Blood Venous blood specimen / Unknown Venipuncture / Unknown 05/01/2025 7:00 AM EDT 05/01/2025 12:01 PM EDT [facility] LAB BLOOD ORDERABLES Final Resul t Performing Organization Address City/[facility]/ZIP Co de Phone Number [facility] [address] [place] [address], [place] [phone] * Hemoglobin A1c (05/01/2025 7:00 AM EDT) Hemoglobin A1C 5.6 <6.5 % LAB CHEMISTRY METHOD 05/02/2025 8:30 AM EDT [facility] Mean Bld Glu Estim. 114 mg/dL LAB CHEMISTRY METHOD 05/02/2025 8:30 AM EDT [facility] Blood Venous blood specimen / Unknown Venipuncture / Unknown 05/01/2025 7:00 AM EDT 05/01/2025 12:01 PM EDT [facility] LAB BLOOD ORDERABLES Final Resul t [facility] [address] [place] [address], [place] [phone] * (ABNORMAL) Glucose, random (05/01/2025 7:00 AM EDT) Glucose 109(H) 70 - 100 mg/dL LAB CHEMISTRY METHOD 05/01/2025 1:17 PM EDT [facility] Blood Venous blood specimen / Unknown Venipuncture / Unknown 05/01/2025 7:00 AM EDT 05/01/2025 12:[address] [facility] LAB BLOOD ORDERABLES Final Resul t [facility] [address] [place] [address], from Last 3 Months Insurance MEDICAID - [place] Care Teams Deputy Attorney General Relationship Specialty Start Date End Date Elais Moon MD [address] [place] [address] PCP - General Internal Medicine 09/17/24
--- OUTSIDE RECORDS SUMMARY | 2025-05-26 16:59 | XMS_ITS | Clinical Summary ---
Author Organization [facility] Address [address] [facility] [address] [place] [address] Care Team Providers Care E Learning Coordinator Name Role Phone Unavailable Primary Care Provider Unavailabl e Encounters Date Type Department Care Team Description 04/20/2025 Population Health Risk Score Community Care [facility] ([facility]) Department [address] [facility] [address] [place] [id number] Provider, Population Health Generic from Last 3 Months Social History Tobacco Use Types Packs/Day Years Used Date Smoking Tobacco: Never Assessed Comments Unknown Sex and Gender Information Value Date Recorded Sex Assigned at Not on file Legal Sex Female 2:16 AM EDT Gender Identity Not on file Sexual Orientation Not on file Plan of Treatment Health Maintenance Due Date Last Done Comments Depression Screening 1980 SDOH Screening 1980 Disability Screening 1980 Alcohol/Substance Use Screening 1992 Tobacco Screening 1992 Family Planning (PISQ) 1995 Hepatitis C Screening 1998 Pap Smear 2001 Cervical Cancer Screening 2010 HPV/Cotest 2010 Mammogram 2020 HPV Vaccines (2 - 3-dose series) 09/05/2023 08/08/2023 COVID-19 Vaccine ( season) 2024 06/20/2022, 02/21/2021, 01/26/2021 Influenza Vaccine (#1) 2025 , 06/18/2020, 09/14/2019, Additional history exists DTaP/Tdap/Td Vaccines (3 - Td or Tdap) 07/01/2027 07/01/2017, 10/17/2016 Zoster Vaccines (1 of 2) 2030 RSV Patients and Patients Aged 60 years or older (1 - 1-dose 75+ series) 2055 HIV Screening Completed 10/17/2016 Hepatitis B Vaccines Completed 09/11/2024, 07/24/2023, 11/22/2016 [...] patient's age to complete this topic Meningococcal Vaccine Aged Out No oren ramonita eligible based on patient's age to complete this topic Pneumococcal Vaccine: Pediatrics (0 to 5 Years) and At-Risk Patients (6 to 49) Years Aged Out No longer eligible based on patient's age to complete this topic RSV under 20 months Aged Out No longe r eligible based on patient's age to complete this topic Rotavirus Vaccines Aged Out No longer eligible based on patient's age to complete this topic
--- OUTSIDE RECORDS SUMMARY | 2025-05-26 16:59 | XMS_ITS | Clinical Summary ---
Author Organization [facility] Address [address] [place] [address] Care Team Providers Care Bladder Tier Name Role Phone Annie Patel PA-C Primary Care Provider [phone] Source Comments PLEASE NOTE, if this patient is a minor, it may be UNLAWFUL to discuss sensitive information that is contained in these records (such as FAMILY PLANNING, MENTAL HEALTH or SUBSTANCE ABUSE) with the minor patient's parent or other person without the patient's specific authorization.[facility] Allergies No known active allergies Medications benztropine (COGENTIN) 1 mg tablet TK 1 T PO BID 1 8 Active benztropine (COGENTIN) 0.5 mg tablet TK 1 T PO BID 0 8 Active haloperidol (HALDOL) 5 mg tablet TK 1 T PO BID 2 8 Active mirtazapine 7.5 mg tab TK 1 T PO QHS 3 9 Active diazePAM (VALIUM) 5 mg tabletIndications: PTSD (post-traumatic stress disorder) Take 1 Tab by mouth 2 (two) times daily as needed for anxiety or sleep 0 9 Active etonogestrel (NEXPLANON) 68 mg implantIndications :Nexplanon insertion Use as directed for 5 years 1 Each 0 Active azelastine (OPTIVAR) 0.05 % ophthalmic solutionIndication s:Acute allergic conjunctivitis of both eyes Place 1 Drop into both eyes 2 (two) times daily 6 mL 1 1 Active haloperidoL (HALDOL) 10 mg tablet Take 10 mg by mouth nightly at bedtime 1 Active silver sulfADIAZINE (SILVADENE) 1 % creamIndications:B urn erythema of forearm, right, initial encounter Apply topically once daily 20 g 1 2 Active ibuprofen 600 mg tablet Take 1 Tablet by mouth 4 (four) times daily as needed for pain 60 Tablet 1 3 Active aspirin-acetaminop hen-caffeine (EXCEDRIN MIGRAINE) 250-250-65 mg per tabletIndications: Headache, tension Take 1 Tablet by mouth every 6 (six) hours as needed for pain (PRN headache) 60 Tablet 4 Active acetaminophen (TYLENOL) 325 mg tablet Take 2 Tablets by mouth every 6 (six) hours as needed for pain 60 Tablet 1 5 Active loratadine (CLARITIN) 10 mg tabletIndications: Seasonal allergies Take 1 Tablet by mouth once daily as needed for allergies 90 Tablet 1 5 Active ketotifen (ZADITOR) 0.025 % (0.035 %) ophthalmic solutionIndication s:Allergic conjunctivitis of both eyes,Seasonal allergies Place 1 Drop into both eyes 2 (two) times daily 10 mL 5 5 Active Active Problems Problem Noted Date Diagnosed Date Moderate episode of recurren t major depressive disorder (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) 12/26/2016 04/04/20 18 Overview (04/29/2017): [facility] DIAGNOSTIC [facility] DEPT 7/19/17 1. Single live intrauterine gestation, with estimated sonographic age of 21 weeks 5 days (ABHINAV 08/23/17) 2. No anatomic abnormalities are observed Underweight 10/17/2016 06/19/2022 Encounters Date Type Department Care Team Description 04/21/2025 9:00 AM EDT / Visits [facility] [address] [place] [address] Erika Veloz, LULI from Last 3 Months Immunizations Immunization Administration Dates Next Due Flu, Preservative Free 06/20/2022,2019,09/14/2019,2017 HPV 9 (Gardasil) 08/08/2023 Hep B, Adult/Adol (QARHSUC-I-AJRSM/RECOMBIVAX-ADULT) 11/22/2016 Hep B,adult,adjuvanted (HEPLISAV) 09/11/2024, INFLUENZA, SEASONAL, INJECTABLE 10/17/2016 MMR (MMR II/Priorix) 06/15/2019,10/17/2016 MMRV, Live (Proquad) 11/22/2016 PFIZER COVID VACCINE, PURPLE CAP, 12+ 02/21/2021 ,01/26/2021 Pfizer-BioNTech COVID-19 Vac cine Bivalent, (DEMPSEY PFIZER-BIONTECH COVID-19 VACCINE BIVALENT, (DEMPSEY CAP 06/20/2022 TDAP 07/01/2017,10/17/2016 Varicella (Varivax), Live Vaccine 06/15/2019 Family History Relation Name Status Comments Brother Alive Father Mother Alive Sister Alive Social History Tobacco Use Types Packs/Day Years Used Date Smoking Tobacco: Never Smokeless Tobacco: Never Tobacco Cessation:Counseling Given: Not Answered Alcohol Use Standard Drinks/Week Comments No 0 (1 standard drink = 0.6 oz pur e alcohol) Social Connections Answer Date Recorded How often do you feel lonely or isolated from th ose around you? 1 09/11/2024 Financial Resource Strain Answer Date R ecorded Hard to pay for: Food 1 09/11/2024 Stress Answer Date Recorded Do you feel these kinds of stress these days? 1 09/11/2024 Physical Activity Answer Date Recorded Physical Activity 0 05/24/2019 Food Insecurity Answer Date Recorded Hard to pay for: Food 1 09/11/2024 Transportation Needs Answer Date Record ed Hard to pay for: Transportation 1 09/11/2024 Housing Stability Answer Date Recorded Hard to pay for: Rent/Mortgage payment 1 09/11/2024 Safety and Environment Answer Date Serge rded Safety 1 12/11/2023 Utilities Answer Date Recorded Hard to pay for: Utilities 1 09/11 Employment Answer Date Recorded Stress 0 06/20/2022 Comments No Sex and Gender Information Value Date Recorded Sex Assigned at Female 04/04/2018 7:24 AM PDT Legal Sex Female 11:58 AM PST Gender Identity Female 04/04/2018 7:24 AM PDT Sexual Orientation Straight 04/04/2018 7: 24 AM PDT Occupation Industry Job Start Date Job End Date none Not on file Not on file Not on file Last Filed Vital Signs Vital Sign Reading Time Taken Comments Blood Pressure 122/60 01/20/2025 1:19 PM EDT Pulse 98 01/20/2025 1:19 PM EDT Temperature 36.1 C (97 F) 01/20/2025 1:19 PM EDT Respiratory Rate 16 01/20/2025 1:19 PM EDT Oxygen Saturation 97% 01/20/2025 1:19 PM EDT Inhaled Oxygen Concentration - - Weight 72.1 kg (158 lb 14.4 oz) 01/20/2025 1:19 PM EDT Height 157.5 cm (5' 2 ) 01/20/2025 1:19 PM EDT Body Mass Index 29.06 01/20/2025 1:19 PM EDT Plan of Treatment Upcoming Encounters Date Type Department Care Team (Late st Contact Info) Description 06/02/2025 10:30 AM EDT / Vis[facility] [address] [place] [phone] Erika Veloz, CAD DEVELOPER [address] [place] [address] 08/09/2025 3:00 PM EST Office Visit [facility] [address] [place] [phone] Yuly Kaur [address] [place] [address] Health Maintenance Due Date Last Done Comments HPV Screening 1980 Breast Cancer Screening (Mammogram) 2020 [id number] ( season) 2024 06/20/2022, 02/21/2021, 01/26/2021 Depression Monitoring 12/10/2024 09/11/2024 , 12/11/2023, 07/24/2023, Additional history exists Relationship Safety Screening/Counseling 12/10/2024 12/11/2023, 07/24/2023, 06/20/2022, Additional history exists Imm-Influenza (#1) 2025 06/20/2022, 0 06/18/2020, 09/14/2019, Additional history exists Annual Wellness (Adult): Indicated (All Coverage) 09/11/2025 09/11/2024, 08/08/2023, 07/24/2023, Additional history exists Anxiety Screening 09/11/2025 09/11/2024 Diabetes Screening 09/11/2025 09/11/2024, 1 , 07/24/2023, Additional history exists Lipid Screening 09/11/2025 09/11/2024, 07/01, 03/07/2021, Additional history exists Hypertension Screening (#1) 01/20/2026 Tobacco Screening 01/20/2026 01/20/2025 Pap Smear 08/08/2026 08/08/2023 Imm-DTaP/Tdap/Td (3 - Td or Tdap) 07/01/2027 017, 10/17/2016 LARC-Nexplanon implant 12/10/2027 12/09/2024 Cervical Cancer Screening 08/08/2028 Pap + HPV 08/08/2028 08/08/2023 HIV Screening Completed 10/17/2016 Hepatitis C Screening Completed 03/07/2021 Imm-Hepatitis B Completed 09/11/2024, 07/01, 11/22/2016 Alcohol and Drug Screen Completed 11/23/19 25, 12/11/2023, 01/03/2023, Additional history exists Cervical Ablation/Cold-Knife Conization Discontinued Cervical Cryotherapy Discontinued Colposcopy Discontinued Endometrial Biopsy Discontinued Excision/Leep Discontinued HPV Genotyping Discontinued Vaginal Pap Discontinued Vulvoscopy Discontinued Procedures Procedure Name Priority Date/Time Associated Diagnosis Comments COMPREHENSIVE METABOLIC PANEL Routine 09/11/2024 11:34 AM EST Annual physical exam LIPID PANEL Routine 09/11/2024 11:34 AM EST Annual physical exam THINPREP PAP & HPV MRNA E6/E7 RFLX HPV 16,18/[address]/NG Routine 08/08/2023 11:12 AM EST Encounter for Papanicolaou smear of vagina as part of routine gynecological examination Encounter for screening for human papillomavirus (HPV) HEPATITIS C AB W/RFLX HCV RNA, QT, RT PCR Routine 03/07/2021 9:12 AM EDT Health care maintenance ANTIBODY HIV-1&HIV-2 SINGLE RESULT Routine 10/17/2016 2:30 PM EST Refugee health examination from Last 3 Months or Most Recently Relevant to Health Maintenance Results * (ABNORMAL) LIPID PANEL (09/11/2024 11:34 AM EST) CHOLESTEROL, TOTAL 185 <200 mg/dL [facility] HDL CHOLESTEROL 53 > OR = 50 mg/dL [facility] TRIGLYCERIDES 93 <150 mg/dL [facility] LDL-CHOLESTEROL 113(H) 99 mg/dL (calc) [facility] Comment: Reference range: <100 Desirable range <100 mg/dL for primary prevention; <70 mg/dL for patients with CHD or diabetic patients with > or = 2 CHD risk factors. LDL-C is now calculated using the Ld-Sirisha calculation, which is a validated novel method providing better accuracy than the Friedewald equation in the estimation of LDL-C. Ld SS et al. JANA. 2013;310(19): 0297-9476 (http://education.Carnad/faq/TOX829) CHOL/HDLC RATIO 3.5 <5.0 (calc) [facility] NON-HDL CHOLESTEROL 132(H) <130 mg/dL (calc) [facility] Comment: For patients with diabetes plus 1 major ASCVD risk factor, treating to a non-HDL-C goal of <100 mg/dL (LDL-C of <70 mg/dL) is considered a therapeutic option. Blood Blood / Unknown 09/11/2024 1 1:34 AM EST 09/11/2024 11:34 AM EST Narrative [facility] - 09/15/2024 10:15 PM EST FASTING:YES us Annie Patel PA-C LAB - BLOOD DRAW Final Resu lt [facility] [address] [address], [facility] [address] [place] [address] * COMPREHENSIVE METABOLIC PANEL (09/11/2024 11:34 AM EST) GLUCOSE 96 65 - 99 mg/dL [facility] Comment: Fasting reference interval UREA NITROGEN (BUN) 9 7 - 25 mg/dL [facility] CREATININE (blood) 0.76 0.50 - 0.99 mg/dL [facility] EGFR 100 > OR = 60 mL/min/1. 73m2 [facility] BUN/CREATININE RATIO SEE NOTE: 6 [facility] Comment: Not Reported: BUN and Creatinine are within reference range. SODIUM 136 135 - 146 mmol/L [facility] POTASSIUM 4.5 3.5 - 5.3 mmol/L [facility] CHLORIDE 103 98 - 110 mmol/L [facility] CARBON DIOXIDE 28 20 - 32 mmol/L [facility] CALCIUM 9.6 8.6 - 10.2 mg/dL [facility] PROTEIN, TOTAL 7.7 6.1 - 8.1 g/dL [facility] ALBUMIN 4.1 3.6 - 5.1 g/dL [facility] GLOBULIN 3.6 1.9 - 3.7 g/dL (calc) [facility] ALBUMIN/GLOBULI N RATIO 1.1 1.0 - 2.5 (calc) [facility] BILIRUBIN, TOTAL 0.4 0.2 - 1.2 mg/dL [facility] ALKALINE PHOSPHATASE 66 31 - 125 U/L [facility] AST 20 10 - 30 U/L [facility] ALT 15 6 - 29 U/L [facility] [place] [employer] Blood Blood / Unknown 09/11/2024 1 1:34 AM EST 09/11/2024 11:34 AM EST Narrative [facility] - 09/15/2024 10:15 PM EST FASTING:YES us Annie Patel PA-C LAB - BLOOD DRAW Edited Res ult - Final [facility] [address] [address], [facility] [address] [address] * THINPREP PAP & HPV MRNA E6/E7 RFLX HPV 16,18/[address]/NG (08/08/2023 11:12 AM EST) CHLAMYDIA TRACHOMATIS RNA, TMA NOT DETECTED NOT DETECTED [facility] NEISSERIA GONORRHOEAE RNA, TMA NOT DETECTED NOT DETECTED [facility] COMMENT [facility] CLINICAL INFORMATION See Note [facility] Comment:ROUTINE EXAM LMP See Note [facility] Comment:[id number] PREV. PAP See Note [facility] Comment:NONE GIVEN PREV. BX See Note [facility] Comment:NONE GIVEN SOURCE See Note [facility] Comment:Cervix STATEMENT OF ADEQUACY See Note [facility] Comment: Satisfactory for evaluation. Endocervical/transformation zone component present. INTERPRETATION/RESU LT See Note [facility] Comment: Cytology Results: Negative for intraepithelial lesion or malignancy. GENERAL INTERNIST AND PHYSICIAN LEADER See Note [facility] Comment: RXB, CT(ASCP) CT screening location: [address] [address] PATHOLOGIST See Note [facility] Comment: Kavitha Faust D.O. Board Certified in Anatomic, Clinical and Cytopathology (electronic signature) Consulting Pathologist [facility] [address] [place] [address] COMMENT [facility] HPV MRNA E6/E7 Not Detected Not Detected [facility] Comment: Methodology: Nuclear Fuel Processing Technician-Mediated Amplification This assay detects E6/E7 viral messenger RNA (mRNA) from 14 high-risk HPV types (16,18,31,33,35,39,45,51,52,56,58,59,66,68). Cervical sources are required for HPV testing. If a vaginal source from a patient who has had a total hysterectomy with removal of cervix was submitted, please contact the testing laboratory for alternative testing options. For additional information, please refer to http://UEIS.RehabDev/faq/GRU555q3 (This link if provided for information/ educational purposes only.) CYTOLOGY Cervix uteri structure / Unknown 08/08/2023 11:12 AM EST 08/09/2023 10:17 AM EST Narrative [facility] - 08/13/2023 2:28 PM EST EXPLANATORY NOTE: The Pap is a screening test for cervical cancer. It is not a diagnostic test and is subject to false negative and false positive results. It is most reliable when a satisfactory sample, regularly obtained, is submitted with relevant clinical findings and history, and when the Pap result is evaluated along with historic and current clinical information. The analytical performance characteristics of this assay, when used to test SurePath(TM) specimens have been determined by [facility]. The modifications have not been cleared or approved by the FDA. This assay has been validated pursuant to the CLIA regulations and is used for clinical purposes. For additional information, please refer to https://UEIS.RehabDev/faq/QPP783 (This link is being provided for information/ educational purposes only.) Jacqueline Brown MD LAB - PATHOLOGY AND CYTOLOGY AMB ULATORY Final Result [facility] [address] [place] [address], [facility] [place] [employer] [address] [place] [phone] * HEPATITIS C AB W/RFLX HCV RNA, QT, RT PCR (03/07/2021 9:12 AM EDT) HEPATITIS C ANTIBODY NON-REACT GUILLERMINA NON-REACT GUILLERMINA [facility] SIGNAL TO CUT-OFF 0.03 <1.00 [facility] Comment: HCV antibody was non-reactive. There is no laboratory evidence of HCV infection. In most cases, no further action is required. However, if recent HCV exposure is suspected, a test for HCV RNA (test code 65298) is suggested. For additional information please refer to http://education.RehabDev/faq/TBA85x6 (This link is being provided for informational/ educational purposes only.) Blood Blood / Unknown 03/07/2021 9 :12 AM EDT 03/07/2021 9:13 AM EDT Narrative [facility] - 03/08/2021 1:28 AM EDT FASTING:YES Elias Moon MD LAB - BLOOD DRAW Edited Result - Final [facility] [address] [address], [facility] [address] [address] * HIV-1 & HIV-2 ANTIBODIES (10/17/2016 2:30 PM EST) [facility] HIV 1 AND 2 ANTIBODY SCREEN NEGATIVE NEGATIVE [facility] Comment: This assay is a 4th generation assay allowing for earlier detection of HIV infection by detecting the presence of the HIV-1 p24 antigen as well as the traditional antibodies to HIV type 1 (including group O) and type 2. Use of a 4th generation assay is the current CDC recommendation for HIV screening. Blood specimen (specimen) Blood / Unknown 10/17/2016 2:30 PM EST 10/17/2016 3:34 PM EST Narrative [facility] - 10/17/2016 6:51 PM EST [facility] [address] [place] [address] PT [place] [id number] ORD# [id number] Lara TAYLOR LAB - BLOOD DRAW Final Resul t Performing Organization Address City/[facility]/ZIP Co de Phone Number [address] [address], from Last 3 Months or Most Recently Relevant to Health Maintenance Insurance [employer] D[facility]AL [facility] [employer] [facility]IVE ACO Care Teams Bladder Tier Relationship Specialty Start Date End Date Annie Patel PA-C [address] [place] [address] PCP - General Primary Care 11/27/23
--- OUTSIDE RECORDS SUMMARY | 2025-05-26 16:59 | XMS_ITS | Encounter Summary ---
Author Organization [facility] Address [address] [place] [address] Care Team Providers Care Career Development Coordinator/Teacher Name Role Phone Elias Moon MD Primary Care Provider [phone] Encounter Details Date Type Department Care Team (Late st Contact Info) Description 05/01/2025 Lab Requisition [facility] - Main Lab [address] [place] [address] Yamini Aquino Other nursing home (current) drug therapy Social History Tobacco Use Types Packs/Day Years Used Date Smoking Tobacco: Never Assessed Comments Unknown Sex and Gender Information Value Date Recorded Sex Assigned at Not on file Legal Sex Female 7:16 PM EST Gender Identity Not on file Sexual Orientation Not on file documented as of this encounter Plan of Treatment Not on file documented as of this encounter Procedures Procedure Name Priority Date/Time Associated Diagnosis Comments LIPID PANEL WITH REFLEX TO DIRECT LDL Routine 05/01/2025 7:00 AM EDT Other nursing home (current) drug therapy HEMOGLOBIN A1C Routine 05/01/2025 7:00 AM EDT Other nursing home (current) drug therapy GLUCOSE, RANDOM Routine 05/01/2025 7:00 AM EDT Other nursing home (current) drug therapy documented in this encounter Results * Hemoglobin A1c (05/01/2025 7:00 AM EDT) Hemoglobin A1C 5.6 <6.5 % LAB CHEMISTRY METHOD 05/02/2025 8:30 AM EDT [facility] Mean Bld Glu Estim. 114 mg/dL LAB CHEMISTRY METHOD 05/02/2025 8:30 AM EDT [facility] Blood Venous blood specimen / Unknown Venipuncture / Unknown 05/01/2025 7:00 AM EDT 05/01/2025 12:01 PM EDT [facility] BLOOD ORDERABLES Final Resul t [facility] [address] [place] [address], [place] [phone] * (ABNORMAL) Lipid panel with reflex to direct LDL (05/01/2025 7:00 AM EDT) Cholesterol 215(H) 0 - 200 mg/dL LAB CHEMISTRY METHOD 05/01/2025 1:17 PM EDT [facility] Triglycerides 110 0 - 150 mg/dL LAB CHEMISTRY METHOD 05/01/2025 1:17 PM EDT [facility] HDL 50 >=40 mg/dL LAB CHEMISTRY METHOD 05/01/2025 1:17 PM EDT [facility] LDL Calculated 143(H) 0 - 100 mg/dL LAB CHEMISTRY METHOD 05/01/2025 1:17 PM EDT [facility] VLDL Cholesterol [place] 22 mg/dL LAB CHEMISTRY METHOD 05/01/2025 1:17 PM EDT [facility] Non HDL Chol. (LDL+VLDL) 165(H) <145 mg/dL LAB CHEMISTRY METHOD 05/01/2025 1:17 PM EDT [facility] Chol/HDL Ratio 4.3 0.0 - 4.4 LAB CHEMISTRY METHOD 05/01/2025 1:17 PM T [facility] Blood Venous blood specimen / Unknown Venipuncture / Unknown 05/01/2025 7:00 AM EDT 05/01/2025 12:01 PM EDT [facility] LAB BLOOD ORDERABLES Final Resul t Performing Organization Address [facility]/ZIP Co de Phone Number [facility] [address] [place] [address], [place] [phone] * (ABNORMAL) Glucose, random (05/01/2025 7:00 AM EDT) Glucose 109(H) 70 - 100 mg/dL LAB CHEMISTRY METHOD 05/01/2025 1:17 PM EDT [facility] Blood Venous blood specimen / Unknown Venipuncture / Unknown 05/01/2025 7:00 AM EDT 05/01/2025 12:01 PM EDT [facility] BLOOD ORDERABLES Final Resul t Performing Organization Address [facility] Co de Phone Number [facility] [address] [place] [address], [place] [phone] documented in this encounter Visit Diagnoses Diagnosis Other nursing home (current) drug therapy documented in this encounter Care Teams Career Development Coordinator/Teacher Relationship Specialty Start Date End Date Elias Moon MD [facility] [place] [address] PCP - General Internal Medicine 09/17/24 documented as of this encounter
--- NOTE | 2025-05-26 18:10 | PC.ADMIT ---
Anju Mills is a 44 year old Montenegrin speaking female who was admitted to S1 from [facility] S3 on 05/26/25 at 1548 on 12b for tx of schizoaffective disorder and Bipolar disorder. Pt U tox was + for benzodiazepines. Per Crisis assessment pt presented to [facility] ED on 05/02/25 from [facility] d/t agitation that required a significant amount of sedating medications. Pt became tachycardic with chest pain, fell and struck her head. Pt has reportedly been experiencing insomnia and hallucinations. Pt was administered multiple sedative medications in [facility] ED for agitation and was then admitted to [facility] ICU on a Precedex Drip d/t agitation. During transport from S3 to S1, pt required multiple staff members to assist her in staying upright in the wheelchair. Pt presented with a blunted, flat affect. RN and [place] [employer] met with pt, and pt refused to answer any assessment questions asked by the RN and made no eye contact. Pt was observed responding to internal stimuli. Skin check revealed bandaids to the L wrist and L upper arm from prior venipuncture sites but was otherwise unremarkable. Pt is tachycardic with a pulse of 106 bpm. Pt appears to have an adequate appetite, but is unable to feed herself. Pt has no physiological issues with mobility, but is in a wheelchair for safety as she is confused and will often try to put herself on the floor. Pt was able to ambulate on the unit with 3 staff members present for safety. Pt is on a 1:1 for fall prevention and safety.
[2025-05-26 20:00] VITALS: BP 120/79; PULSE 109; RESP 16; TEMP 36.4; O2SAT 99
[2025-05-26] MEDS: Valproic Acid Liquid 250 MG/5 ML SOLUTION 500 MG PO (20:15)
--- NOTE | 2025-05-27 10:32 | HO.PSYADMNOT ---
HPI Date of Service: 05/27/25 Chief Complaint: Psych Sources of Information: patient interviewed, chart reviewed and crisis/core team assessment reviewed HPI Subjective Notes: Section 12B Narrative: Mrs. Mills is a 44 year-old woman with a hx of bipolar versus schizoaffective disorder from [facility] who initially was brought to [facility] ED from [facility] (psychiatric inpatient unit) due to tachycardia and chest pain on 05/02/2025. She presented as agitated, combative, communication is limited due to language barrier but it appears that answers were not related to asked questions. Her agitation was such that several IM medications were not effective requiring precedex drip and admission to ICU. Pertinent labs at the time of admission include CBC mostly unremarkable without leukocytosis. CMP without electrolyte abnormalities. She did have slightly elevated CK 2333. She was tachycardic with HR as high as in 120's. Her tempperature although not true fever was in higher end of normal 99.3 raising concern for underlying infectious etiology. She underwent LP which was mostly unremarkable. She had head CT given report of sustaining head injury which also was negative for hemorrhage/mass effect. Head CTA also negative for blood clots. Blood cultures were negative. UA did not show signs of UTI. Utox was positive for benzodiazepines which she has been prescribed. Note that patient does have a hx of psychiatric illness (Bipolar versus schizoaffective disorder) and had been stable on combination of haldol/valium. She was started while in the ICU on depakote, currently taking 500mg po BID. On the unit, pt was seen with Gayle cash processing specialist in person. Pt presents with very poor attention, at times grabbing things from the floor. She had some difficulty sitting in chair seems related to not being able to asses depth of seat. When asked if she knows where she is she reported at friend's house. She stood up and according to cash processing specialist she stated she was going shopping. She sat down again, then stood up and sat on the floor with some degree of incoordination. She stared at this residential mortgage underwriter at times, told cash processing specialist she knew me. Further questions, pt was not able to answer due to very poor attention and what seemed to be purposeless behaviors. No noted EPS on exam. No waxy flexibility but noted some degree of negativism in that certain directions like sit here were met with opposite response. Collateral information gathered from her who reports prior episodes were very similar to how she presents in that she is not able to answer most questions correctly or answers are unrelated to questions asked. reports that she first started to talk too much after not sleeping and then talking about something she was seeing that they could not see. When asked what was she reporting seeing, pt's did not provide more detail. It appears that when unwell, pt's speech does tend to be non sensical. Past Psychiatric History: Inpatient: 2017 admission at [facility] (we have to confirmed hospital but seems like it was this one). Outpatient psychiatrist: Dr. Luís Hopkins ([facility]) hx of taking Haldol 20mg PO bedtime, Diazepam 5mg PO daily and 10mg PO bedtime for the last 5 years per outpatient provider. Medical Evaluation Reviewed: Yes [facility] Medical History (Updated 05/28/25 @ 14:59 by Kassidy Jones NP) Post traumatic stress disorder (PTSD) Family History: none Social History: Patient lives with her has 6 children. She currently does not work. Substance History: none Trauma History: Question history of PTSD had lived in [facility] Diagnostics Vital Signs (24Hr): Vital Signs - 24 hr 05/26/25 16:15 05/26/25 20:00 Temperature 97.5 F 97.5 F Pulse Rate 106 H 109 H Respiratory Rate 16 16 Blood Pressure 130/60 120/79 Pulse Oximetry 99 99 Oxygen Delivery Method Room Air Room Air BMI result Body Mass Index 27.9 Meds/Allergies Meds Home Medications ?Medication ?Instructions ?Recorded ?Confirmed ?Type haloperidol 10 mg tablet 20 mg PO BEDTIME 05/03/25 05/26/25 History Allergies Allergies Allergy/AdvReac Type Severity Reaction Status Date / Time No Known Allergies Allergy Verified 05/02/25 17:30 Mental Status Exam Mental Status Exam Narrative: Appearance: wearing hospital gown, fair hygiene, in NAD Behavior: restless, very poor attention Psychomotor: restless, sitting, standing, grabbing things from the floor that are not there, grabbing this residential mortgage underwriter's hand Speech: (through interpreters interpretation) seems mostly clear, delayed responses at times, spontaneous, but minimally TP: some derailment, very poor attention TC: going shopping Mood: good Affect: constricted, although smiles at this residential mortgage underwriter at times SI: unable to assess HI: unable to assess VH/AH: appears internally preoccupied Delusions: no overt delusional content, but unclear if disorientation to place and situation part of delusion or delirium Insight/judgment: impaired x 2. Memory/cog: alert, not oriented to place, month, situation. unable to provide coherent information about events leading to this admission. Assessment & Plan Assessment & Plan (1) Schizoaffective disorder: Status: Acute Code(s): F25.9 - Schizoaffective disorder, unspecified Plan Mrs. Mills is a 44 year-old woman with hx of schizoaffective disorder who has an unusual presentation in that she has very impaired attention, what seemed to be purposeless and disorganized behaviors, delayed response, derailed thought process suggesting a delirious presentation. Medical work up has been comprehensive and has ruled out an infection nature with negative CSF meningitis panel, no overt electrolyte, nor renal nor liver abnormality. Per usual presentation when decompensated is similar to her current presentation. 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 Note that PAPI is negative to rule out rheumatological condition causing psychosis and disorganized behavior. No leukocytosis nor afebrile. Discussed risks, benefits and alternative treatment options with , will lowered haldol to 10mg po BID- currently does not present with EPS but question additional therapeutic benefit with such high dose. Will also lowered depakote as although ammonia is wnl can contribute to encephalopathy (will monitor worsening of condition). Will add ativan r/o excitatory catatonia as presenting s/s of decompensated mental illness. PLAN 1. Admit to S1, Sect 12b, 1:1 for safety 2. lowered haldol to 10mg po BID, continue cogentin 1mg po BID. Will start ativan 0.5mg po TID for presume excitatory catatonia. lower depakote gradually 250mg po BID as it can even with normal levels of ammonia cause encephalopathy (although less likely related to depakote given that prior presentation per is similar to this one). 3. Aftercare planning. Patient educated on: diagnosis and medication risk/benefits Reason for continued inpatient stay Substantial Risk for: inability to function Statement Statement: I have reviewed the history and physical and performed a pertinent examination on my patient. No changes have occurred unless specified. If the History and Physical was not performed prior to admission, the Hospitalist's service will be consulted for completing the admission physical. Time Spent With Patient Time: Total time managing care of this patient today ____ minutes.
[2025-05-27 11:03] VITALS: BMI 25.3
[2025-05-27 11:25] VITALS: BP 119/74; PULSE 106; RESP 18; TEMP 36.5; O2SAT 95
[2025-05-27] MEDS: Valproic Acid Liquid 250 MG/5 ML SOLUTION 500 MG PO (11:39)
--- NOTE | 2025-05-27 18:31 | MHC.SL.SWA ---
Speech Pathologist Impression: Risk of Aspiration Due to: Dysphasia Diet Status: Continue on Chopped/Advanced (NDD3) to provide more recognizable food and variety, continue on thin liquids, pills crushed in puree. . Liquid Consistency and Strategies for Safe Swallow: Liquid Intake Recommendation: Thin Liquid Intake Strategies: Small Sips Solid Food Consistency: Dietary Recommendations: Chopped/Advanced (NDD3) Additional Modifications to Solid Foods: Patient's level of confusion requires 1-1 feeding, orientation to food and encouragement to eat. No straws secondary to observed chain sipping when straw is present. Oral Medication Intake: Crushed with Puree Please contact the pharmacy regarding appropriate crushable or liquid drug formulations that are available whenever modified delivery is recommended. Compensatory Strategies and Precautions to be Taken for Safe Swallow: Sitting Upright (90 deg) No Straw Liquids from Cup Small Bites and Sips Alternate Liquids/Solids Supervision While Eating and Drinking for Safe Swallow: Total Assistance (1:1) Foods to Avoid: Swallowing Recommended Treatments: Recommendation for Speech: Comment: Patient seen at lunch. Patient had joined group dining and was sitting at table with other patients and being assisted with meal by EVENTS INTERN. EVENTS INTERN/RN reported patient had done well at breakfast this morning, and had been able to do some walking as well. EVENTS INTERN had put chopped meat in mashed potatoes in bowl, and given patient spoon, and patient was slowly feeding self, with some motoric miss-cues and seeming internal distractions as she ate. Patient also lifted cup with daja elmer, and drank, though again mildly distracted. RN requested trial of sandwich, which PSYCHOLOGY LECTURER retrieved, however with this offer, patient pushed sandwich away and returned to bowl with meat and potatoes. Patient demonstrating some improved engagement at meal, self feeding. Staff advised that intake is issue that needs to be closely monitored. No change to current diet indicated at this time, recommend patient continue on Chopped/Advanced with Thin liquids pills crushed in puree. PSYCHOLOGY LECTURER will continue to periodically follow. Frequency/Duration: Date Range for Service Req: Timeline to reassess: Planner Internship Clinican/Clinical Fellow: No Supervisory Statement: I have reviewed and agree with the student/clinical fellow's documentation: N/A Speech Language Pathologist: Karlie Real M.A., CCC-PSYCHOLOGY LECTURER
[2025-05-27 20:00] VITALS: BP 123/54; PULSE 99; RESP 18; TEMP 36.4; O2SAT 100
[2025-05-27] MEDS: Valproic Acid Liquid 250 MG/5 ML SOLUTION PO (20:59)
[2025-05-28 09:00] VITALS: BP 108/55; PULSE 103; RESP 16; TEMP 36.8; O2SAT 98
[2025-05-28] MEDS: Valproic Acid Liquid 250 MG/5 ML SOLUTION PO (09:02)
--- NOTE | 2025-05-28 12:03 | MHC.CLN ---
Addendum entered by Giulia Partida, THAD 05/28/25 14:39: ADDING ENSURE 3 TIMES DAILY. SUPPLEMENT PROVIDES 1050 KCALS, 60 G PROTEIN. PATIENT WITH HX VARIABLE INTAKE. Original Note: NUTRITION ALERTED THAT PATIENT FOLLOWS RASTAFARIAN DIETARY RESTRICTIONS. DINING STAFF ALERTED TO RESTRICTIONS NO PORK, NO PORK PRODUCTS, NO FOODS MADE WITH ALCOHOL.
--- NOTE | 2025-05-28 16:07 | P.PNPSI_ITS ---
Subjective Subjective Date of Service: 05/28/25 Reason For Visit: Psych Subjective Notes: Section 12B Interim History: Pt slept through the night. [facility] . Pt able to respond more appropriately to questions. When asked how was her night, she reports she slept well. She also report doing well. She does not know where she is or why still. She continued to grab things from the floor. She did eat with her husbands assistance. Multiple purposeless behaviors, delayed response. reports pt appears less restless and able to sit for longer periods of time. Medication Compliance: Yes Review of Systems Review of Systems Pt denies pain. Mental Status Exam Mental Status Exam Narrative: Appearance: wearing hospital gown, fair hygiene, in NAD Behavior: restless, very poor attention Psychomotor: restless, sitting, standing, grabbing things from the floor that are not there, grabbing this radio script writer's hand Speech: (through interpreters interpretation) seems mostly clear, delayed responses at times, spontaneous, but minimally TP: some derailment, very poor attention TC: going shopping Mood: good Affect: constricted, although smiles at this radio script writer at times SI: unable to assess HI: unable to assess VH/AH: appears internally preoccupied Delusions: no overt delusional content, but unclear if disorientation to place and situation part of delusion or delirium Insight/judgment: impaired x 2. Memory/cog: alert, not oriented to place, month, situation. unable to provide coherent information about events leading to this admission. Diagnostics Vital Signs (24Hr): Vital Signs - 24 hr 05/27/25 20:00 05/28/25 09:00 Temperature 97.5 F 98.2 F Pulse Rate 99 103 H Respiratory Rate 18 16 Blood Pressure 123/54 L 108/55 L Pulse Oximetry 100 98 Oxygen Delivery Method Room Air Room Air BMI result Body Mass Index 25.3 Medications Medications Current Medications Acetaminophen (Acetaminophen 325 Mg Tablet) 650 mg PO Q6H PRN PRN Reason: Headache/Pain, Scale 1-10 Last Admin: 05/26/25 20:15 Dose: 650 mg Al Hydroxide/Mg Hydroxide (Magnesium Hydrox/Alum Hydrox 30 Ml Oral.Susp) 30 ml PO Q6H PRN PRN Reason: Heartburn/Nausea Benztropine Mesylate (Benztropine Mesylate 0.5 Mg Tablet) 0.5 mg PO BID [facility] Last Admin: 05/28/25 09:06 Dose: 0.5 mg Haloperidol (Haloperidol 5 Mg Tablet) 10 mg PO BID [facility] Last Admin: 05/28/25 09:06 Dose: 10 mg Lamotrigine (Lamotrigine 25 Mg Tablet) 50 mg PO BID [facility] Last Admin: 05/28/25 09:08 Dose: 50 mg Lorazepam (Lorazepam 0.5 Mg Tablet) 0.5 mg PO TID [facility] Last Admin: 05/28/25 15:24 Dose: 0.5 mg Magnesium Hydroxide (Milk Of Magnesia 30 Ml Oral.Susp) 30 ml PO DAILY PRN PRN Reason: Constipation Trazodone HCl (Trazodone Hcl 50 Mg Tablet) 50 mg PO BEDTIME MRX1 PRN PRN Reason: Insomnia Last Admin: 05/26/25 20:16 Dose: 50 mg Valproic Acid (Valproic Acid Liquid 250 Mg/5 Ml Solution) 250 mg PO BID [facility] Last Admin: 05/28/25 09:02 Dose: 250 mg Allergies Allergies Allergy/AdvReac Type Severity Reaction Status Date / Time No Known Allergies Allergy Verified 05/02/25 17:30 Assessment & Plan Assessment & Plan (1) Schizoaffective disorder: Status: Acute Code(s): F25.9 - Schizoaffective disorder, unspecified Plan Mrs. Mills is a 44 year-old woman with hx of schizoaffective disorder who has an unusual presentation in that she has very impaired attention, what seemed to be purposeless and disorganized behaviors, delayed response, derailed thought process suggesting a delirious presentation. Medical work up has been comprehensive and has ruled out an infection nature with negative CSF meningitis panel, no overt electrolyte, nor renal nor liver abnormality. Per usual presentation when decompensated is similar to her current presentation. 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 Note that PAPI is negative to rule out rheumatological condition causing psychosis and disorganized behavior. No leukocytosis nor afebrile. Discussed risks, benefits and alternative treatment options with , will lowered haldol to 10mg po BID- currently does not present with EPS but question additional therapeutic benefit with such high dose. Will also lowered depakote as although ammonia is wnl can contribute to encephalopathy (will monitor worsening of condition). Will add ativan r/o excitatory catatonia as presenting s/s of decompensated mental illness. PLAN 05/28 lower depakote to 125mg po BID, may try increasing ativan and seeing if it has some effect of what may be excitatory catatonia. Continue haldol 10mg po BID. cogentin 0.5mg po BID. Lamictal had been started in ICU currently on 50mg po BID, will continue it for now. Reason for continued inpatient stay Substantial Risk for: inability to function Time Spent With Patient Time: Total time managing care of this patient today ____ minutes.
[2025-05-28 20:00] VITALS: BP 125/80; PULSE 76; RESP 18; TEMP 36.2; O2SAT 92
[2025-05-28] MEDS: Valproic Acid Liquid 250 MG/5 ML SOLUTION 125 MG PO (21:40)
[2025-05-29 00:26] VITALS: RESP 18
[2025-05-29 00:27] VITALS: RESP 18
[2025-05-29 08:00] VITALS: BP 92/54; PULSE 94; RESP 18; TEMP 36; O2SAT 98
--- NOTE | 2025-05-29 09:10 | P.PNPSI_ITS ---
Subjective Subjective Date of Service: 05/29/25 Reason For Visit: Psych Interim History: Remains disorganized. On 1:1. Restless. Self dialoguing. She reports doing well. Adherent to medications. Had a visit with charlie and her son. Some purposeless behaviors, delayed response. No self harm reported. Denies SI. Review of Systems Review of Systems Pt denies pain. Mental Status Exam Mental Status Exam Narrative: Appearance: wearing hospital gown, fair hygiene, in NAD Behavior: restless, very poor attention Psychomotor: restless, sitting, standing, grabbing things from the floor that are not there, grabbing this junior technical writer's hand Speech: (through interpreters interpretation) seems mostly clear, delayed responses at times, spontaneous, but minimally TP: some derailment, very poor attention TC: going shopping Mood: good Affect: constricted, although smiles at this junior technical writer at times SI: unable to assess HI: unable to assess VH/AH: appears internally preoccupied Delusions: no overt delusional content, but unclear if disorientation to place and situation part of delusion or delirium Insight/judgment: impaired x 2. Memory/cog: alert, not oriented to place, month, situation. unable to provide coherent information about events leading to this admission. Diagnostics Vital Signs (24Hr): Vital Signs - 24 hr 05/28/25 20:00 05/29/25 00:26 05/29/25 00:27 Temperature 97.1 F Pulse Rate 76 Respiratory Rate 18 18 18 Blood Pressure 125/80 Pulse Oximetry 92 Oxygen Delivery Method Room Air 05/29/25 08:00 Temperature 96.8 F Pulse Rate 94 Respiratory Rate 18 Blood Pressure 92/54 L Pulse Oximetry 98 Oxygen Delivery Method Room Air BMI result Body Mass Index 25.3 Medications Medications Current Medications Acetaminophen (Acetaminophen 325 Mg Tablet) 650 mg PO Q6H PRN PRN Reason: Headache/Pain, Scale 1-10 Last Admin: 05/28/25 23:26 Dose: 650 mg Al Hydroxide/Mg Hydroxide (Magnesium Hydrox/Alum Hydrox 30 Ml Oral.Susp) 30 ml PO Q6H PRN PRN Reason: Heartburn/Nausea Benztropine Mesylate (Benztropine Mesylate 0.5 Mg Tablet) 0.5 mg PO BID [facility] Last Admin: 05/28/25 21:37 Dose: 0.5 mg Haloperidol (Haloperidol 5 Mg Tablet) 10 mg PO BID [facility] Last Admin: 05/28/25 21:37 Dose: 10 mg Lamotrigine (Lamotrigine 25 Mg Tablet) 50 mg PO BID [facility] Last Admin: 05/28/25 21:35 Dose: 50 mg Lorazepam (Lorazepam 0.5 Mg Tablet) 0.5 mg PO TID [facility] Last Admin: 05/28/25 21:49 Dose: 0.5 mg Magnesium Hydroxide (Milk Of Magnesia 30 Ml Oral.Susp) 30 ml PO DAILY PRN PRN Reason: Constipation Trazodone HCl (Trazodone Hcl 50 Mg Tablet) 50 mg PO BEDTIME MRX1 PRN PRN Reason: Insomnia Last Admin: 05/28/25 23:27 Dose: 50 mg Valproic Acid (Valproic Acid Liquid 250 Mg/5 Ml Solution) 125 mg PO BID [facility] Last Admin: 05/28/25 21:40 Dose: 125 mg Allergies Allergies Allergy/AdvReac Type Severity Reaction Status Date / Time No Known Allergies Allergy Verified 05/02/25 17:30 Assessment & Plan Assessment & Plan (1) Schizoaffective disorder: Status: Acute Code(s): F25.9 - Schizoaffective disorder, unspecified Plan Mrs. Mills is a 44 year-old woman with hx of schizoaffective disorder who has an unusual presentation in that she has very impaired attention, what seemed to be purposeless and disorganized behaviors, delayed response, derailed thought process suggesting a delirious presentation. Medical work up has been comprehensive and has ruled out an infection nature with negative CSF meningitis panel, no overt electrolyte, nor renal nor liver abnormality. Per usual presentation when decompensated is similar to her current presentation. 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 Note that PAPI is negative to rule out rheumatological condition causing psychosis and disorganized behavior. No leukocytosis nor afebrile. Discussed risks, benefits and alternative treatment options with , will lowered haldol to 10mg po BID- currently does not present with EPS but question additional therapeutic benefit with such high dose. Will also lowered depakote as although ammonia is wnl can contribute to encephalopathy (will monitor worsening of condition). Will add ativan r/o excitatory catatonia as presenting s/s of decompensated mental illness. PLAN 05/28 lower depakote to 125mg po BID, may try increasing ativan and seeing if it has some effect of what may be excitatory catatonia. Continue haldol 10mg po BID. cogentin 0.5mg po BID. Lamictal had been started in ICU currently on 50mg po BID, will continue it for now. 05/29: continue current management and treatment plan. Reason for continued inpatient stay Substantial Risk for: inability to function, rapid decompensation and med/psych decompensation Time Spent With Patient Time: Total time managing care of this patient today ____ minutes.
[2025-05-29] MEDS: Valproic Acid Liquid 250 MG/5 ML SOLUTION 125 MG PO ×2 (10:25→20:32)
[2025-05-29 20:00] VITALS: BP 120/82; PULSE 92; RESP 18; TEMP 36.2; O2SAT 98
[2025-05-30 08:00] VITALS: BP 100/54; PULSE 85; RESP 16; TEMP 35.9; O2SAT 94
[2025-05-30] MEDS: Valproic Acid Liquid 250 MG/5 ML SOLUTION 125 MG PO (08:15)
--- NOTE | 2025-05-30 08:45 | HO.PSYCHPN ---
Subjective Subjective Date of Service: 05/30/25 Reason For Visit: Psych Interim History: Remains disorganized. On 1:1. Restless. Pacing the unit with the 1:1. Sometimes on the wheelchair and sometimes walking. Mumbles when talked to. Seems to be responding to internal stimuli. Difficult to hear what she is saying. Non-comprehensible mumbles. Self dialoguing. Adherent to medications. Had a visit with charlie yesterday and thought she is doing better. Some purposeless behaviors, delayed response. No self harm reported. No SI. Review of Systems Review of Systems Pt denies pain. Mental Status Exam Mental Status Exam Narrative: Appearance: wearing hospital gown, fair hygiene, in NAD Behavior: restless, very poor attention Psychomotor: restless, sitting, standing, grabbing things from the floor that are not there, grabbing this typewriters functional tester's hand Speech: (through interpreters interpretation) seems mostly clear, delayed responses at times, spontaneous, but minimally TP: some derailment, very poor attention TC: going shopping Mood: good Affect: constricted, although smiles at this typewriters functional tester at times SI: unable to assess HI: unable to assess VH/AH: appears internally preoccupied Delusions: no overt delusional content, but unclear if disorientation to place and situation part of delusion or delirium Insight/judgment: impaired x 2. Memory/cog: alert, not oriented to place, month, situation. unable to provide coherent information about events leading to this admission. Diagnostics Vital Signs (24Hr): Vital Signs - 24 hr 05/29/25 20:00 05/30/25 08:00 Temperature 97.2 F 96.6 F L Pulse Rate 92 85 Respiratory Rate 18 16 Blood Pressure 120/82 100/54 L Pulse Oximetry 98 94 Oxygen Delivery Method Room Air Room Air BMI result Body Mass Index 25.3 Medications Medications Current Medications Acetaminophen (Acetaminophen 325 Mg Tablet) 650 mg PO Q6H PRN PRN Reason: Headache/Pain, Scale 1-10 Last Admin: 05/28/25 23:26 Dose: 650 mg Al Hydroxide/Mg Hydroxide (Magnesium Hydrox/Alum Hydrox 30 Ml Oral.Susp) 30 ml PO Q6H PRN PRN Reason: Heartburn/Nausea Benztropine Mesylate (Benztropine Mesylate 0.5 Mg Tablet) 0.5 mg PO BID [facility] Last Admin: 05/30/25 08:15 Dose: 0.5 mg Haloperidol (Haloperidol 5 Mg Tablet) 10 mg PO BID [facility] Last Admin: 05/30/25 08:14 Dose: 10 mg Lamotrigine (Lamotrigine 25 Mg Tablet) 50 mg PO BID [facility] Last Admin: 05/29/25 20:31 Dose: 50 mg Lorazepam (Lorazepam 0.5 Mg Tablet) 0.5 mg PO TID [facility] Last Admin: 05/30/25 08:15 Dose: 0.5 mg Magnesium Hydroxide (Milk Of Magnesia 30 Ml Oral.Susp) 30 ml PO DAILY PRN PRN Reason: Constipation Trazodone HCl (Trazodone Hcl 50 Mg Tablet) 50 mg PO BEDTIME MRX1 PRN PRN Reason: Insomnia Last Admin: 05/28/25 23:27 Dose: 50 mg Valproic Acid (Valproic Acid Liquid 250 Mg/5 Ml Solution) 125 mg PO BID [facility] Last Admin: 05/30/25 08:15 Dose: 125 mg Allergies Allergies Allergy/AdvReac Type Severity Reaction Status Date / Time No Known Allergies Allergy Verified 05/02/25 17:30 Assessment & Plan Assessment & Plan (1) Schizoaffective disorder: Status: Acute Code(s): F25.9 - Schizoaffective disorder, unspecified Plan Mrs. Mills is a 44 year-old woman with hx of schizoaffective disorder who has an unusual presentation in that she has very impaired attention, what seemed to be purposeless and disorganized behaviors, delayed response, derailed thought process suggesting a delirious presentation. Medical work up has been comprehensive and has ruled out an infection nature with negative CSF meningitis panel, no overt electrolyte, nor renal nor liver abnormality. Per usual presentation when decompensated is similar to her current presentation. 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 Note that PAPI is negative to rule out rheumatological condition causing psychosis and disorganized behavior. No leukocytosis nor afebrile. Discussed risks, benefits and alternative treatment options with , will lowered haldol to 10mg po BID- currently does not present with EPS but question additional therapeutic benefit with such high dose. Will also lowered depakote as although ammonia is wnl can contribute to encephalopathy (will monitor worsening of condition). Will add ativan r/o excitatory catatonia as presenting s/s of decompensated mental illness. PLAN 05/28 lower depakote to 125mg po BID, may try increasing ativan and seeing if it has some effect of what may be excitatory catatonia. Continue haldol 10mg po BID. cogentin 0.5mg po BID. Lamictal had been started in ICU currently on 50mg po BID, will continue it for now. 05/29: continue current management and treatment plan. 05/30: Increase Depakote to 250 mg BID. Reason for continued inpatient stay Substantial Risk for: inability to function and rapid decompensation Time Spent With Patient Time: Total time managing care of this patient today ____ minutes.
[2025-05-30 20:00] VITALS: PULSE 101; RESP 18; TEMP 36.6; O2SAT 100
[2025-05-30] MEDS: Valproic Acid Liquid 250 MG/5 ML SOLUTION PO (22:21)
[2025-05-30 22:46] VITALS: RESP 18
[2025-05-31 07:56] VITALS: BP 126/78; PULSE 86; RESP 16; TEMP 36.4; O2SAT 98
[2025-05-31] MEDS: Valproic Acid Liquid 250 MG/5 ML SOLUTION PO (08:38)
--- NOTE | 2025-05-31 12:03 | HO.PSYCHPN ---
Subjective Subjective Date of Service: 05/31/25 Reason For Visit: Psych Interim History: Remains disorganized. On 1:1. Very restless. Pacing. Needs constant redirection. Pushes on nurses stations' doors, self dialoguing, intrusive, agitated at times. Prescribed Haldol 5 mg and Ativan 1 mg x 1 which patient took. Patient's behavior remains restless. Will trial one time dose of Zydis. Not making sense with the technical illustrations map inker online. I am coming back. Non-comprehensible mumbles. Self dialoguing. Adherent to medications. Had a visit with yesterday and thought she is doing better. Purposeless behaviors, delayed response. No self harm reported. No SI. Review of Systems Review of Systems Pt denies pain. Mental Status Exam Mental Status Exam Narrative: Appearance: wearing hospital gown, fair hygiene, in NAD Behavior: restless, very poor attention Psychomotor: restless, sitting, standing, grabbing things from the floor that are not there, grabbing this keno writer / runner's hand Speech: (through interpreters interpretation) seems mostly clear, delayed responses at times, spontaneous, but minimally TP: some derailment, very poor attention TC: going shopping Mood: good Affect: constricted, although smiles at this keno writer / runner at times SI: unable to assess HI: unable to assess VH/AH: appears internally preoccupied Delusions: no overt delusional content, but unclear if disorientation to place and situation part of delusion or delirium Insight/judgment: impaired x 2. Memory/cog: alert, not oriented to place, month, situation. unable to provide coherent information about events leading to this admission. Diagnostics Vital Signs (24Hr): Vital Signs - 24 hr 05/30/25 20:00 05/30/25 22:46 05/31/25 07:56 Temperature 97.8 F 97.6 F Pulse Rate 101 H 86 Respiratory Rate 18 18 16 Blood Pressure 126/78 Pulse Oximetry 100 98 Oxygen Delivery Method Room Air Room Air BMI result Body Mass Index 25.3 Medications Medications Current Medications Acetaminophen (Acetaminophen 325 Mg Tablet) 650 mg PO Q6H PRN PRN Reason: Headache/Pain, Scale 1-10 Last Admin: 05/30/25 21:31 Dose: 650 mg Al Hydroxide/Mg Hydroxide (Magnesium Hydrox/Alum Hydrox 30 Ml Oral.Susp) 30 ml PO Q6H PRN PRN Reason: Heartburn/Nausea Benztropine Mesylate (Benztropine Mesylate 0.5 Mg Tablet) 0.5 mg PO BID [facility] Last Admin: 05/31/25 08:37 Dose: 0.5 mg Haloperidol (Haloperidol 5 Mg Tablet) 10 mg PO BID [facility] Last Admin: 05/31/25 08:37 Dose: 10 mg Lamotrigine (Lamotrigine 25 Mg Tablet) 50 mg PO BID [facility] Last Admin: 05/31/25 08:37 Dose: 50 mg Lorazepam (Lorazepam 0.5 Mg Tablet) 0.5 mg PO TID [facility] Last Admin: 05/31/25 08:37 Dose: 0.5 mg Magnesium Hydroxide (Milk Of Magnesia 30 Ml Oral.Susp) 30 ml PO DAILY PRN PRN Reason: Constipation Trazodone HCl (Trazodone Hcl 50 Mg Tablet) 50 mg PO BEDTIME MRX1 PRN PRN Reason: Insomnia Last Admin: 05/30/25 22:55 Dose: 50 mg Valproic Acid (Valproic Acid Liquid 250 Mg/5 Ml Solution) 250 mg PO BID [facility] Last Admin: 05/31/25 08:38 Dose: 250 mg Allergies Allergies Allergy/AdvReac Type Severity Reaction Status Date / Time No Known Allergies Allergy Verified 05/02/25 17:30 Assessment & Plan Assessment & Plan (1) Schizoaffective disorder: Status: Acute Code(s): F25.9 - Schizoaffective disorder, unspecified Plan Mrs. Mills is a 44 year-old woman with hx of schizoaffective disorder who has an unusual presentation in that she has very impaired attention, what seemed to be purposeless and disorganized behaviors, delayed response, derailed thought process suggesting a delirious presentation. Medical work up has been comprehensive and has ruled out an infection nature with negative CSF meningitis panel, no overt electrolyte, nor renal nor liver abnormality. Per usual presentation when decompensated is similar to her current presentation. 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 Note that PAPI is negative to rule out rheumatological condition causing psychosis and disorganized behavior. No leukocytosis nor afebrile. Discussed risks, benefits and alternative treatment options with , will lowered haldol to 10mg po BID- currently does not present with EPS but question additional therapeutic benefit with such high dose. Will also lowered depakote as although ammonia is wnl can contribute to encephalopathy (will monitor worsening of condition). Will add ativan r/o excitatory catatonia as presenting s/s of decompensated mental illness. PLAN 05/28 lower depakote to 125mg po BID, may try increasing ativan and seeing if it has some effect of what may be excitatory catatonia. Continue haldol 10mg po BID. cogentin 0.5mg po BID. Lamictal had been started in ICU currently on 50mg po BID, will continue it for now. 05/29: continue current management and treatment plan. 05/30: Increase Depakote to 250 mg BID. 05/31: Increase Depakote to 375 mg BID. Reason for continued inpatient stay Substantial Risk for: inability to function and rapid decompensation Time Spent With Patient Time: Total time managing care of this patient today ____ minutes.
[2025-05-31] MEDS: OLANZapine ODT 10 MG TAB.RAPDIS TRANSLINGU (13:15)
--- NOTE | 2025-05-31 14:25 | MHC.SLORD ---
Speech Language Pathology Order Status: Pt not seen today, MOCCASIN SEWER will follow in monitoring pt PO tolerance of least restrictive diet as indicated.
--- NOTE | 2025-05-31 17:36 | PC.NURSE ---
Through use of electronic interpretive device patient stated that when his is restless combative and resistant to care it is due to her needing sleep.
[2025-05-31] MEDS: Valproic Acid Liquid 250 MG/5 ML SOLUTION 375 MG PO (22:03)
[2025-06-01 08:15] VITALS: BP 131/77; PULSE 117; RESP 19; TEMP 36.2; O2SAT 97
--- NOTE | 2025-06-01 09:06 | HO.PSYCHPN ---
Subjective Subjective Date of Service: 06/01/25 Reason For Visit: Psych Subjective Notes: Section 7 Interim History: Pt slept through the night. She was restless this morning and agitated, hitting one to one 9 times and spitting on him, pt able to be redicted and received PO medications. Pt continues ext seeking, pushing doors, more difficult to redirect requiring IM medication olanzapine and valium. No crm system administrator in person but given that pt is so disorganized and agitated not able to be interviewed with Hollis. Tomorrow hoping to have crm system administrator in person. Medication Compliance: Intermittent Side effects from medications: No Review of Systems Review of Systems Pt denies pain. Mental Status Exam Mental Status Exam Narrative: Appearance: wearing hospital gown, fair hygiene, in NAD Behavior: restless, very poor attention Psychomotor: restless, sitting, standing, grabbing things from the floor that are not there, grabbing this keno writer/runner's hand Speech: (through interpreters interpretation) seems mostly clear, delayed responses at times, spontaneous, but minimally TP: some derailment, very poor attention TC: going shopping Mood: good Affect: constricted, although smiles at this keno writer/runner at times SI: unable to assess HI: unable to assess VH/AH: appears internally preoccupied Delusions: no overt delusional content, but unclear if disorientation to place and situation part of delusion or delirium Insight/judgment: impaired x 2. Memory/cog: alert, not oriented to place, month, situation. unable to provide coherent information about events leading to this admission. Diagnostics Vital Signs (24Hr): BMI result Body Mass Index 25.3 Medications Medications Current Medications Acetaminophen (Acetaminophen 325 Mg Tablet) 650 mg PO Q6H PRN PRN Reason: Headache/Pain, Scale 1-10 Last Admin: 05/30/25 21:31 Dose: 650 mg Al Hydroxide/Mg Hydroxide (Magnesium Hydrox/Alum Hydrox 30 Ml Oral.Susp) 30 ml PO Q6H PRN PRN Reason: Heartburn/Nausea Benztropine Mesylate (Benztropine Mesylate 0.5 Mg Tablet) 0.5 mg PO BID [facility] Last Admin: 05/31/25 22:04 Dose: 0.5 mg Haloperidol (Haloperidol 5 Mg Tablet) 10 mg PO BID [facility] Last Admin: 05/31/25 22:05 Dose: 10 mg Lamotrigine (Lamotrigine 25 Mg Tablet) 50 mg PO BID [facility] Last Admin: 05/31/25 22:04 Dose: 50 mg Lorazepam (Lorazepam 0.5 Mg Tablet) 0.5 mg PO TID [facility] Last Admin: 05/31/25 22:04 Dose: 0.5 mg Magnesium Hydroxide (Milk Of Magnesia 30 Ml Oral.Susp) 30 ml PO DAILY PRN PRN Reason: Constipation Trazodone HCl (Trazodone Hcl 50 Mg Tablet) 50 mg PO BEDTIME MRX1 PRN PRN Reason: Insomnia Last Admin: 05/30/25 22:55 Dose: 50 mg Valproic Acid (Valproic Acid Liquid 250 Mg/5 Ml Solution) 375 mg PO BID [facility] Last Admin: 05/31/25 22:03 Dose: 375 mg Allergies Allergies Allergy/AdvReac Type Severity Reaction Status Date / Time No Known Allergies Allergy Verified 05/02/25 17:30 Assessment & Plan Assessment & Plan (1) Schizoaffective disorder: Status: Acute Code(s): F25.9 - Schizoaffective disorder, unspecified Plan Mrs. Mills is a 44 year-old woman with hx of schizoaffective disorder who has an unusual presentation in that she has very impaired attention, what seemed to be purposeless and disorganized behaviors, delayed response, derailed thought process suggesting a delirious presentation. Medical work up has been comprehensive and has ruled out an infection nature with negative CSF meningitis panel, no overt electrolyte, nor renal nor liver abnormality. Per usual presentation when decompensated is similar to her current presentation. 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 Note that PAPI is negative to rule out rheumatological condition causing psychosis and disorganized behavior. No leukocytosis nor afebrile. Discussed risks, benefits and alternative treatment options with , will lowered haldol to 10mg po BID- currently does not present with EPS but question additional therapeutic benefit with such high dose. Will also lowered depakote as although ammonia is wnl can contribute to encephalopathy (will monitor worsening of condition). Will add ativan r/o excitatory catatonia as presenting s/s of decompensated mental illness. PLAN 05/28 lower depakote to 125mg po BID, may try increasing ativan and seeing if it has some effect of what may be excitatory catatonia. Continue haldol 10mg po BID. cogentin 0.5mg po BID. Lamictal had been started in ICU currently on 50mg po BID, will continue it for now. 05/29: continue current management and treatment plan. 05/30: Increase Depakote to 250 mg BID. 05/31: Increase Depakote to 375 mg BID. 06/01 increase haldol 10mg TID, increase ativan to 1mg po TID. monitor oversedation, EPS. consider switching depakote to lithium. Reason for continued inpatient stay Substantial Risk for: inability to function Time Spent With Patient Time: Total time managing care of this patient today ____ minutes.
[2025-06-01] MEDS: diazePAM 10 MG/2 ML CARTRIDGE IM (10:38)
[2025-06-01] MEDS: OLANZapine 10 MG VIAL IM (10:38)
[2025-06-01 20:00] VITALS: BP 123/74; PULSE 115; RESP 20; TEMP 37.1; O2SAT 97
--- NOTE | 2025-06-01 23:31 | PC.NURSE ---
2329. Pt from [id number] was restless and agitated, hitting one to one three times and spitting out medications on two occassions. Pt able to be redirected briefly but continues to want to wander in other patient's room and pushing at doors. Pt eventually at [address] herself in bed and approximately later fell asleep with no medications given this evening. Pt at 2329 continues to be sleeping on her side, respiratory rate even and nonlabored at 18-20 breaths per minute, body relaxed position on her side, pulses present. Room environment quiet with minimal lights to promote sleep tonight.
--- NOTE | 2025-06-02 09:15 | HO.PSYCHPN ---
Subjective Subjective Date of Service: 06/02/25 Reason For Visit: Psych Subjective Notes: Section 7 Interim History: Pt slept most of the night. She is taking medications as prescribed. She was seen with assistance of [facility] spanish medical interpreter in person. When asked about how is she doing, pt reports well. She reports she is sleeping and denies any concerns. When asked if she knows where she is, pt reports she does not know. She does not know why she is here. She told she is in the hospital, she apparently stated yes, I am in the hospital. Poverty of thought. was also present during the visit, he reports she is usually quiet and does not talk much. She denied SI/HI. She presents as less restless, less grabbing things or trying to open doors, she did push her one to one again today once, was able to be redirected. VS stable. Pt does show perioral involuntary movement. concerning for dyskinesia/TD. will lower haldol back to 10mg po BID, ativan seems to be working for what seems to be excitatory catatonia. Medication Compliance: Yes Review of Systems Review of Systems Pt denies pain. Mental Status Exam Mental Status Exam Narrative: Appearance: wearing hospital gown, fair hygiene, in NAD Behavior: restless, very poor attention Psychomotor: restless, sitting, standing, grabbing things from the floor that are not there, grabbing this show card writer's hand Speech: (through interpreters interpretation) seems mostly clear, delayed responses at times, spontaneous, but minimally TP: some derailment, very poor attention TC: going shopping Mood: good Affect: constricted, although smiles at this show card writer at times SI: unable to assess HI: unable to assess VH/AH: appears internally preoccupied Delusions: no overt delusional content, but unclear if disorientation to place and situation part of delusion or delirium Insight/judgment: impaired x 2. Memory/cog: alert, not oriented to place, month, situation. unable to provide coherent information about events leading to this admission. Diagnostics Vital Signs (24Hr): Vital Signs - 24 hr 06/01/25 20:00 Temperature 98.8 F Pulse Rate 115 H Respiratory Rate 20 Blood Pressure 123/74 Pulse Oximetry 97 Oxygen Delivery Method Room Air BMI result Body Mass Index 25.3 Medications Medications Current Medications Acetaminophen (Acetaminophen 325 Mg Tablet) 650 mg PO Q6H PRN PRN Reason: Headache/Pain, Scale 1-10 Last Admin: 05/30/25 21:31 Dose: 650 mg Al Hydroxide/Mg Hydroxide (Magnesium Hydrox/Alum Hydrox 30 Ml Oral.Susp) 30 ml PO Q6H PRN PRN Reason: Heartburn/Nausea Benztropine Mesylate (Benztropine Mesylate 0.5 Mg Tablet) 0.5 mg PO BID [facility] Last Admin: 06/01/25 22:18 Dose: Not Given Haloperidol (Haloperidol 5 Mg Tablet) 10 mg PO TID [facility] Last Admin: 06/01/25 22:18 Dose: Not Given Lamotrigine (Lamotrigine 25 Mg Tablet) 50 mg PO BID [facility] Last Admin: 06/01/25 22:18 Dose: Not Given Lorazepam (Lorazepam 1 Mg Tablet) 1 mg PO TID [facility] Last Admin: 06/01/25 22:18 Dose: Not Given Magnesium Hydroxide (Milk Of Magnesia 30 Ml Oral.Susp) 30 ml PO DAILY PRN PRN Reason: Constipation Trazodone HCl (Trazodone Hcl 50 Mg Tablet) 50 mg PO BEDTIME MRX1 PRN PRN Reason: Insomnia Last Admin: 05/30/25 22:55 Dose: 50 mg Valproic Acid (Valproic Acid Liquid 250 Mg/5 Ml Solution) 375 mg PO BID [facility] Last Admin: 06/01/25 22:18 Dose: Not Given Allergies Allergies Allergy/AdvReac Type Severity Reaction Status Date / Time No Known Allergies Allergy Verified 05/02/25 17:30 Assessment & Plan Assessment & Plan (1) Schizoaffective disorder: Status: Inactive Code(s): F25.9 - Schizoaffective disorder, unspecified Plan Mrs. Mills is a 44 year-old woman with hx of schizoaffective disorder who has an unusual presentation in that she has very impaired attention, what seemed to be purposeless and disorganized behaviors, delayed response, derailed thought process suggesting a delirious presentation. Medical work up has been comprehensive and has ruled out an infection nature with negative CSF meningitis panel, no overt electrolyte, nor renal nor liver abnormality. Per usual presentation when decompensated is similar to her current presentation. 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 Note that PAPI is negative to rule out rheumatological condition causing psychosis and disorganized behavior. No leukocytosis nor afebrile. Discussed risks, benefits and alternative treatment options with , will lowered haldol to 10mg po BID- currently does not present with EPS but question additional therapeutic benefit with such high dose. Will also lowered depakote as although ammonia is wnl can contribute to encephalopathy (will monitor worsening of condition). Will add ativan r/o excitatory catatonia as presenting s/s of decompensated mental illness. PLAN 05/28 lower depakote to 125mg po BID, may try increasing ativan and seeing if it has some effect of what may be excitatory catatonia. Continue haldol 10mg po BID. cogentin 0.5mg po BID. Lamictal had been started in ICU currently on 50mg po BID, will continue it for now. 05/29: continue current management and treatment plan. 05/30: Increase Depakote to 250 mg BID. 05/31: Increase Depakote to 375 mg BID. 06/01 increase haldol 10mg TID, increase ativan to 1mg po TID. monitor oversedation, EPS. consider switching depakote to lithium. 06/02 Pt does show perioral involuntary movement. concerning for dyskinesia/TD. will lower haldol back to 10mg po BID, ativan seems to be working for what seems to be excitatory catatonia. will start lithium 300mg po BID. continue depakote 375mg po BID. Patient educated on: diagnosis and medication risk/benefits Informed Consent: understands Reason for continued inpatient stay Substantial Risk for: inability to function Time Spent With Patient Time: Total time managing care of this patient today __45__ minutes.
[2025-06-02] MEDS: Valproic Acid Liquid 250 MG/5 ML SOLUTION 375 MG PO ×2 (10:06→20:38)
--- NOTE | 2025-06-02 14:49 | MHC.SLORD ---
Speech Language Pathology Order Status: Pt ate some of her breakfast and lunch, drinking fluids with meals. Pt is now sleeping, medicated d/t agitation. No further concerns reported with dysphagia, CHILDREN'S MINISTER texted MD as pt status stable. CHILDREN'S MINISTER to followu up if indicated.
[2025-06-02] MEDS: OLANZapine ODT 10 MG TAB.RAPDIS TRANSLINGU (14:50)
[2025-06-02 20:00] VITALS: BP 127/64; PULSE 119; RESP 18; TEMP 36.1; O2SAT 97
[2025-06-03] MEDS: OLANZapine ODT 10 MG TAB.RAPDIS TRANSLINGU (00:44)
--- NOTE | 2025-06-03 04:35 | PC.NURSE ---
Patient kept spitting out medications but took them partially in a vehicle.
[2025-06-03 08:00] VITALS: BP 110/59; PULSE 93; RESP 14; TEMP 2.6; TEMP 36.7; O2SAT 95
[2025-06-03] MEDS: Valproic Acid Liquid 250 MG/5 ML SOLUTION 375 MG PO ×2 (09:13→20:00)
[2025-06-03 13:41] VITALS: BMI 26.4
--- NOTE | 2025-06-03 16:40 | HO.PSYCHPN ---
Subjective Subjective Date of Service: 06/03/25 Reason For Visit: Psych Subjective Notes: Section 7 Interim History: Pt slept through the night. Calmer, and less restless, but not engaging in conversation with Hollis. No available in person medical interpreter today. Pt knocking on closet and seemed to be looking for someone. no aggression towards self or others. taking medications. VS stable. Medication Compliance: Yes Review of Systems Review of Systems Pt denies pain. Mental Status Exam Mental Status Exam Narrative: Appearance: wearing hospital gown, fair hygiene, in NAD Behavior: restless, very poor attention Psychomotor: restless, sitting, standing, grabbing things from the floor that are not there, grabbing this medical technical writer's hand Speech: (through interpreters interpretation) seems mostly clear, delayed responses at times, spontaneous, but minimally TP: some derailment, very poor attention TC: going shopping Mood: good Affect: constricted, although smiles at this medical technical writer at times SI: unable to assess HI: unable to assess VH/AH: appears internally preoccupied Delusions: no overt delusional content, but unclear if disorientation to place and situation part of delusion or delirium Insight/judgment: impaired x 2. Memory/cog: alert, not oriented to place, month, situation. unable to provide coherent information about events leading to this admission. Diagnostics Vital Signs (24Hr): Vital Signs - 24 hr 06/02/25 20:00 06/03/25 08:00 Temperature 97.0 F 36.7 F L Pulse Rate 119 H 93 Respiratory Rate 18 14 Blood Pressure 127/64 110/59 L Pulse Oximetry 97 95 Oxygen Delivery Method Room Air BMI result Body Mass Index 26.4 Medications Medications Current Medications Acetaminophen (Acetaminophen 325 Mg Tablet) 650 mg PO Q6H PRN PRN Reason: Headache/Pain, Scale 1-10 Last Admin: 05/30/25 21:31 Dose: 650 mg Al Hydroxide/Mg Hydroxide (Magnesium Hydrox/Alum Hydrox 30 Ml Oral.Susp) 30 ml PO Q6H PRN PRN Reason: Heartburn/Nausea Benztropine Mesylate (Benztropine Mesylate 1 Mg Tablet) 1 mg PO BID [facility] Last Admin: 06/03/25 09:15 Dose: 1 mg Haloperidol (Haloperidol 5 Mg Tablet) 10 mg PO BID [facility] Last Admin: 06/03/25 09:15 Dose: 10 mg Lamotrigine (Lamotrigine 25 Mg Tablet) 50 mg PO DAILY [facility] Last Admin: 06/03/25 09:14 Dose: 50 mg [place] Carbonate ([place] Carbonate 300 Mg Capsule) 300 mg PO BID [facility] Last Admin: 06/03/25 09:15 Dose: 300 mg Lorazepam (Lorazepam 1 Mg Tablet) 1 mg PO TID [facility] Last Admin: 06/03/25 15:23 Dose: 1 mg Magnesium Hydroxide (Milk Of Magnesia 30 Ml Oral.Susp) 30 ml PO DAILY PRN PRN Reason: Constipation Olanzapine (Olanzapine Odt 10 Mg Tab.Rapdis) 10 mg TRANSLINGU Q5H PRN PRN Reason: agitation Last Admin: 06/03/25 00:44 Dose: 10 mg Trazodone HCl (Trazodone Hcl 50 Mg Tablet) 50 mg PO BEDTIME MRX1 PRN PRN Reason: Insomnia Last Admin: 05/30/25 22:55 Dose: 50 mg Valproic Acid (Valproic Acid Liquid 250 Mg/5 Ml Solution) 375 mg PO BID [facility] Last Admin: 06/03/25 09:13 Dose: 375 mg Allergies Allergies Allergy/AdvReac Type Severity Reaction Status Date / Time No Known Allergies Allergy Verified 05/02/25 17:30 Assessment & Plan Assessment & Plan (1) Schizoaffective disorder: Status: Inactive Code(s): F25.9 - Schizoaffective disorder, unspecified Plan Mrs. Mills is a 44 year-old woman with hx of schizoaffective disorder who has an unusual presentation in that she has very impaired attention, what seemed to be purposeless and disorganized behaviors, delayed response, derailed thought process suggesting a delirious presentation. Medical work up has been comprehensive and has ruled out an infection nature with negative CSF meningitis panel, no overt electrolyte, nor renal nor liver abnormality. Per usual presentation when decompensated is similar to her current presentation. 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 Note that PAPI is negative to rule out rheumatological condition causing psychosis and disorganized behavior. No leukocytosis nor afebrile. Discussed risks, benefits and alternative treatment options with , will lowered haldol to 10mg po BID- currently does not present with EPS but question additional therapeutic benefit with such high dose. Will also lowered depakote as although ammonia is wnl can contribute to encephalopathy (will monitor worsening of condition). Will add ativan r/o excitatory catatonia as presenting s/s of decompensated mental illness. PLAN 05/28 lower depakote to 125mg po BID, may try increasing ativan and seeing if it has some effect of what may be excitatory catatonia. Continue haldol 10mg po BID. cogentin 0.5mg po BID. Lamictal had been started in ICU currently on 50mg po BID, will continue it for now. 05/29: continue current management and treatment plan. 05/30: Increase Depakote to 250 mg BID. 05/31: Increase Depakote to 375 mg BID. 06/01 increase haldol 10mg TID, increase ativan to 1mg po TID. monitor oversedation, EPS. consider switching depakote to lithium. 06/02 continue current medications. 06/03 continue tx. Reason for continued inpatient stay Substantial Risk for: inability to function Time Spent With Patient Time: Total time managing care of this patient today ____ minutes.
[2025-06-03 19:57] VITALS: BP 111/67; PULSE 104; RESP 16; TEMP 36.6; O2SAT 99
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
[2025-06-04] MEDS: Valproic Acid Liquid 250 MG/5 ML SOLUTION 375 MG PO ×2 (10:14→19:59)
[2025-06-04 10:39] VITALS: BP 94/50; PULSE 110; RESP 18; TEMP 36.7; O2SAT 98
[2025-06-04 13:54] LABS: MANUAL DIFF FLAG NO
[2025-06-04 13:56] LABS: Hematocrit 32.3 % (37.0-47.0); Hemoglobin 10.7 g/dl (12.0-16.0); Imm Gran Abs Auto 0.03 X10*3/uL (0.00-0.03); Imm Gran Pct Auto 0.4 % (0.0-0.4); Lymphocytes Absolute Auto 2.1 X10*3/uL (1.2-4.9); Mean Corpuscular HGB Conc 33.1 g/dl (31.0-35.0); Mean Corpuscular Hemoglobin 30.3 pg (27.0-33.0); Mean Corpuscular Volume 91.5 fL (80.0-98.0); NRBC Abs Auto 0.000 X10*3/uL (0.0-0.012); NRBC Pct Auto 0.0 /100WBC (0.0-0.2); Platelet Count 195 X10*3/uL (160-400); Red Blood Count 3.53 X10*6/uL (4.20-5.50); White Blood Count 6.7 X10*3/uL (4.8-10.8)
[2025-06-04 14:07] LABS: Lithium 0.31 mmol/L (0.60-1.20)
[2025-06-04 14:16] LABS: Alanine Aminotransferase 32 U/L (0-31); Albumin Level 3.4 g/dL (3.5-5.0); Alkaline Phosphatase 69 U/L (39-117); Anion Gap 8 (12-20); Aspartate Amino Transferase 33 U/L (5-31); Blood Urea Nitrogen 14 mg/dL (9-16); Calcium 8.5 mg/dL (8.4-10.2); Carbon Dioxide 25 mmol/L (22-29); Chloride 111 mmol/L (96-108); Creatinine Clr Calc Pharmacy 93.8; Estimated Glomerular Filt Rate > 60; Potassium 3.8 mmol/L (3.3-5.1); Sodium 140 mmol/L (135-145); Total Protein 6.6 g/dL (6.5-8.0)
[2025-06-04 16:45] VITALS: BP 104/69; PULSE 110; RESP 18; TEMP 36.7; O2SAT 98
[2025-06-04 20:08] VITALS: BP 95/58; PULSE 105; RESP 16; TEMP 36.2; O2SAT 100
[2025-06-04 22:36] VITALS: PULSE 98
--- NOTE | 2025-06-05 07:42 | P.PNPSI_ITS ---
Subjective Subjective Date of Service: 06/05/25 Reason For Visit: Psych Subjective Notes: Section 7 Interim History: interview with telephone forest law and policy professor #[id number]. No management issues. Adherent with Prolixin and lithium. Slept through the night. Is eating and drinking. In bed and guarded. May be internally preoccupied. The only thing she stated during interview with forest law and policy professor services when asked very directly and concretely did she have any questions as she had not responded to things stated or aspirin prior to that was, no questions, thank you Medication Compliance: Yes Side effects from medications: No Attending Groups: No Review of Systems Acute medical concerns: No Review of Systems Review of Systems nothing noted Mental Status Exam Mental Status Exam Narrative: in bed. Wearing hospital clothing. Self-care okay. Very guarded. Did appear internally preoccupied. Overall did not engage in interview with forest law and policy professor services assistance by audio/Lan. Diagnostics Vital Signs (24Hr): Vital Signs - 24 hr 06/04/25 10:39 06/04/25 16:45 06/04/25 20:08 Temperature 98.1 F 98.1 F 97.1 F Pulse Rate 110 H 110 H 105 H Respiratory Rate 18 18 16 Blood Pressure 94/50 L 104/69 95/58 L Pulse Oximetry 98 98 100 Oxygen Delivery Method Room Air Room Air Room Air 06/04/25 22:36 Temperature Pulse Rate 98 Respiratory Rate Blood Pressure Pulse Oximetry Oxygen Delivery Method BMI result Body Mass Index 26.4 Labs 06/04/25 13:39 06/04/25 13:39 Labs: Laboratory Results - last 48 hr 06/04/25 13:39 WBC 6.7 RBC 3.53 L Hgb 10.7 L Hct 32.3 L MCV 91.5 MCH 30.3 MCHC 33.1 RDW 15.0 Plt Count 195 D MPV 10.6 Immature Gran % (Auto) 0.4 Neut % (Auto) 52.7 Lymph % (Auto) 31.9 [place] % (Auto) 10.2 Eos % (Auto) 3.6 Baso % (Auto) 1.2 Lymph # (Auto) 2.1 [place] # (Auto) 0.7 Eos # (Auto) 0.2 Baso # (Auto) 0.1 Abs Immat Gran (auto) 0.03 Absolute Neuts (auto) 3.5 Absolute Nucleated RBC 0.000 Nucleated RBC % (auto) 0.0 Sodium 140 Potassium 3.8 Chloride 111 H Carbon Dioxide 25 Anion Gap 8 L BUN 14 Creatinine 0.76 Estim Creat Clear Calc 93.8 Estimated GFR > 60 Random Glucose 106 Lactic Acid 1.2 Calcium 8.5 D Total Bilirubin 0.2 AST 33 H ALT 32 H Alkaline Phosphatase 69 Total Creatine Kinase 162 H Total Protein 6.6 Albumin 3.4 L [place] 0.31 L Medications Medications Current Medications Acetaminophen (Acetaminophen 325 Mg Tablet) 650 mg PO Q6H PRN PRN Reason: Headache/Pain, Scale 1-10 Last Admin: 06/04/25 12:12 Dose: 650 mg Al Hydroxide/Mg Hydroxide (Magnesium Hydrox/Alum Hydrox 30 Ml Oral.Susp) 30 ml PO Q6H PRN PRN Reason: Heartburn/Nausea Benztropine Mesylate (Benztropine Mesylate 1 Mg Tablet) 1 mg PO BID [facility] Last Admin: 06/04/25 20:00 Dose: 1 mg Fluphenazine HCl (Fluphenazine Hcl 2.5 Mg Tablet) 7.5 mg PO BID [facility] Last Admin: 06/04/25 20:00 Dose: 7.5 mg [place] Carbonate ([place] Carbonate 300 Mg Capsule) 300 mg PO BID [facility] Last Admin: 06/04/25 20:00 Dose: 300 mg Lorazepam (Lorazepam 0.5 Mg Tablet) 0.5 mg PO TID [facility] Last Admin: 06/04/25 20:00 Dose: 0.5 mg Magnesium Hydroxide (Milk Of Magnesia 30 Ml Oral.Susp) 30 ml PO DAILY PRN PRN Reason: Constipation Olanzapine (Olanzapine Odt 10 Mg Tab.Rapdis) 10 mg TRANSLINGU Q5H PRN PRN Reason: agitation Last Admin: 06/03/25 00:44 Dose: 10 mg Trazodone HCl (Trazodone Hcl 50 Mg Tablet) 50 mg PO BEDTIME MRX1 PRN PRN Reason: Insomnia Last Admin: 05/30/25 22:55 Dose: 50 mg Valproic Acid (Valproic Acid Liquid 250 Mg/5 Ml Solution) 375 mg PO BID [facility] Last Admin: 06/04/25 19:59 Dose: 375 mg Allergies Allergies Allergy/AdvReac Type Severity Reaction Status Date / Time No Known Allergies Allergy Verified 05/02/25 17:30 Assessment & Plan Assessment & Plan (1) Schizoaffective disorder: Status: Inactive Code(s): F25.9 - Schizoaffective disorder, unspecified Plan Mrs. Mills is a 44 year-old woman with hx of schizoaffective disorder who has an unusual presentation in that she has very impaired attention, what seemed to be purposeless and disorganized behaviors, delayed response, derailed thought process suggesting a delirious presentation. Medical work up has been comprehensive and has ruled out an infection nature with negative CSF meningitis panel, no overt electrolyte, nor renal nor liver abnormality. Per usual presentation when decompensated is similar to her current presentation. 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 Note that PAPI is negative to rule out rheumatological condition causing psychosis and disorganized behavior. No leukocytosis nor afebrile. Discussed risks, benefits and alternative treatment options with , will lowered haldol to 10mg po BID- currently does not present with EPS but question additional therapeutic benefit with such high dose. Will also lowered depakote as although ammonia is wnl can contribute to encephalopathy (will monitor worsening of condition). Will add ativan r/o excitatory catatonia as presenting s/s of decompensated mental illness. PLAN 05/28 lower depakote to 125mg po BID, may try increasing ativan and seeing if it has some effect of what may be excitatory catatonia. Continue haldol 10mg po BID. cogentin 0.5mg po BID. Lamictal had been started in ICU currently on 50mg po BID, will continue it for now. 05/29: continue current management and treatment plan. 05/30: Increase Depakote to 250 mg BID. 05/31: Increase Depakote to 375 mg BID. 06/01 increase haldol 10mg TID, increase ativan to 1mg po TID. monitor oversedation, EPS. consider switching depakote to lithium. 06/02 continue current medications. 06/03 continue tx. 06/05/2025: Continue current regimen- Adherent with Prolixin Reason for continued inpatient stay Substantial Risk for: inability to function Time Spent With Patient Time: Total time managing care of this patient today ____ minutes.
[2025-06-05 08:00] VITALS: BP 120/63; PULSE 90; RESP 14; TEMP 36.6; O2SAT 98
[2025-06-05 20:00] VITALS: BP 109/55; PULSE 98; RESP 16; TEMP 36.7; O2SAT 97
[2025-06-06 08:00] VITALS: BP 119/71; PULSE 84
--- NOTE | 2025-06-06 11:27 | HO.PSYCHPN ---
Subjective Subjective Date of Service: 06/06/25 Reason For Visit: Psych Interim History: interview with video lang interpreter # [id number]. No management issues. Adherent with Prolixin and lithium. will change Depakote to Sprinkles to facilitate adherence. Reports feeling fine. Reported she slept well. Minimal engagement and when asked directly around feeling paranoid, suspicious or hallucinating, denied same . Sleeping okay. Is eating and drinking. Is guarded and likely internally preoccupied. Medication Compliance: Yes Side effects from medications: No Attending Groups: No Review of Systems Review of Systems nothing noted Mental Status Exam Mental Status Exam Narrative: in bed. Wearing hospital clothing. Self-care okay. Very guarded. Did appear internally preoccupied. denied feeling depressed. No SI, HI expressed. Denied paranoia or psychosis. Insight and judgment does appear limited Diagnostics Vital Signs (24Hr): Vital Signs - 24 hr 06/05/25 20:00 06/06/25 08:00 Temperature 98.1 F Pulse Rate 98 84 Respiratory Rate 16 Blood Pressure 109/55 L 119/71 Pulse Oximetry 97 Oxygen Delivery Method Room Air BMI result Body Mass Index 26.4 Labs 06/04/25 13:39 06/04/25 13:39 Labs: Laboratory Results - last 48 hr 06/04/25 13:39 WBC 6.7 RBC 3.53 L Hgb 10.7 L Hct 32.3 L MCV 91.5 MCH 30.3 MCHC 33.1 RDW 15.0 Plt Count 195 D MPV 10.6 Immature Gran % (Auto) 0.4 Neut % (Auto) 52.7 Lymph % (Auto) 31.9 [place] % (Auto) 10.2 Eos % (Auto) 3.6 Baso % (Auto) 1.2 Lymph # (Auto) 2.1 [place] # (Auto) 0.7 Eos # (Auto) 0.2 Baso # (Auto) 0.1 Abs Immat Gran (auto) 0.03 Absolute Neuts (auto) 3.5 Absolute Nucleated RBC 0.000 Nucleated RBC % (auto) 0.0 Sodium 140 Potassium 3.8 Chloride 111 H Carbon Dioxide 25 Anion Gap 8 L BUN 14 Creatinine 0.76 Estim Creat Clear Calc 93.8 Estimated GFR > 60 Random Glucose 106 Lactic Acid 1.2 Calcium 8.5 D Total Bilirubin 0.2 AST 33 H ALT 32 H Alkaline Phosphatase 69 Total Creatine Kinase 162 H Total Protein 6.6 Albumin 3.4 L [place] 0.31 L Medications Medications Current Medications Acetaminophen (Acetaminophen 325 Mg Tablet) 650 mg PO Q6H PRN PRN Reason: Headache/Pain, Scale 1-10 Last Admin: 06/04/25 12:12 Dose: 650 mg Al Hydroxide/Mg Hydroxide (Magnesium Hydrox/Alum Hydrox 30 Ml Oral.Susp) 30 ml PO Q6H PRN PRN Reason: Heartburn/Nausea Benztropine Mesylate (Benztropine Mesylate 1 Mg Tablet) 1 mg PO BID [facility] Last Admin: 06/06/25 08:45 Dose: 1 mg Fluphenazine HCl (Fluphenazine Hcl 2.5 Mg Tablet) 7.5 mg PO BID [facility] Last Admin: 06/06/25 08:45 Dose: 7.5 mg [place] Carbonate ([place] Carbonate 300 Mg Capsule) 300 mg PO BID [facility] Last Admin: 06/06/25 08:45 Dose: 300 mg Lorazepam (Lorazepam 0.5 Mg Tablet) 0.5 mg PO TID [facility] Last Admin: 06/06/25 08:45 Dose: 0.5 mg Magnesium Hydroxide (Milk Of Magnesia 30 Ml Oral.Susp) 30 ml PO DAILY PRN PRN Reason: Constipation Olanzapine (Olanzapine Odt 10 Mg Tab.Rapdis) 10 mg TRANSLINGU Q5H PRN PRN Reason: agitation Last Admin: 06/03/25 00:44 Dose: 10 mg Trazodone HCl (Trazodone Hcl 50 Mg Tablet) 50 mg PO BEDTIME MRX1 PRN PRN Reason: Insomnia Last Admin: 05/30/25 22:55 Dose: 50 mg Valproic Acid (Valproic Acid Liquid 250 Mg/5 Ml Solution) 375 mg PO BID [facility] Last Admin: 06/06/25 11:15 Dose: Not Given Allergies Allergies Allergy/AdvReac Type Severity Reaction Status Date / Time No Known Allergies Allergy Verified 05/02/25 17:30 Assessment & Plan Assessment & Plan (1) Schizoaffective disorder: Status: Inactive Code(s): F25.9 - Schizoaffective disorder, unspecified Plan Mrs. Mills is a 44 year-old woman with hx of schizoaffective disorder who has an unusual presentation in that she has very impaired attention, what seemed to be purposeless and disorganized behaviors, delayed response, derailed thought process suggesting a delirious presentation. Medical work up has been comprehensive and has ruled out an infection nature with negative CSF meningitis panel, no overt electrolyte, nor renal nor liver abnormality. Per usual presentation when decompensated is similar to her current presentation. 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 Note that PAPI is negative to rule out rheumatological condition causing psychosis and disorganized behavior. No leukocytosis nor afebrile. Discussed risks, benefits and alternative treatment options with , will lowered haldol to 10mg po BID- currently does not present with EPS but question additional therapeutic benefit with such high dose. Will also lowered depakote as although ammonia is wnl can contribute to encephalopathy (will monitor worsening of condition). Will add ativan r/o excitatory catatonia as presenting s/s of decompensated mental illness. PLAN 05/28 lower depakote to 125mg po BID, may try increasing ativan and seeing if it has some effect of what may be excitatory catatonia. Continue haldol 10mg po BID. cogentin 0.5mg po BID. Lamictal had been started in ICU currently on 50mg po BID, will continue it for now. 05/29: continue current management and treatment plan. 05/30: Increase Depakote to 250 mg BID. 05/31: Increase Depakote to 375 mg BID. 06/01 increase haldol 10mg TID, increase ativan to 1mg po TID. monitor oversedation, EPS. consider switching depakote to lithium. 06/02 continue current medications. 06/03 continue tx. 06/05/2025: Continue current regimen- Adherent with Prolixin 06/06/2025: No changes to current regimen. Will change Depakote to Sprinkles to facilitate adherence Reason for continued inpatient stay Substantial Risk for: inability to function Time Spent With Patient Time: Total time managing care of this patient today ____ minutes.
[2025-06-06 20:00] VITALS: BP 122/78; PULSE 108; RESP 18; TEMP 36.5; O2SAT 98
--- NOTE | 2025-06-07 07:49 | P.PNPSI_ITS ---
Subjective Subjective Date of Service: 06/07/25 Reason For Visit: Psych Subjective Notes: Conditional Voluntary Interim History: Pt slept through the night. Pt interview with shoe stitcher ID [id number]. Pt reports she is sleeping better with medications. She denies paranoid ideas that she had reported last week such as thinking 3 men were after her and that food was poisoned. She reports she does not remember reporting that. She reports she feels safe here. She reports feeling tired and having muscle aches- which she reports having for some weeks. it's generalized. She denies SI/HI. She reports less dizziness. She was observed walking on her own, more steady. She reports she does not want medications crushed because they are bitter. Mental Status Exam Mental Status Exam Narrative: Appearance: wearing hospital gown, fair hygiene, in NAD Behavior: restless, very poor attention Psychomotor: restless, sitting, standing, grabbing things from the floor that are not there, grabbing this policy writer typist's hand Speech: (through interpreters interpretation) seems mostly clear, delayed responses at times, spontaneous, but minimally TP: much more coherent and linear TC: feeling tired Mood: feeling better Affect: congruent SI: denies HI: denies VH/AH: less internally preoccupied Delusions: guarded, but no overt paranoid ideas. Insight/judgment: impaired x 2. Memory/cog: alert, not oriented to place, month, situation. unable to provide coherent information about events leading to this admission. Diagnostics Vital Signs (24Hr): Vital Signs - 24 hr 06/06/25 08:00 06/06/25 20:00 Temperature 97.7 F Pulse Rate 84 108 H Respiratory Rate 18 Blood Pressure 119/71 122/78 Pulse Oximetry 98 Oxygen Delivery Method Room Air BMI result Body Mass Index 26.4 Labs 06/04/25 13:39 06/04/25 13:39 Medications Medications Current Medications Acetaminophen (Acetaminophen 325 Mg Tablet) 650 mg PO Q6H PRN PRN Reason: Headache/Pain, Scale 1-10 Last Admin: 06/04/25 12:12 Dose: 650 mg Al Hydroxide/Mg Hydroxide (Magnesium Hydrox/Alum Hydrox 30 Ml Oral.Susp) 30 ml PO Q6H PRN PRN Reason: Heartburn/Nausea Benztropine Mesylate (Benztropine Mesylate 1 Mg Tablet) 1 mg PO BID [facility] Last Admin: 06/06/25 22:12 Dose: Not Given Divalproex Sodium (Divalproex Sodium Sprinkles 125 Mg ) 375 mg PO BID [facility] Last Admin: 06/06/25 22:13 Dose: Not Given Fluphenazine HCl (Fluphenazine Hcl 2.5 Mg Tablet) 7.5 mg PO BID [facility] Last Admin: 06/06/25 22:13 Dose: Not Given [place] Carbonate ([place] Carbonate 300 Mg Capsule) 300 mg PO BID [facility] Last Admin: 06/06/25 22:13 Dose: Not Given Lorazepam (Lorazepam 0.5 Mg Tablet) 0.5 mg PO TID [facility] Last Admin: 06/06/25 22:14 Dose: Not Given Magnesium Hydroxide (Milk Of Magnesia 30 Ml Oral.Susp) 30 ml PO DAILY PRN PRN Reason: Constipation Olanzapine (Olanzapine Odt 10 Mg Tab.Rapdis) 10 mg TRANSLINGU Q5H PRN PRN Reason: agitation Last Admin: 06/03/25 00:44 Dose: 10 mg Trazodone HCl (Trazodone Hcl 50 Mg Tablet) 50 mg PO BEDTIME MRX1 PRN PRN Reason: Insomnia Last Admin: 05/30/25 22:55 Dose: 50 mg Allergies Allergies Allergy/AdvReac Type Severity Reaction Status Date / Time No Known Allergies Allergy Verified 05/02/25 17:30 Assessment & Plan Assessment & Plan (1) Schizoaffective disorder: Status: Inactive Code(s): F25.9 - Schizoaffective disorder, unspecified Plan Mrs. Mills is a 44 year-old woman with hx of schizoaffective disorder who has an unusual presentation in that she has very impaired attention, what seemed to be purposeless and disorganized behaviors, delayed response, derailed thought process suggesting a delirious presentation. Medical work up has been comprehensive and has ruled out an infection nature with negative CSF meningitis panel, no overt electrolyte, nor renal nor liver abnormality. Per usual presentation when decompensated is similar to her current presentation. 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 Note that PAPI is negative to rule out rheumatological condition causing psychosis and disorganized behavior. No leukocytosis nor afebrile. Discussed risks, benefits and alternative treatment options with , will lowered haldol to 10mg po BID- currently does not present with EPS but question additional therapeutic benefit with such high dose. Will also lowered depakote as although ammonia is wnl can contribute to encephalopathy (will monitor worsening of condition). Will add ativan r/o excitatory catatonia as presenting s/s of decompensated mental illness. PLAN 05/28 lower depakote to 125mg po BID, may try increasing ativan and seeing if it has some effect of what may be excitatory catatonia. Continue haldol 10mg po BID. cogentin 0.5mg po BID. Lamictal had been started in ICU currently on 50mg po BID, will continue it for now. 05/29: continue current management and treatment plan. 05/30: Increase Depakote to 250 mg BID. 05/31: Increase Depakote to 375 mg BID. 06/01 increase haldol 10mg TID, increase ativan to 1mg po TID. monitor oversedation, EPS. consider switching depakote to lithium. 06/02 continue current medications. 06/03 continue tx. 06/04 change haldol to prolixin given perioral dyskinesia- both high potency but hoping prolixin less than haldol. may consider next week switching gradually to clozapine all together. 06/07 much improved in terms of TP more organized and logical, less paranoid delusions. She is taking medications prescribed- except for over the weekend once. She reports when meds are crushed they are bitter. Reason for continued inpatient stay Substantial Risk for: inability to function Time Spent With Patient Time: Total time managing care of this patient today ____ minutes.
[2025-06-07 08:15] VITALS: BP 115/77; PULSE 99; RESP 17; TEMP 35.7; O2SAT 98
[2025-06-07] MEDS: Divalproex Sodium Sprinkles 125 MG CAP.DR.SPR 375 MG PO (09:00)
[2025-06-07 20:00] VITALS: BP 124/74; PULSE 89; RESP 16; TEMP 36.6; O2SAT 99
[2025-06-08 08:35] VITALS: BP 113/67; PULSE 117; RESP 18; TEMP 36.4; O2SAT 99
--- NOTE | 2025-06-08 18:17 | HO.PSYCHPN ---
Subjective Subjective Date of Service: 06/08/25 Reason For Visit: Psych Subjective Notes: Section 7 Interim History: Pt slept through the night. Pt seen with medical interpreter over irene. Pt reports she is sleeping well with medications. She reports feeling less dizzy when she walks. She does report feeling tired and some muscle aches which she reports have been going on for sometime. Afebrile, no respiratory symptoms. discussed changing medication to one that has less side effect in terms of involuntary perioral movement. She denied SI/HI. No overt paranoid delusions reported and denies that she reported these last week. She is taking medications as prescribed. Diagnostics Vital Signs (24Hr): Vital Signs - 24 hr 06/07/25 20:00 06/08/25 08:35 Temperature 98 F 97.5 F Pulse Rate 89 117 H Respiratory Rate 16 18 Blood Pressure 124/74 113/67 Pulse Oximetry 99 99 Oxygen Delivery Method Room Air Room Air BMI result Body Mass Index 26.4 Labs 06/04/25 13:39 06/04/25 13:39 Medications Medications Current Medications Acetaminophen (Acetaminophen 325 Mg Tablet) 650 mg PO Q6H PRN PRN Reason: Headache/Pain, Scale 1-10 Last Admin: 06/08/25 11:16 Dose: 650 mg Al Hydroxide/Mg Hydroxide (Magnesium Hydrox/Alum Hydrox 30 Ml Oral.Susp) 30 ml PO Q6H PRN PRN Reason: Heartburn/Nausea Benztropine Mesylate (Benztropine Mesylate 0.5 Mg Tablet) 0.5 mg PO BID [facility] Last Admin: 06/08/25 09:06 Dose: 0.5 mg Clozapine (Clozapine 25 Mg Tablet) 50 mg PO BEDTIME [facility] Divalproex Sodium (Divalproex Sodium 250 Mg Tablet.Dr) 250 mg PO DAILY [facility] Fluphenazine HCl (Fluphenazine Hcl 5 Mg Tablet) 5 mg PO BID [facility] Last Admin: 06/08/25 09:05 Dose: 5 mg [place] Carbonate ([place] Carbonate 300 Mg Capsule) 300 mg PO BID [facility] Last Admin: 06/08/25 09:05 Dose: 300 mg Lorazepam (Lorazepam 0.5 Mg Tablet) 0.5 mg PO BID [facility] Magnesium Hydroxide (Milk Of Magnesia 30 Ml Oral.Susp) 30 ml PO DAILY PRN PRN Reason: Constipation Olanzapine (Olanzapine Odt 10 Mg Tab.Rapdis) 10 mg TRANSLINGU Q5H PRN PRN Reason: agitation Last Admin: 06/03/25 00:44 Dose: 10 mg Trazodone HCl (Trazodone Hcl 50 Mg Tablet) 50 mg PO BEDTIME MRX1 PRN PRN Reason: Insomnia Last Admin: 05/30/25 22:55 Dose: 50 mg Allergies Allergies Allergy/AdvReac Type Severity Reaction Status Date / Time No Known Allergies Allergy Verified 05/02/25 17:30 Assessment & Plan Assessment & Plan (1) Schizoaffective disorder: Status: Inactive Code(s): F25.9 - Schizoaffective disorder, unspecified Plan Mrs. Mills is a 44 year-old woman with hx of schizoaffective disorder who has an unusual presentation in that she has very impaired attention, what seemed to be purposeless and disorganized behaviors, delayed response, derailed thought process suggesting a delirious presentation. Medical work up has been comprehensive and has ruled out an infection nature with negative CSF meningitis panel, no overt electrolyte, nor renal nor liver abnormality. Per usual presentation when decompensated is similar to her current presentation. 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 Note that PAPI is negative to rule out rheumatological condition causing psychosis and disorganized behavior. No leukocytosis nor afebrile. Discussed risks, benefits and alternative treatment options with , will lowered haldol to 10mg po BID- currently does not present with EPS but question additional therapeutic benefit with such high dose. Will also lowered depakote as although ammonia is wnl can contribute to encephalopathy (will monitor worsening of condition). Will add ativan r/o excitatory catatonia as presenting s/s of decompensated mental illness. PLAN 05/28 lower depakote to 125mg po BID, may try increasing ativan and seeing if it has some effect of what may be excitatory catatonia. Continue haldol 10mg po BID. cogentin 0.5mg po BID. Lamictal had been started in ICU currently on 50mg po BID, will continue it for now. 05/29: continue current management and treatment plan. 05/30: Increase Depakote to 250 mg BID. 05/31: Increase Depakote to 375 mg BID. 06/01 increase haldol 10mg TID, increase ativan to 1mg po TID. monitor oversedation, EPS. consider switching depakote to lithium. 06/02 continue current medications. 06/03 continue tx. 06/04 change haldol to prolixin given perioral dyskinesia- both high potency but hoping prolixin less than haldol. may consider next week switching gradually to clozapine all together. 06/07 much improved in terms of TP more organized and logical, less paranoid delusions. She is taking medications prescribed- except for over the weekend once. She reports when meds are crushed they are bitter. plan to switch to clozapine gradually titrate up. continue lithium. 06/08 increase clozapine to 50mg po qhs. Continue lithium 300mg po BID, lower depakote to 250mg po daily with plan to d/c tomorrow. lower ativan to 0.5mg po BID with plan to taper off. Reason for continued inpatient stay Substantial Risk for: inability to function Time Spent With Patient Time: Total time managing care of this patient today ____ minutes.
[2025-06-08 20:00] VITALS: BP 99/68; PULSE 107; RESP 17; TEMP 36.5; O2SAT 97
[2025-06-09 08:00] VITALS: BP 123/82
--- NOTE | 2025-06-09 10:58 | HO.PSYCHPN ---
Subjective Subjective Date of Service: 06/09/25 Reason For Visit: Psych Subjective Notes: Section 7 Interim History: Pt slept through the night. Pt seen with and agriculture extension specialist. Pt reports sleeping well. She denies any paranoid ideation but also limited insight as to how severe her presentation was when she first came to the hospital. She denies SI/HI. Her attention is much improved. Explained to both and patient that idea to switch from prolixin to clozapine is to decrease risk of developing TD as she is already showing perioral involuntary movements. They both agree with change and had noticed mouth movement. Plan is also for her to continue lithium but be off depakote and ativan. Review of Systems Review of Systems nothing noted Mental Status Exam Mental Status Exam Narrative: Appearance: wearing hospital gown, fair hygiene, in NAD Behavior: restless, very poor attention Psychomotor: restless, sitting, standing, grabbing things from the floor that are not there, grabbing this communications writer's hand Speech: (through interpreters interpretation) seems mostly clear, delayed responses at times, spontaneous, but minimally TP: much more coherent and linear TC: feeling tired Mood: feeling better Affect: congruent SI: denies HI: denies VH/AH: less internally preoccupied Delusions: guarded, but no overt paranoid ideas. Insight/judgment: impaired x 2. Memory/cog: alert, not oriented to place, month, situation. unable to provide coherent information about events leading to this admission. Diagnostics Vital Signs (24Hr): Vital Signs - 24 hr 06/08/25 20:00 Temperature 97.7 F Pulse Rate 107 H Respiratory Rate 17 Blood Pressure 99/68 Pulse Oximetry 97 Oxygen Delivery Method Room Air BMI result Body Mass Index 26.4 Labs 06/04/25 13:39 06/04/25 13:39 Medications Medications Current Medications Acetaminophen (Acetaminophen 325 Mg Tablet) 650 mg PO Q6H PRN PRN Reason: Headache/Pain, Scale 1-10 Last Admin: 06/08/25 11:16 Dose: 650 mg Al Hydroxide/Mg Hydroxide (Magnesium Hydrox/Alum Hydrox 30 Ml Oral.Susp) 30 ml PO Q6H PRN PRN Reason: Heartburn/Nausea Benztropine Mesylate (Benztropine Mesylate 0.5 Mg Tablet) 0.5 mg PO BID [facility] Last Admin: 06/09/25 09:20 Dose: 0.5 mg Clozapine (Clozapine 25 Mg Tablet) 75 mg PO BEDTIME [facility] Fluphenazine HCl (Fluphenazine Hcl 5 Mg Tablet) 5 mg PO BID [facility] Last Admin: 06/09/25 09:20 Dose: 5 mg [place] Carbonate ([place] Carbonate 300 Mg Capsule) 300 mg PO BID [facility] Last Admin: 06/09/25 09:20 Dose: 300 mg Lorazepam (Lorazepam 0.5 Mg Tablet) 0.5 mg PO BID [facility] Last Admin: 06/09/25 09:20 Dose: 0.5 mg Magnesium Hydroxide (Milk Of Magnesia 30 Ml Oral.Susp) 30 ml PO DAILY PRN PRN Reason: Constipation Olanzapine (Olanzapine Odt 10 Mg Tab.Rapdis) 10 mg TRANSLINGU Q5H PRN PRN Reason: agitation Last Admin: 06/03/25 00:44 Dose: 10 mg Trazodone HCl (Trazodone Hcl 50 Mg Tablet) 50 mg PO BEDTIME MRX1 PRN PRN Reason: Insomnia Last Admin: 05/30/25 22:55 Dose: 50 mg Allergies Allergies Allergy/AdvReac Type Severity Reaction Status Date / Time No Known Allergies Allergy Verified 05/02/25 17:30 Assessment & Plan Assessment & Plan (1) Schizoaffective disorder: Status: Inactive Code(s): F25.9 - Schizoaffective disorder, unspecified Plan Mrs. Mills is a 44 year-old woman with hx of schizoaffective disorder who has an unusual presentation in that she has very impaired attention, what seemed to be purposeless and disorganized behaviors, delayed response, derailed thought process suggesting a delirious presentation. Medical work up has been comprehensive and has ruled out an infection nature with negative CSF meningitis panel, no overt electrolyte, nor renal nor liver abnormality. Per usual presentation when decompensated is similar to her current presentation. 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 Note that PAPI is negative to rule out rheumatological condition causing psychosis and disorganized behavior. No leukocytosis nor afebrile. Discussed risks, benefits and alternative treatment options with , will lowered haldol to 10mg po BID- currently does not present with EPS but question additional therapeutic benefit with such high dose. Will also lowered depakote as although ammonia is wnl can contribute to encephalopathy (will monitor worsening of condition). Will add ativan r/o excitatory catatonia as presenting s/s of decompensated mental illness. PLAN 05/28 lower depakote to 125mg po BID, may try increasing ativan and seeing if it has some effect of what may be excitatory catatonia. Continue haldol 10mg po BID. cogentin 0.5mg po BID. Lamictal had been started in ICU currently on 50mg po BID, will continue it for now. 05/29: continue current management and treatment plan. 05/30: Increase Depakote to 250 mg BID. 05/31: Increase Depakote to 375 mg BID. 06/01 increase haldol 10mg TID, increase ativan to 1mg po TID. monitor oversedation, EPS. consider switching depakote to lithium. 06/02 continue current medications. 06/03 continue tx. 06/04 change haldol to prolixin given perioral dyskinesia- both high potency but hoping prolixin less than haldol. may consider next week switching gradually to clozapine all together. 06/07 much improved in terms of TP more organized and logical, less paranoid delusions. She is taking medications prescribed- except for over the weekend once. She reports when meds are crushed they are bitter. plan to switch to clozapine gradually titrate up. continue lithium. 06/08 increase clozapine to 50mg po qhs. Continue lithium 300mg po BID, lower depakote to 250mg po daily with plan to d/c tomorrow. lower ativan to 0.5mg po BID with plan to taper off. 06/09 increase clozapine to 75mg po qhs. continue prolixin 5mg po BID. Continue lithium 300mg po BID. Reason for continued inpatient stay Substantial Risk for: inability to function Time Spent With Patient Time: Total time managing care of this patient today ____ minutes.
[2025-06-09 20:00] VITALS: BP 105/60; PULSE 108; RESP 18; TEMP 36.7; O2SAT 97
[2025-06-10 08:00] VITALS: BP 124/75; PULSE 104; RESP 14; TEMP 36.3; O2SAT 99
[2025-06-10 08:24] VITALS: BMI 26.4
--- NOTE | 2025-06-10 13:29 | MHC.SL.SWA ---
Speech Pathologist Impression: Risk of Aspiration Due to: Dysphasia Diet Status: Advanced to Regular, with thin liquids, pills whole with liquid. Allow patient to elect preferred foods from this menu, with translation or picture based assistance. Liquid Consistency and Strategies for Safe Swallow: Liquid Intake Recommendation: Thin Liquid Intake Strategies: Small Sips Solid Food Consistency: Dietary Recommendations: Regular Additional Modifications to Solid Foods: Oral Medication Intake: Whole with Liquid Please contact the pharmacy regarding appropriate crushable or liquid drug formulations that are available whenever modified delivery is recommended. Compensatory Strategies and Precautions to be Taken for Safe Swallow: Sitting Upright (90 deg) Liquids from Cup Liquids from Straw Supervision While Eating and Drinking for Safe Swallow: None Needed Foods to Avoid: Swallowing Recommended Treatments: Recommendation for Speech: Comment: New swallow orders received this morning for patient, who had previously roly followed by [facility] ADVISER during inpatient stay as per above note. Per RN order secondary to staff wishing to advance patient's diet from Chopped/Advanced. which patient has now been stable on for prolonged period, to a regular diet. Patient was observed at lunch eating ice cream, which she was happily engaged in. Patient was very pleasant, smiled at therapist and nodded and was responding to gestures to assist with communication (patient speaks a [place] language only). Per RN patient has been eating well, had not had any behavioral concerns at meals (e.g. pocketing food). As swallowing concern has historically been primarily behavioral, w/o a motor/functional swallowing component, it is recommended that her diet be advanced to Regular, with thin liquids, pills whole with liquid. Allow patient to elect preferred foods from this menu, with translation or picture based assistance. COUNTY ADVISER adjusted diet in expanse. No further speech/swallow service indicated, COUNTY ADVISER will discharge order. Frequency/Duration: Date Range for Service Req: Timeline to reassess: Environmental Studies Professor Clinican/Clinical Fellow: No Supervisory Statement: I have reviewed and agree with the student/clinical fellow's documentation: N/A Speech Language Pathologist: Karlie Real M.A., CCC-[facility] ADVISER
--- NOTE | 2025-06-10 18:12 | HO.PSYCHPN ---
Subjective Subjective Date of Service: 06/10/25 Reason For Visit: Psych Subjective Notes: Section 7 Interim History: Pt seen again with maritime pilot and . Pt presents as calm, more organized when talking with her. She reports feeling better. She denies SI/HI. No overt psychosis or delusions. She denies dizziness. VS stable, on low side, no ortho hotn. Medication Compliance: Yes Review of Systems Review of Systems nothing noted Mental Status Exam Mental Status Exam Narrative: Appearance: wearing hospital gown, fair hygiene, in NAD Behavior: restless, very poor attention Psychomotor: restless, sitting, standing, grabbing things from the floor that are not there, grabbing this pattern chart writer's hand Speech: (through interpreters interpretation) seems mostly clear, delayed responses at times, spontaneous, but minimally TP: much more coherent and linear TC: feeling tired Mood: feeling better Affect: congruent SI: denies HI: denies VH/AH: less internally preoccupied Delusions: guarded, but no overt paranoid ideas. Insight/judgment: impaired x 2. Memory/cog: alert, not oriented to place, month, situation. unable to provide coherent information about events leading to this admission. Diagnostics Vital Signs (24Hr): Vital Signs - 24 hr 06/09/25 20:00 06/10/25 08:00 Temperature 98.1 F 97.3 F Pulse Rate 108 H 104 H Respiratory Rate 18 14 Blood Pressure 105/60 124/75 Pulse Oximetry 97 99 Oxygen Delivery Method Room Air BMI result Body Mass Index 26.4 Labs 06/04/25 13:39 06/04/25 13:39 Medications Medications Current Medications Acetaminophen (Acetaminophen 325 Mg Tablet) 650 mg PO Q6H PRN PRN Reason: Headache/Pain, Scale 1-10 Last Admin: 06/08/25 11:16 Dose: 650 mg Al Hydroxide/Mg Hydroxide (Magnesium Hydrox/Alum Hydrox 30 Ml Oral.Susp) 30 ml PO Q6H PRN PRN Reason: Heartburn/Nausea Clozapine (Clozapine 100 Mg Tablet) 100 mg PO BEDTIME [facility] Fluphenazine HCl (Fluphenazine Hcl 5 Mg Tablet) 5 mg PO BID [facility] Last Admin: 06/10/25 08:49 Dose: 5 mg [place] Carbonate ([place] Carbonate 300 Mg Capsule) 300 mg PO BID [facility] Last Admin: 06/10/25 08:49 Dose: 300 mg Lorazepam (Lorazepam 0.5 Mg Tablet) 0.5 mg PO BEDTIME [facility] Magnesium Hydroxide (Milk Of Magnesia 30 Ml Oral.Susp) 30 ml PO DAILY PRN PRN Reason: Constipation Olanzapine (Olanzapine Odt 10 Mg Tab.Rapdis) 10 mg TRANSLINGU Q5H PRN PRN Reason: agitation Last Admin: 06/03/25 00:44 Dose: 10 mg Trazodone HCl (Trazodone Hcl 50 Mg Tablet) 50 mg PO BEDTIME MRX1 PRN PRN Reason: Insomnia Last Admin: 05/30/25 22:55 Dose: 50 mg Allergies Allergies Allergy/AdvReac Type Severity Reaction Status Date / Time No Known Allergies Allergy Verified 05/02/25 17:30 Assessment & Plan Assessment & Plan (1) Schizoaffective disorder: Status: Inactive Code(s): F25.9 - Schizoaffective disorder, unspecified Plan Mrs. Mills is a 44 year-old woman with hx of schizoaffective disorder who has an unusual presentation in that she has very impaired attention, what seemed to be purposeless and disorganized behaviors, delayed response, derailed thought process suggesting a delirious presentation. Medical work up has been comprehensive and has ruled out an infection nature with negative CSF meningitis panel, no overt electrolyte, nor renal nor liver abnormality. Per usual presentation when decompensated is similar to her current presentation. 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 Note that PAPI is negative to rule out rheumatological condition causing psychosis and disorganized behavior. No leukocytosis nor afebrile. Discussed risks, benefits and alternative treatment options with , will lowered haldol to 10mg po BID- currently does not present with EPS but question additional therapeutic benefit with such high dose. Will also lowered depakote as although ammonia is wnl can contribute to encephalopathy (will monitor worsening of condition). Will add ativan r/o excitatory catatonia as presenting s/s of decompensated mental illness. PLAN 05/28 lower depakote to 125mg po BID, may try increasing ativan and seeing if it has some effect of what may be excitatory catatonia. Continue haldol 10mg po BID. cogentin 0.5mg po BID. Lamictal had been started in ICU currently on 50mg po BID, will continue it for now. 05/29: continue current management and treatment plan. 05/30: Increase Depakote to 250 mg BID. 05/31: Increase Depakote to 375 mg BID. 06/01 increase haldol 10mg TID, increase ativan to 1mg po TID. monitor oversedation, EPS. consider switching depakote to lithium. 06/02 continue current medications. 06/03 continue tx. 06/04 change haldol to prolixin given perioral dyskinesia- both high potency but hoping prolixin less than haldol. may consider next week switching gradually to clozapine all together. 06/07 much improved in terms of TP more organized and logical, less paranoid delusions. She is taking medications prescribed- except for over the weekend once. She reports when meds are crushed they are bitter. plan to switch to clozapine gradually titrate up. continue lithium. 06/08 increase clozapine to 50mg po qhs. Continue lithium 300mg po BID, lower depakote to 250mg po daily with plan to d/c tomorrow. lower ativan to 0.5mg po BID with plan to taper off. 06/09 increase clozapine to 75mg po qhs. continue prolixin 5mg po BID. Continue lithium 300mg po BID. 06/10 increase clozapine to 100mg po qhs. lower prolixin to 5mg po daily. continue lithium 300mg po BID. plan to do ANC on 06/14, lithium level Reason for continued inpatient stay Substantial Risk for: inability to function Time Spent With Patient Time: Total time managing care of this patient today ____ minutes.
[2025-06-10 20:00] VITALS: BP 137/77; PULSE 107; RESP 17; TEMP 36; O2SAT 99
[2025-06-11 08:00] VITALS: BP 132/86; PULSE 109; TEMP 36.6; O2SAT 99
[2025-06-11 10:12] LABS: Neut%MD 63.9 %; WBCANC 6.8 X10*3/uL
--- NOTE | 2025-06-11 16:42 | P.PNPSI_ITS ---
Subjective Subjective Date of Service: 06/11/25 Reason For Visit: Psych Interim History: Pt seen again with oscillograph technician and . Pt presents as calm, more organized when talking with her. She reports feeling better. She denies SI/HI. No overt psychosis or delusions. She denies dizziness. VS stable, on low side, no ortho hotn. Review of Systems Review of Systems nothing noted Mental Status Exam Mental Status Exam Narrative: Appearance: wearing hospital gown, fair hygiene, in NAD Behavior: restless, very poor attention Psychomotor: restless, sitting, standing, grabbing things from the floor that are not there, grabbing this administrative underwriter's hand Speech: (through interpreters interpretation) seems mostly clear, delayed responses at times, spontaneous, but minimally TP: much more coherent and linear TC: feeling tired Mood: feeling better Affect: congruent SI: denies HI: denies VH/AH: less internally preoccupied Delusions: guarded, but no overt paranoid ideas. Insight/judgment: impaired x 2. Memory/cog: alert, not oriented to place, month, situation. unable to provide coherent information about events leading to this admission. Diagnostics Vital Signs (24Hr): Vital Signs - 24 hr 06/10/25 20:00 06/11/25 08:00 Temperature 96.8 F 97.9 F Pulse Rate 107 H 109 H Respiratory Rate 17 Blood Pressure 137/77 132/86 Pulse Oximetry 99 99 Oxygen Delivery Method Room Air Room Air BMI result Body Mass Index 26.4 Labs 06/04/25 13:39 06/04/25 13:39 Labs: Laboratory Results - last 48 hr 06/11/25 09:56 Absolute Neuts (auto) 4.3 Medications Medications Current Medications Acetaminophen (Acetaminophen 325 Mg Tablet) 650 mg PO Q6H PRN PRN Reason: Headache/Pain, Scale 1-10 Last Admin: 06/08/25 11:16 Dose: 650 mg Al Hydroxide/Mg Hydroxide (Magnesium Hydrox/Alum Hydrox 30 Ml Oral.Susp) 30 ml PO Q6H PRN PRN Reason: Heartburn/Nausea Clozapine (Clozapine 100 Mg Tablet) 100 mg PO BEDTIME [facility] Last Admin: 06/10/25 21:06 Dose: 100 mg Fluphenazine HCl (Fluphenazine Hcl 5 Mg Tablet) 5 mg PO BID [facility] Last Admin: 06/11/25 09:26 Dose: 5 mg [place] Carbonate ([place] Carbonate 300 Mg Capsule) 300 mg PO BID [facility] Last Admin: 06/11/25 09:26 Dose: 300 mg Lorazepam (Lorazepam 0.5 Mg Tablet) 0.5 mg PO BEDTIME [facility] Last Admin: 06/10/25 21:06 Dose: 0.5 mg Magnesium Hydroxide (Milk Of Magnesia 30 Ml Oral.Susp) 30 ml PO DAILY PRN PRN Reason: Constipation Olanzapine (Olanzapine Odt 10 Mg Tab.Rapdis) 10 mg TRANSLINGU Q5H PRN PRN Reason: agitation Last Admin: 06/03/25 00:44 Dose: 10 mg Trazodone HCl (Trazodone Hcl 50 Mg Tablet) 50 mg PO BEDTIME MRX1 PRN PRN Reason: Insomnia Last Admin: 05/30/25 22:55 Dose: 50 mg Allergies Allergies Allergy/AdvReac Type Severity Reaction Status Date / Time No Known Allergies Allergy Verified 05/02/25 17:30 Assessment & Plan Assessment & Plan (1) Schizoaffective disorder: Status: Inactive Code(s): F25.9 - Schizoaffective disorder, unspecified Plan Mrs. Mills is a 44 year-old woman with hx of schizoaffective disorder who has an unusual presentation in that she has very impaired attention, what seemed to be purposeless and disorganized behaviors, delayed response, derailed thought process suggesting a delirious presentation. Medical work up has been comprehensive and has ruled out an infection nature with negative CSF meningitis panel, no overt electrolyte, nor renal nor liver abnormality. Per usual presentation when decompensated is similar to her current presentation. 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 Note that PAPI is negative to rule out rheumatological condition causing psychosis and disorganized behavior. No leukocytosis nor afebrile. Discussed risks, benefits and alternative treatment options with , will lowered haldol to 10mg po BID- currently does not present with EPS but question additional therapeutic benefit with such high dose. Will also lowered depakote as although ammonia is wnl can contribute to encephalopathy (will monitor worsening of condition). Will add ativan r/o excitatory catatonia as presenting s/s of decompensated mental illness. PLAN 05/28 lower depakote to 125mg po BID, may try increasing ativan and seeing if it has some effect of what may be excitatory catatonia. Continue haldol 10mg po BID. cogentin 0.5mg po BID. Lamictal had been started in ICU currently on 50mg po BID, will continue it for now. 05/29: continue current management and treatment plan. 05/30: Increase Depakote to 250 mg BID. 05/31: Increase Depakote to 375 mg BID. 06/01 increase haldol 10mg TID, increase ativan to 1mg po TID. monitor oversedation, EPS. consider switching depakote to lithium. 06/02 continue current medications. 06/03 continue tx. 06/04 change haldol to prolixin given perioral dyskinesia- both high potency but hoping prolixin less than haldol. may consider next week switching gradually to clozapine all together. 06/07 much improved in terms of TP more organized and logical, less paranoid delusions. She is taking medications prescribed- except for over the weekend once. She reports when meds are crushed they are bitter. plan to switch to clozapine gradually titrate up. continue lithium. 06/08 increase clozapine to 50mg po qhs. Continue lithium 300mg po BID, lower depakote to 250mg po daily with plan to d/c tomorrow. lower ativan to 0.5mg po BID with plan to taper off. 06/09 increase clozapine to 75mg po qhs. continue prolixin 5mg po BID. Continue lithium 300mg po BID. 06/10 increase clozapine to 100mg po qhs. lower prolixin to 5mg po daily. continue lithium 300mg po BID. plan to do ANC on 06/14, lithium level 06/11 increase clozapine 125mg po qhs, continue prolixin 5mg po daily. continue lithium 300mg po BID. Reason for continued inpatient stay Substantial Risk for: inability to function Time Spent With Patient Time: Total time managing care of this patient today ____ minutes.
[2025-06-11 20:00] VITALS: BP 133/85; PULSE 105; RESP 18; TEMP 36.7; O2SAT 97
[2025-06-12 08:00] VITALS: BP 140/88; PULSE 102; RESP 16; TEMP 36.8; O2SAT 99
[2025-06-12 20:00] VITALS: RESP 18
--- NOTE | 2025-06-12 23:44 | P.PNPSI_ITS ---
Subjective Subjective Date of Service: 06/12/25 Reason For Visit: Psych Subjective Notes: Section 7 Interim History: patient with Palestinian paraprofessional interpreter via video; She was calm, pleasant, cooperative with the encounter and gave brief responses to questions. She described her mood as good. She said that she slept well and has a good appetite. She denies SI/HI/AVH. She stated that she came to the hospital because she was sick, and struggled to elaborate beyond this. She was oriented to being in the hospital only. She did not concerns about her care at this time. She states that she's looking forward to live in the hospital. Medication Compliance: Yes Side effects from medications: No Review of Systems Acute medical concerns: No Medical Review of Systems: unchanged Review of Systems Review of Systems Yes all other systems are reviewed and are negative Mental Status Exam Mental Status Exam Narrative: Appearance: wearing hospital gown, fair hygiene, in NAD Behavior: restless, very poor attention Psychomotor: restless, sitting, standing, grabbing things from the floor that are not there, grabbing this medical technical writer's hand Speech: (through interpreters interpretation) seems mostly clear, delayed responses at times, spontaneous, but minimally TP: much more coherent and linear TC: feeling tired Mood: feeling better Affect: congruent SI: denies HI: denies VH/AH: less internally preoccupied Delusions: guarded, but no overt paranoid ideas. Insight/judgment: impaired x 2. Memory/cog: alert, not oriented to place, month, situation. unable to provide coherent information about events leading to this admission. Diagnostics Vital Signs (24Hr): Vital Signs - 24 hr 06/12/25 08:00 06/12/25 20:00 Temperature 98.2 F Pulse Rate 102 H Respiratory Rate 16 18 Blood Pressure 140/88 H Pulse Oximetry 99 Oxygen Delivery Method Room Air BMI result Body Mass Index 26.4 Labs 06/04/25 13:39 06/04/25 13:39 Labs: Laboratory Results - last 48 hr 06/11/25 09:56 Absolute Neuts (auto) 4.3 Medications Medications Current Medications Acetaminophen (Acetaminophen 325 Mg Tablet) 650 mg PO Q6H PRN PRN Reason: Headache/Pain, Scale 1-10 Last Admin: 06/12/25 11:28 Dose: 650 mg Al Hydroxide/Mg Hydroxide (Magnesium Hydrox/Alum Hydrox 30 Ml Oral.Susp) 30 ml PO Q6H PRN PRN Reason: Heartburn/Nausea Clozapine (Clozapine 25 Mg Tablet) 125 mg PO BEDTIME [facility] Last Admin: 06/12/25 20:58 Dose: 125 mg Fluphenazine HCl (Fluphenazine Hcl 5 Mg Tablet) 5 mg PO DAILY [facility] Last Admin: 06/12/25 11:25 Dose: 5 mg [place] Carbonate ([place] Carbonate 300 Mg Capsule) 300 mg PO BID [facility] Last Admin: 06/12/25 20:59 Dose: 300 mg Lorazepam (Lorazepam 0.5 Mg Tablet) 0.5 mg PO BEDTIME PRN PRN Reason: sleep Magnesium Hydroxide (Milk Of Magnesia 30 Ml Oral.Susp) 30 ml PO DAILY PRN PRN Reason: Constipation Olanzapine (Olanzapine Odt 10 Mg Tab.Rapdis) 10 mg TRANSLINGU Q5H PRN PRN Reason: agitation Last Admin: 06/03/25 00:44 Dose: 10 mg Trazodone HCl (Trazodone Hcl 50 Mg Tablet) 50 mg PO BEDTIME MRX1 PRN PRN Reason: Insomnia Last Admin: 05/30/25 22:55 Dose: 50 mg Allergies Allergies Allergy/AdvReac Type Severity Reaction Status Date / Time No Known Allergies Allergy Verified 05/02/25 17:30 Assessment & Plan Assessment & Plan (1) Schizoaffective disorder: Status: Inactive Code(s): F25.9 - Schizoaffective disorder, unspecified Plan Mrs. Mills is a 44 year-old woman with hx of schizoaffective disorder who has an unusual presentation in that she has very impaired attention, what seemed to be purposeless and disorganized behaviors, delayed response, derailed thought process suggesting a delirious presentation. Medical work up has been comprehensive and has ruled out an infection nature with negative CSF meningitis panel, no overt electrolyte, nor renal nor liver abnormality. Per usual presentation when decompensated is similar to her current presentation. 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 Note that PAPI is negative to rule out rheumatological condition causing psychosis and disorganized behavior. No leukocytosis nor afebrile. Discussed risks, benefits and alternative treatment options with , will lowered haldol to 10mg po BID- currently does not present with EPS but question additional therapeutic benefit with such high dose. Will also lowered depakote as although ammonia is wnl can contribute to encephalopathy (will monitor worsening of condition). Will add ativan r/o excitatory catatonia as presenting s/s of decompensated mental illness. PLAN 05/28 lower depakote to 125mg po BID, may try increasing ativan and seeing if it has some effect of what may be excitatory catatonia. Continue haldol 10mg po BID. cogentin 0.5mg po BID. Lamictal had been started in ICU currently on 50mg po BID, will continue it for now. 05/29: continue current management and treatment plan. 05/30: Increase Depakote to 250 mg BID. 05/31: Increase Depakote to 375 mg BID. 06/01 increase haldol 10mg TID, increase ativan to 1mg po TID. monitor oversedation, EPS. consider switching depakote to lithium. 06/02 continue current medications. 06/03 continue tx. 06/04 change haldol to prolixin given perioral dyskinesia- both high potency but hoping prolixin less than haldol. may consider next week switching gradually to clozapine all together. 06/07 much improved in terms of TP more organized and logical, less paranoid delusions. She is taking medications prescribed- except for over the weekend once. She reports when meds are crushed they are bitter. plan to switch to clozapine gradually titrate up. continue lithium. 06/08 increase clozapine to 50mg po qhs. Continue lithium 300mg po BID, lower depakote to 250mg po daily with plan to d/c tomorrow. lower ativan to 0.5mg po BID with plan to taper off. 06/09 increase clozapine to 75mg po qhs. continue prolixin 5mg po BID. Continue lithium 300mg po BID. 06/10 increase clozapine to 100mg po qhs. lower prolixin to 5mg po daily. continue lithium 300mg po BID. plan to do ANC on 06/14, lithium level 06/11 increase clozapine 125mg po qhs, continue prolixin 5mg po daily. continue lithium 300mg po BID. 06/12: no change today Reason for continued inpatient stay Substantial Risk for: rapid decompensation Time Spent With Patient Time: Total time managing care of this patient today _15___ minutes.
[2025-06-13 07:59] VITALS: BP 131/77; PULSE 109; RESP 16; TEMP 2.4; TEMP 36.3; O2SAT 97
--- NOTE | 2025-06-13 17:33 | HO.PSYCHPN ---
Subjective Subjective Date of Service: 06/13/25 Reason For Visit: Psych Subjective Notes: Section 7 Guardianship: No Medical Problems Affecting Mental Status: No Interim History: patient seen with with Xi spanish interpreter/translator via video; She was again calm, pleasant, cooperative with the encounter and gave brief responses to questions. She described her mood as good. She said that she slept well and has a good appetite. She denies SI/HI/AVH. She was oriented to being in the hospital only. She did not have any concerns about her care at this time. She states that she's looking forward to leaving the hospital. Medication Compliance: Yes Side effects from medications: No Attending Groups: Intermittent Review of Systems Acute medical concerns: No Medical Review of Systems: unchanged Review of Systems Review of Systems Yes all other systems are reviewed and are negative Mental Status Exam Mental Status Exam Narrative: Appearance: wearing hospital gown, fair hygiene, in NAD Behavior: restless, very poor attention Psychomotor: restless, sitting, standing, grabbing things from the floor that are not there, grabbing this personal lines underwriter's hand Speech: (through interpreters interpretation) seems mostly clear, delayed responses at times, spontaneous, but minimally TP: much more coherent and linear TC: feeling tired Mood: feeling better Affect: congruent SI: denies HI: denies VH/AH: less internally preoccupied Delusions: guarded, but no overt paranoid ideas. Insight/judgment: impaired x 2. Memory/cog: alert, not oriented to place, month, situation. unable to provide coherent information about events leading to this admission. Diagnostics Vital Signs (24Hr): Vital Signs - 24 hr 06/12/25 20:00 06/13/25 07:59 Temperature 36.3 F L Pulse Rate 109 H Respiratory Rate 18 16 Blood Pressure 131/77 Pulse Oximetry 97 Oxygen Delivery Method Room Air BMI result Body Mass Index 26.4 Labs 06/04/25 13:39 06/04/25 13:39 Medications Medications Current Medications Acetaminophen (Acetaminophen 325 Mg Tablet) 650 mg PO Q6H PRN PRN Reason: Headache/Pain, Scale 1-10 Last Admin: 06/12/25 11:28 Dose: 650 mg Al Hydroxide/Mg Hydroxide (Magnesium Hydrox/Alum Hydrox 30 Ml Oral.Susp) 30 ml PO Q6H PRN PRN Reason: Heartburn/Nausea Clozapine (Clozapine 25 Mg Tablet) 125 mg PO BEDTIME [facility]AI Last Admin: 06/12/25 20:58 Dose: 125 mg Fluphenazine HCl (Fluphenazine Hcl 5 Mg Tablet) 5 mg PO DAILY [facility] Last Admin: 06/13/25 08:50 Dose: 5 mg [place] Carbonate ([place] Carbonate 300 Mg Capsule) 300 mg PO BID [facility] Last Admin: 06/13/25 08:50 Dose: 300 mg Lorazepam (Lorazepam 0.5 Mg Tablet) 0.5 mg PO BEDTIME PRN PRN Reason: sleep Magnesium Hydroxide (Milk Of Magnesia 30 Ml Oral.Susp) 30 ml PO DAILY PRN PRN Reason: Constipation Olanzapine (Olanzapine Odt 10 Mg Tab.Rapdis) 10 mg TRANSLINGU Q5H PRN PRN Reason: agitation Last Admin: 06/03/25 00:44 Dose: 10 mg Trazodone HCl (Trazodone Hcl 50 Mg Tablet) 50 mg PO BEDTIME MRX1 PRN PRN Reason: Insomnia Last Admin: 05/30/25 22:55 Dose: 50 mg Allergies Allergies Allergy/AdvReac Type Severity Reaction Status Date / Time No Known Allergies Allergy Verified 05/02/25 17:30 Assessment & Plan Assessment & Plan (1) Schizoaffective disorder: Status: Inactive Code(s): F25.9 - Schizoaffective disorder, unspecified Plan Mrs. Mills is a 44 year-old woman with hx of schizoaffective disorder who has an unusual presentation in that she has very impaired attention, what seemed to be purposeless and disorganized behaviors, delayed response, derailed thought process suggesting a delirious presentation. Medical work up has been comprehensive and has ruled out an infection nature with negative CSF meningitis panel, no overt electrolyte, nor renal nor liver abnormality. Per usual presentation when decompensated is similar to her current presentation. 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 Note that PAPI is negative to rule out rheumatological condition causing psychosis and disorganized behavior. No leukocytosis nor afebrile. Discussed risks, benefits and alternative treatment options with , will lowered haldol to 10mg po BID- currently does not present with EPS but question additional therapeutic benefit with such high dose. Will also lowered depakote as although ammonia is wnl can contribute to encephalopathy (will monitor worsening of condition). Will add ativan r/o excitatory catatonia as presenting s/s of decompensated mental illness. PLAN 05/28 lower depakote to 125mg po BID, may try increasing ativan and seeing if it has some effect of what may be excitatory catatonia. Continue haldol 10mg po BID. cogentin 0.5mg po BID. Lamictal had been started in ICU currently on 50mg po BID, will continue it for now. 05/29: continue current management and treatment plan. 05/30: Increase Depakote to 250 mg BID. 05/31: Increase Depakote to 375 mg BID. 06/01 increase haldol 10mg TID, increase ativan to 1mg po TID. monitor oversedation, EPS. consider switching depakote to lithium. 06/02 continue current medications. 06/03 continue tx. 06/04 change haldol to prolixin given perioral dyskinesia- both high potency but hoping prolixin less than haldol. may consider next week switching gradually to clozapine all together. 06/07 much improved in terms of TP more organized and logical, less paranoid delusions. She is taking medications prescribed- except for over the weekend once. She reports when meds are crushed they are bitter. plan to switch to clozapine gradually titrate up. continue lithium. 06/08 increase clozapine to 50mg po qhs. Continue lithium 300mg po BID, lower depakote to 250mg po daily with plan to d/c tomorrow. lower ativan to 0.5mg po BID with plan to taper off. 06/09 increase clozapine to 75mg po qhs. continue prolixin 5mg po BID. Continue lithium 300mg po BID. 06/10 increase clozapine to 100mg po qhs. lower prolixin to 5mg po daily. continue lithium 300mg po BID. plan to do ANC on 06/14, lithium level 06/11 increase clozapine 125mg po qhs, continue prolixin 5mg po daily. continue lithium 300mg po BID. 06/12, 06/13: no change today Patient educated on: diagnosis and medication risk/benefits Informed Consent: further education needed Reason for continued inpatient stay Substantial Risk for: inability to function and rapid decompensation Time Spent With Patient Time: Total time managing care of this patient today __15__ minutes.
[2025-06-13 20:00] VITALS: BP 129/71; PULSE 123; RESP 17; TEMP 35.6; O2SAT 98
[2025-06-13 21:09] VITALS: PULSE 98
[2025-06-14 08:00] VITALS: BP 134/82; PULSE 117; RESP 14; TEMP 36.6; O2SAT 96
--- NOTE | 2025-06-14 08:33 | HO.PM.IMCN ---
History of Present Illness Data of Consult Service Date: 06/14/25 Primary Care Provider: Unknown Physician HPI Reason for consult: Medical management 44 year old female with PMH of schizoaffective DO uncontrollable agitation and initially admitted to the ICU on a Precedex drip due to. Transferred to [facility] for further treatment after she was medically stable. Her workup was extensive including no electrolyte abnormalties; negative CT of head, c-spine, CTA of head/neck; LP negative; PAPI negative, UA negative; respiratory panel negative; tick panel negative, lumbar puncture negative, no HIV, or hep C infections, no renal or liver impairments. Per she demonstrates a similar presentation when she decompensates. She has been improving while on psychiatric unit. Patient seen and examined on unit with assistance from [employer] counter manager #[id number]. Patient reports all over body pain which is been ongoing for several years, she denies any shortness of breath, denies any abdominal pain, reports occasional constipation, voiding within normal limits. She otherwise feels well and much improved looking forward to going home tomorrow. Patient does not know where she is or what the date is. Review of Systems Review of Systems: Denies any shortness of breath, chest pain, dizziness, lightheadedness, abdominal pain or discomfort, nausea vomiting or diarrhea PMFSH Medical History (Updated 06/14/25 @ 13:12 by Alana Gonsalez DNP) Schizoaffective disorder Post traumatic stress disorder (PTSD) Social History Household Members: Unknown / Unable to assess Household Members Other:: Pt refused to answer assessment questions. Unable to assess alcohol history related to: Unable to respond Comment: 1:1 supervision Patient Tobacco Use Status: Refuse Tobacco use screen Currently Displaying Signs/Symptoms of Drug Intoxication Withdrawal: No Advance Directives: No Advance Directives Information Provided: Yes Do you have thoughts of harming others: None Do you have a plan to hurt others: No Plan Recently lost weight without trying: Unsure How much weight loss: Unsure Eating poorly because of decreased appetite: No Nutrition screen score: 4 Nutrition Risks: On aspiration precautions Patient : No : No Poor oral hygiene: No service: No Sexual orientation: Straight/Heterosexual Meds Allergies Allergy/AdvReac Type Severity Reaction Status Date / Time No Known Allergies Allergy Verified 05/02/25 17:30 Active Medications: Current Medications Acetaminophen (Acetaminophen 325 Mg Tablet) 650 mg PO Q6H PRN PRN Reason: Headache/Pain, Scale 1-10 Last Admin: 06/13/25 21:14 Dose: 650 mg Al Hydroxide/Mg Hydroxide (Magnesium Hydrox/Alum Hydrox 30 Ml Oral.Susp) 30 ml PO Q6H PRN PRN Reason: Heartburn/Nausea Clozapine (Clozapine 25 Mg Tablet) 125 mg PO BEDTIME [facility]AI Last Admin: 06/13/25 21:15 Dose: 125 mg Fluphenazine HCl (Fluphenazine Hcl 5 Mg Tablet) 5 mg PO DAILY [facility] Last Admin: 06/13/25 08:50 Dose: [address] [place] Carbonate ([place] Carbonate 300 Mg Capsule) 300 mg PO BID [facility] Last Admin: 06/13/25 21:15 Dose: 300 mg Lorazepam (Lorazepam 0.5 Mg Tablet) 0.5 mg PO BEDTIME PRN PRN Reason: sleep Magnesium Hydroxide (Milk Of Magnesia 30 Ml Oral.Susp) 30 ml PO DAILY PRN PRN Reason: Constipation Olanzapine (Olanzapine Odt 10 Mg Tab.Rapdis) 10 mg TRANSLINGU Q5H PRN PRN Reason: agitation Last Admin: 06/03/25 00:44 Dose: 10 mg Trazodone HCl (Trazodone Hcl 50 Mg Tablet) 50 mg PO BEDTIME MRX1 PRN PRN Reason: Insomnia Last Admin: 05/30/25 22:55 Dose: 50 mg Home Medications ?Medication ?Instructions ?Recorded ?Confirmed ?Last Taken ?Type haloperidol 10 mg tablet 20 mg PO BEDTIME 05/03/25 05/26/25 Unknown History Physical Exam Vital Signs and Narrative: Vital Signs: Last Vital Signs Temp 96.1 F L 06/13/25 20:00 Pulse 98 06/13/25 21:09 Resp 17 06/13/25 20:00 BP 129/71 06/13/25 20:00 Pulse Ox 98 06/13/25 20:00 O2 Del Method Room Air 06/13/25 20:00 BMI result Body Mass Index 26.4 CONST: Alert and oriented, in NAD. Well nourished HEENT: Normocephalic, atraumatic, MMM, Eyes clear, Neck supple RESP: Lungs clear, RRR even and regular HEART:,RRR, S1, S2. No edema GI:Abdomen Soft NT, ND. + BS times four :Deferred SKIN: Warm dry and intact, no visible lesions or rashes. Calves soft. NEURO:CN II-XII Intact bilaterally, Sensation intact. Speech clear PSYCH: Normal affect Results Labs 06/04/25 13:39 06/14/25 09:34 Assessment and Plan (1) Schizoaffective disorder: Status: Acute Plan 44-year-old female with decompensated schizoaffective disorder admitted to inpatient geriatric psych for further care and treatment. Patient is significantly improved with plans to DC home soon. Schizoaffective disorder/acute delirium/PTSD Treatment per psychiatric team Generalized body pain Tylenol as needed, recent extensive medical workup within normal limits. Thank you for allowing me to participate in the care of this patient. Signing off at this time. Please reconsult of any acute concerns or issues arise
--- NOTE | 2025-06-14 08:45 | P.PNPSI_ITS ---
Subjective Subjective Date of Service: 06/14/25 Reason For Visit: Psych Interim History: Pt interview with assistance of emergency spill response technician via [employer] ID [id number]. Pt reports she is sleeping well. She reports feeling better with medications but asked to elaborate, simply reports she feels better. No overt delusional content. No behavioral concerns. She also denies SI/HI. plan to d/c tomorrow. Labs done this AM- slight elevation in AST/ALT 40/60, lithium level 0.31, BUN 14, cr 0.81. will check LFTs tomorrow to see if they are trending down or up. Review of Systems Review of Systems Denies any shortness of breath, chest pain, dizziness, lightheadedness, abdominal pain or discomfort, nausea vomiting or diarrhea Yes all other systems are reviewed and are negative Mental Status Exam Mental Status Exam Narrative: Appearance: wearing hospital gown, fair hygiene, in NAD Behavior: restless, very poor attention Psychomotor: restless, sitting, standing, grabbing things from the floor that are not there, grabbing this display card writer's hand Speech: (through interpreters interpretation) seems mostly clear, delayed responses at times, spontaneous, but minimally TP: much more coherent and linear TC: feeling tired Mood: feeling better Affect: congruent SI: denies HI: denies VH/AH: less internally preoccupied Delusions: guarded, but no overt paranoid ideas. Insight/judgment: impaired x 2. Memory/cog: alert, not oriented to place, month, situation. unable to provide coherent information about events leading to this admission. Diagnostics Vital Signs (24Hr): Vital Signs - 24 hr 06/13/25 20:00 06/13/25 21:09 06/14/25 08:00 Temperature 96.1 F L 97.8 F Pulse Rate 123 H 98 117 H Respiratory Rate 17 14 Blood Pressure 129/71 134/82 Pulse Oximetry 98 96 Oxygen Delivery Method Room Air Room Air BMI result Body Mass Index 26.4 Labs 06/04/25 13:39 06/14/25 09:34 Medications Medications Current Medications Acetaminophen (Acetaminophen 325 Mg Tablet) 650 mg PO Q6H PRN PRN Reason: Headache/Pain, Scale 1-10 Last Admin: 06/13/25 21:14 Dose: 650 mg Al Hydroxide/Mg Hydroxide (Magnesium Hydrox/Alum Hydrox 30 Ml Oral.Susp) 30 ml PO Q6H PRN PRN Reason: Heartburn/Nausea Clozapine (Clozapine 25 Mg Tablet) 125 mg PO BEDTIME [facility] Last Admin: 06/13/25 21:15 Dose: 125 mg Fluphenazine HCl (Fluphenazine Hcl 5 Mg Tablet) 5 mg PO DAILY [facility] Last Admin: 06/14/25 08:43 Dose: 5 mg [place] Carbonate ([place] Carbonate 300 Mg Capsule) 300 mg PO BID [facility] Last Admin: 06/14/25 08:43 Dose: 300 mg Lorazepam (Lorazepam 0.5 Mg Tablet) 0.5 mg PO BEDTIME PRN PRN Reason: sleep Magnesium Hydroxide (Milk Of Magnesia 30 Ml Oral.Susp) 30 ml PO DAILY PRN PRN Reason: Constipation Olanzapine (Olanzapine Odt 10 Mg Tab.Rapdis) 10 mg TRANSLINGU Q5H PRN PRN Reason: agitation Last Admin: 06/03/25 00:44 Dose: 10 mg Trazodone HCl (Trazodone Hcl 50 Mg Tablet) 50 mg PO BEDTIME MRX1 PRN PRN Reason: Insomnia Last Admin: 05/30/25 22:55 Dose: 50 mg Allergies Allergies Allergy/AdvReac Type Severity Reaction Status Date / Time No Known Allergies Allergy Verified 05/02/25 17:30 Assessment & Plan Assessment & Plan (1) Schizoaffective disorder: Status: Acute Code(s): F25.9 - Schizoaffective disorder, unspecified Plan Mrs. Mills is a 44 year-old woman with hx of schizoaffective disorder who has an unusual presentation in that she has very impaired attention, what seemed to be purposeless and disorganized behaviors, delayed response, derailed thought process suggesting a delirious presentation. Medical work up has been comprehensive and has ruled out an infection nature with negative CSF meningitis panel, no overt electrolyte, nor renal nor liver abnormality. Per usual presentation when decompensated is similar to her current presentation. 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 Note that PAPI is negative to rule out rheumatological condition causing psychosis and disorganized behavior. No leukocytosis nor afebrile. Discussed risks, benefits and alternative treatment options with , will lowered haldol to 10mg po BID- currently does not present with EPS but question additional therapeutic benefit with such high dose. Will also lowered depakote as although ammonia is wnl can contribute to encephalopathy (will monitor worsening of condition). Will add ativan r/o excitatory catatonia as presenting s/s of decompensated mental illness. PLAN 05/28 lower depakote to 125mg po BID, may try increasing ativan and seeing if it has some effect of what may be excitatory catatonia. Continue haldol 10mg po BID. cogentin 0.5mg po BID. Lamictal had been started in ICU currently on 50mg po BID, will continue it for now. 05/29: continue current management and treatment plan. 05/30: Increase Depakote to 250 mg BID. 05/31: Increase Depakote to 375 mg BID. 06/01 increase haldol 10mg TID, increase ativan to 1mg po TID. monitor oversedation, EPS. consider switching depakote to lithium. 06/02 continue current medications. 06/03 continue tx. 06/04 change haldol to prolixin given perioral dyskinesia- both high potency but hoping prolixin less than haldol. may consider next week switching gradually to clozapine all together. 06/07 much improved in terms of TP more organized and logical, less paranoid delusions. She is taking medications prescribed- except for over the weekend once. She reports when meds are crushed they are bitter. plan to switch to clozapine gradually titrate up. continue lithium. 06/08 increase clozapine to 50mg po qhs. Continue lithium 300mg po BID, lower depakote to 250mg po daily with plan to d/c tomorrow. lower ativan to 0.5mg po BID with plan to taper off. 06/09 increase clozapine to 75mg po qhs. continue prolixin 5mg po BID. Continue lithium 300mg po BID. 06/10 increase clozapine to 100mg po qhs. lower prolixin to 5mg po daily. continue lithium 300mg po BID. plan to do ANC on 06/14, lithium level 06/11 increase clozapine 125mg po qhs, continue prolixin 5mg po daily. continue lithium 300mg po BID. 06/12, 06/13: no change today 06/14 abs done this AM- slight elevation in AST/ALT 40/60, lithium level 0.31, BUN 14, cr 0.81. will check LFTs tomorrow to see if they are trending down or up. plan to d/c tomorrow. Reason for continued inpatient stay Substantial Risk for: inability to function Time Spent With Patient Time: Total time managing care of this patient today ____ minutes.
[2025-06-14 09:22] LABS: Lithium 0.31 mmol/L (0.60-1.20)
[2025-06-14 09:59] LABS: Alanine Aminotransferase 60 U/L (0-31); Albumin Level 3.9 g/dL (3.5-5.0); Alkaline Phosphatase 82 U/L (39-117); Anion Gap 12 (12-20); Aspartate Amino Transferase 40 U/L (5-31); Blood Urea Nitrogen 14 mg/dL (9-16); Calcium 8.9 mg/dL (8.4-10.2); Carbon Dioxide 24 mmol/L (22-29); Chloride 108 mmol/L (96-108); Creatinine Clr Calc Pharmacy 88.1; Estimated Glomerular Filt Rate > 60; Potassium 3.8 mmol/L (3.3-5.1); Sodium 140 mmol/L (135-145); Total Protein 7.6 g/dL (6.5-8.0)
[2025-06-14 20:00] VITALS: BP 134/84; PULSE 115; RESP 16; TEMP 35.8; O2SAT 97
--- NOTE | 2025-06-15 | ECG_ITS ---
Test Reason : tachycardia Blood Pressure : */* mmHG Vent. Rate : 112 BPM Atrial Rate : 112 BPM P-R Int : 114 ms QRS Dur : 62 ms QT Int : 320 ms P-R-T Axes : 65 45 18 degrees QTcB Int : 436 ms Sinus tachycardia Nonspecific T wave abnormality Abnormal ECG When compared with ECG of 03-May-2025 04:10, No significant change was found Referred By: Kassidy Jones Electronically Signed By: LEANDRA CHAPARRO
[2025-06-15 08:26] LABS: Alanine Aminotransferase 57 U/L (0-31); Albumin Level 4.0 g/dL (3.5-5.0); Alkaline Phosphatase 83 U/L (39-117); Aspartate Amino Transferase 37 U/L (5-31); Total Protein 7.7 g/dL (6.5-8.0)
[2025-06-15 08:30] VITALS: BP 141/85; PULSE 127; RESP 14; TEMP 35.6; O2SAT 99
[2025-06-15 08:52] LABS: HBS Num1 219.96 mIU/mL (0-7.99); HBc Num1 5.84 S/CO (0.00-0.79); HBsAGNum1 0.41 S/CO (0.00-0.99); Hepatitis A Antibody IgM 0.21 Index (0-0.79); Hepatitis B Surface Antigen Negative (Negative); ~HepC Num1 0.11 S/CO (0.00-0.79); ~Hepatitis A Antibody IgM Nonreactive (Nonreactive); ~Hepatitis B Surface Antibody REACTIVE (Nonreactive); ~Hepatitis C Antibody Nonreactive (Nonreactive)
--- NOTE | 2025-06-15 09:11 | P.DS_ITS ---
DS: Providers Provider Date of Service: 06/15/25 Date of admission: 05/26/25 15:52 Date of discharge: 06/15/25 Primary care physician: Unknown Physician DS: Diagnosis Discharge Diagnosis (1) Schizoaffective disorder: Status: Acute DS: Medications Discharge Medications Home Medications: Home Medications ?Medication ?Instructions ?Recorded ?Confirmed haloperidol 10 mg tablet 20 mg PO BEDTIME 05/03/25 Previous Rx's ?Medication ?Instructions ?Recorded benztropine 1 mg tablet 1 mg PO BID #1 tab 05/17/25 diazepam 5 mg/mL injection syringe 5 mg IVPUSH BID PRN agitation #20 05/17/25 mL haloperidol 5 mg tablet 10 mg (2 x 5 mg) PO DAILY #1 tab 05/17/25 lamotrigine 25 mg tablet 50 mg (2 x 25 mg) PO BID #1 tab 05/17/25 valproic acid (as sodium salt) 250 500 mg (10 mL) PO B ID #100 mL 05/17/25 mg/5 mL (5 mL) oral solution Mental Status Exam Mental Status Exam Narrative: Appearance: casually groomed, good hygiene, in NAD Behavior:cooperative, friendly Psychomotor: no overt agitation or retardation noted. Perioral movement subsi ded. Speech: (through interpreters interpretation) seems mostly clear, regular rate, spontaneous. TP: much more coherent and linear TC: looking forward to return home Mood: good Affect: congruent SI: denies HI: denies VH/AH: no overt signs. Delusions:none Insight/judgment: improving x 2. Memory/cog: alert, oriented to place, month, date and situation. Data Data Completed and Pending Completed studies during hospitalization [Text1]: 06/11/25 06/14/25 06/14/25 09:56 07:52 09:34 Absolute Neuts (auto) 4.3 Sodium 140 Potassium 3.8 Chloride 108 Carbon Dioxide 24 Anion Gap 12 BUN 14 Creatinine 0.81 Estim Creat Clear Calc 88.1 Estimated GFR > 60 Random Glucose 145 H Calcium 8.9 Total Bilirubin 0.3 Direct Bilirubin AST 40 H ALT 60 H Alkaline Phosphatase 82 Total Protein 7.6 Albumin 3.9 TSH 0.89 Clozapine Norclozapine [place] 0.31 L Hepatitis A IgM Ab Hep Bs Antigen Hep Bs Antibody Hep B Core Total Ab Hepatitis C Ab (EIA) 06/14/25 06/15/25 17:11 07:51 Absolute Neuts (auto) Sodium Potassium Chloride Carbon Dioxide Anion Gap BUN Creatinine Estim Creat Clear Calc Estimated GFR Random Glucose Calcium Total Bilirubin 0.5 Direct Bilirubin 0.2 AST 37 H ALT 57 H Alkaline Phosphatase 83 Total Protein 7.7 Albumin 4.0 TSH Clozapine Pending Norclozapine Pending [place] Hepatitis A IgM Ab Pending Hep Bs Antigen Pending Hep Bs Antibody Pending Hep B Core Total Ab Pending Hepatitis C Ab (EIA) Pending DS: Summary Hospital Course Hospital Course: Mrs. Mills is a 44 year-old woman with a hx of bipolar versus schizoaffective disorder from [facility] who initially was brought to [facility] ED from [facility] (psychiatric inpatient unit) due to tachycardia and chest pain on 05/02/2025. She presented as agitated, combative, communication is limited due to language barrier but it appears that answers were not related to asked questions. Her agitation was such that several IM medications were not effective requiring precedex drip and admission to ICU. Pertinent labs at the time of admission include CBC mostly unremarkable without leukocytosis. CMP without electrolyte abnormalities. She did have slightly elevated CK 2333. She was tachycardic with HR as high as in 120's. Her tempperature although not true fever was in higher end of normal 99.3 raising concern for underlying infectious etiology. She underwent LP which was mostly unremarkable. She had head CT given report of sustaining head injury which also was negative for hemorrhage/mass effect. Head CTA also negative for blood clots. Blood cultures were negative. UA did not show signs of UTI. Utox was positive for benzodiazepines which she has been prescribed. Note that patient does have a hx of psychiatric illness (Bipolar versus schizoaffective disorder) and had been stable on combination of haldol/valium. She was started while in the ICU on depakote, currently taking 500mg po BID. On the unit, pt was seen with [employer] educational interpreter in person. Pt presents with very poor attention, at times grabbing things from the floor. She had some difficulty sitting in chair seems related to not being able to asses depth of seat. When asked if she knows where she is she reported at friend's house. She stood up and according to educational interpreter she stated she was going shopping. She sat down again, then stood up and sat on the floor with some degree of incoordination. She stared at this telegraphic typewriter installer at times, told educational interpreter she knew me. Further questions, pt was not able to answer due to very poor attention and what seemed to be purposeless behaviors. No noted EPS on exam. No waxy flexibility but noted some degree of negativism in that certain directions like sit here were met with opposite response. Collateral information gathered from her who reports prior episodes were very similar to how she presents in that she is not able to answer most questions correctly or answers are unrelated to questions asked. reports that she first started to talk too much after not sleeping and then talking about something she was seeing that they could not see. When asked what was she reporting seeing, pt's did not provide more detail. It appears that when unwell, pt's speech does tend to be non sensical. Past Psychiatric History: Inpatient: 2017 admission at [facility] (we have to confirmed hospital but seems like it was this one). Outpatient psychiatrist: Dr. Luís Hopkins ([facility]) hx of taking Haldol 20mg PO bedtime, Diazepam 5mg PO daily and 10mg PO bedtime for the last 5 years per outpatient provider. HOSPITAL COURSE On the unit, pt was admitted on a Sect 12b. She presented as disorganized, very poor attention, grabbing things that were not there. Her speech was mostly non sensical. She was not able to tell where she was. She was suspicious as she started to show improvement, pt reported she thought 3 males were following her since she was at her house. She had been on haldol for some years. It was noted she had perioral involuntary movements. Given that she decompensated even when taking haldol and also has involuntary perioral movements that may lead to TD, decision to change to clozapine, which she tolerated well. She was also started on lithium as mood stabilizer. She gradually presented as much more organized and coherent. Her thought content still had some degree of poverty of thought but she was able to tell that she was in the hospital, that mentally was not doing well and feels better. She also expressed missing her children and hoping to go back home soon. She denied SI/HI. She was sleeping well. She reported overall muscleaches which she reported had for some months. Unclear what that may be causing it and recommended to follow up with her PCP. Status at Discharge Cognitive/behavioral status at discharge: Pt with brighter affect. No overt delusional content noted or reported. No overt psychosis. No SI/HI. She is taking medications as prescribed. Sleeping and eating well. Functional status at discharge: independent ambulation Overall status at discharge: patient is back to baseline Time Spent with Patient Time attestation: Total time managing care of this patient today __45__ minutes. Time spent: Greater than 30 minutes Discharge Plan Discharge Anticipated Discharge Date/Time: 06/15/25 09:13 Patient Disposition: Home, Self-Care Discharge Diagnosis: schizoaffective disorder Referrals: [facility] [Outside] - 1 Day Referral Note: Your visiting nurse services will restart tomorrow morning at your usual time. If you need to cancel to reschedule the nursing service please call the number listed. Luís Hopkins MD [Physician, Psychology] - 3-5 Days Referral Note: office will reach out to you for an aftercare appointment. If you do not hear back from him after 3-5 days please call the number listed. Annie Patel PA [Physician Older Worker Specialist, Internal Medicine] - 06/17/25 1:20 pm Referral Note: You will see Annie Patel on 06/17 at 1:20 pm. You will see her at the [address] [place] [address]. If you need to reschedule or cancel the appointment please call the number listed. Discharge Medications: New lithium carbonate 300 mg Capsule 300 mg PO BID Qty: 60 0RF clozapine 25 mg Tablet 125 mg PO BEDTIME Qty: 35 4RF Discontinued haloperidol 10 mg tablet 20 mg PO BEDTIME haloperidol 5 mg Tablet 10 mg PO DAILY Qty: 1 0RF lamotrigine 25 mg Tablet 50 mg PO BID Qty: 1 0RF benztropine 1 mg Tablet 1 mg PO BID Qty: 1 0RF diazepam 5 mg/mL Syringe 5 mg IVPUSH BID PRN (Reason: agitation) Qty: 20 0RF valproic acid (as sodium salt) 250 mg/5 mL (5 mL) Solution 500 mg PO BID Qty: 100 0RF Discharge Orders: Discharge Order (Routine); Ordered 06/15/25 Ordered By: Kassidy Jones Diet: Regular diet Activity on Discharge: As tolerated Stand Alone Forms: Patient Portal Discharge page, Community Support Print Language: Spanish Care Plan Goals: Maintain mood No SI/HI No VH/AH No Delusions Health Concerns: Follow up with PCP for routine care- slight elevation in LFTs. Plan of Treatment: 1. Take medications as prescribed 2. Go to nearest ED or call 911 in event of emergency Assessment: Pt with brighter affect. No overt delusions or psychosis. No SI/HI. Sleeping well. No behavioral concerns. Discharge Date/Time: 06/15/25 12:35
[2025-06-15 10:55] LABS: HBc Num2 5.63 S/CO; HBc Num3 5.65 S/CO
[2025-06-16 07:28] LABS: Hepatitis B Core Antibody IgM NON-REACTIVE (NON-REACTIVE)
[2025-06-18 13:18] LABS: Clozapine (Clozaril) 198 mcg/L
== END 2025-06-15 12:35 | disposition home or self-care (01) | DRG 750 ==
PROVIDERS: Social Worker; Admitting Provider Psychiatry & Neurology Psychiatry; Visit Provider Psychiatry & Neurology Psychiatry
DX: F25.9 Schizoaffective disorder, unspecified (principal); F05 Delirium due to known physiological condition; F43.10 Post-traumatic stress disorder, unspecified; Z79.899 Other long term (current) drug therapy
CPT/HCPCS: 36415; 80053; 80076; 80159; 80178; 82550; 83605; 84443; 85025; 85048; 86704; 86705; 86706; 86709; 86803; 87340; 92526; 93005; J2359; J3360

== ENCOUNTER → 2025-05-26 15:52 | Outpatient (BNV) | payer MEDICAID, SELFPAY | PROVIDERS: Admitting Provider Psychiatry & Neurology Psychiatry; Visit Provider Nurse Practitioner Family | DX: Z00.8 Encounter for other general examination (principal) | CPT/HCPCS: 99429 ==

== ENCOUNTER → 2025-05-26 15:52 | Outpatient (BNV) | payer OTHER, SELFPAY | PROVIDERS: Admitting Provider Psychiatry & Neurology Psychiatry; Visit Provider Social Worker | DX: F25.9 Schizoaffective disorder, unspecified (principal) | CPT/HCPCS: 99231; 99232 ==